=== PATIENT | male | born 1940 | race Caucasian/White ===

== ENCOUNTER → 2017-03-07 | Outpatient (CLI) | payer MEDICARE | END | disposition home or self-care (01) | LOC: LABWHC1 07:13 | PROVIDERS: ATTEND Orthopaedic Surgery | DX: Z01.812 Encounter for preprocedural laboratory examination (principal) | CPT/HCPCS: 87070 ==

== ENCOUNTER → 2017-04-20 | Outpatient (CLI) | payer MEDICARE ==
[2017-04-20 07:55] LABS: Appearance,Urine Clear (Clear); Bilirubin,Urine Negative (Negative); Glucose,Urine (UA) Negative (Negative); Ketones,Urine Negative (Negative); Leukocyte Esterase,Urine Negative (Negative); Nitrite,Urine Negative (Negative); PH, Urine 5.5 (5.0-8.0); Protein,Urine Negative (Negative); Specific Gravity,Urine 1.014 (1.001-1.035); UA Billing (MACRO vs. MICRO) CHEM; Urobilinogen,Urine <2.0 mg/dL (<2.0)
[2017-04-20 07:58] LABS: Basophils % (A) 1 %; CHCM 32.2; Eosinophils # (A) 0.1 k/uL (0-0.7); Eosinophils % (A) 1 %; HCT 48.4 % (39.0-53.0); HDW 2.55; HGB 15.5 gm/dL (13.0-17.5); Luc # (Auto) 0.12; Luc % (Auto) 3; Lymphocytes # (A) 1.3 k/uL (1.0-4.8); Lymphocytes % (A) 28 %; Mean Platelet Volume 6.9; Monocytes # (A) 0.5 k/uL (0-1.0); Monocytes % (A) 12 %; Neutrophils # (A) 2.5 k/uL (1.3-7.7); Neutrophils % (A) 56 %; RBC 4.84 m/uL (4.30-5.90); RDW 13.1 % (11.5-15.5); WBC 4.6 k/uL (3.8-10.6); WBC (Perox) 4.61
[2017-04-20 07:59] LABS: INR 1.1 (<1.2); Prothrombin Time 11.2 sec (9.0-12.0)
[2017-04-20 08:10] LABS: ALT 35 U/L (21-72); AST 22 U/L (17-59); Alkaline Phosphatase 85 U/L (38-126); Anion Gap 12 mmol/L; Blood Urea Nitrogen 22 mg/dL (9-20); Calcium 9.4 mg/dL (8.4-10.2); Carbon Dioxide 21 mmol/L (22-30); Chloride 106 mmol/L (98-107); Glucose 115 mg/dL (74-99); Non-African American GFR(MDRD) >60 (>60 ml/min/1.73 sqM); Potassium 4.8 mmol/L (3.5-5.1); Sodium 139 mmol/L (137-145); Total Bilirubin 1.6 mg/dL (0.2-1.3); Total Protein 7.3 g/dL (6.3-8.2)
== END | disposition home or self-care (01) ==
LOC: LABWHC1 07:23
PROVIDERS: ATTEND Internal Medicine Geriatric Medicine
DX: Z01.812 Encounter for preprocedural laboratory examination (principal)
CPT/HCPCS: 36415; 80053; 81003; 85025; 85610

== ENCOUNTER 2017-05-01 10:05 | Inpatient (IN) | payer MEDICARE ==
[2017-04-21 14:27] VITALS: BMI 28.2
--- NOTE | 2017-04-30 11:10 | HP ---
HISTORY AND PHYSICAL Surgery scheduled 05/01/2017 HISTORY OF PRESENT ILLNESS: Cam Tripp is a 76-year-old patient seen with symptomatic right knee osteoarthritis. After treatment options were discussed, he elected to proceed with right total knee arthroplasty. Consent was obtained. Preoperative medical clearance was provided by Dr. Hernandez. Preoperative cardiac clearance was provided by Dr. Rutherford. PAST MEDICAL HISTORY: Cardiovascular disease. Gastroesophageal reflux disease, hyperlipidemia, hypertension. PAST SURGICAL HISTORY: Is noncontributory. DAILY MEDICATIONS: 1. Crestor. 2. Enalapril. 3. Omeprazole. 4. Carvedilol. 5. Celebrex. ALLERGIES: None reported. SOCIAL HISTORY: Patient denies tobacco use. PHYSICAL EXAMINATION: Evaluation of the right knee range of motion -3 to 115 degrees. Tenderness medial joint line. Positive medial Heike's. Crepitus along the medial and patellofemoral compartments. Range of motion. Ligaments stable. Hip rotation without pain. Distal neurovascular exam intact. RADIOGRAPHS: Of the right knee revealed severe medial and moderate patellofemoral compartment osteoarthritis. IMPRESSION: Right knee osteoarthritis. PLAN: Right total knee arthroplasty. Surgery is 05/01/2017. MMODL / IJN: [id number] /
[~2017-05-01 10:05] MED LIST: ACETAMINOPHEN TAB 500 MG TAB PO ONE; DEXAMETHASONE SOD PHOSPHATE 10 MG/ML 1 ML VIAL IV ONE; HYDROmorphone 0.5 MG/0.5 ML SYRINGE IVP PRN; MELOXICAM 7.5 MG TAB PO ONE; MIDAZOLAM 2 MG/2 ML VIAL IV PRN; ONDANSETRON 4 MG/2 ML VIAL IVP ONE; TRANEXAMIC ACID 1,000 MG in SODIUM CHLORIDE 0.9% 100 ML IVPB ONE; ceFAZolin 2 GM in SODIUM CHLORIDE 0.9% 100 ML IVPB ONE
[2017-05-01] MEDS ORDERED: LIDOCAINE 1% 20 ML VIAL (10MG/ML) FOR IV START INTRADERMA ONE (13:54)
[2017-05-01] MEDS: LACTATED RINGERS 1,000 ML IV SCH ×2 (13:56→20:48)
[2017-05-01] MEDS ORDERED: MIDAZOLAM 2 MG/2 ML VIAL IV ONE (14:19)
[2017-05-01] MEDS ORDERED: ROPIVACAINE 1,100 MG, SODIUM CHLORIDE 0.9% 330 ML MISCELLANE PRN ×2 (14:41)
--- NOTE | 2017-05-01 14:44 | P.ONQ ---
Anesthesiology Proc Note - PNB - Peripheral Nerve Block Performed Right Adductor Canal Infusion Time Out Performed: Yes Procedure Start Time: 14:22 Procedure Stop Time: 14:30 Indication: Acute Post-Operative Pain, Requested by physician Sedation Type: Sedate with meaningful contact maintained Preparation: Sterile Dressing Position: Supine Catheter: Indwelling Needle Types: On-Q Needle Size: 100mm (4") Needle Gauge: 21 Technique: Ultrasound Injectate: 0.5% Ropivacaine (see comment for volume) (ropi .5% 7cc) Blood Aspirated: No Pain Paresthesia on Injection Noted: No Resistance on Injection: Normal Events: Uneventful and Well Tolerated
[2017-05-01] MEDS ORDERED: KETAMINE 10 MG/ML 20 ML VIAL ONE (15:45)
[2017-05-01] MEDS ORDERED: ESMOLOL 100 MG/10 ML VIAL ONE (15:45)
[2017-05-01] MEDS ORDERED: PROPOFOL 10 MG/ML 20 ML VIAL IV ONE (15:45)
[2017-05-01] MEDS ORDERED: TRANEXAMIC ACID 1,000 MG/10 ML VIAL ONE (15:45)
[2017-05-01] MEDS ORDERED: fentaNYL (PF) 50 MCG/ML 2 ML AMP ONE (15:45)
[2017-05-01] MEDS ORDERED: SODIUM CHLORIDE 0.9% 100 ML BAG ONE (15:45)
[2017-05-01] MEDS ORDERED: GLYCOPYRROLATE 0.2 MG/ML 2 ML VIAL ONE (15:45)
[2017-05-01] MEDS ORDERED: diphenhydrAMINE 50 MG/ML 1 ML VIAL ONE (15:45)
[2017-05-01] MEDS ORDERED: MIDAZOLAM 2 MG/2 ML VIAL ONE (15:45)
[2017-05-01] MEDS ORDERED: ceFAZolin 3,000 MG in SODIUM CHLORIDE 0.9% IRRIGATIO 3,000 ML IRRIGATION ONE (15:59)
[2017-05-01] MEDS: ROPIVACAINE 246.25 MG, EPINEPHrine 0.5 MG, KETOROLAC 30 MG, cloNIDine HCL/PF 80 MCG, WA... MISCELLANE ONE ×10 (16:28→17:12)
[2017-05-01] MEDS ORDERED: LACTATED RINGERS 1,000 ML IV ONE (16:52)
[2017-05-01] MEDS ORDERED: hydrOXYzine PAMOATE 25 MG CAP PO PRN (17:55)
[2017-05-01] MEDS ORDERED: NALOXONE 0.4 MG/ML 1 ML VIAL IV PRN (17:55)
[2017-05-01] MEDS ORDERED: HYDROmorphone 0.5 MG/0.5 ML SYRINGE IVP PRN ×3 (17:55)
[2017-05-01] MEDS ORDERED: HYDROcodone/APAP 5-325MG 1 EACH TAB PO PRN (17:55)
--- NOTE | 2017-05-01 17:55 | P.OP ---
Date of Procedure: 05/01/17 Preoperative Diagnosis: Right knee osteoarthritis Postoperative Diagnosis: Right knee osteoarthritis Procedure(s) Performed: Right total knee arthroplasty Implants: 1. Javier persona cemented cruciate retaining right size 11 femur 2. Javier persona cemented size H right cemented tibia 3. Javier persona 11 mm medial congruent polyethylene tibial insert 4. Javier persona cemented all polyethylene 38 mm patella Anesthesia: regional (Adductor canal catheter), local, spinal Surgeon: Yadiel Valles Director Online Marketing #1: Alban Decker Estimated Blood Loss (ml): 150 Pathology: other (Bone) Condition: stable Disposition: PACU Indications for Procedure: 76-year-old patient seen with symptomatic right knee osteoarthritis. After treatment options were discussed, he elected to proceed with total knee arthroplasty. Operative Findings: see description of procedure Description of Procedure: Patient was taken to the operative suite after having placement of an adductor canal catheter by the department of anesthesia. Patient underwent a spinal anesthetic by the department of anesthesia. Patient was given preoperative IV intake antibiotics and TXA. A well-padded tourniquet was placed about the right lower extremity. The lower extremity was then prepped and draped in the normal sterile orthopedic fashion. The extremity was elevated, a tourniquet was insufflated to 350. A standard anterior incision was made sharply through skin. Dissection was taken down through the subcutaneous soft tissues down to the extensor mechanism. A medial arthrotomy was performed, patella was everted and knee was flexed. There was advanced osteoarthritis noted. A proximal tibial cutting guide was positioned. Proximal tibial cut was made. A distal intramedullary femoral cutting guide was positioned, distal femoral cut made. We placed the appropriate sizing guide and selected the appropriate size. A distal 4-in-1 femoral cutting block was positioned, distal femoral cuts were made. We now placed a trial femoral component into position, along with an appropriate size tibial tray and insert. We now took the knee through range of motion and had full extension good flexion and good overall soft tissue balance noted. The patella was everted and a flush cut made with patellar quad tendon. We templated the patella, appropriate drill holes were made. An appropriate trial patella was positioned, knee was taken through full range of motion with the patella tracking very nicely. The trial patella was removed. Drill holes were made through the femoral component. All trial components were removed after marking off the appropriate rotation of the tibia. Retractors were now positioned along the proximal tibia. An appropriate keel punch was made with the appropriate size tibial guide. At this point appropriate size implants were chosen and opened. The joint was irrigated copiously with pulse lavage mechanical irrigation. The deep soft tissues were infiltrated local analgesic. We mixed antibiotic methylmethacrylate. Once the methyl methacrylate was ready, the tibial component was cemented into place removing any excess methylmethacrylate. The femoral component was cemented into place removing the removing any excess methylmethacrylate. We then inserted the appropriate size polyethylene tibial insert. We made sure that it was locked into position. We took the knee into full extension, and then back in a flexion making sure we had removed any excess methylmethacrylate. The patellar component was then cemented down and secured with clamp. Excess methylmethacrylate removed. We kept the knee in full extension, patellar clamp in position until methylmethacrylate had hardened. Once it had hardened the patellar clamp was removed. The knee was taken through full range of motion. The patella tracked nicely. There was good soft tissue balancing. The tourniquet was now released. Additional hemostasis was achieved via electrocautery. A second gram of TXA was given. The wound was irrigated with pulse lavage mechanical irrigation. The extensor mechanism was repaired with Vicryl. We checked the repair with range of motion and it was stable. The subcutaneous soft tissues were repaired with Vicryl in layers. The skin was approximated with pernio/ Dermabond. Sterile dressings were applied followed by loose web roll and Patricio bandage. The patient was transferred to a bed, and taken to recovery in stable and satisfactory condition. Peewee DAVILA assisted with the procedure.
--- NOTE | 2017-05-01 18:26 | XR ---
EXAMINATION TYPE: XR knee limited RT DATE OF EXAM: 05/01/2017 COMPARISON: NONE HISTORY: Postop TECHNIQUE: 2 views FINDINGS: There is a right knee prosthesis. Components appear in anatomic position. IMPRESSION: Knee prosthesis without sign of a complicating process.
[2017-05-01] MEDS: SENNOSIDES-DOCUSATE SODIUM 1 EACH TAB PO SCH (20:47)
[2017-05-01] MEDS: traMADol 50 MG TAB PO SCH ×2 (20:47→22:11)
[2017-05-01] MEDS: SODIUM CHLORIDE 0.9% 1,000 ML IV SCH (20:48)
[2017-05-01] MEDS: ceFAZolin 2 GM in SODIUM CHLORIDE 0.9% 100 ML IVPB SCH (23:20)
--- NOTE | 2017-05-02 06:02 | P.PN ---
Progress Note - Text Progress Note Date: 05/02/17 This is a 76-year-old male, postop day #1 status post total knee replacement. The patient denies any pain this morning and he said that he had a very good night sleep. The patient has adductor canal catheter for pain control and it seems to be working very well.
[2017-05-02 07:19] LABS: Basophils % (A) 0 %; CH 32.2; CHCM 32.8; Eosinophils % (A) 0 %; HCT 40.7 % (39.0-53.0); HDW 2.54; HGB 13.5 gm/dL (13.0-17.5); Luc # (Auto) 0.08; Luc % (Auto) 1; Lymphocytes # (A) 0.8 k/uL (1.0-4.8); Lymphocytes % (A) 7 %; MCH 32.8 pg (25.0-35.0); MCHC 33.2 g/dL (31.0-37.0); MCV 98.7 fL (80.0-100.0); Monocytes # (A) 0.8 k/uL (0-1.0); Monocytes % (A) 7 %; Neutrophils # (A) 10.4 k/uL (1.3-7.7); Neutrophils % (A) 86 %; RBC 4.13 m/uL (4.30-5.90); RDW 12.9 % (11.5-15.5); WBC 12.1 k/uL (3.8-10.6); WBC (Perox) 12.82
[2017-05-02] MEDS: FAMOTIDINE 20 MG TAB PO SCH (08:38)
[2017-05-02] MEDS: ENOXAPARIN 30 MG/0.3 ML SYRINGE SQ SCH ×2 (08:38→21:04)
[2017-05-02] MEDS: MELOXICAM 7.5 MG TAB PO SCH (08:38)
[2017-05-02] MEDS: traMADol 50 MG TAB PO SCH ×4 (08:39→21:03)
[2017-05-02] MEDS: ceFAZolin 2 GM in SODIUM CHLORIDE 0.9% 100 ML IVPB SCH (08:42)
--- NOTE | 2017-05-02 10:30 | P.PN ---
Subjective Progress Note Date: 05/02/17 Principal diagnosis: Status post right total knee arthroplasty Patient is seen today resting in his hospital bed, he appears comfortable. Pain is well-controlled in his knee. He's work with therapy at this point. He denies any headaches, lightheadedness, chest pain or shortness of breath. Objective - Vital Signs Vital signs: Vital Signs Temp 97.8 F 05/02/17 07:41 Pulse 89 05/02/17 07:41 Resp 16 05/02/17 08:00 BP 122/79 05/02/17 07:41 Pulse Ox 96 05/02/17 07:41 Intake & Output 05/01/17 05/02/17 05/02/17 18:59 06:59 18:59 Intake Total 1801 800 Output Total 350 775 100 Balance 1451 25 -100 Intake: IV 1801 Intake, IV Titration 800 Amount Sodium Chloride 0.9% 1, 800 000 ml @ 50 mls/hr IV . Q20H [facility] Rx#:[id number] Output: Urine 200 775 100 Uretheral (Pate) 525 100 Estimated Blood Loss 150 Other: Voiding Method Indwelling Catheter Indwelling Catheter # Voids 3 - Exam Right lower extremity: Incision is clean, dry, and intact. The prineo tape is in good condition. There is minimal soft tissue swelling and ecchymosis surrounding the medial and lateral aspects of the incision. Calf is soft, no tenderness with palpation. Plantar flexion, dorsiflexion, EHL, FHL are intact. Sensory exam to light touch throughout the extremity is intact, [dorsal pedis pulses 2+.] - Labs CBC & Chem 7: 05/02/17 06:49 Labs: Abnormal Lab Results - Last 24 Hours (Table) 05/02/17 Range/Units 06:49 WBC 12.1 H (3.8-10.6) k/uL RBC 4.13 L (4.30-5.90) m/uL Neutrophils # 10.4 H (1.3-7.7) k/uL Lymphocytes # 0.8 L (1.0-4.8) k/uL Assessment and Plan Plan: Assessment: 1. Postop day #1 status post right total knee arthroplasty Plan: 1. Pain control, continue use of oral pain medication 2. Continue work with physical therapy 3. Wound care instructions discussed, including icing and elevating techniques 4. GI and DVT prophylaxis, continue subcu medication 5. Medical recommendations 6. Due to the patient's difficulty with stairs along with recent surgery, I would recommend a hospital bed for home after discharge. Patient has 13 stairs to climb to his room, hospital bed would help prevent any further issues. 7. Further recommendations to follow Time with Patient: Less than 30
--- NOTE | 2017-05-02 10:32 | P.DS ---
Providers Date of admission: 05/01/17 13:20 Expected date of discharge: 05/03/17 Attending physician: Yadiel Valles Consults: 05/01/17 17:55 Consult Physician Routine Consulting Provider: Toni Hernandez Reason/Comments: Medical management Do you want consulting provider notified?: Yes Hospital Course: Date of admission: 05/01/2017 Date of discharge: 05/03/2017 Admission diagnosis: Status post right total knee arthroplasty Discharge diagnosis: Same Attending physician: Dr. Valles Surgical procedures: Right total knee arthroplasty Brief history: Patient is a 76-year-old male with a history of progressive primary right knee osteoarthritis. At this point patient has failed conservative treatment measures and has opted to proceed with a elective right total knee arthroplasty. Hospital course: Details of patient's surgery can be found in operative report. Patient tolerated the procedure well and was subsequently transported to orthopedic floor. Patient's orthopeidc and medical care was provided daily. Patient had daily laboratory tests performed for evaluation of overall blood counts. Patient had daily physical therapy to include strengthening range of motion as well as education with walker ambulation. Patient had daily CPM usage as part of their physical therapy program. Patient was treated with Lovenox for their postoperative DVT prophylaxis during their inpatient stay. Patient was noted to have a relatively uneventful postoperative course. Patient reported satisfactory pain control with oral pain medications by postoperative day 0. Patient showed satisfactory progress with physical therapy. Patient moved steadily through the program and had no difficulty meeting the goals by postoperative day 2. Given patient's otherwise satisfactory course and having met physical therapy goals, plan is to discharge patient home on postoperative day 2. Discharge condition/disposition: Patient will be discharged home in stable condition. Discharge medications: Instructions are given on resumption of patient's normal daily medications per primary care recommendation, in addition patient will be prescribed [place] 5 mg/325 mg, Colace 100 mg, aspirin 325 mg. Discharge instructions: 1. Wound care and infection precautions, keep incision dry and covered while showering, no lotions, creams, moisturizers. No soaking, tubs, pools, hottubs. Do not scrub over the incision. 2. Weight-bear as tolerated with walker / cane until follow-up. 3. Ice and elevate when necessary. Do not exceed 20 minutes per hour with ice pack. 4. Utilize compression sleeve until seen at first follow up appointment. 5. Visiting nursing care. 6. Home physical therapy including home CPM. 7. Pain meds and anticoagulants per prescription. 8. Pain medication has potential to cause constipation. Increase oral fluid and fiber intake. Contact primary care provider if you have not had a bowel movement within 48 hours after discharge 9. No anti-inflammatory medication until discussed at first post operative visit, this including Motrin, Aleve, Mobic, Diclofenac. 10. Follow up in office at 2 weeks postop with Peewee Decker PA-C 11. Follow up with your primary care doctor 7-10 days after discharge. 12. Contact [facility] with any questions, . Procedures: Right total knee arthroplasty Patient Condition at Discharge: Good Plan - Discharge Summary New Discharge Prescriptions: New Aspirin 325 mg PO BID #60 tab Docusate [Colace] 100 mg PO DAILY #30 capsule Hydrocodone/Acetaminophen [[place] 5-325] 1 each PO Q6HR PRN #40 tab PRN Reason: Pain Discontinued Aspirin [Adult Low Dose Aspirin EC] 81 mg PO DAILY No Action Ubidecarenone [Co Q-10] 100 mg PO DAILY Omeprazole [PriLOSEC] 20 mg PO AC-BRKFST Nitroglycerin Sl Tabs [Nitrostat] 0.4 mg SUBLINGUAL Q5M PRN PRN Reason: CP Enalapril Maleate [Vasotec] 10 mg PO HS Rosuvastatin Calcium [Crestor] 10 mg PO MOWETH Carvedilol [Coreg] 3.125 tab PO BID Celecoxib [CeleBREX] 200 mg PO MOTUWEFRSA Discharge Medication List Carvedilol [Coreg] 3.125 tab PO BID 04/21/17 [History] Celecoxib [CeleBREX] 200 mg PO MOTUWEFRSA 04/21/17 [History] Enalapril Maleate [Vasotec] 10 mg PO HS 04/21/17 [History] Nitroglycerin Sl Tabs [Nitrostat] 0.4 mg SUBLINGUAL Q5M PRN 04/21/17 [History] Omeprazole [PriLOSEC] 20 mg PO AC-BRKFST 04/21/17 [History] Rosuvastatin Calcium [Crestor] 10 mg PO MOWETH 04/21/17 [History] Ubidecarenone [Co Q-10] 100 mg PO DAILY 04/21/17 [History] Aspirin 325 mg PO BID #60 tab 05/03/17 [Rx] Docusate [Colace] 100 mg PO DAILY #30 capsule 05/03/17 [Rx] Hydrocodone/Acetaminophen [[place] 5-325] 1 each PO Q6HR PRN #40 tab 05/03/17 [Rx] Follow up Appointment(s)/Referral(s): Toni Hernandez MD [Medical Doctor] - 2 Weeks Alban Decker PAC [PHYSICIAN ASSOCIATE DEAN] - 05/17/17 2:30 pm [facility] Visiting Nurse, [NON-STAFF] - Activity/Diet/Wound Care/Special Instructions: CPM through [facility], please call when you arrive home [phone] Orthopedic Discharge Instructions: 1. Wound care and infection precautions, keep incision dry and covered while showering, no lotions, creams, moisturizers. No soaking, pools, hot tubs. Do not scrub over incision. 2. Weight-bear as tolerated with walker / cane until follow-up. 3. Ice and elevate when necessary. Do not exceed 20 minutes per hour with ice pack. 4. Utilize compression sleeve until seen at first follow up appointment. 5. Visiting nursing care. 6. Home physical therapy including home CPM. 7. Pain meds and anticoagulants per prescription. 8. Pain medication has potential to cause constipation. Increase oral fluid and fiber intake. Contact primary care provider if you have not had a bowel movement within 48 hours after discharge. 9. No anti-inflammatory medication until discussed at first post operative visit, this including Motrin, Aleve, Mobic, Diclofenac. 10. Follow up in office at 2 weeks postop with Peewee Decker PA-C 11. Follow up with your primary care doctor 7-10 days after discharge. 12. Contact [facility] with any questions, . Discharge Disposition: HOME WITH HOME HEALTH SERVICES
--- NOTE | 2017-05-02 11:30 | P.CONS ---
History of Present Illness - Reason for Consult Consult date: 05/02/17 Medical management - History of Present Illness This is a 76-year-old male patient of Dr. 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 Patient has a known ejection fraction of 45% with mild MR and mild TR. Patient underwent cardiac clearance for left total knee arthroplasty with Dr. Rutherford and had recent stress test that showed no significant ischemia. Patient has been admitted to the hospital the care of Dr. Rahel Mcgrath and underwent a right total knee arthroplasty yesterday. Patient has had no postop complications. His Pate catheter has been removed and he is urinating without difficulty. Patient has worked with physical therapy and walked in the hallway and is planned to work with physical therapy on stairs this afternoon. Patient has had no nausea or vomiting. He has not had a bowel movement as yet. Patient's pain is controlled. Patient has requested a hospital bed being ordered by orthopedics as his bedroom is on the second floor. Patient is planning to return home with his at the time of discharge Review of Systems All systems: negative Constitutional: Denies chills, Denies fever Eyes: denies blurred vision, denies pain Ears, nose, mouth and throat: Denies dental pain, Denies headache, Denies mouth pain, Denies sore throat, Denies vertigo Cardiovascular: Denies chest pain, Denies decreased exercise tolerance, Denies dyspnea on exertion, Denies edema, Denies leg edema, Denies lightheadedness, Denies shortness of breath, Denies syncope Respiratory: Denies cough, Denies cough with sputum, Denies dyspnea, Denies excessive sputum, Denies hemoptysis, Denies home oxygen Gastrointestinal: Denies abdominal pain, Denies constipation, Denies diarrhea, Denies nausea, Denies vomiting Genitourinary: Denies dysuria, Denies flank pain, Denies hematuria, Denies urinary frequency, Denies urinary retention Musculoskeletal: Denies myalgias Musculoskeletal: right: knee pain Integumentary: Denies pruritus, Denies rash Neurological: Denies numbness, Denies weakness Psychiatric: Denies anxiety, Denies depression Endocrine: Denies fatigue, Denies weight change Past Medical History Past Medical History: Coronary Artery Disease (CAD), Hyperlipidemia, Hypertension, Myocardial Infarction (NE), Osteoarthritis (OA) Additional Past Medical History / Comment(s): HX COLON POLYPS. HX VERTIGO. HAS NOCTURIA. Ischemic cardiomyopathy Last Myocardial Infarction Date:: 2006 History of Any Multi-Drug Resistant Organisms: None Reported Past Surgical History: Bowel Resection, Cholecystectomy, Heart Catheterization With Stent, Joint Replacement Additional Past Surgical History / Comment(s): TOTAL LT KNEE 2004. BOWEL RESECTION FOR BENIGN POLYP. Total right knee arthroplasty April 2017. Past Anesthesia/Blood Transfusion Reactions: No Reported Reaction Date of Last Stent Placement:: 2010 Smoking Status: Former smoker Additional Past Alcohol Use History / Comment(s): Patient was a smoker of less than half a pack per day for 7 years and quit in 1958. No illicit drug use. Patient lives at home with his . - Past Family History Mother Family Medical History: No Reported History Additional Family Medical History / Comment(s): Mother in her 80s with history of uterine cancer. Father Additional Family Medical History / Comment(s): Father at age 59 from ALS. Sister(s) Additional Family Medical History / Comment(s): Patient has one sister this 85 years of age with history of hypertension. Patient does not have any brothers. Patient does not have any children. Medications and Allergies Home Medications Medication Instructions Recorded Confirmed Type Aspirin [Adult Low Dose Aspirin EC] 81 mg PO DAILY 04/21/17 05/01/17 History Carvedilol [Coreg] 3.125 tab PO BID 04/21/17 05/01/17 History Celecoxib [CeleBREX] 200 mg PO MOTUWEFRSA 04/21/17 05/01/17 History Enalapril Maleate [Vasotec] 10 mg PO HS 04/21/17 05/01/17 History Nitroglycerin Sl Tabs [Nitrostat] 0.4 mg SUBLINGUAL Q5M PRN 04/21/17 05/01/17 History Omeprazole [PriLOSEC] 20 mg PO AC-BRKFST 04/21/17 05/01/17 History Rosuvastatin Calcium [Crestor] 10 mg PO MOWETH 04/21/17 05/01/17 History Ubidecarenone [Co Q-10] 100 mg PO DAILY 04/21/17 05/01/17 History Allergies Allergy/AdvReac Type Severity Reaction Status Date / Time No Known Allergies Allergy Verified 05/01/17 19:39 Physical Exam Vitals: Vital Signs Temp Pulse Resp BP BP Pulse Ox 05/02/17 08:00 16 05/02/17 07:41 97.8 F 89 16 122/79 96 05/02/17 01:15 97.6 F 90 16 132/78 93 L 05/01/17 20:30 86 138/85 05/01/17 20:15 89 134/75 05/01/17 20:00 84 137/82 05/01/17 19:45 83 139/81 05/01/17 19:30 85 145/90 05/01/17 19:15 84 143/86 05/01/17 19:00 83 16 143/87 94 L 05/01/17 18:45 82 16 150/84 100 05/01/17 18:30 89 16 162/84 100 05/01/17 18:15 87 14 157/83 100 05/01/17 18:08 96.9 F L 81 12 151/72 100 05/01/17 13:48 98.5 F 69 16 139/75 96 Intake and Output 05/01/17 05/02/17 05/02/17 22:59 06:59 14:59 Intake Total 1901 400 Output Total 600 525 100 Balance 1301 -125 -100 Intake: IV 1501 Intake, IV Titration 400 400 Amount Sodium Chloride 0.9% 1, 400 400 000 ml @ 50 mls/hr IV . Q20H [facility] Rx#:[id number] Output: Urine 450 525 100 Uretheral (Pate) 525 100 Estimated Blood Loss 150 Other: Voiding Method Indwelling Catheter Indwelling Catheter # Voids 3 Gen: This is a 76-year-old male. He is sitting up in a chair at the bedside and appears to be comfortable and in no acute distress. HEENT: Head is atraumatic, normocephalic. Pupils equal, round. Sclerae is anicteric. Conjunctiva pink. Mucous members of the mouth are slightly dry. NECK: Supple. No JVD. No lymphadenopathy. No thyromegaly. LUNGS: Clear to auscultation. No wheezes or rhonchi. No intercostal retractions. HEART: Regular rate and rhythm. Systolic murmur. ABDOMEN: Soft. Bowel sounds are present. No masses. No tenderness. EXTREMITIES: No pedal edema. No calf tenderness. Dressing in place to the right knee with no breakthrough drainage or bleeding. Dorsalis pedis is +2 bilaterally. NEUROLOGICAL: Patient is awake, alert and oriented x3. Cranial nerves 2 through 12 are grossly intact. Results Results: Laboratory Results WBC 12.1 k/uL (3.8-10.6) H 05/02/17 06:49 RBC 4.13 m/uL (4.30-5.90) L 05/02/17 06:49 Hgb 13.5 gm/dL (13.0-17.5) 05/02/17 06:49 Hct 40.7 % (39.0-53.0) 05/02/17 06:49 MCV 98.7 fL (80.0-100.0) 05/02/17 06:49 MCH 32.8 pg (25.0-35.0) 05/02/17 06:49 MCHC 33.2 g/dL (31.0-37.0) 05/02/17 06:49 RDW 12.9 % (11.5-15.5) 05/02/17 06:49 Plt Count 205 k/uL (150-450) 05/02/17 06:49 Neutrophils % 86 % 05/02/17 06:49 Lymphocytes % 7 % 05/02/17 06:49 Monocytes % 7 % 05/02/17 06:49 Eosinophils % 0 % 05/02/17 06:49 Basophils % 0 % 05/02/17 06:49 Neutrophils # 10.4 k/uL (1.3-7.7) H 05/02/17 06:49 Lymphocytes # 0.8 k/uL (1.0-4.8) L 05/02/17 06:49 Monocytes # 0.8 k/uL (0-1.0) 05/02/17 06:49 Eosinophils # 0.0 k/uL (0-0.7) 05/02/17 06:49 Basophils # 0.0 k/uL (0-0.2) 05/02/17 06:49 CBC & Chem 7: 05/02/17 06:49 Labs: Abnormal Lab Results - Last 24 Hours (Table) 05/02/17 Range/Units 06:49 WBC 12.1 H (3.8-10.6) k/uL RBC 4.13 L (4.30-5.90) m/uL Neutrophils # 10.4 H (1.3-7.7) k/uL Lymphocytes # 0.8 L (1.0-4.8) k/uL Assessment and Plan Plan: 1. Osteoarthritis status post right total knee arthroplasty in the care of Dr. Rahel Mcgrath. Continue current pain management, physical therapy. Continue incentive spirometry to reduce incidence of atelectasis and hospital-acquired pneumonia. 2. History of coronary artery disease and PCI. Continue Coreg 3.125 mg twice daily, Crestor 10 mg Monday, aspirin 81 mg daily. 3. Hyperlipidemia. Continue Crestor. 4. Ischemic cardiomyopathy with ejection fraction of 45%, stable. 5. Hypertension. Continue enalapril 10 mg at bedtime and Coreg 3.125 mg twice daily. 6. DVT prophylaxis continue Lovenox. 7. Gastrointestinal prophylaxis. Continue Pepcid. Patient will be admitted to the hospital for a minimum of 2 night stay. Discharge plan: Discharge home tomorrow with [facility] Impression and plan of care have been directed as dictated by the signing physician. Genesis Hall nurse practitioner acting as scribe for signing physician.
[2017-05-02] MEDS: SODIUM CHLORIDE 0.9% 1,000 ML IV SCH ×2 (15:24→15:41)
[2017-05-02] MEDS: HYDROcodone/APAP 5-325MG 1 EACH TAB PO PRN ×2 (15:34→22:49)
[2017-05-02] MEDS: SENNOSIDES-DOCUSATE SODIUM 1 EACH TAB PO SCH (21:03)
[2017-05-02] MEDS: ONDANSETRON 4 MG/2 ML VIAL IVP PRN (22:49)
[2017-05-02] MEDS ORDERED: CALCIUM CARBONATE 500 MG CHEWABLE PO PRN (23:20)
[2017-05-03] MEDS: HYDROcodone/APAP 5-325MG 1 EACH TAB PO PRN (04:24)
[2017-05-03] MEDS: LACTATED RINGERS 1,000 ML IV SCH (07:00)
[2017-05-03] MEDS: ONDANSETRON 4 MG/2 ML VIAL IVP PRN (07:57)
[2017-05-03] MEDS: MELOXICAM 7.5 MG TAB PO SCH (07:58)
[2017-05-03] MEDS: ENOXAPARIN 30 MG/0.3 ML SYRINGE SQ SCH (07:58)
[2017-05-03] MEDS: FAMOTIDINE 20 MG TAB PO SCH (07:58)
[2017-05-03 08:04] VITALS: BP 145/72; PULSE 86; RESP 16; TEMP 97.7
[2017-05-03] MEDS: traMADol 50 MG TAB PO SCH (09:15)
--- NOTE | 2017-05-03 12:27 | P.PN ---
Subjective Progress Note Date: 05/03/17 Principal diagnosis: Status post right total knee arthroplasty Patient is seen today resting in his hospital bed, he appears comfortable. Pain is well-controlled in his knee. He denies any headaches, lightheadedness, chest pain or shortness of breath. Objective - Vital Signs Vital signs: Vital Signs Temp 97.7 F 05/03/17 07:00 Pulse 86 05/03/17 08:00 Resp 16 05/03/17 08:00 BP 145/72 05/03/17 07:00 Pulse Ox 96 05/03/17 07:00 Intake & Output 05/02/17 05/03/17 05/03/17 18:59 06:59 18:59 Intake Total 700 800 Output Total 700 300 Balance 0 500 Intake: IV 100 800 Sodium Chloride 0.9% 1, 100 800 000 ml @ 50 mls/hr IV . Q20H [facility] Rx#:[id number] Oral 600 Output: Urine 700 300 Uretheral (Pate) 700 Other: Voiding Method Indwelling Catheter Indwelling Catheter Toilet Urinal # Voids 3 - Exam Right lower extremity: Incision is clean, dry, and intact. The prineo tape is in good condition. There is minimal soft tissue swelling and ecchymosis surrounding the medial and lateral aspects of the incision. Calf is soft, no tenderness with palpation. Plantar flexion, dorsiflexion, EHL, FHL are intact. Sensory exam to light touch throughout the extremity is intact, [dorsal pedis pulses 2+.] - Labs CBC & Chem 7: 05/02/17 06:49 Assessment and Plan Plan: Assessment: 1. Postop day #2 status post right total knee arthroplasty Plan: 1. Pain control, continue use of oral pain medication 2. Continue work with physical therapy 3. Wound care instructions discussed, including icing and elevating techniques 4. GI and DVT prophylaxis, dc home on aspirin 325mg bid 5. Medical recommendations 6. Discharge home today Time with Patient: Less than 30
--- NOTE | 2017-05-03 13:13 | P.PN ---
Subjective Progress Note Date: 05/03/17 This is a 76-year-old male patient of Dr. 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 Patient has a known ejection fraction of 45% with mild MR and mild TR. Patient underwent cardiac clearance for left total knee arthroplasty with Dr. Rutherford and had recent stress test that showed no significant ischemia. Patient has been admitted to the hospital the care of Dr. Rahel Mcgrath and underwent a right total knee arthroplasty yesterday. Patient has had no postop complications. His Pate catheter has been removed and he is urinating without difficulty. Patient has worked with physical therapy and walked in the hallway and is planned to work with physical therapy on stairs this afternoon. Patient has had no nausea or vomiting. He has not had a bowel movement as yet. Patient's pain is controlled. Patient has requested a hospital bed being ordered by orthopedics as his bedroom is on the second floor. Patient is planning to return home with his at the time of discharge 05/03: Patient is scheduled for discharge home today. His pain is well controlled. He has been doing very well with physical therapy. Patient is being discharged today in stable condition. Objective - Vital Signs Vital signs: Vital Signs Temp 97.7 F 05/03/17 07:00 Pulse 86 05/03/17 08:00 Resp 16 05/03/17 08:00 BP 145/72 05/03/17 07:00 Pulse Ox 96 05/03/17 07:00 Intake & Output 05/02/17 05/03/17 05/03/17 18:59 06:59 18:59 Intake Total 700 800 Output Total 700 300 Balance 0 500 Intake: IV 100 800 Sodium Chloride 0.9% 1, 100 800 000 ml @ 50 mls/hr IV . Q20H [facility] Rx#:[id number] Oral 600 Output: Urine 700 300 Uretheral (Pate) 700 Other: Voiding Method Indwelling Catheter Indwelling Catheter Toilet Urinal # Voids 3 - Exam Gen: This is a 76-year-old male. He is sitting up in a chair at the bedside and appears to be comfortable and in no acute distress. HEENT: Head is atraumatic, normocephalic. Pupils equal, round. Sclerae is anicteric. Conjunctiva pink. Mucous members of the mouth are slightly dry. NECK: Supple. No JVD. No lymphadenopathy. No thyromegaly. LUNGS: Clear to auscultation. No wheezes or rhonchi. No intercostal retractions. HEART: Regular rate and rhythm. Systolic murmur. ABDOMEN: Soft. Bowel sounds are present. No masses. No tenderness. EXTREMITIES: No pedal edema. No calf tenderness. Dressing in place to the right knee with no breakthrough drainage or bleeding. Dorsalis pedis is +2 bilaterally. NEUROLOGICAL: Patient is awake, alert and oriented x3. Cranial nerves 2 through 12 are grossly intact. - Labs CBC & Chem 7: 05/02/17 06:49 Assessment and Plan Plan: 1. Osteoarthritis status post right total knee arthroplasty in the care of Dr. Rahel Mcgrath. Continue current pain management, physical therapy. Continue incentive spirometry to reduce incidence of atelectasis and hospital-acquired pneumonia. 2. History of coronary artery disease and PCI. Continue Coreg 3.125 mg twice daily, Crestor 10 mg Monday, aspirin 81 mg daily. 3. Hyperlipidemia. Continue Crestor. 4. Ischemic cardiomyopathy with ejection fraction of 45%, stable. 5. Hypertension. Continue enalapril 10 mg at bedtime and Coreg 3.125 mg twice daily. 6. DVT prophylaxis continue Lovenox. 7. Gastrointestinal prophylaxis. Continue Pepcid. Discharge plan: Discharge home with [facility] Impression and plan of care have been directed as dictated by the signing physician. Genesis Hall nurse practitioner acting as scribe for signing physician.
== END 2017-05-03 13:47 | disposition home health service (06) | DRG 470 ==
LOC: 2ORMAIN 13:20 → 3SUR 17:52
PROVIDERS: ADMIT Orthopaedic Surgery; ATTEND Orthopaedic Surgery
PROC: 0SRC0J9 Replacement of Right Knee Joint with Synthetic Substitute, Cemented, Open Approach (ICD-10-PCS; principal; 2017-05-01 15:35)
DX: M17.11 Unilateral primary osteoarthritis, right knee (principal); I25.5 Ischemic cardiomyopathy; I10 Essential (primary) hypertension; I25.10 Atherosclerotic heart disease of native coronary artery without angina pectoris; E78.5 Hyperlipidemia, unspecified; I25.2 Old myocardial infarction; K21.9 Gastro-esophageal reflux disease without esophagitis; Z79.82 Long term (current) use of aspirin; Z79.899 Other long term (current) drug therapy; Z82.49 Family history of ischemic heart disease and other diseases of the circulatory system; Z86.010 Personal history of colon polyps; Z87.891 Personal history of nicotine dependence; Z96.652 Presence of left artificial knee joint
CPT/HCPCS: 85025; 88300

== ENCOUNTER → 2018-06-22 | Outpatient (CLI) | payer MEDICARE ==
--- NOTE | 2018-06-22 09:10 | US ---
EXAMINATION TYPE: US abdomen complete DATE OF EXAM: 06/22/2018 COMPARISON: NONE CLINICAL HISTORY: R31.9 Hematuria. EXAM MEASUREMENTS: Liver Length: 17.9 cm Gallbladder Wall: Surgically absent CBD: 0.7 cm Spleen: 9.2 Right Kidney: 9.5 x 5.2 x 5.0 cm Left Kidney: 11.4 x 5.3 x 4.7 cm Pancreas: Obscured by bowel gas Liver: Heterogenous Gallbladder: Surgically absent Evidence for sonographic Wells's sign: No CBD: wnl for age and post cholecystectomy Spleen: wnl Right Kidney: Measuring smaller than the left. No hydronephrosis. No cystic or solid mass visualized Left Kidney: No hydronephrosis or masses seen Upper IVC: wnl as visualized Abd Aorta: Limited visualization due to overlying bowel gas, visualized portions show atheroscleroti c changes. No sonographic evidence for AAA The intrahepatic portion of the IVC and proximal abdominal aorta are within normal limits. Commo n bile duct is unremarkable. The visualized portions of the pancreas are homogenous. The spleen is unremarkable. Kidneys are symmetric and free of hydronephrosis. No renal lesions are seen. IMPRESSION: 1. Suspect hepatic steatosis.
== END | disposition home or self-care (01) ==
LOC: RADUSWWP 08:26
PROVIDERS: ATTEND Internal Medicine Geriatric Medicine
DX: R31.9 Hematuria, unspecified (principal)
CPT/HCPCS: 76700

== ENCOUNTER → 2018-07-25 | Outpatient (CLI) | payer MEDICARE ==
--- NOTE | 2018-07-25 12:42 | CT ---
EXAMINATION TYPE: CT abdomen pelvis wo con DATE OF EXAM: 07/25/2018 COMPARISON: None HISTORY: Gross hematuria, Bilateral flank pain, Negative history of Renal stones CT DLP: 908.30 mGycm Automated exposure control for dose reduction was used. TECHNIQUE: Helical acquisition of images was performed from the lung bases through the pelvis. FINDINGS: LUNG BASES: Peripheral basilar reticular pattern suggests early fibrosis. No honeycombing. Right lowe r lobe pulmonary nodule adjacent to a pulmonary vessel as seen on series 4 image 12 measuring 4 mm. LIVER/GB: Fluid attenuated left hepatic lesion is subcentimeter and too small to accurately character ize measuring 4 mm however this likely represents a small hepatic cyst given its fluid attenuation. R emainder the liver is grossly unremarkable with the limitation of lack of intravenous contrast. Adelina cystectomy clips reside within the gallbladder fossa. PANCREAS: No significant abnormality is seen. SPLEEN: No significant abnormality is seen. ADRENALS: No significant abnormality is seen. KIDNEYS: No hydronephrosis or nephrolithiasis is seen of either kidney. Ureters are grossly unremarka ble and nondilated. No calculi are seen within the ureters. Urinary bladder is incompletely distended and suboptimally evaluated. FREE AIR: No free air is visualized ADENOPATHY: No greater than 1 cm short axis lymph node is seen within the abdomen or pelvis. REPRODUCTIVE ORGANS: Prostate gland is enlarged measuring 5.6 cm in transverse dimension containing p unctate early central zone calcifications. OSSEOUS STRUCTURES: There is grade 1 anterolisthesis of L3 on L4 and moderate multilevel degenerativ e change of the spine. BOWEL: Numerous sigmoid diverticula are evident without pericolonic fat stranding. Descending coloni c diverticula are also seen to a lesser degree. Appendix is air-filled and within normal limits. No d ilated large or small bowel. OTHER: Abdominal aorta is of normal course and caliber with moderate calcific atheromatous plaquing. IMPRESSION: 1. NO NEPHROLITHIASIS, NO URETERAL CALCULI, NO URINARY BLADDER CALCULI AND NO HYDRONEPHROSIS. URINARY BLADDER IS INCOMPLETELY DISTENDED. FURTHER EVALUATION OF THE URINARY BLADDER GIVEN GROSS HEMATURIA C OULD BE PERFORMED WITH CT UROGRAM OR DIRECT VISUALIZATION. 2. EXTENSIVE SIGMOID DIVERTICULOSIS. 3. PROBABLE LEFT HEPATIC SUBCENTIMETER CYST. 4. FINDINGS SUGGESTING EARLY PULMONARY FIBROSIS. 4 MM RIGHT LOWER LOBE PULMONARY NODULE [facility] THORAX IN 12 MONTHS IS RECOMMENDED TO ESTABLISH STABILITY.
== END | disposition home or self-care (01) ==
LOC: RADCTMAIN 07:10
PROVIDERS: ATTEND Urology
DX: N32.89 Other specified disorders of bladder (principal); K57.30 Diverticulosis of large intestine without perforation or abscess without bleeding
CPT/HCPCS: 74176

== ENCOUNTER → 2018-07-30 | Outpatient (CLI) | payer MEDICARE ==
--- NOTE | 2018-07-30 13:34 | XR ---
EXAMINATION TYPE: XR lumbar spine 2 or 3V DATE OF EXAM: 07/30/2018 CLINICAL HISTORY: Low back pain TECHNIQUE: Frontal and lateral images of the lumbar spine are obtained. COMPARISON: CT abdomen pelvis 5 days ago. FINDINGS: There are 5 lumbar type vertebral bodies identified. The lumbar spine redemonstrate sligh t grade 1 anterolisthesis of L3 on L4 without evidence of acute fracture or dislocation. Vertebral jaspreet dy heights remain within normal limits. There is moderate disc space narrowing with vacuum disc pheno apolinar L3-L4 through L5-S1 levels. There is multilevel facet arthropathy in the mid to lower lumbar sp ine. Multilevel spinous process hypertrophy is seen. Vascular calcification overlying aorta and splen ic artery branch vessels is redemonstrated. Cholecystectomy clips are redemonstrated. IMPRESSION: As above.
--- NOTE | 2018-07-30 14:32 | XR ---
EXAMINATION TYPE: XR Hip Complete LT DATE OF EXAM: 07/30/2018 CLINICAL HISTORY: Left hip pain and sciatic nerve pain. TECHNIQUE: AP and frogleg views of the left hip are obtained. COMPARISON: None. FINDINGS: There is no acute fracture/dislocation evident in the left hip. The joint space in the le ft hip appears narrowed slightly medially and in a cephalad location. There is acetabular roof sclero sis and very small marginal osteophyte of the acetabular sourcil. The overlying soft tissue appears unremarkable. No cam deformity is seen. IMPRESSION: There is no acute fracture or dislocation in the left hip. Mild left femoral acetabular arthropathy.
== END | disposition home or self-care (01) ==
LOC: RADXRMAIN 12:58
PROVIDERS: ATTEND Internal Medicine Geriatric Medicine
DX: M48.07 Spinal stenosis, lumbosacral region (principal); M43.16 Spondylolisthesis, lumbar region; M46.96 Unspecified inflammatory spondylopathy, lumbar region; M16.12 Unilateral primary osteoarthritis, left hip
CPT/HCPCS: 72100; 73502

== ENCOUNTER → 2020-01-17 | Outpatient (CLI) | payer MEDICARE ==
--- NOTE | 2020-01-17 08:24 | XR ---
EXAMINATION TYPE: XR lumbar spine 2 or 3V DATE OF EXAM: 01/17/2020 CLINICAL HISTORY: pain TECHNIQUE: Three views of the lumbar spine are submitted. COMPARISON: 07/30/2018 FINDINGS: There are 5 lumbar type vertebral bodies identified. The lumbar spine shows satisfactory alignment w ithout evidence of acute fracture or dislocation. Vertebral body heights are within normal limits. Severe multilevel degenerative disc disease greatest at L4-5 and L5-S1 with vacuum disc noted. There is grade 1 anterolisthesis of L3 on L4 of 6 mm. Severe facet joint arthropathy. The overlying soft t issue appears unremarkable. IMPRESSION: No acute fracture or dislocation is seen in the lumbar spine. ICD 10 NO FRACTURE, INITIAL EVALUATION
== END | disposition home or self-care (01) ==
LOC: RADXRMAIN 07:47
PROVIDERS: ATTEND Internal Medicine Geriatric Medicine
DX: M48.00 Spinal stenosis, site unspecified (principal)
CPT/HCPCS: 72100

== ENCOUNTER 2023-05-20 08:05 | Emergency (ER) | payer MEDICARE ==
[2023-05-20 08:22] VITALS: BP 146/82; PULSE 64; RESP 18; TEMP 97.6
[2023-05-20] MEDS ORDERED: DIPH,PERTUS(ACELL)TETVAC-LF 0.5 ML VIAL IM ONE (08:27)
--- NOTE | 2023-05-20 08:33 | ED ---
General Adult HPI - General Chief complaint: Fall Stated complaint: Head Lac/Fall-no Thinners Time Seen by Provider: 05/20/23 08:20 Source: patient Mode of arrival: wheelchair Limitations: no limitations - History of Present Illness Initial comments: Patient is an 82-year-old male who presents emergency Department after a fall. Presents from [facility] with family. [place]. Initial arterial is attempting to reach him when he lost his balance and fell. Struck the left side of his head on an unknown object. He has a hematoma there. Denies loss of consciousness. Is not on blood thinners. Denies chest pain or shortness breath. Denies abdominal pain, nausea, vomiting. Presents with family states he has been acting his normal baseline. Fall occurred approximately one hour ago. Presents for further evaluation at this time. Has no other obvious complaints. Unknown last tetanus.Patient does endorse left shoulder pain but is still able to move it. Ambulates with a walker at baseline. - Related Data Home Medications Medication Instructions Recorded Confirmed Celecoxib [CeleBREX] 200 mg PO [id number] 04/21/17 05/01/17 Enalapril Maleate [Vasotec] 10 mg PO HS 04/21/17 05/01/17 Nitroglycerin Sl Tabs [Nitrostat] 0.4 mg SUBLINGUAL Q5M PRN 04/21/17 05/01/17 Omeprazole [PriLOSEC] 20 mg PO AC-BRKFST 04/21/17 05/01/17 Rosuvastatin Calcium [Crestor] 10 mg PO MOWETH 04/21/17 05/01/17 Ubidecarenone [Co Q-10] 100 mg PO DAILY 04/21/17 05/01/17 carvediloL [Coreg] 3.125 tab PO BID 04/21/17 05/01/17 Previous Rx's Medication Instructions Recorded Aspirin 325 mg PO BID #60 tab 05/03/17 Docusate [Colace] 100 mg PO DAILY #30 capsule 05/03/17 Hydrocodone/Acetaminophen [[place] 1 each PO Q6HR PRN #40 tab 05/03/17 5-325] Allergies Allergy/AdvReac Type Severity Reaction Status Date / Time No Known Allergies Allergy Verified 05/20/23 08:15 Review of Systems ROS Statement: Those systems with pertinent positive or pertinent negative responses have been documented in the HPI. Review of Systems: CONST: Denies fever EYES: Denies blurry vision ENT: Denies nasal congestion C/V: Denies Chest pain RESP: Denies shortness of breath GI: Denies abdominal pain : Denies dysuria SKIN: Endorses hematoma over left forehead MSK: Endorses left shoulder pain NEURO: Denies headache ROS Other: All systems not noted in ROS Statement are negative. Past Medical History Past Medical History: Coronary Artery Disease (CAD), Hyperlipidemia, Hypertension, Myocardial Infarction (ND), Osteoarthritis (OA) Additional Past Medical History / Comment(s): HX COLON POLYPS. HX VERTIGO. HAS NOCTURIA. Ischemic cardiomyopathy Last Myocardial Infarction Date:: 2006 History of Any Multi-Drug Resistant Organisms: None Reported Past Surgical History: Bowel Resection, Cholecystectomy, Heart Catheterization With Stent, Joint Replacement Additional Past Surgical History / Comment(s): TOTAL LT KNEE 2004. BOWEL RESECTION FOR BENIGN POLYP. Total right knee arthroplasty April 2017. Past Anesthesia/Blood Transfusion Reactions: No Reported Reaction Date of Last Stent Placement:: 2010 Past Psychological History: No Psychological Hx Reported Smoking Status: Never smoker Past Alcohol Use History: None Reported Past Drug Use History: None Reported - Past Family History Mother Family Medical History: No Reported History Additional Family Medical History / Comment(s): Mother in her 80s with history of uterine cancer. Father Additional Family Medical History / Comment(s): Father at age 59 from ALS. Sister(s) Additional Family Medical History / Comment(s): Patient has one sister this 85 years of age with history of hypertension. Patient does not have any brothers. Patient does not have any children. General Exam - General Exam Comments Initial Comments: General: Appears in no acute distress. HEAD: Hematoma approximately 2 cm x 6 cm located over the left lateral forehead above the left eye. EYES: PERRLA, EOMI, conjunctiva normal, no discharge. Pupils are 2 mm and equal bilaterally. ENT: Hearing grossly intact, normal oropharynx. RESPIRATORY: Clear breath sounds bilaterally. No wheezes, rales, or rhonchi. C/V: Regular rate and rhythm. S1 and S2 auscultated, peripheral pulses 2+ and intact throughout ABD: Abd is soft, nontender, nondistended EXT: Decreased range of motion of the left shoulder secondary to pain. No obvious deformity. Tenderness over the left humeral head. No midline cervical, thoracic, lumbar spine tenderness to palpation. No step-offs or deformities of the spine. Pelvis is stable. No other tenderness to palpation of the extremities. SKIN: Hematoma above the left eye on the lateral forehead NEURO: Alert and oriented x 4. Cranial nerves II-XII intact. No focal sensory or strength deficits. GCS of 15. Limitations: no limitations Course Vital Signs 05/20/23 08:13 Temperature 97.6 F Pulse Rate 64 Respiratory 18 Rate Blood Pressure 146/82 O2 Sat by Pulse 98 Oximetry Medical Decision Making - Medical Decision Making Was pt. sent in by a medical professional or institution (, PA, JANITOR HELPER, urgent care, hospital, or halfway...) When possible be specific @ -No Did you speak to anyone other than the patient for history (EMS, parent, family, police, friend...)? What history was obtained from this source @ -Family/friend at bedside able to communicate the patient is currently at his baseline Did you review nursing and triage notes (agree or disagree)? Why? @ -I reviewed and agree with nursing and triage notes Were old charts reviewed (outside hosp., previous admission, EMS record, old EKG, old radiological studies, urgent care reports/EKG's, halfway records)? Report findings @ -Old charts reviewed Differential Diagnosis (chest pain, altered mental status, abdominal pain women, abdominal pain men, vaginal bleeding, weakness, fever, dyspnea, syncope, headache, dizziness, GI bleed, back pain, seizure, CVA, palpatations, mental health, musculoskeletal)? @ -Differential Musculoskeletal Muscular strain, contusion, ligament sprain, fracture, arthritis, septic arthritis, bursitis, cellulitis, muscle spasm, nerve compression, DVT, arterial occlusion, herpes zoster, electrolyte abnormality, tumor.... This is not meant to be in all inclusive list. Also includes intracranial injury. EKG interpreted by me (3pts min.). @ -None done X-rays interpreted by me (1pt min.). @ -Left shoulder x-ray revealed no obvious fracture or injury. Patient does have degenerative changes of the left shoulder. Chest x-ray and pelvic x-ray negative for any obvious traumatic injury. CT interpreted by me (1pt min.). @ -CT imaging negative for acute intracranial process, cervical spine injury, facial bone fracture patient does have the hematoma located over the frontal forehead is uncomplicated. U/S interpreted by me (1pt. min.). @ -None done What testing was considered but not performed or refused? (CT, X-rays, U/S, labs)? Why? @ -None What meds were considered but not given or refused? Why? @ -I offered analgesic medications which were declined by the patient. Did you discuss the management of the patient with other professionals (professionals i.e. , PA, JANITOR HELPER, lab, RT, psych nurse, social work professor, marketing and public relations manager, teacher, emergency communications officer, comp field case manager)? Give summary @ -No Was smoking cessation discussed for >3mins.? @ -No Was critical care preformed (if so, how long)? @ -No Were there social determinants of health that impacted care today? How? (Homelessness, low income, unemployed, alcoholism, drug addiction, transportation, low edu. Level, literacy, decrease access to med. care, usp, rehab)? @ -No Was there de-escalation of care discussed even if they declined (Discuss DNR or withdrawal of care, Hospice)? DNR status @ -No What co-morbidities impacted this encounter? (DM, HTN, Smoking, COPD, CAD, Cancer, CVA, ARF, Chemo, Hep., AIDS, mental health diagnosis, sleep apnea, morbid obesity)? @ -None Was patient admitted / discharged? Hospital course, mention meds given and route, prescriptions, significant lab abnormalities, going to OR and other pertinent info. @ -Based on patient's presentation and physical exam, he suffered a mechanical fall and I believe patient requires imaging. He does not need trauma activation. Was a fall from standing not on blood thinners with no loss of consciousness. Is currently is baseline mental status. Exam unremarkable and then hematoma and left shoulder pain. We will obtain CT brain, facial bones, C- spine as well as x-rays of the chest, pelvis, left shoulder. Patient was in agreement this plan. Vital signs within acceptable limits. He declines analgesic medications. Tetanus will be updated. Imaging returned negative for any an obvious injuries. Accepted the patient. He expressed understanding. Discussed he can ice the shoulder as well as his forehead and obtain Tylenol and Motrin for pain control. He was in agreement with this plan. He will be discharged home at this time. Strict return precautions discussed. I instructed the patient to follow up with their PCP in the next 1-3 days. I explained that the patient should return to the emergency department if they experience any worsening symptoms. Strict return precautions were discussed with the patient. The patient expressed understanding of these instructions. I answered all questions that the patient had. The patient was discharged home in good condition with their prescriptions and follow up information. Undiagnosed new problem with uncertain prognosis? @ -No Drug Therapy requiring intensive monitoring for toxicity (Heparin, Nitro, Insulin, Cardizem)? @ -No Were any procedures done? @ -No. Diagnosis/symptom? @ -Fall, hematoma Acute, or Chronic, or Acute on Chronic? @ -Acute Uncomplicated (without systemic symptoms) or Complicated (systemic symptoms)? @ -Uncomplicated Side effects of treatment? @ -none Exacerbation, Progression, or Severe Exacerbation] @ -no Poses a threat to life or bodily function? @ -no Disposition Clinical Impression: Fall, Hematoma Disposition: HOME SELF-CARE Condition: Good Instructions (If sedation given, give patient instructions): Fall Prevention for Older Adults (ED) Is patient prescribed a controlled substance at d/c from ED?: No Referrals: Toni Hernandez MD [Primary Care Provider] - 1-2 days Time of Disposition: 10:26
--- NOTE | 2023-05-20 10:18 | CT ---
EXAMINATION TYPE: CT brain cspine wo con CT DLP: 1202.9 mGycm, Automated exposure control for dose reduction was used. DATE OF EXAM: 05/20/2023 9:12 AM COMPARISON: None. CLINICAL INDICATION:Male, 82 years old with history of fall, trauma; fall heamtoma to left forehead, weakness, no LOC TECHNIQUE: Brain: Multiple axial CT images of the brain were obtained without IV contrast. Cspine: Axial CT images from the skull base to the inferior aspect of T2 we obtained without intraven ous contrast. Coronal and sagittal reformatted images were also reviewed. FINDINGS: Brain: Extra-axial spaces: No abnormal extra-axial fluid collections. Ventricular system: Dilatation in proportion to cerebral atrophy. Cerebral parenchyma: No definite intraparenchymal hemorrhage or mass effect. Moderate generalized atr ophy. Patchy areas of hypoattenuation throughout the bilateral cerebral white matter, most likely chr onic microvascular ischemic changes. Moderate degree. Cerebellum: No acute abnormality. Mass effect: No evidence of midline shift. Basilar cisterns are patent. Intracranial vasculature: Atherosclerotic calcifications of the larger arteries noted near the skull base. Soft tissues: Small soft tissue hematoma over the left forehead. Calvarium/osseous structures: No depressed skull fracture. Paranasal sinuses and mastoid air cells: Anterior paranasal sinuses appear clear. Scattered partial o pacification of a few bilateral mastoid air cells. Visualized orbits: Orbital contents grossly unremarkable. Cervical spine: Fracture: None. Osseous structures, spinal canal/neural foramina: Mild to moderate degenerative disc disease with dis c space narrowing and disc marginal osteophytes at C3-C4, C4-C5, C5-C6, C6-C7, causing mild canal and neural foraminal stenoses. Vertebral alignment: No acute malalignment/jumped facets. Mild/moderate facet arthropathy throughout. Trace anterolisthesis C2 relative to C3, likely degenerative. Slight retrolisthesis at the right C1- C2 articulation, likely positional or degenerative. Neck soft tissues: Prevertebral soft tissues are within normal limits. Other: The visualized airway is patent. Lung apices are not included. IMPRESSION: CT brain: 1. Moderate atrophy and chronic microvascular ischemic changes. 2. No evidence of an acute intracranial CT normality. 3. Small scalp hematoma over the left forehead. No evidence of calvarial fracture. CT cervical spine: 1. No evidence of cervical spine fracture. 2. Mild/moderate multilevel degenerative disc disease.
--- NOTE | 2023-05-20 10:21 | CT ---
EXAMINATION TYPE: CT facial bones wo con CT DLP: 1202.9 mGycm, Automated exposure control for dose reduction was used. DATE OF EXAM: 05/20/2023 9:12 AM COMPARISON: . CLINICAL INDICATION:Male, 82 years old with history of fall, trauma; [facility], fall heamtoma to left foreh ead, weakness, no LOC TECHNIQUE: Multiple unenhanced axial CT images were obtained of the facial bones soft tissue and bone windows. Coronal, axial and sagittal reformatted images were also provided in soft tissue and bone windows and submitted for interpretation. Additional 3-D reformatted images were obtained on a [employer] workstation. FINDINGS: Facial bones: No evidence of fracture. Some degenerative changes of the TMJs, left more than right, w ith preserved alignment. Soft tissues: Small soft tissue hematoma over the left forehead. Calvarium/osseous structures: No depressed skull fracture. Paranasal sinuses and mastoid air cells: Anterior paranasal sinuses appear clear. Scattered partial o pacification of a few bilateral mastoid air cells. Visualized orbits: Orbital contents grossly unremarkable. IMPRESSION: No evidence of acute facial bone fracture. Small soft tissue hematoma over the left forehead.
--- NOTE | 2023-05-20 10:24 | XR ---
EXAMINATION TYPE: XR chest 1V DATE OF EXAM: 05/20/2023 9:02 AM CLINICAL INDICATION:Male, 82 years old with history of fall, trauma; [facility] COMPARISON: Chest x-ray 12/02/2022 TECHNIQUE: XR chest 1V Frontal view of the chest. FINDINGS: Lungs/Pleura: There is no evidence of pleural effusion, focal consolidation, or pneumothorax. Hyperin flated lungs with coarsening of the interstitium again seen, likely COPD changes. Pulmonary vascularity: Unremarkable. Heart/mediastinum: Stable cardiomediastinal silhouette. Heart is normal in size. Musculoskeletal: No acute osseous abnormality is seen. Degenerative changes of the left more than rig ht shoulder as well as the thoracic spine. Other findings: None Lines/Tubes: None. IMPRESSION: COPD changes, without evidence of an acute chest process.
--- NOTE | 2023-05-20 10:26 | XR ---
EXAMINATION TYPE: XR pelvis AP view DATE OF EXAM: 05/20/2023 9:02 AM CLINICAL INDICATION:Male, 82 years old with history of fall, trauma; H COMPARISON: None TECHNIQUE: The pelvis was examined in a single projection. FINDINGS: Some limitation by overlying bowel content. There is no evidence of discrete fracture or di slocation. Mild degenerative changes of the lower lumbar spine. There is no soft tissue abnormality. No abnormal calcifications are present. IMPRESSION: No acute fracture or dislocation identified, on this single view of the pelvis.
--- NOTE | 2023-05-20 10:28 | XR ---
EXAMINATION TYPE: XR shoulder complete LT DATE OF EXAM: 05/20/2023 9:02 AM CLINICAL INDICATION:Male, 82 years old with history of fall, trauma; [facility] COMPARISON: None TECHNIQUE: XR shoulder complete LT; shoulder was examined in AP, internally rotated and scapular Y p rojections. FINDINGS: Osseous mineralization appears diminished. Moderate glenohumeral osteoarthritis, with slightly high r iding humeral head suggesting rotator cuff disease. Mild degenerative change of the acromioclavicular joint with preserved alignment. No evidence of acute fracture or dislocation. Unremarkable soft tiss ues. IMPRESSION: No evidence of acute fracture or dislocation. Moderate glenohumeral osteoarthritis, with slightly high riding humeral head suggesting rotator cuff disease. Mild degenerative change of the acromioclavicular joint.
== END 2023-05-20 10:48 | disposition home or self-care (01) ==
LOC: EC 08:05
DX: S00.03XA Contusion of scalp, initial encounter (principal); I25.10 Atherosclerotic heart disease of native coronary artery without angina pectoris; I10 Essential (primary) hypertension; I25.2 Old myocardial infarction; E78.5 Hyperlipidemia, unspecified; J44.9 Chronic obstructive pulmonary disease, unspecified; M19.012 Primary osteoarthritis, left shoulder; Z79.899 Other long term (current) drug therapy; Z23 Encounter for immunization; W01.198A Fall on same level from slipping, tripping and stumbling with subsequent striking against other object, initial encounter
CPT/HCPCS: 70450; 70486; 71045; 72125; 72170; 90471; 90715; 99284

== ENCOUNTER 2023-05-20 11:59 | Emergency (ER) | payer MEDICARE ==
[2023-05-20 12:15] VITALS: BP 151/92; PULSE 65; RESP 20; TEMP 98.2
--- NOTE | 2023-05-20 12:41 | ED ---
General Adult HPI - General Source: patient, RN notes reviewed Mode of arrival: ambulatory Limitations: no limitations <Rocio Morales - Last Filed: 05/20/23 19:04> <Master Crawley - Last Filed: 05/21/23 09:53> - General Chief complaint: Fall Stated complaint: Fall Time Seen by Provider: 05/20/23 12:09 - History of Present Illness Initial comments: 82 -year-old male presents emergency Department with chief complaint of fall. Patient was just discharged from the hospital for a fall. He states that he went home and fell again. He states that he was attempting to ambulate to the commode when he fell. He states he hit his face on the ground causing his glasses to scratch his face. He did not lose consciousness, denies blood thinners. He denies any other pain or injury. Denies headache, nausea, vomiting. Son in the room with him states that he is acting as his usual self. (Rocio Morales) - Related Data Home Medications Medication Instructions Recorded Confirmed Celecoxib [CeleBREX] 200 mg PO [id number] 04/21/17 05/01/17 Enalapril Maleate [Vasotec] 10 mg PO HS 04/21/17 05/01/17 Nitroglycerin Sl Tabs [Nitrostat] 0.4 mg SUBLINGUAL Q5M PRN 04/21/17 05/01/17 Omeprazole [PriLOSEC] 20 mg PO AC-BRKFST 04/21/17 05/01/17 Rosuvastatin Calcium [Crestor] 10 mg PO MOWETH 04/21/17 05/01/17 Ubidecarenone [Co Q-10] 100 mg PO DAILY 04/21/17 05/01/17 carvediloL [Coreg] 3.125 tab PO BID 04/21/17 05/01/17 Previous Rx's Medication Instructions Recorded Aspirin 325 mg PO BID #60 tab 05/03/17 Docusate [Colace] 100 mg PO DAILY #30 capsule 05/03/17 Hydrocodone/Acetaminophen [[place] 1 each PO Q6HR PRN #40 tab 05/03/17 5-325] Allergies Allergy/AdvReac Type Severity Reaction Status Date / Time No Known Allergies Allergy Verified 05/20/23 12:06 Review of Systems ROS Other: All systems not noted in ROS Statement are negative. <Rocio Morales - Last Filed: 05/20/23 19:04> ROS Other: All systems not noted in ROS Statement are negative. <Master Crawley - Last Filed: 05/21/23 09:53> ROS Statement: Those systems with pertinent positive or pertinent negative responses have been documented in the HPI. Past Medical History Past Medical History: Coronary Artery Disease (CAD), Hyperlipidemia, Hypertensio n, Myocardial Infarction ([place]), Osteoarthritis (OA) Additional Past Medical History / Comment(s): HX COLON POLYPS. HX VERTIGO. HAS NOCTURIA. Ischemic cardiomyopathy Last Myocardial Infarction Date:: 2006 History of Any Multi-Drug Resistant Organisms: None Reported Past Surgical History: Bowel Resection, Cholecystectomy, Heart Catheterization With Stent, Joint Replacement Additional Past Surgical History / Comment(s): TOTAL LT KNEE 2004. BOWEL RESECTION FOR BENIGN POLYP. Total right knee arthroplasty April 2017. Past Anesthesia/Blood Transfusion Reactions: No Reported Reaction Date of Last Stent Placement:: 2010 Past Psychological History: No Psychological Hx Reported Smoking Status: Never smoker Past Alcohol Use History: None Reported Past Drug Use History: None Reported - Past Family History Mother Family Medical History: No Reported History Additional Family Medical History / Comment(s): Mother in her 80s with history of uterine cancer. Father Additional Family Medical History / Comment(s): Father at age 59 from ALS. Sister(s) Additional Family Medical History / Comment(s): Patient has one sister this 85 years of age with history of hypertension. Patient does not have any brothers. Patient does not have any children. <Rocio Morales - Last Filed: 05/20/23 19:04> General Exam Limitations: no limitations General appearance: alert, in no apparent distress <Rocio Morales - Last Filed: 05/20/23 19:04> Course Vital Signs 05/20/23 12:03 Temperature 98.2 F Pulse Rate 65 Respiratory 20 Rate Blood Pressure 151/92 O2 Sat by Pulse 98 Oximetry Medical Decision Making <Rocio Morales - Last Filed: 05/20/23 19:04> <Master Crawley - Last Filed: 05/21/23 09:53> - Medical Decision Making Was pt. sent in by a medical professional or institution (, PA, COMMANDING [employer], urgent care, hospital, or usp...) When possible be specific @ -No Did you speak to anyone other than the patient for history (EMS, parent, family, police, friend...)? What history was obtained from this source @ -No Did you review nursing and triage notes (agree or disagree)? Why? @ -I reviewed and agree with nursing and triage notes Were old charts reviewed (outside hosp., previous admission, EMS record, old EKG, old radiological studies, urgent care reports/EKG's, usp records)? Report findings @ -No old charts were reviewed Differential Diagnosis (chest pain, altered mental status, abdominal pain women, abdominal pain men, vaginal bleeding, weakness, fever, dyspnea, syncope, headache, dizziness, GI bleed, back pain, seizure, CVA, palpatations, mental health, musculoskeletal)? @ -Fall, head injury, laceration, this is not an all-inclusive list EKG interpreted by me (3pts min.). @ -None X-rays interpreted by me (1pt min.). @ -None done CT interpreted by me (1pt min.). @ -None done U/S interpreted by me (1pt. min.). @ -None done What testing was considered but not performed or refused? (CT, X-rays, U/S, labs)? Why? @ -X-rays and CT considered, patient has no significant extremity injury; patient is mentating at his baseline, neurologically intact, did not lose consciousness, is not on blood thinners, denies significant headache What meds were considered but not given or refused? Why? @ -None Did you discuss the management of the patient with other professionals (professionals i.e. , PA, COMMANDING [employer], lab, RT, psych nurse, licensed social worker, box office attendant, teacher, bank officer, case management assistant)? Give summary @ -No Was smoking cessation discussed for >3mins.? @ -No Was critical care preformed (if so, how long)? @ -No Were there social determinants of health that impacted care today? How? (Homelessness, low income, unemployed, alcoholism, drug addiction, transportation, low edu. Level, literacy, decrease access to med. care, intermediate, rehab)? @ -No Was there de-escalation of care discussed even if they declined (Discuss DNR or withdrawal of care, Hospice)? DNR status @ -No What co-morbidities impacted this encounter? (DM, HTN, Smoking, COPD, CAD, Cancer, CVA, ARF, Chemo, Hep., AIDS, mental health diagnosis, sleep apnea, morbid obesity)? @ -None Was patient admitted / discharged? Hospital course, mention meds given and route, prescriptions, significant lab abnormalities, going to OR and other pertinent info. @ -Discharged. Patient presented to emergency department chief complaint of fall. He states that he hit his head but did not lose consciousness, he is not on blood thinners, he is acting per his usual self according to his son. He denies any other injuries. He was in the ED for a fall earlier today as well. Patient was observed in the emergency department for 2 hours without any change in neurological status. Patient will be discharged home to [facility]. Patient stable at time of discharge. Case discussed with Dr. Crawley. Undiagnosed new problem with uncertain prognosis? @ -No Drug Therapy requiring intensive monitoring for toxicity (Heparin, Nitro, Insulin, Cardizem)? @ -No Were any procedures done? @ -No Diagnosis/symptom? @ -fall, head injury Acute, or Chronic, or Acute on Chronic? @ -acute Uncomplicated (without systemic symptoms) or Complicated (systemic symptoms)? @ -Uncomplicated Side effects of treatment? @ -No Exacerbation, Progression, or Severe Exacerbation? @ -No Poses a threat to life or bodily function? How? (Chest pain, [place], [place], pneumonia, PE, COPD, DKA, ARF, appy, cholecystitis, CVA, Diverticulitis, Homicidal, Suicidal, threat to staff... and all critical care pts) @ -No (Rocio Morales) As I evaluated the patient earlier in the day, did discuss at length with the patient's family members as well as the patient options. Repeat CT head imaging. They declined at this time and we will observe the patient for multiple hours in the department for any signs of mental status changes. Minor head trauma suffered. Based on the [facility] head CT rules, CT brain should be considered however family and patient is currently finding. Patient did not experience any changes in mental status. They look to be discharged home at this time. Still would not like imaging. I believe this is reasonable. (Master Crawley) Disposition Is patient prescribed a controlled substance at d/c from ED?: No <Rocio Morales - Last Filed: 05/20/23 19:04> <Master Crawley - Last Filed: 05/21/23 09:53> Clinical Impression: Fall Disposition: HOME SELF-CARE Condition: Stable Instructions (If sedation given, give patient instructions): Fall Prevention (ED) Additional Instructions: Please follow up with your primary care provider. Return to the emergency department for new or worsening symptoms. Referrals: Toni Hernandez MD [Primary Care Provider] - 1-2 days
== END 2023-05-20 14:09 | disposition home or self-care (01) ==
LOC: EC 11:59
DX: S09.93XA Unspecified injury of face, initial encounter (principal); I25.10 Atherosclerotic heart disease of native coronary artery without angina pectoris; E78.5 Hyperlipidemia, unspecified; I10 Essential (primary) hypertension; I25.2 Old myocardial infarction; M19.90 Unspecified osteoarthritis, unspecified site; Z79.01 Long term (current) use of anticoagulants; Z79.1 Long term (current) use of non-steroidal anti-inflammatories (NSAID); Z79.899 Other long term (current) drug therapy; Z90.49 Acquired absence of other specified parts of digestive tract; W19.XXXA Unspecified fall, initial encounter
CPT/HCPCS: 99283

== ENCOUNTER 2023-11-25 16:26 | Inpatient (IN) | payer MEDICARE ==
--- NOTE | 2023-11-25 17:31 | ED ---
General Adult HPI - General Chief complaint: Upper Respiratory Infection Stated complaint: not eatting, fatigue Time Seen by Provider: 11/25/23 16:42 Source: patient, family Mode of arrival: wheelchair Limitations: no limitations - History of Present Illness Initial comments: Dictation was produced using [employer] dictation software. please excuse any grammatical, word or spelling errors. Chief Complaint: 83-year-old male with 3 days of URI History of Present Illness: Patient is 83-year-old male he has history of dementia. He lives at assisted living facility along with his . Patient has been having runny nose and nonproductive cough for the last 3 days. Patient has any history of asthma or COPD. Denies any chest pain. Denies any shortness of breath. No obvious sick contacts. The ROS documented in this emergency department record has been reviewed and confirmed by me. Those systems with pertinent positive or negative responses ayala ve been documented in the HPI. All other systems are other negative and/or noncontributory. - Related Data Home Medications Medication Instructions Recorded Confirmed Celecoxib [CeleBREX] 200 mg PO [id number] 04/21/17 05/01/17 Enalapril Maleate [Vasotec] 10 mg PO HS 04/21/17 05/01/17 Nitroglycerin Sl Tabs [Nitrostat] 0.4 mg SUBLINGUAL Q5M PRN 04/21/17 05/01/17 Omeprazole [PriLOSEC] 20 mg PO [id number]-[id number] 04/21/17 05/01/17 Rosuvastatin Calcium [Crestor] 10 mg PO MOWETH 04/21/17 05/01/17 Ubidecarenone [Co Q-10] 100 mg PO DAILY 04/21/17 05/01/17 carvediloL [Coreg] 3.125 tab PO BID 04/21/17 05/01/17 Previous Rx's Medication Instructions Recorded Aspirin 325 mg PO BID #60 tab 05/03/17 Docusate [Colace] 100 mg PO DAILY #30 capsule 05/03/17 Hydrocodone/Acetaminophen [[place] 1 each PO Q6HR PRN #40 tab 05/03/17 5-325] Allergies Allergy/AdvReac Type Severity Reaction Status Date / Time No Known Allergies Allergy Verified 05/20/23 12:06 Review of Systems ROS Statement: Those systems with pertinent positive or pertinent negative responses have been documented in the HPI. ROS Other: All systems not noted in ROS Statement are negative. Past Medical History Past Medical History: Coronary Artery Disease (CAD), Hyperlipidemia, Hypertension, Myocardial Infarction ([place]), Osteoarthritis (OA) Additional Past Medical History / Comment(s): HX COLON POLYPS. HX VERTIGO. HAS NOCTURIA. Ischemic cardiomyopathy Last Myocardial Infarction Date:: 2006 History of Any Multi-Drug Resistant Organisms: None Reported Past Surgical History: Bowel Resection, Cholecystectomy, Heart Catheterization With Stent, Joint Replacement Additional Past Surgical History / Comment(s): TOTAL LT KNEE 2004. BOWEL RESECTION FOR BENIGN POLYP. Total right knee arthroplasty April 2017. Past Anesthesia/Blood Transfusion Reactions: No Reported Reaction Date of Last Stent Placement:: 2010 Past Psychological History: No Psychological Hx Reported Smoking Status: Never smoker Past Alcohol Use History: None Reported Past Drug Use History: None Reported - Past Family History Mother Family Medical History: No Reported History Additional Family Medical History / Comment(s): Mother in her 80s with history of uterine cancer. Father Additional Family Medical History / Comment(s): Father at age 59 from ALS. Sister(s) Additional Family Medical History / Comment(s): Patient has one sister this 85 years of age with history of hypertension. Patient does not have any brothers. Patient does not have any children. General Exam - General Exam Comments Initial Comments: PHYSICAL EXAM: General Impression: Alert and oriented x3, not in acute distress HEENT: Normocephalic atraumatic, extra-ocular movements intact, pupils equal and reactive to light bilaterally, mucous membranes moist. Cardiovascular: Heart regular rate and rhythm Chest: Able to complete full sentences, no retractions, no tachypnea Abdomen: abdomen soft, non-tender, non-distended, no organomegaly Musculoskeletal: Pulses present and equal in all extremities, no peripheral edema Motor: no focal deficits noted Neurological: CN II-XII grossly intact, no focal motor or sensory deficits noted Skin: Intact with no visualized rashes Psych: Normal affect and mood Limitations: no limitations Course Vital Signs 11/25/23 16:32 Temperature 97.9 F Pulse Rate 50 L Respiratory 18 Rate Blood Pressure 105/61 O2 Sat by Pulse 99 Oximetry Medical Decision Making - Medical Decision Making Was pt. sent in by a medical professional or institution (Dr., PA, YARDER BOSS, urgent care, hospital, or residential...) When possible be specific @ -No Did you speak to anyone other than the patient for history (EMS, parent, family, police, friend...)? What history was obtained from this source @ -No Did you review nursing and triage notes (agree or disagree)? Why? @ -I reviewed and agree with nursing and triage notes Were old charts reviewed (outside hosp., previous admission, EMS record, old EKG, old radiological studies, urgent care reports/EKG's, residential records)? Report findings @ -No old charts were reviewed Differential Diagnosis (chest pain, altered mental status, abdominal pain women, abdominal pain men, vaginal bleeding, musculoskeletal, weakness, fever, dyspnea, syncope, headache, dizziness, GI bleed, back pain, seizure, CVA, palpatations, mental health)? @ -Differential Dyspnea: Coronary syndrome, arrhythmia, tamponade, asthma, COPD, pulmonary embolism, pneumonia, pneumothorax, pulmonary effusion, anaphylaxis, diabetic ketoacidosis, flailed chest, pulmonary contusion, diaphragmatic rupture, anemia, neuromuscular, this is not meant to be an all-inclusive list. EKG interpreted by me (3pts min.). @ -None done X-rays interpreted by me (1pt min.). @ -Chest x-ray shows lower lobe infiltrate CT interpreted by me (1pt min.). @ -None done U/S interpreted by me (1pt. min.). @ -None done What testing was considered but not performed or refused? (CT, X-rays, U/S, labs)? Why? @ -None What meds were considered but not given or refused? Why? @ -None Did you discuss the management of the patient with other professionals (professionals i.e. , PA, YARDER BOSS, lab, RT, psych nurse, certified social workers in health care, stain remover, teacher, industrial relations officer, director of casework department)? Give summary @ -Case discussed with hospitalist for admission Was smoking cessation discussed for >3mins.? @ -No Was critical care preformed (if so, how long)? @ -No Were there social determinants of health that impacted care today? How? (Homelessness, low income, unemployed, alcoholism, drug addiction, transportation, low edu. Level, literacy, decrease access to med. care, senior living, rehab)? @ -No Was there de-escalation of care discussed even if they declined (Discuss DNR or withdrawal of care, Hospice)? DNR status @ -No What co-morbidities impacted this encounter? (DM, HTN, Smoking, COPD, CAD, Can cer, CVA, ARF, Chemo, Hep., AIDS, mental health diagnosis, sleep apnea, morbid obesity)? @ -None Was patient admitted / discharged? Hospital course, mention meds given and route, prescriptions, significant lab abnormalities, going to OR and other pertinent info. @ -83-year-old male presents to the emergency department for infectious respiratory symptoms. Vital signs upon arrival are within acceptable limits. Patient well-appearing at the bedside. Laboratory evaluation shows no leukocytosis. Sodium 128. Viral testing negative. Chest x-ray shows lower lobe infiltrate. Disposition options were discussed. Patient would like to be admitted for further care. Patient given antibiotics. Patient does not meet criteria for severe sepsis given that he is not hypotensive. No indication for lactic acid testing at this moment given that patient is well-appearing no respiratory or any acute distress. Undiagnosed new problem with uncertain prognosis? @ -No Drug Therapy requiring intensive monitoring for toxicity (Heparin, Nitro, Insulin, Cardizem)? @ -No Were any procedures done? @ -No Diagnosis/symptom? Acute, or Chronic, or Acute on Chronic? Uncomplicated (without systemic symptoms) or Complicated (systemic symptoms)? @ -Commune acquired pneumonia Side effects of treatment? @ -No Exacerbation, Progression, or Severe Exacerbation? @ -No Poses a threat to life or bodily function? How? (Chest pain, USA, OR, pneumonia, PE, COPD, DKA, ARF, appy, cholecystitis, CVA, Diverticulitis, Homicidal, Suicidal, threat to staff... and all critical care pts) @ -yes - Lab Data Result diagrams: 11/25/23 17:45 11/25/23 17:45 Lab Results 11/25/23 11/25/23 11/25/23 Range/Units 17:45 17:45 17:45 WBC 4.0 (3.8-10.6) k/uL RBC 4.07 L (4.30-5.90) m/uL Hgb 12.8 L (13.0-17.5) gm/dL Hct 39.5 (39.0-53.0) % MCV 97.3 (80.0-100.0) fL MCH 31.5 (25.0-35.0) pg MCHC 32.4 (31.0-37.0) g/dL RDW 13.7 (11.5-15.5) % Plt Count 161 (150-450) k/uL MPV 7.6 Neutrophils % 64 % Lymphocytes % 20 % Monocytes % 12 % Eosinophils % 2 % Basophils % 1 % Neutrophils # 2.6 (1.3-7.7) k/uL Lymphocytes # 0.8 L (1.0-4.8) k/uL Monocytes # 0.5 (0-1.0) k/uL Eosinophils # 0.1 (0-0.7) k/uL Basophils # 0.0 (0-0.2) k/uL Sodium 128 L (137-145) mmol/L Potassium 4.8 (3.5-5.1) mmol/L Chloride 100 (98-107) mmol/L Carbon Dioxide 22 (22-30) mmol/L Anion Gap 6 mmol/L BUN 25 H (9-20) mg/dL Creatinine 0.82 (0.66-1.25) mg/dL Est GFR (CKD-EPI)AfAm >90 (>60 ml/min/1.73 sqM) Est GFR (CKD-EPI)NonAf 81 (>60 ml/min/1.73 sqM) Glucose 99 (74-99) mg/dL Calcium 8.7 (8.4-10.2) mg/dL Influenza Type A (PCR) Not Detected (Not Detectd) Influenza Type B (PCR) Not Detected (Not Detectd) RSV (PCR) Not Detected (Not Detectd) SARS-CoV-2 (PCR) Not Detected (Not Detectd) Disposition Clinical Impression: Pneumonia Disposition: ADMITTED IP TO THIS [facility] Referrals: Toni Hernandez MD [Primary Care Provider] - 1-2 days Decision Time: 19:14
[2023-11-25 17:51] LABS: Basophils % (A) 1 %; Eosinophils # (A) 0.1 k/uL (0-0.7); Eosinophils % (A) 2 %; HCT 39.5 % (39.0-53.0); HGB 12.8 gm/dL (13.0-17.5); Lymphocytes # (A) 0.8 k/uL (1.0-4.8); Lymphocytes % (A) 20 %; MCH 31.5 pg (25.0-35.0); MCHC 32.4 g/dL (31.0-37.0); MCV 97.3 fL (80.0-100.0); Mean Platelet Volume 7.6; Monocytes # (A) 0.5 k/uL (0-1.0); Monocytes % (A) 12 %; Neutrophils # (A) 2.6 k/uL (1.3-7.7); Neutrophils % (A) 64 %; Platelet Count 161 k/uL (150-450); RBC 4.07 m/uL (4.30-5.90); RDW 13.7 % (11.5-15.5)
[2023-11-25 18:00] LABS: African American GFR (CKD) >90 (>60 ml/min/1.73 sqM); Anion Gap 6 mmol/L; Blood Urea Nitrogen 25 mg/dL (9-20); Calcium 8.7 mg/dL (8.4-10.2); Carbon Dioxide 22 mmol/L (22-30); Chloride 100 mmol/L (98-107); Glucose 99 mg/dL (74-99); Non-African American GFR(CKD) 81 (>60 ml/min/1.73 sqM); Potassium 4.8 mmol/L (3.5-5.1); Sodium 128 mmol/L (137-145)
--- NOTE | 2023-11-25 18:32 | XR ---
EXAMINATION TYPE: XR chest 2V DATE OF EXAM: 11/25/2023 COMPARISON: 05/20/2023 INDICATION: Upper respiratory tract infection TECHNIQUE: Frontal and lateral views of the chest are obtained. FINDINGS: The heart size is normal. The pulmonary vasculature is normal. There may be some subtle infiltrate over the spine on the lateral projection. Suspicious focal consol idation is not otherwise apparent.. IMPRESSION: 1. Clinical correlation recommended for posterior lower lobe infiltrate.
[2023-11-25] MEDS: cefTRIAXone IN SWFI 1,000 MG/10 ML SYRINGE IVP STA (19:08)
[2023-11-25] MEDS ORDERED: PNEUMONIA PROTOCOL UTILIZED 1 EACH MISC PO PRN (19:09)
[2023-11-25] MEDS: AZITHROMYCIN 500 MG in SODIUM CHLORIDE 0.9% 250 ML IVPB STA (19:11)
[2023-11-25] MEDS ORDERED: MELOXICAM 7.5 MG TAB PO PRN (21:05)
[2023-11-25] MEDS ORDERED: QUEtiapine 25 MG TAB PO PRN (21:06)
[2023-11-26] MEDS: carvediloL 3.125 MG TAB PO SCH (06:13)
[2023-11-26] MEDS: FINASTERIDE 5 MG TAB PO SCH (06:13)
[2023-11-26] MEDS: MEMANTINE 5 MG TAB PO SCH (06:13)
[2023-11-26] MEDS: lisinopriL 20 MG TAB PO SCH (06:14)
[2023-11-26] MEDS: CARBIDOPA-LEVODOPA 25-100 MG 1 EACH TAB PO SCH (06:14)
[2023-11-26] MEDS: CHOLECALCIFEROL 25 MCG (1000 IU) TABLET PO SCH (06:14)
[2023-11-26] MEDS: ASPIRIN 81 MG PO SCH (06:14)
[2023-11-26] MEDS: PANTOPRAZOLE 40 MG TABLET PO SCH (06:14)
--- NOTE | 2023-11-26 07:54 | XR ---
EXAMINATION TYPE: XR chest 2V DATE OF EXAM: 11/26/2023 COMPARISON: 11/25/2023 HISTORY: Pneumonia TECHNIQUE: Frontal and lateral views of the chest are obtained. FINDINGS: Small focal opacity in the right lower lobe is again seen and is consistent with pneumonia . The left lung is clear. There is no pleural effusion or pneumothorax. The heart and pulmonary vasculature are normal. The osseous structures are intact IMPRESSION: Persistent right lower lobe opacity suspicious for pneumonia.
[2023-11-26 09:45] LABS: BUN/Creat Ratio 23.22 Ratio (12.00-20.00); Blood Urea Nitrogen 20.9 mg/dL (9.0-27.0); Calcium 8.9 mg/dL (8.7-10.3); Carbon Dioxide 18.7 mmol/L (21.6-31.8); Chloride 97 mmol/L (96-109); Glucose 89 mg/dL (70-110); Potassium 4.4 mmol/L (3.5-5.5); Sodium 131 mmol/L (135-145)
--- NOTE | 2023-11-26 12:58 | P.HPIM ---
History of Present Illness H&P Date: 11/26/23 History of present illness; patient is a 83-year-old gentleman with past medical history significant for BPH and dementia presented to ER for runny nose and nonproductive cough. Patient is currently resident of an assisted living facility and lives there with his . Patient has been not feeling well for the last few days, patient was complaining of nonproductive cough. There was no complaint of fever or chills. Patient also complaining of runny nose. Patient was complaining of lethargy and weakness. There is no complaint of nausea, vomiting or abdominal pain. Denies any lightheadedness or dizziness. There is no current chest pain or shortness of breath. Patient is not sick at this time. Because of the symptoms, patient presented to the ER Initial lab work done in the ER showed WBC 4, hemoglobin 12.8, platelet count 161, sodium 138, potassium 4.8, BUN 25, creatinine 0.82, Calcium 8.7 Influenza A not detected Influenza B not detected RSV not detected COVID-19 not detected Chest x-ray done in the ER showed persistent right lower lobe opacity, suspicious for pneumonia Patient admitted to internal medicine service REVIEW OF SYSTEMS: CONSTITUTIONAL: As mentioned above HEENT: No recent visual problems or hearing problems. Denied any sore throat. CARDIOVASCULAR: As mentioned above PULMONARY: As mentioned above GASTROINTESTINAL: No diarrhea, no nausea, no vomiting, no abdominal pain. NEUROLOGICAL: No headaches, no weakness, no numbness. HEMATOLOGICAL: Denies any bleeding or petechiae. GENITOURINARY: Denies any burning micturition, frequency, or urgency. MUSCULOSKELETAL/RHEUMATOLOGICAL: Denies any joint pain, swelling, or any muscle pain. ENDOCRINE: Denies any polyuria or polydipsia. The rest of the 14-point review of systems is negative. PHYSICAL EXAMINATION: GENERAL: The patient is alert and oriented x3, not in any acute distress. Well developed, well nourished. HEENT: Pupils are round and equally reacting to light. EOMI. No scleral icterus. No conjunctival pallor. Normocephalic, atraumatic. No pharyngeal erythema. No thyromegaly. CARDIOVASCULAR: S1 and S2 present. No murmurs, rubs, or gallops. PULMONARY: Chest is clear to auscultation, no wheezing or crackles. ABDOMEN: Soft, nontender, nondistended, normoactive bowel sounds. No palpable organomegaly. MUSCULOSKELETAL: No joint swelling or deformity. EXTREMITIES: No cyanosis, clubbing, or pedal edema. NEUROLOGICAL: Gross neurological examination did not reveal any focal deficits. SKIN: No rashes. Assessment and plan Bacterial pneumonia Hyponatremia History of BPH History of dementia Monitor vital signs Monitor CBC Monitor CMP Continue telemetry monitoring Aggressive bronchopulmonary hygiene Encourage use of I-S Continue IV azithromycim and Rocephin. Continue memantine Continue finasteride PT OT to eval Labs and medication were reviewed.. Continue same treatment. Continue with symptomatic treatment. Resume home medication. Monitor labs and vitals. DVT and GI prophylaxis. Further recommendations as per clinical course of the patient Dictation was produced using [employer] dictation software. please excuse any grammatical, word or spelling errors. Past Medical History Past Medical History: Coronary Artery Disease (CAD), Hyperlipidemia, Hypertension, Myocardial Infarction ([place]), Osteoarthritis (OA) Additional Past Medical History / Comment(s): HX COLON POLYPS. HX VERTIGO. HAS NOCTURIA. Ischemic cardiomyopathy Last Myocardial Infarction Date:: 2006 History of Any Multi-Drug Resistant Organisms: None Reported Past Surgical History: Bowel Resection, Cholecystectomy, Heart Catheterization With Stent, Joint Replacement Additional Past Surgical History / Comment(s): TOTAL LT KNEE 2004. BOWEL RESECTION FOR BENIGN POLYP. Total right knee arthroplasty April 2017. Past Anesthesia/Blood Transfusion Reactions: No Reported Reaction Date of Last Stent Placement:: 2010 Past Psychological History: No Psychological Hx Reported Smoking Status: Never smoker Past Alcohol Use History: None Reported Additional Past Alcohol Use History / Comment(s): Patient was a smoker of less than half a pack per day for 7 years and quit in 9. No illicit drug use. Patient lives at home with his . Past Drug Use History: None Reported - Past Family History Mother Family Medical History: No Reported History Additional Family Medical History / Comment(s): Mother in her 80s with history of uterine cancer. Father Additional Family Medical History / Comment(s): Father at age 59 from ALS. Sister(s) Additional Family Medical History / Comment(s): Patient has one sister this 85 years of age with history of hypertension. Patient does not have any brothers. Patient does not have any children. Medications and Allergies Home Medications Medication Instructions Recorded Confirmed Type Celecoxib [CeleBREX] 200 mg PO DAILY PRN 04/21/17 11/25/23 History Enalapril Maleate [Vasotec] 10 mg PO DAILY@0600 04/21/17 11/25/23 History Omeprazole [PriLOSEC] 20 mg PO SUTUTHSA@0600 04/21/17 11/25/23 History Rosuvastatin Calcium [Crestor] 10 mg PO MOWEFR 04/21/17 11/25/23 History Ubidecarenone [Co Q-10] 100 mg PO HS 04/21/17 11/25/23 History Acetaminophen [Tylenol Arthritis] 650 mg PO TID@0800,1400,2000 11/25/23 11/25/23 History Aspirin EC [Ecotrin Low Dose] 81 mg PO DAILY@0611/25/23 11/25/23 History Carbidopa-Levodopa 25-100 mg 1 tab PO QID@06,12,16,19 11/25/23 11/25/23 History [Sinemet 25-100] Cholecalciferol (Vitamin D3) 50 mcg PO DAILY@0600 11/25/23 11/25/23 History [Vitamin D3 (50 Mcg = 2000 Iu)] Donepezil HCl [Aricept] 10 mg PO HS 11/25/23 11/25/23 History Finasteride [Proscar] 5 mg PO DAILY@0600 11/25/23 11/25/23 History Memantine [Namenda] 5 mg PO DAILY@0600 11/25/23 11/25/23 History Vit C/E/Zn/Coppr/Lutein/Zeaxan 2 cap PO DAILY@0611/25/23 11/25/23 History [Preservision Areds 2 Softgel] carvediloL [Coreg] 3.125 mg PO BID@0600,1900 11/25/23 11/25/23 History Allergies Allergy/AdvReac Type Severity Reaction Status Date / Time No Known Allergies Allergy Verified 11/25/23 19:41 Physical Exam Vitals: Vital Signs Temp Pulse Pulse Resp BP BP Pulse Ox 11/26/23 07:53 98.3 F 56 L 17 161/78 94 L 11/26/23 01:50 98.1 F 61 152/83 94 L 11/25/23 21:24 97.6 F 53 L 16 156/99 98 11/25/23 20:27 60 18 128/77 99 11/25/23 19:47 97.6 F 61 16 155/81 99 11/25/23 16:32 97.9 F 50 L 18 105/61 99 Intake and Output 11/25/23 11/26/23 11/26/23 22:59 06:59 14:59 Other: Voiding Method Incontinent External Catheter # Voids 1 Weight 88.451 kg Results CBC & Chem 7: 11/25/23 17:45 11/25/23 17:45 Labs: Abnormal Lab Results - Last 24 Hours (Table) 11/25/23 11/25/23 Range/Units 17:45 17:45 RBC 4.07 L (4.30-5.90) m/uL Hgb 12.8 L (13.0-17.5) gm/dL Lymphocytes # 0.8 L (1.0-4.8) k/uL Sodium 128 L (137-145) mmol/L BUN 25 H (9-20) mg/dL Thrombosis Risk Factor Assmnt - Choose All That Apply Any of the Below Risk Factors Present?: Yes Each Risk Factor Represents 3 Points: Age 75 years or older Thrombosis Risk Factor Assessment Total Risk Factor Score: 3 Thrombosis Risk Factor Assessment Level: Moderate Risk
[2023-11-26] MEDS: AZITHROMYCIN 500 MG TAB PO SCH (17:15)
[2023-11-26] MEDS: DONEPEZIL 10 MG TAB PO SCH (20:40)
[2023-11-27] MEDS: ATORVASTATIN 20 MG TAB PO SCH (07:53)
[2023-11-27] MEDS ORDERED: IPRATROPIUM-ALBUTEROL 3 ML NEB INHALATION PRN (08:09)
[2023-11-27] MEDS ORDERED: LORATADINE 10 MG TAB PO PRN (08:09)
--- NOTE | 2023-11-27 08:12 | P.PN ---
Subjective Progress Note Date: 11/27/23 HISTORY OF PRESENT ILLNESS: 83-year-old office patient with active medical history of Parkinson disease, dementia, atherosclerotic heart disease, hypertension, hyperlipidemia, GERD, BPH, who lives in [facility] presented to the emergency department on 11/25/2023 complaining of lethargy and weakness with slight shortness of breath cough time found slightly change significantly from his his baseline. Was seen and evaluated in the emergency department Blood test at the time shows mild hyponatremia with white blood cell 4.0 mild anemia normal kidney function all respiratory culture for influenza COVID and RSV along with Legionella came back to be negative. Chest x-ray showed posterior lower lobe infiltrate mostly right side suspicious for pneumonia. Patient was started on treatment with azithromycin and Rocephin last 24 hours has improved slightly related. Will continue and advance may be physical therapy slightly see patient improved some to get him back to his baseline the plan hopefully to get him back to [facility] when he is ready as an assisted living will be able to continue care. will add more decongestant and expectorant. still on IV abx for 24 more houres. REVIEW OF SYSTEMS: CONSTITUTIONAL: Well-developed no acute respiratory distress. EYES: No icterus sclerae, no conjunctivitis. EARS, NOSE, MOUTH, THROAT, and FACE: No sore throat, lymphadenopathy, carotid bruits or deformity. RESPIRATORY: Slight shortness of breath cough and wheeze.. CARDIOVASCULAR: Positive PND orthopnea palpitation no angina. GASTROINTESTINAL: No Abd pain, Nausea or vomiting, no Diarrhea or constipation, No GI Bleed, no distention or masses. GENITOURINARY: Negative for Hematuria or UTI, no kidney stones. INTEGUMENT/BREAST: Negative for any muscular injury with mild osteoarthritis.. HEMATOLOGIC/LYMPHATIC: Negative for bleed or purpura. MUSCULOSKELTAL: Generalized myalgia and arthralgia. NEURLOGICAL: Memory loss with slight tremor. BEHAVIORAL/PSYCH: Dementia with no behavioral problem.. ENDOCRINE: Negative. PHYSICAL EXAMINATION: General Appearance: Alert, cooperative, no distress, appears stated age. Neck HEENT: Supple, no lymphadenopathy, no thyroid enlargement, no carotid brui ts. Lungs: Decreased breath sound bilateral especially the bases positive fine rhonchi. Chest Wall: Decreased expansion with deep inspiration no tenderness and no deformity was found on exam, no costochondral pain or discomfort. Heart: Regular rate and rhythm, S1, S2 normal, no murmur, rub or gallop. Back: Symmetric, no curvature, ROM normal, no CVA tenderness. Abdomen: Soft, non-tender, bowel sounds active all four quadrants, no masses, no organomegaly. Extremities: Extremities normal, atraumatic, no cyanosis or edema. Pulses: 2+ and symmetric. Skin: Skin color, texture, tugor normal, no rashes or lesions. Neurologic: Alert oriented with slight confusion cranial nerves II through XII intact, no motor deficit, positive abnormal balance and gait with slight resting tremor. ASSESSMENT AND PLAN: _Bacterial pneumonia: Has been on Rocephin and azithromycin which seem to respond very well to it white blood cell is down and clinically doing better. _Worsening dementia: Still on donepezil 10 mg at bedtime and Namenda 5 mg daily. _Hyponatremia: Better and this was from the severity of the pneumonia continue to treat underlying disease hyponatremia improved. _BPH: Watch for any urinary retention, remain on Proscar 5 mg daily. _Hyperlipidemia: Continue atorvastatin 3 times a week has been doing well with it. _Parkinsonism: Remain on carbidopa levodopa 25/100 mg 4 times a day which patient seems to do well with it. _Atherosclerotic heart disease: Continue medical management with aspirin, atorvastatin, Coreg, lisinopril doing well. _Hypertension: Remain on lisinopril 20 mg a day, Coreg 3.125 mg twice a day. Prognosis: Fair. Discussion: Will continue antibiotics for 1 more day hopefully by tomorrow if patient stable can be discharged home. Objective - Vital Signs Vital signs: Vital Signs Temp 98.0 F 11/27/23 01:25 Pulse 77 11/27/23 01:25 Resp 16 11/27/23 01:25 BP 152/65 11/27/23 01:25 Pulse Ox 95 11/27/23 01:25 FiO2 Intake & Output 11/26/23 11/26/23 11/27/23 06:59 18:59 06:59 Output Total 800 300 Balance -800 -300 Weight 88.451 kg Output: Urine 800 300 Other: Voiding Method Incontinent Incontinent External Catheter External Catheter # Voids 1 - Labs CBC & Chem 7: 11/25/23 17:45 11/26/23 03:41 Labs: Abnormal Lab Results - Last 24 Hours (Table) 11/26/23 Range/Units 03:41 Sodium 131 L (135-145) mmol/L Carbon Dioxide 18.7 L (21.6-31.8) mmol/L Anion Gap 15.30 H (4.00-12.00) mmol/L BUN/Creatinine Ratio 23.22 H (12.00-20.00) Ratio
[2023-11-27] MEDS: guaiFENesin 600 MG TABLET.ER PO SCH (09:05)
[2023-11-28 08:45] LABS: HCT 38.7 % (39.6-50.0); MCH 31.3 pg (27.0-32.0); MCHC 33.6 g/dL (32.0-37.0); Mean Platelet Volume 9.7 FL (9.5-12.2); NRBC Per 100 WBC 0 X 10*3/uL (0.00-0.01); Platelet Count 145 X 10*3/uL (140-440); RBC 4.16 X 10*6/uL (4.40-5.60); RDW 13.9 % (11.5-14.5); WBC 4.79 X 10*3/uL (4.50-10.00)
[2023-11-28 09:21] LABS: ALT 15 U/L (10-49); AST 21 U/L (14-35); Albumin 3.4 g/dL (3.8-4.9); Albumin/Globulin Ratio 1.55 Ratio (1.60-3.17); Alkaline Phosphatase 96 U/L (41-126); Blood Urea Nitrogen 18.2 mg/dL (9.0-27.0); Calcium 8.7 mg/dL (8.7-10.3); Chloride 98 mmol/L (96-109); Globulin 2.2 g/dL (1.6-3.3); Glucose 100 mg/dL (70-110); Potassium 4.3 mmol/L (3.5-5.5); Sodium 130 mmol/L (135-145); Total Bilirubin 0.7 mg/dL (0.3-1.2); Total Protein 5.6 g/dL (6.2-8.2)
--- NOTE | 2023-11-29 06:26 | P.PN ---
Subjective Progress Note Date: 11/28/23 HISTORY OF PRESENT ILLNESS: 83-year-old office patient with active medical history of Parkinson disease, dementia, atherosclerotic heart disease, hypertension, hyperlipidemia, GERD, BPH, who lives in [facility] presented to the emergency department on 11/25/2023 complaining of lethargy and weakness with slight shortness of breath cough time found slightly change significantly from his his baseline. Was seen and evaluated in the emergency department Blood test at the time shows mild hyponatremia with white blood cell 4.0 mild anemia normal kidney function all respiratory culture for influenza COVID and RSV along with Legionella came back to be negative. Chest x-ray showed posterior lower lobe infiltrate mostly right side suspicious for pneumonia. Patient was started on treatment with azithromycin and Rocephin last 24 hours has improved slightly related. Will continue and advance may be physical therapy slightly see patient improved some to get him back to his baseline the plan hopefully to get him back to [facility] when he is ready as an assisted living will be able to continue care. will add more decongestant and expectorant. still on IV abx for 24 more houres. 11/28/2023: He is doing slightly better still quite bit congested and having a lot of secretion and productive cough. His dyspnea and shortness of breath i mproved, continue updraft treatment on the clock, continue Mucinex and continue Zyrtec. Mobility still significantly decreased encouraged to be little bit more active and to do more PT OT. Patient's and live in [facility] left potential for him to return back to [facility] to help with the only exception of the believe his 2-week and need to go to SNF for short period of time. Otherwise continue IV antibiotics today and prepare hopefully for possible discharge tomorrow. REVIEW OF SYSTEMS: CONSTITUTIONAL: Well-developed no acute respiratory distress. EYES: No icterus sclerae, no conjunctivitis. EARS, NOSE, MOUTH, THROAT, and FACE: No sore throat, lymphadenopathy, carotid bruits or deformity. RESPIRATORY: Slight shortness of breath cough and wheeze.. CARDIOVASCULAR: Positive PND orthopnea palpitation no angina. GASTROINTESTINAL: No Abd pain, Nausea or vomiting, no Diarrhea or constipation, No GI Bleed, no distention or masses. GENITOURINARY: Negative for Hematuria or UTI, no kidney stones. INTEGUMENT/BREAST: Negative for any muscular injury with mild osteoarthritis.. HEMATOLOGIC/LYMPHATIC: Negative for bleed or purpura. MUSCULOSKELTAL: Generalized myalgia and arthralgia. NEURLOGICAL: Memory loss with slight tremor. BEHAVIORAL/PSYCH: Dementia with no behavioral problem.. ENDOCRINE: Negative. PHYSICAL EXAMINATION: General Appearance: Alert, cooperative, no distress, appears stated age. Neck HEENT: Supple, no lymphadenopathy, no thyroid enlargement, no carotid bruits. Lungs: Decreased breath sound bilateral especially the bases positive fine rhonchi. Chest Wall: Decreased expansion with deep inspiration no tenderness and no deformity was found on exam, no costochondral pain or discomfort. Heart: Regular rate and rhythm, S1, S2 normal, no murmur, rub or gallop. Back: Symmetric, no curvature, ROM normal, no CVA tenderness. Abdomen: Soft, non-tender, bowel sounds active all four quadrants, no masses, no organomegaly. Extremities: Extremities normal, atraumatic, no cyanosis or edema. Pulses: 2+ and symmetric. Skin: Skin color, texture, tugor normal, no rashes or lesions. Neurologic: Alert oriented with slight confusion cranial nerves II through XII intact, no motor deficit, positive abnormal balance and gait with slight resting tremor. ASSESSMENT AND PLAN: _Severe dyspnea and shortness of breath_: Combination of bilateral pneumonia and mild reactive airway/asthma. _Bacterial pneumonia: Will continue IV Rocephin and azithromycin for 24 more hours continue decongestant and updraft treatment hopefully prepare for discharge tomorrow on oral antibiotics. _Significant shortness of breath and wheezing: This is reactive airway/mild COPD, continue updraft treatment continue O2. _Worsening dementia: Still on donepezil 10 mg at bedtime and Namenda 5 mg daily. 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 _BPH: Watch for any urinary retention, remain on Proscar 5 mg daily. _Hyperlipidemia: Continue atorvastatin 3 times a week has been doing well with it. _Parkinsonism: Parkinson disease slightly bit worse with his current infection will resume carbidopa levodopa and titrate physical therapy. _Atherosclerotic heart disease: Continue medical management with aspirin, atorvastatin, Coreg, lisinopril doing well. _Hypertension: Remain on lisinopril 20 mg a day, Coreg 3.125 mg twice a day. Prognosis: Fair. Discussion: Advance physical therapy, continue current management and hopefully prepare for getting patient home tomorrow. Objective - Vital Signs Vital signs: Vital Signs Temp 97.9 F 11/28/23 01:57 Pulse 74 11/28/23 01:57 Resp 20 11/28/23 01:57 BP 170/79 11/28/23 01:57 Pulse Ox 95 11/28/23 01:57 FiO2 Intake & Output 11/27/23 11/28/23 11/28/23 18:59 06:59 18:59 Intake Total 600 480 Output Total 600 Balance 0 480 Intake: Oral 600 480 Output: Urine 600 Other: Voiding Method Incontinent Incontinent External Catheter External Catheter # Voids 2 - Labs CBC & Chem 7: 11/28/23 04:04 11/28/23 04:04 Labs: Microbiology - Last 24 Hours (Table) 11/26/23 04:45 Blood Culture - Preliminary Blood 11/26/23 04:30 Blood Culture - Preliminary Blood
[2023-11-29 08:17] VITALS: BP 118/78; PULSE 89; RESP 19; TEMP 97.7
--- NOTE | 2023-11-30 06:25 | P.DS ---
Providers Date of admission: 11/25/23 19:10 Attending physician: Toni Hernandez Primary care physician: [facility] Course: HISTORY OF PRESENT ILLNESS: 83-year-old office patient with active medical history of Parkinson disease, dementia, atherosclerotic heart disease, hypertension, hyperlipidemia, GERD, BPH, who lives in [facility] presented to the emergency department on 11/25/2023 complaining of lethargy and weakness with slight shortness of breath cough time found slightly change significantly from his his baseline. Was seen and evaluated in the emergency department Blood test at the time shows mild hyponatremia with white blood cell 4.0 mild anemia normal kidney function all respiratory culture for influenza COVID and RSV along with Legionella came back to be negative. Chest x-ray showed posterior lower lobe infiltrate mostly right side suspicious for pneumonia. Patient was started on treatment with azithromycin and Rocephin last 24 hours has improved slightly related. Will continue and advance may be physical therapy slightly see patient improved some to get him back to his baseline the plan hopefully to get him back to [facility] when he is ready as an assisted living will be able to continue care. will add more decongestant and expectorant. still on IV abx for 24 more houres. 11/28/2023: He is doing slightly better still quite bit congested and having a lot of secretion and productive cough. His dyspnea and shortness of breath improved, continue updraft treatment on the clock, continue Mucinex and continue Zyrtec. Mobility still significantly decreased encouraged to be little bit more active and to do more PT OT. Patient's and live in [facility] left potential for him to return back to [facility] to help with the only exception of the believe his 2-week and need to go to SNF for short period of time. Otherwise continue IV antibiotics today and prepare hopefully for possible discharge tomorrow. 11/29/2023: Patient is sitting in the chair very comfortable today his extreme bad congestion has improved bacterial pneumonitis has been well treated with Rocephin and azithromycin patient probably have aspiration pneumonia looking at all the fact specially congestion in the right side with his Parkinson disease with his high comorbidity we will keep him on probably doxycycline for total of 7 days after his discharge will be following the office in short bit of time. Talk to his today and she will be intubated, today we need some help probably with home care for the most but she wants him with her at [facility]. REVIEW OF SYSTEMS: CONSTITUTIONAL: Well-developed no acute respiratory distress. EYES: No icterus sclerae, no conjunctivitis. EARS, NOSE, MOUTH, THROAT, and FACE: No sore throat, lymphadenopathy, carotid bruits or deformity. RESPIRATORY: Slight shortness of breath cough and wheeze.. CARDIOVASCULAR: Positive PND orthopnea palpitation no angina. GASTROINTESTINAL: No Abd pain, Nausea or vomiting, no Diarrhea or constipation, No GI Bleed, no distention or masses. GENITOURINARY: Negative for Hematuria or UTI, no kidney stones. INTEGUMENT/BREAST: Negative for any muscular injury with mild osteoarthritis.. HEMATOLOGIC/LYMPHATIC: Negative for bleed or purpura. MUSCULOSKELTAL: Generalized myalgia and arthralgia. NEURLOGICAL: Memory loss with slight tremor. BEHAVIORAL/PSYCH: Dementia with no behavioral problem.. ENDOCRINE: Negative. PHYSICAL EXAMINATION: General Appearance: Alert, cooperative, no distress, appears stated age. Neck HEENT: Supple, no lymphadenopathy, no thyroid enlargement, no carotid bruits. Lungs: Decreased breath sound bilateral especially the bases positive fine rhonchi. Chest Wall: Decreased expansion with deep inspiration no tenderness and no deformity was found on exam, no costochondral pain or discomfort. Heart: Regular rate and rhythm, S1, S2 normal, no murmur, rub or gallop. Back: Symmetric, no curvature, ROM normal, no CVA tenderness. Abdomen: Soft, non-tender, bowel sounds active all four quadrants, no masses, no organomegaly. Extremities: Extremities normal, atraumatic, no cyanosis or edema. Pulses: 2+ and symmetric. Skin: Skin color, texture, tugor normal, no rashes or lesions. Neurologic: Alert oriented with slight confusion cranial nerves II through XII intact, no motor deficit, positive abnormal balance and gait with slight resting tremor. ASSESSMENT AND PLAN: _Severe dyspnea and shortness of breath: Combination of bilateral pneumonia most likely aspiration. And mild reactive airway/asthma. _Bacterial pneumonia, most likely aspiration specially with patient history of parkinsonism.: Will continue IV Rocephin and azithromycin for 24 more hours continue decongestant and updraft treatment hopefully prepare for discharge tomorrow on oral antibiotics. _Significant shortness of breath and wheezing: This is reactive airway/mild COPD, continue updraft treatment continue O2. _Worsening dementia: Still on donepezil 10 mg at bedtime and Namenda 5 mg daily. 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 _BPH: Watch for any urinary retention, remain on Proscar 5 mg daily. _Hyperlipidemia: Continue atorvastatin 3 times a week has been doing well with it. _Parkinsonism: Parkinson disease slightly bit worse with his current infection will resume carbidopa levodopa and titrate physical therapy. _Atherosclerotic heart disease: Continue medical management with aspirin, atorvastatin, Coreg, lisinopril doing well. _Hypertension: Remain on lisinopril 20 mg a day, Coreg 3.125 mg twice a day. Prognosis: Fair. Discharge planning: Patient be discharged home today will do home care and a quick follow-up in the office. Discussion with pharmacy today about length of time for his antibiotic use, patient has aspiration pneumonia with his parkinsonism I do not believe the 5 days management especially with azithromycin and Rocephin is enough we will keep him on doxycycline and also patient will be watched carefully to see if he is having any further aspiration event. Hospital course: Patient was hospitalized with severe dyspnea and shortness of breath on 11/25/2023: Was having more lethargy weakness shortness of breath congestion and severe cough EMS brought him to the emergency department his respiratory culture was negative, chest x-ray showed bilateral pneumonia the patient is condition specially with his parkinsonism this was most likely aspiration pneumonia was kept on azithromycin and Rocephin initially patient Being quite congested require decongestant and expectorant beside nebulizer treatment. Was sick slightly confused initially and had extreme debility and weakness after the first 2 days patient was able to get out of bed with help still having severe abnormal balance his mental status has improved significantly. On 11/29/2023: Patient is satting in the 90s without oxygen, able to manage with inhaler without his nebulizer and will be switched to oral antibiotic probably be discharged today home with home care. Patient was updated with his condition and she will be in to pick him up with help sometimes this morning. Plan - Discharge Summary Discharge Rx Participant: Yes New Discharge Prescriptions: New Loratadine [Claritin] 10 mg PO DAILY PRN #30 tab PRN Reason: Congestion lisinopriL [Zestril] 20 mg PO DAILY@0600 #30 tab Doxycycline Hyclate 100 mg PO AC-BID #14 capsule guaiFENesin [Mucinex] 600 mg PO Q12HR #20 tab QUEtiapine [SEROquel] 12.5 mg PO HS PRN #30 tab PRN Reason: Agitation Albuterol Sulfate [Ventolin HFA] 2 puff INHALATION Q6H PRN #1 each PRN Reason: Bronchospasm Continue Ubidecarenone [Co Q-10] 100 mg PO HS Omeprazole [PriLOSEC] 20 mg PO SUTUTHSA@0600 Rosuvastatin Calcium [Crestor] 10 mg PO MOWEFR Celecoxib [CeleBREX] 200 mg PO DAILY PRN PRN Reason: Constipation Acetaminophen [Tylenol Arthritis] 650 mg PO TID@0800,1400,1999 Aspirin EC [Ecotrin Low Dose] 81 mg PO DAILY@0600 carvediloL [Coreg] 3.125 mg PO BID@0600,1900 Cholecalciferol (Vitamin D3) [Vitamin D3 (50 Mcg = 2000 Iu)] 50 mcg PO DAILY@0600 Donepezil HCl [Aricept] 10 mg PO HS Finasteride [Proscar] 5 mg PO DAILY@0600 Memantine [Namenda] 5 mg PO DAILY@0600 Vit C/E/Zn/Coppr/Lutein/Zeaxan [Preservision Areds 2 Softgel] 2 cap PO DAILY@0600 Carbidopa-Levodopa 25-100 mg [Sinemet 25-100 mg] 1 tab PO QID@06,12,16,19 Discontinued Enalapril Maleate [Vasotec] 10 mg PO DAILY@0600 Discharge Medication List Celecoxib [CeleBREX] 200 mg PO DAILY PRN 04/21/17 [History] Omeprazole [PriLOSEC] 20 mg PO SUTUTHSA@0600 04/21/17 [History] Rosuvastatin Calcium [Crestor] 10 mg PO MOWEFR 04/21/17 [History] Ubidecarenone [Co Q-10] 100 mg PO HS 04/21/17 [History] Acetaminophen [Tylenol Arthritis] 650 mg PO TID@0800,1400,2000 11/25/23 [History] Aspirin EC [Ecotrin Low Dose] 81 mg PO DAILY@0600 11/25/23 [History] Carbidopa-Levodopa 25-100 mg [Sinemet 25-100 mg] 1 tab PO QID@06,12,16,19 11/25/23 [History] Cholecalciferol (Vitamin D3) [Vitamin D3 (50 Mcg = 2000 Iu)] 50 mcg PO DAILY@0600 11/25/23 [History] Donepezil HCl [Aricept] 10 mg PO HS 11/25/23 [History] Finasteride [Proscar] 5 mg PO DAILY@0600 11/25/23 [History] Memantine [Namenda] 5 mg PO DAILY@0600 11/25/23 [History] Vit C/E/Zn/Coppr/Lutein/Zeaxan [Preservision Areds 2 Softgel] 2 cap PO DAILY@0600 11/25/23 [History] carvediloL [Coreg] 3.125 mg PO BID@0600,1900 11/25/23 [History] Albuterol Sulfate [Ventolin HFA] 2 puff INHALATION Q6H PRN #1 each 11/29/23 [Rx] Doxycycline Hyclate 100 mg PO AC-BID #14 capsule 11/29/23 [Rx] Loratadine [Claritin] 10 mg PO DAILY PRN #30 tab 11/29/23 [Rx] QUEtiapine [SEROquel] 12.5 mg PO HS PRN #30 tab 11/29/23 [Rx] guaiFENesin [Mucinex] 600 mg PO Q12HR #20 tab 11/29/23 [Rx] lisinopriL [Zestril] 20 mg PO DAILY@0600 #30 tab 11/29/23 [Rx] Follow up Appointment(s)/Referral(s): Toni Hernandez MD [Primary Care Provider] - 12/04/23 3:00 pm (With Candice) [facility] Visiting Nurse, [NON-STAFF] - As Needed Discharge Disposition: HOME WITH HOME HEALTH SERVICES
== END 2023-11-29 10:35 | disposition home health service (06) | DRG 178 ==
LOC: EC 16:26 → 4SSUR 19:10
PROVIDERS: ADMIT Internal Medicine Geriatric Medicine; ATTEND Internal Medicine Geriatric Medicine
DX: J69.0 Pneumonitis due to inhalation of food and vomit (principal); E22.2 Syndrome of inappropriate secretion of antidiuretic hormone; I25.5 Ischemic cardiomyopathy; N40.0 Benign prostatic hyperplasia without lower urinary tract symptoms; I25.10 Atherosclerotic heart disease of native coronary artery without angina pectoris; I10 Essential (primary) hypertension; G20.A1 Parkinson's disease without dyskinesia, without mention of fluctuations; Z96.651 Presence of right artificial knee joint; F02.80 Dementia in other diseases classified elsewhere, unspecified severity, without behavioral disturbance, psychotic disturbance, mood disturbance, and anxiety; E78.5 Hyperlipidemia, unspecified; Z79.1 Long term (current) use of non-steroidal anti-inflammatories (NSAID); I25.2 Old myocardial infarction; Z79.82 Long term (current) use of aspirin; Z79.899 Other long term (current) drug therapy; Z82.49 Family history of ischemic heart disease and other diseases of the circulatory system; Z87.19 Personal history of other diseases of the digestive system; Z87.891 Personal history of nicotine dependence; Z11.52 Encounter for screening for COVID-19
CPT/HCPCS: 36415; 71046; 80048; 80053; 84145; 85025; 85027; 87040; 87449; 87636; 96365; 96375; 99284; 99285

== ENCOUNTER 2023-11-30 08:21 | Emergency (ER) | payer MEDICARE ==
[2023-11-30 09:07] VITALS: RESP 18
--- NOTE | 2023-11-30 10:09 | XR ---
EXAMINATION TYPE: XR knee complete LT DATE OF EXAM: 11/30/2023 COMPARISON: None HISTORY: 83-year-old male pain after fall today TECHNIQUE: AP, oblique, and lateral views FINDINGS: There is a large knee joint effusion. Chronic appearing fragmentation at the tibial tuberosity. 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 Multiple distal femoral proximal tibial components of the prosthe sis appear well seated. No periprostatic fracture is seen. IMPRESSION: Large joint effusion which may be reactive to the patient's injury. Underlying left total knee arthro plasty without evident fracture. Given the large joint effusion, consider orthopedic follow-up. No ac [place] osseous abnormality seen.
--- NOTE | 2023-11-30 10:17 | ED ---
Fall HPI - General Chief Complaint: Fall Stated Complaint: fall-knee pain Time Seen by Provider: 11/30/23 08:26 Source: patient, EMS, RN notes reviewed Mode of arrival: EMS Limitations: no limitations - History of Present Illness Initial Comments: 83-year-old male presents emergency department complaint of left knee pain. He states he rolled out of bed fell onto his knees states he is able to put pressure on his right knee has had prior total knee replacements. Patient states that pain is primarily his left knee with swelling denies any head injury no loss conscious no other complaints. Denies any paresthesias - Related Data Home Medications Medication Instructions Recorded Confirmed Celecoxib [CeleBREX] 200 mg PO DAILY PRN 04/21/17 11/25/23 Omeprazole [PriLOSEC] 20 mg PO SUTUTHSA@0600 04/21/17 11/25/23 Rosuvastatin Calcium [Crestor] 10 mg PO MOWEFR 04/21/17 11/25/23 Ubidecarenone [Co Q-10] 100 mg PO HS 04/21/17 11/25/23 Acetaminophen [Tylenol Arthritis] 650 mg PO TID@0800,1400,2000 11/25/23 11/25/23 Aspirin EC [Ecotrin Low Dose] 81 mg PO DAILY@0600 11/25/23 11/25/23 Carbidopa-Levodopa 25-100 mg 1 tab PO QID@06,12,16,19 11/25/23 11/25/23 [Sinemet 25-100 mg] Cholecalciferol (Vitamin D3) 50 mcg PO DAILY@0600 11/25/23 11/25/23 [Vitamin D3 (50 Mcg = 2000 Iu)] Donepezil HCl [Aricept] 10 mg PO HS 11/25/23 11/25/23 Finasteride [Proscar] 5 mg PO DAILY@0600 11/25/23 11/25/23 Memantine [Namenda] 5 mg PO DAILY@0600 11/25/23 11/25/23 Vit C/E/Zn/Coppr/Lutein/Zeaxan 2 cap PO DAILY@0600 11/25/23 11/25/23 [Preservision Areds 2 Softgel] carvediloL [Coreg] 3.125 mg PO BID@0600,1900 11/25/23 11/25/23 Previous Rx's Medication Instructions Recorded Albuterol Sulfate [Ventolin HFA] 2 puff INHALATION Q6H PRN #1 each 11/29/23 Doxycycline Hyclate 100 mg PO AC-BID #14 capsule 11/29/23 Loratadine [Claritin] 10 mg PO DAILY PRN #30 tab 11/29/23 QUEtiapine [SEROquel] 12.5 mg PO HS PRN #30 tab 11/29/23 guaiFENesin [Mucinex] 600 mg PO Q12HR #20 tab 11/29/23 lisinopriL [Zestril] 20 mg PO DAILY@0600 #30 tab 11/29/23 Allergies Allergy/AdvReac Type Severity Reaction Status Date / Time No Known Allergies Allergy Verified 11/30/23 08:30 Review of Systems ROS Statement: Those systems with pertinent positive or pertinent negative responses have been documented in the HPI. ROS Other: All systems not noted in ROS Statement are negative. Past Medical History Past Medical History: Coronary Artery Disease (CAD), Hyperlipidemia, Hypertension, Myocardial Infarction (SC), Osteoarthritis (OA) Additional Past Medical History / Comment(s): HX COLON POLYPS. HX VERTIGO. HAS NOCTURIA. Ischemic cardiomyopathy Last Myocardial Infarction Date:: 2006 History of Any Multi-Drug Resistant Organisms: None Reported Past Surgical History: Bowel Resection, Cholecystectomy, Heart Catheterization With Stent, Joint Replacement Additional Past Surgical History / Comment(s): TOTAL LT KNEE 2004. BOWEL RESECTION FOR BENIGN POLYP. Total right knee arthroplasty April 2017. Past Anesthesia/Blood Transfusion Reactions: No Reported Reaction Date of Last Stent Placement:: 2010 Past Psychological History: No Psychological Hx Reported Smoking Status: Never smoker Past Alcohol Use History: None Reported Past Drug Use History: None Reported - Past Family History Mother Family Medical History: No Reported History Additional Family Medical History / Comment(s): Mother in her 80s with history of uterine cancer. Father Additional Family Medical History / Comment(s): Father at age 59 from ALS. Sister(s) Additional Family Medical History / Comment(s): Patient has one sister this 85 years of age with history of hypertension. Patient does not have any brothers. Patient does not have any children. General Exam Limitations: no limitations General appearance: alert, in no apparent distress Head exam: Present: atraumatic, normocephalic, normal inspection Eye exam: Present: normal appearance, PERRL, EOMI. Absent: scleral icterus, conjunctival injection, periorbital swelling ENT exam: Present: normal exam, normal oropharynx, mucous membranes moist Neck exam: Present: normal inspection, full ROM. Absent: tenderness, meningismus, lymphadenopathy Respiratory exam: Present: normal lung sounds bilaterally. Absent: respiratory distress, wheezes, rales, rhonchi, stridor Cardiovascular Exam: Present: regular rate, normal rhythm, normal heart sounds. Absent: systolic murmur, diastolic murmur, rubs, gallop, clicks Extremities exam: Present: other (Left knee old surgical scar noted, there is diffuse swelling minimal tenderness to palpation no obvious deformity, neurovascular intact ) Skin exam: Present: warm, dry, intact, normal color. Absent: rash Course Vital Signs 11/30/23 11/30/23 08:28 10:53 Temperature 97 F L 97.8 F Pulse Rate 68 71 Respiratory 18 18 Rate Blood Pressure 129/72 128/71 O2 Sat by Pulse 97 98 Oximetry Medical Decision Making - Medical Decision Making Was pt. sent in by a medical professional or institution (, PA, CONTACT CENTER SPECIALIST, urgent care, hospital, or jail...) When possible be specific @ -No Did you speak to anyone other than the patient for history (EMS, parent, family, police, friend...)? What history was obtained from this source @ -No Did you review nursing and triage notes (agree or disagree)? Why? @ -I reviewed and agree with nursing and triage notes Were old charts reviewed (outside hosp., previous admission, EMS record, old EKG, old radiological studies, urgent care reports/EKG's, jail records)? Report findings @ -No old charts were reviewed Differential Diagnosis (chest pain, altered mental status, abdominal pain women, abdominal pain men, vaginal bleeding, weakness, fever, dyspnea, syncope, headache, dizziness, GI bleed, back pain, seizure, CVA, palpatations, mental health, musculoskeletal)? @ -Fall, leg fracture, knee contusion, joint effusion EKG interpreted by me (3pts min.). @ -None X-rays interpreted by me (1pt min.). @ -X-ray left knee shows large joint effusion no acute fracture CT interpreted by me (1pt min.). @ -None done U/S interpreted by me (1pt. min.). @ -None done What testing was considered but not performed or refused? (CT, X-rays, U/S, labs)? Why? @ -None What meds were considered but not given or refused? Why? @ -None Did you discuss the management of the patient with other professionals (professionals i.e. DrJudith, PA, CONTACT CENTER SPECIALIST, lab, RT, psych nurse, adoption social worker, project construction manager, teacher, parcel post officer, catalytic case operator)? Give summary @ -No Was smoking cessation discussed for >3mins.? @ -No Was critical care preformed (if so, how long)? @ -No Were there social determinants of health that impacted care today? How? (Homelessness, low income, unemployed, alcoholism, drug addiction, transportation, low edu. Level, literacy, decrease access to med. care, [facility], rehab)? @ -No Was there de-escalation of care discussed even if they declined (Discuss DNR or withdrawal of care, Hospice)? DNR status @ -No What co-morbidities impacted this encounter? (DM, HTN, Smoking, COPD, CAD, Cancer, CVA, ARF, Chemo, Hep., AIDS, mental health diagnosis, sleep apnea, morbid obesity)? @ -None Was patient admitted / discharged? Hospital course, mention meds given and route, prescriptions, significant lab abnormalities, going to OR and other pertinent info. @ -Discharge for signs x-rays reviewed without fracture patient has a joint effusion will follow-up with orthopedics for possible drainage if no improvement patient has a walker and wheelchair at home feels comfortable with discharge. Undiagnosed new problem with uncertain prognosis? @ -No Drug Therapy requiring intensive monitoring for toxicity (Heparin, Nitro, Insulin, Cardizem)? @ -No Were any procedures done? @ -No Diagnosis/symptom? @ -Fall, knee contusion, joint effusion Acute, or Chronic, or Acute on Chronic? @ -Acute Uncomplicated (without systemic symptoms) or Complicated (systemic symptoms)? @ -Uncomplicated Side effects of treatment? @ -No Exacerbation, Progression, or Severe Exacerbation? @ -No Poses a threat to life or bodily function? How? (Chest pain, USA, SC, pneumonia, PE, COPD, DKA, ARF, appy, cholecystitis, CVA, Diverticulitis, Homicidal, Suicidal, threat to staff... and all critical care pts) @ -No Disposition Clinical Impression: Fall, Knee effusion, left Disposition: HOME SELF-CARE Condition: Stable Instructions (If sedation given, give patient instructions): Swollen Knee Joint (ED) Additional Instructions: Please return to the Emergency Department if symptoms worsen or any other concerns. Is patient prescribed a controlled substance at d/c from ED?: No Referrals: Toni Hernandez MD [Primary Care Provider] - 1-2 days Yadiel Valles DO [Doctor of Osteopathic Medicine] - 1-2 days Time of Disposition: 10:35
[2023-11-30] MEDS: ACET/COD 300 MG/30 MG STARTER PACK 6 TAB BTL PO STA (10:43)
[2023-11-30 11:25] VITALS: BP 128/71; PULSE 71; TEMP 97.8
== END 2023-11-30 10:55 | disposition home or self-care (01) ==
LOC: EC 08:21
DX: S80.02XA Contusion of left knee, initial encounter (principal); W06.XXXA Fall from bed, initial encounter
CPT/HCPCS: 99283

== ENCOUNTER 2023-12-09 15:22 | Inpatient (IN) | payer MEDICARE ==
--- NOTE | 2023-12-09 15:29 | ED ---
Abdominal Pain HPI - General Stated Complaint: constipation Time Seen by Provider: 12/09/23 15:28 Source: RN notes reviewed, old records reviewed Limitations: no limitations - History of Present Illness Initial Comments: This is an 83-year-old male to the ER for evaluation today. Patient is presenting to us for evaluation in regards to constipation issues. Difficulty with bowel movements from what he believes is about a week. He does have 2 prior ER visits this month for kind of weakness debility and falls. History of Parkinson MD Complaint: abdominal pain -: days(s) Location: diffuse, epigastric, suprapubic Radiation: epigastric, suprapubic Migration to: no migration Severity scale (1-10): 7 Quality: aching Consistency: constant Improves With: nothing Worsens With: nothing Associated Symptoms: nausea, vomiting Treatments Prior to Arrival: other (0) - Related Data Home Medications Medication Instructions Recorded Confirmed Celecoxib [CeleBREX] 200 mg PO DAILY PRN 04/21/17 12/09/23 Omeprazole [PriLOSEC] 20 mg PO SUTUTHSA@0600 04/21/17 12/09/23 Rosuvastatin Calcium [Crestor] 10 mg PO MOWEFR 04/21/17 12/09/23 Ubidecarenone [Co Q-10] 100 mg PO HS 04/21/17 12/09/23 Acetaminophen [Tylenol Arthritis] 650 mg PO TID@0800,1400,2000 11/25/23 12/09/23 Aspirin EC [Ecotrin Low Dose] 81 mg PO DAILY@59911/25/23 12/09/23 Carbidopa-Levodopa 25-100 mg 1 tab PO QID@06,12,16,19 11/25/23 12/09/23 [Sinemet 25-100 mg] Cholecalciferol (Vitamin D3) 50 mcg PO DAILY@59911/25/23 12/09/23 [Vitamin D3 (50 Mcg = 2000 Iu)] Donepezil HCl [Aricept] 10 mg PO HS 11/25/23 12/09/23 Finasteride [Proscar] 5 mg PO DAILY@0611/25/23 12/09/23 Memantine [Namenda] 5 mg PO DAILY@0611/25/23 12/09/23 Vit C/E/Zn/Coppr/Lutein/Zeaxan 2 cap PO DAILY@0600 11/25/23 12/09/23 [Preservision Areds 2 Softgel] Albuterol Sulfate [Ventolin HFA] 2 puff INHALATION RT-Q6H PRN 12/09/23 12/09/23 Loratadine [Claritin] 10 mg PO DAILY PRN 12/09/23 12/09/23 Previous Rx's Medication Instructions Recorded Doxycycline Hyclate 100 mg PO AC-BID #14 capsule 11/29/23 QUEtiapine [SEROquel] 12.5 mg PO HS PRN #30 tab 11/29/23 guaiFENesin [Mucinex] 600 mg PO Q12HR #20 tab 11/29/23 lisinopriL [Zestril] 20 mg PO DAILY@0600 #30 tab 11/29/23 Na Phos,M-B/Na Phos,Di-Ba [Fleet 133 ml RECTAL DAILY PRN each 12/10/23 Adult] Sennosides [Senokot] 8.6 mg PO AC-BID #60 tablet 12/10/23 polyethylene glycoL 3350 [Miralax] 17 gm PO AC-LUNCH #527 gm 12/10/23 Apixaban [Eliquis] 2.5 mg PO BID #60 tab 12/11/23 carvediloL [Coreg] 6.25 mg PO BID@0600,1900 #60 tab 12/11/23 Allergies Allergy/AdvReac Type Severity Reaction Status Date / Time No Known Allergies Allergy Verified 12/09/23 19:55 Review of Systems ROS Statement: Those systems with pertinent positive or pertinent negative responses have been documented in the HPI. ROS Other: All systems not noted in ROS Statement are negative. Past Medical History Past Medical History: Coronary Artery Disease (CAD), Hyperlipidemia, Hypertension, Myocardial Infarction ([place]), Osteoarthritis (OA) Additional Past Medical History / Comment(s): HX COLON POLYPS. HX VERTIGO. HAS NOCTURIA. Ischemic cardiomyopathy Last Myocardial Infarction Date:: 2006 History of Any Multi-Drug Resistant Organisms: None Reported Past Surgical History: Bowel Resection, Cholecystectomy, Heart Catheterization With Stent, Joint Replacement Additional Past Surgical History / Comment(s): TOTAL LT KNEE 2004. BOWEL RESECTION FOR BENIGN POLYP. Total right knee arthroplasty April 2017. Past Anesthesia/Blood Transfusion Reactions: No Reported Reaction Date of Last Stent Placement:: 2010 Past Psychological History: No Psychological Hx Reported Smoking Status: Never smoker Past Alcohol Use History: None Reported Past Drug Use History: None Reported - Past Family History Mother Family Medical History: No Reported History Additional Family Medical History / Comment(s): Mother in her 80s with history of uterine cancer. Father Additional Family Medical History / Comment(s): Father at age 59 from ALS. Sister(s) Additional Family Medical History / Comment(s): Patient has one sister this 85 years of age with history of hypertension. Patient does not have any brothers. Patient does not have any children. General Exam General appearance: alert, in no apparent distress Head exam: Present: atraumatic, normocephalic, normal inspection Eye exam: Present: normal appearance, PERRL, EOMI. Absent: scleral icterus, conjunctival injection, periorbital swelling ENT exam: Present: normal exam, mucous membranes moist Neck exam: Present: normal inspection. Absent: tenderness, meningismus, lymphadenopathy Respiratory exam: Present: normal lung sounds bilaterally. Absent: respiratory distress, wheezes, rales, rhonchi, stridor Cardiovascular Exam: Present: regular rate, normal rhythm, normal heart sounds. Absent: systolic murmur, diastolic murmur, rubs, gallop, clicks GI/Abdominal exam: Present: soft, normal bowel sounds. Absent: distended, tenderness, guarding, rebound, rigid Extremities exam: Present: normal inspection, full ROM, normal capillary refill. Absent: tenderness, pedal edema, joint swelling, calf tenderness Back exam: Present: normal inspection Neurological exam: Present: alert, oriented X3, CN II-XII intact Psychiatric exam: Present: normal affect, normal mood Skin exam: Present: warm, dry, intact, normal color. Absent: rash Course Vital Signs 12/09/23 12/09/23 12/09/23 15:24 19:39 21:10 Temperature 97.0 F L 97.4 F L Pulse Rate 70 67 63 Respiratory 18 18 18 Rate Blood Pressure 141/105 131/81 139/70 O2 Sat by Pulse 98 96 98 Oximetry - Reevaluation(s) Reevaluation #1: 12/09/23 16:39 Medical records reviewed Reevaluation #2: 12/09/23 16:39 Patient symptoms unchanged Reevaluation #3: 12/09/23 16:39 Patient informed of results and questions answered Reevaluation #4: 12/09/23 16:39 Was pt. sent in by a medical professional or institution (GIOVANNI Baird, HEALTH CARE ATTORNEY, urgent care, hospital, or intermediate...) When possible be specific @ -no Did you speak to anyone other than the patient for history (EMS, parent, family, police, friend...)? What history was obtained from this source @ -no Did you review nursing and triage notes (agree or disagree)? Why? @ -agree Are old charts reviewed (outside hosp., previous admission, EMS record, old EKG, old radiological studies, urgent care reports/EKG's, intermediate records)? Report findings @ -yes Differential Diagnosis (chest pain, altered mental status, abdominal pain women, abdominal pain men, vaginal bleeding, weakness, fever, dyspnea, syncope, headache, dizziness, GI bleed, back pain, seizure, CVA, palpatations, mental health, musculoskeletal)? @ -prior EKG interpreted by me (3pts min.). @ -no X-rays interpreted by me (1pt min.). @ -no CT interpreted by me (1pt min.). @ -Yes positive for rectal impaction U/S interpreted by me (1pt. min.). @ -no What testing was considered but not performed or refused? (CT, X-rays, U/S, labs)? Why? @ -none What meds were considered but not given or refused? Why? @ -none Did you discuss the management of the patient with other professionals (professionals i.e. GIOVANNI Baird, HEALTH CARE ATTORNEY, lab, RT, psych nurse, social science research assistant, combat systems officer, teacher, credit officer, director of casework department)? Give summary @ -no Was smoking cessation discussed for >3mins.? @ -no Was critical care preformed (if so, how long)? @ -no Were there social determinants of health that impacted care today? How? (Homelessness, low income, unemployed, alcoholism, drug addiction, transportation, low edu. Level, literacy, decrease access to med. care, skilled nursing, rehab)? @ -none Was there de-escalation of care discussed even if they declined (Discuss DNR or withdrawal of care, Hospice)? DNR status @ -no What co-morbidities impacted this encounter? (DM, HTN, Smoking, COPD, CAD, Cancer, CVA, ARF, Chemo, Hep., AIDS, mental health diagnosis, sleep apnea, morbid obesity)? @ -none Was patient admitted / discharged? Hospital course, mention meds given and route, prescriptions, significant lab abnormalities, going to OR and other pertinent info. @ - 83 male to the ER for evaluation today. Patient midstate for evaluation of inability of a bowel movement patient has severe constipation will admit for bowel regiment, patient had significant bowel movement after rectal disimpaction a at this time with significant and profound weakness is unable to stand and walk on his own which she is normally able to do at baseline with a walker Admitted Undiagnosed new problem with uncertain prognosis? @ -no Drug Therapy requiring intensive monitoring for toxicity (Heparin, Nitro, Insulin, Cardizem)? @ -no Were any procedures done? @ -no Diagnosis/symptom? @ -Fecal impaction hyponatremia altered mental status weakness Acute, or Chronic, or Acute on Chronic? @ -Acute Uncomplicated (without systemic symptoms) or Complicated (systemic symptoms)? @ -Complicated Side effects of treatment? @ -no Exacerbation, Progression, or Severe Exacerbation? @ -exacerbation Poses a threat to life or bodily function? How? (Chest pain, USA, [place], pneumonia, PE, COPD, DKA, ARF, appy, cholecystitis, CVA, Diverticulitis, Homicidal, Suicidal, threat to staff... and all critical care pts) @ -yes with significant extremes of age Reevaluation #5: Differential Abdominal Pain Men: Appendicitis, cholecystitis, diverticulosis, ischemic bowel, pancreatitis, hepatitis, UTI, gastroenteritis, AAA, incarcerated hernia, bowel obstruction, constipation, inflammatory bowel, hepatitis, peptic ulcer disease, splenic infarction, perforated viscus, testicular torsion, this is not meant to be an all-inclusive list - Consultations Consultation #1: Spoke with Dr. Hernandez who agrees to admit this patient Procedures - Rectal Disimpaction Consent Obtained: verbal consent Indication: fecal impaction Procedural Sedation: Yes Sedation/Analgesia: opioids Technique: manual disimpaction with gloved finger Result: significant stool output Complications: none, pain Patient Tolerated Procedure: well Medical Decision Making - Medical Decision Making 83 male to the ER for evaluation today. Patient mid[facility] for evaluation of inability of a bowel movement patient has severe constipation will admit for bowel regiment, patient had significant bowel movement after rectal disimpaction a at this time with significant and profound weakness is unable to stand and walk on his own which she is normally able to do at baseline with a walker - Lab Data Result diagrams: 12/10/23 04:04 12/10/23 04:04 Lab Results 12/09/23 12/09/23 Range/Units 15:56 15:56 WBC 6.7 (3.8-10.6) k/uL RBC 3.76 L (4.30-5.90) m/uL Hgb 11.9 L (13.0-17.5) gm/dL Hct 35.5 L (39.0-53.0) % MCV 94.2 (80.0-100.0) fL MCH 31.6 (25.0-35.0) pg MCHC 33.5 (31.0-37.0) g/dL RDW 13.7 (11.5-15.5) % Plt Count 265 (150-450) k/uL MPV 7.3 Neutrophils % 75 % Lymphocytes % 13 % Monocytes % 10 % Eosinophils % 1 % Basophils % 0 % Neutrophils # 5.1 (1.3-7.7) k/uL Lymphocytes # 0.9 L (1.0-4.8) k/uL Monocytes # 0.7 (0-1.0) k/uL Eosinophils # 0.0 (0-0.7) k/uL Basophils # 0.0 (0-0.2) k/uL Sodium 123 L (137-145) mmol/L Potassium 4.8 (3.5-5.1) mmol/L Chloride 98 (98-107) mmol/L Carbon Dioxide 19 L (22-30) mmol/L Anion Gap 6 mmol/L BUN 19 (9-20) mg/dL Creatinine 0.63 L (0.66-1.25) mg/dL Est GFR (CKD-EPI)AfAm >90 (>60 ml/min/1.73 sqM) Est GFR (CKD-EPI)NonAf 90 (>60 ml/min/1.73 sqM) Glucose 110 H (74-99) mg/dL Calcium 8.5 (8.4-10.2) mg/dL Phosphorus 3.2 (2.5-4.5) mg/dL Magnesium 1.6 (1.6-2.3) mg/dL Total Bilirubin 1.7 H (0.2-1.3) mg/dL AST 26 (17-59) U/L ALT 14 (4-49) U/L Alkaline Phosphatase 102 (38-126) U/L Total Protein 5.8 L (6.3-8.2) g/dL Albumin 3.1 L (3.5-5.0) g/dL Amylase 67 (30-110) U/L Lipase 208 (23-300) U/L - Radiology Data Radiology results: report reviewed (CT abdomen pel pelvis shows significant fecal impaction), image reviewed Disposition Clinical Impression: Abdominal pain, Constipation, Fecal impaction, Hyponatremia, Altered mental status Disposition: ADMITTED IP TO THIS [facility] Condition: Serious Is patient prescribed a controlled substance at d/c from ED?: No Time of Disposition: 20:00
[2023-12-09] MEDS: DICYCLOMINE 10 MG/ML 2 ML AMP IM STA (15:48)
[2023-12-09] MEDS: SODIUM CHLORIDE 0.9% 1,000 ML IV STA ×2 (15:48→19:43)
[2023-12-09] MEDS: KETOROLAC 15 MG/ML 1 ML VIAL IVP STA (15:48)
[2023-12-09 16:02] LABS: Basophils % (A) 0 %; Eosinophils % (A) 1 %; HCT 35.5 % (39.0-53.0); HGB 11.9 gm/dL (13.0-17.5); Lymphocytes # (A) 0.9 k/uL (1.0-4.8); Lymphocytes % (A) 13 %; MCH 31.6 pg (25.0-35.0); MCHC 33.5 g/dL (31.0-37.0); MCV 94.2 fL (80.0-100.0); Mean Platelet Volume 7.3; Monocytes # (A) 0.7 k/uL (0-1.0); Monocytes % (A) 10 %; Neutrophils # (A) 5.1 k/uL (1.3-7.7); Neutrophils % (A) 75 %; Platelet Count 265 k/uL (150-450); RBC 3.76 m/uL (4.30-5.90); RDW 13.7 % (11.5-15.5); WBC 6.7 k/uL (3.8-10.6)
[2023-12-09 16:12] LABS: ALT 14 U/L (4-49); AST 26 U/L (17-59); African American GFR (CKD) >90 (>60 ml/min/1.73 sqM); Albumin 3.1 g/dL (3.5-5.0); Alkaline Phosphatase 102 U/L (38-126); Amylase 67 U/L (30-110); Anion Gap 6 mmol/L; Blood Urea Nitrogen 19 mg/dL (9-20); Calcium 8.5 mg/dL (8.4-10.2); Carbon Dioxide 19 mmol/L (22-30); Chloride 98 mmol/L (98-107); Glucose 110 mg/dL (74-99); Lipase 208 U/L (23-300); Magnesium 1.6 mg/dL (1.6-2.3); Non-African American GFR(CKD) 90 (>60 ml/min/1.73 sqM); Phosphorus 3.2 mg/dL (2.5-4.5); Potassium 4.8 mmol/L (3.5-5.1); Sodium 123 mmol/L (137-145); Total Bilirubin 1.7 mg/dL (0.2-1.3); Total Protein 5.8 g/dL (6.3-8.2)
--- NOTE | 2023-12-09 16:31 | CT ---
EXAMINATION TYPE: CT abdomen pelvis wo con CT DLP: 755.1 mGycm, Automated exposure control for dose reduction was used. DATE OF EXAM: 12/09/2023 3:46 PM COMPARISON: CT abdomen pelvis most recent from 07/25/2018 CLINICAL INDICATION:Male, 83 years old with history of abdominal pain; Abdominal pain and constipatio n x7days. TECHNIQUE: Axial CT abdomen pelvis wo con;Sagittal and coronal reformats were created on a separate workstation. Contrast used: mL of , (none if empty) Oral contrast used: without Oral Contrast (none if empty) FINDINGS: LOWER CHEST: Unremarkable ABDOMEN LIVER: Unremarkable GALLBLADDER AND BILE DUCTS: The gallbladder appears surgically absent. PANCREAS: Unremarkable. SPLEEN: Unremarkable. ADRENAL GLANDS: Unremarkable. KIDNEYS AND URETERS: No evidence of hydronephrosis or renal calculus. The ureters are unremarkable. PELVIS BLADDER: Unremarkable REPRODUCTIVE: Unremarkable. ABDOMEN & PELVIS STOMACH AND BOWEL: No evidence of bowel obstruction. Large stool burden in the rectum measuring up to a 4 mm in transverse dimension. There is mild wall thickening and fat stranding changes series 201 i mage 113 with verde measuring up to 10 mm PERITONEUM/RETROPERITONEUM: No evidence of pneumoperitoneum or free fluid. VASCULATURE: Moderate atherosclerotic calcifications are present throughout the abdominal aorta and i ts branches. No evidence of aortic aneurysm. MUSCULOSKELETAL: No acute osseous abnormalities. Moderate disc degeneration changes are present throu ghout the thoracolumbar spine. Grade 1 anterolisthesis of L3 on L4. No evidence for spondylolysis. 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 LYMPH NODES: No gross evidence for lymphadenopathy. SOFT TISSUE/ABDOMINAL WALL: Unremarkable IMPRESSION: 1. Large stool burden with large fecaloma in the rectum. Fecal disimpaction recommended. Fat strandi ng changes around thee sigmoid colon with wall thickening suggested possibly representing stercoral c olitis. Surgical consultation recommended. 2. Colonic diverticulosis.
[2023-12-09] MEDS ORDERED: NALOXONE 0.4 MG/ML 1 ML VIAL IV PRN (18:31)
[2023-12-09] MEDS: NA PHOS,M-B/NA PHOS,DI-BA 133 ML ENEMA RECTAL STA (19:37)
[2023-12-09] MEDS: SENNOSIDES-DOCUSATE SODIUM 1 EACH TAB PO STA (19:41)
[2023-12-09] MEDS: SODIUM CHLORIDE 0.9% 1,000 ML IV SCH (19:43)
[2023-12-09] MEDS ORDERED: LORATADINE 10 MG TAB PO PRN (23:54)
[2023-12-09] MEDS ORDERED: QUEtiapine 25 MG TAB PO PRN (23:54)
[2023-12-09] MEDS ORDERED: ALBUTEROL NEBULIZED 2.5 MG/3 ML INHALATION PRN (23:54)
[2023-12-10] MEDS: SENNOSIDES-DOCUSATE SODIUM 1 EACH TAB PO SCH (00:17)
[2023-12-10] MEDS: FINASTERIDE 5 MG TAB PO SCH (05:34)
[2023-12-10] MEDS: lisinopriL 20 MG TAB PO SCH (05:34)
[2023-12-10] MEDS: MEMANTINE 5 MG TAB PO SCH (05:34)
[2023-12-10] MEDS: VIT A,C & E-LUTEIN-MINERALS 1 EACH TAB PO SCH (05:34)
[2023-12-10] MEDS: CARBIDOPA-LEVODOPA 25-100 MG 1 EACH TAB PO SCH (05:34)
[2023-12-10] MEDS: CHOLECALCIFEROL 25 MCG (1000 IU) TABLET PO SCH (05:34)
[2023-12-10] MEDS: PANTOPRAZOLE 40 MG TABLET PO SCH (05:34)
[2023-12-10] MEDS: carvediloL 3.125 MG TAB PO SCH (05:34)
[2023-12-10] MEDS: ASPIRIN 81 MG PO SCH (05:34)
[2023-12-10] MEDS: DOXYCYCLINE 100 MG CAP PO SCH (05:58)
[2023-12-10] MEDS ORDERED: PANTOPRAZOLE 40 MG/10 ML VIAL IV SCH (09:00)
[2023-12-10] MEDS: ACETAMINOPHEN TAB 325 MG TAB PO SCH (09:15)
[2023-12-10] MEDS: guaiFENesin 600 MG TABLET.ER PO SCH (09:15)
[2023-12-10] MEDS: NA PHOS,M-B/NA PHOS,DI-BA 133 ML ENEMA RECTAL SCH (09:27)
[2023-12-10 09:33] LABS: HCT 32.2 % (39.6-50.0); HGB 10.7 g/dL (13.0-17.0); MCH 31.4 pg (27.0-32.0); MCHC 33.2 g/dL (32.0-37.0); MCV 94.4 FL (80.0-97.0); Mean Platelet Volume 9.3 FL (9.5-12.2); NRBC Per 100 WBC 0 X 10*3/uL (0.00-0.01); Platelet Count 231 X 10*3/uL (140-440); RBC 3.41 X 10*6/uL (4.40-5.60); RDW 13.6 % (11.5-14.5); WBC 6.93 X 10*3/uL (4.50-10.00)
--- NOTE | 2023-12-10 09:36 | P.HPIM ---
History of Present Illness H&P Date: 12/09/23 HISTORY OF PRESENT ILLNESS: 83-year-old office patient was hospitalized in early November for severe gram- negative pneumonia was treated with IV antibiotic for 5 days and oral antibiotic afterward. He is known to have history of Parkinson disease, dementia, atherosclerotic heart disease, hypertension, hyperlipidemia, GERD, BPH, he has recurrent fall admitted to the ER twice since last admission was back in the office at least 1 time. Has been having slight worsening confusion lately. Patient developed to have significant worsening abdominal pain has not had any bowel movement since left the hospital according to him and has been having severe discomfort with irritation. Ended up coming to the emergency department at [facility] was seen and evaluated sodium level was 123 with normal creatinine kidney function, white blood cell 6.7 with hemoglobin 11.9 hematocrit 35 plat elet count 265. CAT scan of the abdomen and pelvis shows severe impaction with slight irritation with large stool burden with large fecaloma in the rectum fecal disimpaction recommended fat stranding change around 3 sigmoid colon with wall thickening suggestive of possible or present left stercoral colitis also has recurrent colonic diverticulosis. 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 REVIEW OF SYSTEMS: CONSTITUTIONAL: Well-developed no acute respiratory distress. EYES: No icterus sclerae, no conjunctivitis. EARS, NOSE, MOUTH, THROAT, and FACE: No sore throat, lymphadenopathy, carotid bruits or deformity. RESPIRATORY: Slight shortness of breath cough and wheeze.. CARDIOVASCULAR: Positive PND orthopnea palpitation no angina. GASTROINTESTINAL: No Abd pain, Nausea or vomiting, no Diarrhea or constipation, No GI Bleed, no distention or masses. GENITOURINARY: Negative for Hematuria or UTI, no kidney stones. INTEGUMENT/BREAST: Negative for any muscular injury with mild osteoarthritis.. HEMATOLOGIC/LYMPHATIC: Negative for bleed or purpura. MUSCULOSKELTAL: Generalized myalgia and arthralgia. NEURLOGICAL: Memory loss with slight tremor. BEHAVIORAL/PSYCH: Dementia with no behavioral problem.. ENDOCRINE: Negative. PHYSICAL EXAMINATION: General Appearance: Alert, cooperative, no distress, appears stated age. Neck HEENT: Supple, no lymphadenopathy, no thyroid enlargement, no carotid bruits. Lungs: Decreased breath sound bilateral especially the bases positive fine rhonchi. Chest Wall: Decreased expansion with deep inspiration no tenderness and no deformity was found on exam, no costochondral pain or discomfort. Heart: Regular rate and rhythm, S1, S2 normal, no murmur, rub or gallop. Back: Symmetric, no curvature, ROM normal, no CVA tenderness. Abdomen: Soft, non-tender, bowel sounds active all four quadrants, no masses, no organomegaly. Extremities: Extremities normal, atraumatic, no cyanosis or edema. Pulses: 2+ and symmetric. Skin: Skin color, texture, tugor normal, no rashes or lesions. Neurologic: Alert oriented with slight confusion cranial nerves II through XII intact, no motor deficit, positive abnormal balance and gait with slight resting tremor. ASSESSMENT AND PLAN: _Severe abdominal pain secondary to probably colitis and severe large impaction, with picture on the CAT scan more worried at this point patient be seen general surgery for consultation probably repeat another CAT scan in 48 hours. _Severe stool impaction continue stool softener along with fiber on more regular basis prep for colonoscopy was done patient had some of his impaction improved. 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 Fluid restriction repeat CMP in the morning. _Worsening dementia: Still on donepezil 10 mg at bedtime and Namenda 5 mg daily. _Parkinsonism: Remain on carbidopa levodopa 25/100 mg 4 times a day which patient seems to do well with it. _Atherosclerotic heart disease: Continue medical management with aspirin, atorvastatin, Coreg, lisinopril doing well. _Hypertension: Remain on lisinopril 20 mg a day, Coreg 3.125 mg twice a day. _BPH: Watch for any urinary retention, remain on Proscar 5 mg daily. _Hyperlipidemia: Continue atorvastatin 3 times a week has been doing well with it. _Mild anemia: Can be effective the colitis can be from bleed as well. _Atherosclerotic heart disease: No chest pain or angina has been doing well on lisinopril, Coreg, rosuvastatin and aspirin. _GI prophylaxis: Will continue Prilosec. _DVT prophylaxis: Early mobilization knee-high DEVENDRA hose. CODE STATUS: DO NOT RESUSCITATE. Admit patient to the inpatient service more than 2 nights. Past Medical History Past Medical History: Coronary Artery Disease (CAD), Hyperlipidemia, Hypertension, Myocardial Infarction (DE), Osteoarthritis (OA) Additional Past Medical History / Comment(s): HX COLON POLYPS. HX VERTIGO. HAS NOCTURIA. Ischemic cardiomyopathy Last Myocardial Infarction Date:: 2006 History of Any Multi-Drug Resistant Organisms: None Reported Past Surgical History: Bowel Resection, Cholecystectomy, Heart Catheterization With Stent, Joint Replacement Additional Past Surgical History / Comment(s): TOTAL LT KNEE 2004. BOWEL RESECTION FOR BENIGN POLYP. Total right knee arthroplasty April 2017. Past Anesthesia/Blood Transfusion Reactions: No Reported Reaction Date of Last Stent Placement:: 2010 Past Psychological History: No Psychological Hx Reported Smoking Status: Never smoker Past Alcohol Use History: None Reported Past Drug Use History: None Reported - Past Family History Mother Family Medical History: No Reported History Additional Family Medical History / Comment(s): Mother in her 80s with history of uterine cancer. Father Additional Family Medical History / Comment(s): Father at age 59 from ALS. Sister(s) Additional Family Medical History / Comment(s): Patient has one sister this 85 years of age with history of hypertension. Patient does not have any brothers. Patient does not have any children. Medications and Allergies Home Medications Medication Instructions Recorded Confirmed Type Celecoxib [CeleBREX] 200 mg PO DAILY PRN 04/21/17 12/09/23 History Omeprazole [PriLOSEC] 20 mg PO SUTUTHSA@0600 04/21/17 12/09/23 History Rosuvastatin Calcium [Crestor] 10 mg PO MOWEFR 04/21/17 12/09/23 History Ubidecarenone [Co Q-10] 100 mg PO HS 04/21/17 12/09/23 History Acetaminophen [Tylenol Arthritis] 650 mg PO TID@0800,1400,2000 11/25/23 12/09/23 History Aspirin EC [Ecotrin Low Dose] 81 mg PO DAILY@0600 11/25/23 12/09/23 History Carbidopa-Levodopa 25-100 mg 1 tab PO QID@06,12,16,19 11/25/23 12/09/23 History [Sinemet 25-100 mg] Cholecalciferol (Vitamin D3) 50 mcg PO DAILY@0600 11/25/23 12/09/23 History [Vitamin D3 (50 Mcg = 2000 Iu)] Donepezil HCl [Aricept] 10 mg PO HS 11/25/23 12/09/23 History Finasteride [Proscar] 5 mg PO DAILY@0600 11/25/23 12/09/23 History Memantine [Namenda] 5 mg PO DAILY@0600 11/25/23 12/09/23 History Vit C/E/Zn/Coppr/Lutein/Zeaxan 2 cap PO DAILY@0600 11/25/23 12/09/23 History [Preservision Areds 2 Softgel] carvediloL [Coreg] 3.125 mg PO BID@0600,1900 11/25/23 12/09/23 History Doxycycline Hyclate 100 mg PO AC-BID #14 capsule 11/29/23 12/09/23 Rx QUEtiapine [SEROquel] 12.5 mg PO HS PRN #30 tab 11/29/23 12/09/23 Rx guaiFENesin [Mucinex] 600 mg PO Q12HR #20 tab 11/29/23 12/09/23 Rx lisinopriL [Zestril] 20 mg PO DAILY@0600 #30 tab 11/29/23 12/09/23 Rx Albuterol Sulfate [Ventolin HFA] 2 puff INHALATION RT-Q6H PRN 12/09/23 12/09/23 History Loratadine [Claritin] 10 mg PO DAILY PRN 12/09/23 12/09/23 History Allergies Allergy/AdvReac Type Severity Reaction Status Date / Time No Known Allergies Allergy Verified 12/09/23 19:55 Physical Exam Vitals: Vital Signs Temp Pulse Pulse Resp BP BP Pulse Ox 12/09/23 22:37 97.4 F L 66 16 143/76 96 12/09/23 21:10 97.4 F L 63 18 139/70 98 12/09/23 19:39 67 18 131/81 96 12/09/23 15:24 97.0 F L 70 18 141/105 98 Intake and Output 12/09/23 12/09/23 12/10/23 14:59 22:59 06:59 Other: Weight 86.183 kg Results CBC & Chem 7: 12/09/23 15:56 12/09/23 15:56 Labs: Abnormal Lab Results - Last 24 Hours (Table) 12/09/23 12/09/23 Range/Units 15:56 15:56 RBC 3.76 L (4.30-5.90) m/uL Hgb 11.9 L (13.0-17.5) gm/dL Hct 35.5 L (39.0-53.0) % Lymphocytes # 0.9 L (1.0-4.8) k/uL Sodium 123 L (137-145) mmol/L Carbon Dioxide 19 L (22-30) mmol/L Creatinine 0.63 L (0.66-1.25) mg/dL Glucose 110 H (74-99) mg/dL Total Bilirubin 1.7 H (0.2-1.3) mg/dL Total Protein 5.8 L (6.3-8.2) g/dL Albumin 3.1 L (3.5-5.0) g/dL
[2023-12-10 09:49] LABS: ALT 27 U/L (10-49); AST 22 U/L (14-35); Albumin 3.2 g/dL (3.8-4.9); Albumin/Globulin Ratio 1.68 Ratio (1.60-3.17); Alkaline Phosphatase 92 U/L (41-126); BUN/Creat Ratio 22.14 Ratio (12.00-20.00); Blood Urea Nitrogen 15.5 mg/dL (9.0-27.0); Calcium 8.7 mg/dL (8.7-10.3); Carbon Dioxide 19.6 mmol/L (21.6-31.8); Chloride 98 mmol/L (96-109); Globulin 1.9 g/dL (1.6-3.3); Glucose 80 mg/dL (70-110); Potassium 4.4 mmol/L (3.5-5.5); Sodium 126 mmol/L (135-145); Total Bilirubin 1.3 mg/dL (0.3-1.2); Total Protein 5.1 g/dL (6.2-8.2)
--- NOTE | 2023-12-10 11:03 | P.PN ---
Subjective Progress Note Date: 12/10/23 HISTORY OF PRESENT ILLNESS: 83-year-old office patient was hospitalized in early November for severe gram- negative pneumonia was treated with IV antibiotic for 5 days and oral antibiotic afterward. He is known to have history of Parkinson disease, dementia, atherosclerotic heart disease, hypertension, hyperlipidemia, GERD, BPH, he has recurrent fall admitted to the ER twice since last admission was back in the office at least 1 time. Has been having slight worsening confusion lately. Patient developed to have significant worsening abdominal pain has not had any bowel movement since left the hospital according to him and has been having severe discomfort with irritation. Ended up coming to the emergency department at [facility] was seen and evaluated sodium level was 123 with normal creatinine kidney function, white blood cell 6.7 with hemoglobin 11.9 hematocrit 35 platelet count 265. CAT scan of the abdomen and pelvis shows severe impaction with slight irritation with large stool burden with large fecaloma in the rectum fecal disimpaction recommended fat stranding change around 3 sigmoid colon with wall thickening suggestive of possible or present left stercoral colitis also has recurrent colonic diverticulosis. 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 12/10/2023:His sodium improved up to 126, had several bowel movement through the night he is doing much better not distended today anymore. 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 Another dilemma having to discharge him to [facility] today there is no transportation and he is not safe to take Cab And the does not have any help at this point. REVIEW OF SYSTEMS: CONSTITUTIONAL: Well-developed no acute respiratory distress. EYES: No icterus sclerae, no conjunctivitis. EARS, NOSE, MOUTH, THROAT, and FACE: No sore throat, lymphadenopathy, carotid bruits or deformity. RESPIRATORY: Slight shortness of breath cough and wheeze.. CARDIOVASCULAR: Positive PND orthopnea palpitation no angina. GASTROINTESTINAL: No Abd pain, Nausea or vomiting, no Diarrhea or constipation, No GI Bleed, no distention or masses. GENITOURINARY: Negative for Hematuria or UTI, no kidney stones. INTEGUMENT/BREAST: Negative for any muscular injury with mild osteoarthritis.. HEMATOLOGIC/LYMPHATIC: Negative for bleed or purpura. MUSCULOSKELTAL: Generalized myalgia and arthralgia. NEURLOGICAL: Memory loss with slight tremor. BEHAVIORAL/PSYCH: Dementia with no behavioral problem.. ENDOCRINE: Negative. PHYSICAL EXAMINATION: General Appearance: Alert, cooperative, no distress, appears stated age. Neck HEENT: Supple, no lymphadenopathy, no thyroid enlargement, no carotid bruits. Lungs: Decreased breath sound bilateral especially the bases positive fine rhonchi. Chest Wall: Decreased expansion with deep inspiration no tenderness and no deformity was found on exam, no costochondral pain or discomfort. Heart: Regular rate and rhythm, S1, S2 normal, no murmur, rub or gallop. Back: Symmetric, no curvature, ROM normal, no CVA tenderness. Abdomen: Soft, non-tender, bowel sounds active all four quadrants, no masses, no organomegaly. Extremities: Extremities normal, atraumatic, no cyanosis or edema. Pulses: 2+ and symmetric. Skin: Skin color, texture, tugor normal, no rashes or lesions. Neurologic: Alert oriented with slight confusion cranial nerves II through XII intact, no motor deficit, positive abnormal balance and gait with slight resting tremor. ASSESSMENT AND PLAN: _Severe abdominal pain secondary to probably colitis and severe large impaction, his abdominal pain is much better since his impaction resolved, still have an appointment see general surgery consultation. _Severe stool impaction continue stool softener along with fiber on more regular basis prep for colonoscopy was done patient had some of his impaction improved. Has improved has a lot of stool initially with a Fleet plus continue to go through the night. _Severe hyponatremia: Sodium has improved compared to yesterday up to 126 today. Continue gentle hydration watch sodium again tomorrow. 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 _Worsening dementia: Still on donepezil 10 mg at bedtime and Namenda 5 mg daily. _Parkinsonism: Remain on carbidopa levodopa 25/100 mg 4 times a day which patient seems to do well with it. He is more symptomatic with his balance and gait. _Atherosclerotic heart disease: Continue medical management with aspirin, atorvastatin, Coreg, lisinopril doing well. _Hypertension: Remain on lisinopril 20 mg a day, Coreg 3.125 mg twice a day. _BPH: Watch for any urinary retention, remain on Proscar 5 mg daily. _Hyperlipidemia: Continue atorvastatin 3 times a week has been doing well with it. _Mild anemia: Can be effective the colitis can be from bleed as well. _Atherosclerotic heart disease: No chest pain or angina has been doing well on lisinopril, Coreg, rosuvastatin and aspirin. _GI prophylaxis: Will continue Prilosec. Prognosis: Fair. Discussion patient sodium is much better, his infection has improved but his mobility is very risky at this point and patient will need more than 1 person tv production assistant, will initiate PT OT talk to the may be held him for another day in the hospital till tomorrow to see if he can benefit from going to SNF or at least to do physical therapy or may be making arrangement to full assisted living in [facility] instead of the current somewhat independent. Objective - Vital Signs Vital signs: Vital Signs Temp 97.4 F L 12/10/23 07:00 Pulse 53 L 12/10/23 07:00 Resp 15 12/10/23 07:00 BP 104/58 12/10/23 07:00 Pulse Ox 99 12/10/23 07:00 FiO2 Intake & Output 12/09/23 12/10/23 12/10/23 18:59 06:59 18:59 Output Total 600 Balance -600 Weight 86.183 kg 86.183 kg Output: Urine 600 - Labs CBC & Chem 7: 12/10/23 04:04 12/10/23 04:04 Labs: Abnormal Lab Results - Last 24 Hours (Table) 12/09/23 12/09/23 Range/Units 15:56 15:56 RBC 3.76 L (4.30-5.90) m/uL Hgb 11.9 L (13.0-17.5) gm/dL Hct 35.5 L (39.0-53.0) % Lymphocytes # 0.9 L (1.0-4.8) k/uL Sodium 123 L (137-145) mmol/L Carbon Dioxide 19 L (22-30) mmol/L Creatinine 0.63 L (0.66-1.25) mg/dL Glucose 110 H (74-99) mg/dL Total Bilirubin 1.7 H (0.2-1.3) mg/dL Total Protein 5.8 L (6.3-8.2) g/dL Albumin 3.1 L (3.5-5.0) g/dL
--- NOTE | 2023-12-10 13:00 | P.GSCN ---
History of Present Illness Consult date: 12/10/23 Reason for Consult: Fecal impaction History of present illness: 83-year-old male brought to the ER because of constipation. Had not moved his bowels for a week or so. Patient was provided enemas and he had improved bowel function. Denies abdominal pain. Patient confused. Started back on a regular diet. Review of Systems ROS unobtainable: due to mental status Past Medical History Past Medical History: Coronary Artery Disease (CAD), Hyperlipidemia, Hyperte nsion, Myocardial Infarction (MS), Osteoarthritis (OA) Additional Past Medical History / Comment(s): HX COLON POLYPS. HX VERTIGO. HAS NOCTURIA. Ischemic cardiomyopathy Last Myocardial Infarction Date:: 2006 History of Any Multi-Drug Resistant Organisms: None Reported Past Surgical History: Bowel Resection, Cholecystectomy, Heart Catheterization With Stent, Joint Replacement Additional Past Surgical History / Comment(s): TOTAL LT KNEE 2004. BOWEL RESECTION FOR BENIGN POLYP. Total right knee arthroplasty April 2017. Past Anesthesia/Blood Transfusion Reactions: No Reported Reaction Date of Last Stent Placement:: 2010 Past Psychological History: No Psychological Hx Reported Smoking Status: Never smoker Past Alcohol Use History: None Reported Past Drug Use History: None Reported - Past Family History Mother Family Medical History: No Reported History Additional Family Medical History / Comment(s): Mother in her 80s with his tory of uterine cancer. Father Additional Family Medical History / Comment(s): Father at age 59 from ALS. Sister(s) Additional Family Medical History / Comment(s): Patient has one sister this 85 years of age with history of hypertension. Patient does not have any brothers. Patient does not have any children. Medications and Allergies Home Medications Medication Instructions Recorded Confirmed Type Celecoxib [CeleBREX] 200 mg PO DAILY PRN 04/21/17 12/09/23 History Omeprazole [PriLOSEC] 20 mg PO SUTUTHSA@0600 04/21/17 12/09/23 History Rosuvastatin Calcium [Crestor] 10 mg PO MOWEFR 04/21/17 12/09/23 History Ubidecarenone [Co Q-10] 100 mg PO HS 04/21/17 12/09/23 History Acetaminophen [Tylenol Arthritis] 650 mg PO TID@0800,1400,2000 11/25/23 12/09/23 History Aspirin EC [Ecotrin Low Dose] 81 mg PO DAILY@0600 11/25/23 12/09/23 History Carbidopa-Levodopa 25-100 mg 1 tab PO QID@06,12,16,19 11/25/23 12/09/23 History [Sinemet 25-100 mg] Cholecalciferol (Vitamin D3) 50 mcg PO DAILY@0600 11/25/23 12/09/23 History [Vitamin D3 (50 Mcg = 2000 Iu)] Donepezil HCl [Aricept] 10 mg PO HS 11/25/23 12/09/23 History Finasteride [Proscar] 5 mg PO DAILY@0600 11/25/23 12/09/23 History Memantine [Namenda] 5 mg PO DAILY@0600 11/25/23 12/09/23 History Vit C/E/Zn/Coppr/Lutein/Zeaxan 2 cap PO DAILY@0600 11/25/23 12/09/23 History [Preservision Areds 2 Softgel] carvediloL [Coreg] 3.125 mg PO BID@0600,1900 11/25/23 12/09/23 History Doxycycline Hyclate 100 mg PO AC-BID #14 capsule 11/29/23 12/09/23 Rx QUEtiapine [SEROquel] 12.5 mg PO HS PRN #30 tab 11/29/23 12/09/23 Rx guaiFENesin [Mucinex] 600 mg PO Q12HR #20 tab 11/29/23 12/09/23 Rx lisinopriL [Zestril] 20 mg PO DAILY@0600 #30 tab 11/29/23 12/09/23 Rx Albuterol Sulfate [Ventolin HFA] 2 puff INHALATION RT-Q6H PRN 12/09/23 12/09/23 History Loratadine [Claritin] 10 mg PO DAILY PRN 12/09/23 12/09/23 History Na Phos,M-B/Na Phos,Di-Ba [Fleet 133 ml RECTAL DAILY PRN each 12/10/23 Rx Adult] Sennosides [Senokot] 8.6 mg PO AC-BID #60 tablet 12/10/23 Rx polyethylene glycoL 3350 [Miralax] 17 gm PO AC-LUNCH #527 gm 05/19/24 Rx Allergies Allergy/AdvReac Type Severity Reaction Status Date / Time No Known Allergies Allergy Verified 12/09/23 19:55 Surgical - Exam Vital Signs Temp Pulse Resp BP Pulse Ox 97.0 F L 70 18 141/105 98 12/09/23 15:24 12/09/23 15:24 12/09/23 15:24 12/09/23 15:24 12/09/23 15:24 Physical exam: General: Well-developed, well-nourished HEENT: Normocephalic, sclerae nonicteric Abdomen: Nontender, nondistended Extremities: No edema bilaterally Rectal: Soft stool within the rectal vault, no impaction present currently Neuro: Alert but confused Results - Labs 12/10/23 04:04 12/10/23 04:04 Abnormal Lab Results - Last 24 Hours (Table) 12/09/23 12/09/23 12/10/23 Range/Units 15:56 15:56 04:04 RBC 3.76 L 3.41 L (4.30-5.90) m/uL Hgb 11.9 L 10.7 L (13.0-17.5) gm/dL Hct 35.5 L 32.2 L (39.0-53.0) % MPV 9.3 L (9.5-12.2) FL Lymphocytes # 0.9 L (1.0-4.8) k/uL Sodium 123 L (137-145) mmol/L Carbon Dioxide 19 L (22-30) mmol/L Creatinine 0.63 L (0.66-1.25) mg/dL BUN/Creatinine Ratio (12.00-20.00) Ratio Glucose 110 H (74-99) mg/dL Total Bilirubin 1.7 H (0.2-1.3) mg/dL Total Protein 5.8 L (6.3-8.2) g/dL Albumin 3.1 L (3.5-5.0) g/dL 12/10/23 Range/Units 04:04 RBC (4.30-5.90) m/uL Hgb (13.0-17.5) gm/dL Hct (39.0-53.0) % MPV (9.5-12.2) FL Lymphocytes # (1.0-4.8) k/uL Sodium 126 L (137-145) mmol/L Carbon Dioxide 19.6 L (22-30) mmol/L Creatinine (0.66-1.25) mg/dL BUN/Creatinine Ratio 22.14 H (12.00-20.00) Ratio Glucose (74-99) mg/dL Total Bilirubin 1.3 H (0.2-1.3) mg/dL Total Protein 5.1 L (6.3-8.2) g/dL Albumin 3.2 L (3.5-5.0) g/dL Diabetes panel 12/09/23 12/10/23 Range/Units 15:56 04:04 Sodium 123 L 126 L (137-145) mmol/L Potassium 4.8 4.4 (3.5-5.1) mmol/L Chloride 98 98 (98-107) mmol/L Carbon Dioxide 19 L 19.6 L (22-30) mmol/L BUN 19 15.5 (9-20) mg/dL Creatinine 0.63 L 0.7 (0.66-1.25) mg/dL Glucose 110 H 80 (74-99) mg/dL Calcium 8.5 8.7 (8.4-10.2) mg/dL AST 26 22 (17-59) U/L ALT 14 27 (4-49) U/L Alkaline Phosphatase 102 92 (38-126) U/L Total Protein 5.8 L 5.1 L (6.3-8.2) g/dL Albumin 3.1 L 3.2 L (3.5-5.0) g/dL Calcium panel 12/09/23 12/10/23 Range/Units 15:56 04:04 Calcium 8.5 8.7 (8.4-10.2) mg/dL Phosphorus 3.2 (2.5-4.5) mg/dL Albumin 3.1 L 3.2 L (3.5-5.0) g/dL Pituitary panel 12/09/23 12/10/23 Range/Units 15:56 04:04 Sodium 123 L 126 L (137-145) mmol/L Potassium 4.8 4.4 (3.5-5.1) mmol/L Chloride 98 98 (98-107) mmol/L Carbon Dioxide 19 L 19.6 L (22-30) mmol/L BUN 19 15.5 (9-20) mg/dL Creatinine 0.63 L 0.7 (0.66-1.25) mg/dL Glucose 110 H 80 (74-99) mg/dL Calcium 8.5 8.7 (8.4-10.2) mg/dL Adrenal panel 12/09/23 12/10/23 Range/Units 15:56 04:04 Sodium 123 L 126 L (137-145) mmol/L Potassium 4.8 4.4 (3.5-5.1) mmol/L Chloride 98 98 (98-107) mmol/L Carbon Dioxide 19 L 19.6 L (22-30) mmol/L BUN 19 15.5 (9-20) mg/dL Creatinine 0.63 L 0.7 (0.66-1.25) mg/dL Glucose 110 H 80 (74-99) mg/dL Calcium 8.5 8.7 (8.4-10.2) mg/dL Total Bilirubin 1.7 H 1.3 H (0.2-1.3) mg/dL AST 26 22 (17-59) U/L ALT 14 27 (4-49) U/L Alkaline Phosphatase 102 92 (38-126) U/L Total Protein 5.8 L 5.1 L (6.3-8.2) g/dL Albumin 3.1 L 3.2 L (3.5-5.0) g/dL Assessment and Plan (1) Constipation Narrative/Plan: 83-year-old male with constipation and recent impaction. Improved after patient was provided with enemas. No impaction on today's exam. Continue regular diet. Will sign off. Please call if needed. Current Visit: Yes Status: Acute Code(s): K59.00 - CONSTIPATION, UNSPECIFIED SNOMED Code(s): 41003932
[2023-12-10] MEDS: DONEPEZIL 10 MG TAB PO SCH (20:37)
[2023-12-10] MEDS ORDERED: NON FORMULARY DRUG (Ubidecarenone [Co Q-10] 100 MG Capsule) PO SCH (21:00)
--- NOTE | 2023-12-11 08:31 | P.PN ---
Subjective Progress Note Date: 12/11/23 HISTORY OF PRESENT ILLNESS: 83-year-old office patient was hospitalized in early November for severe gram- negative pneumonia was treated with IV antibiotic for 5 days and oral antibiotic afterward. He is known to have history of Parkinson disease, dementia, atherosclerotic heart disease, hypertension, hyperlipidemia, GERD, BPH, he has recurrent fall admitted to the ER twice since last admission was back in the office at least 1 time. Has been having slight worsening confusion lately. Patient developed to have significant worsening abdominal pain has not had any bowel movement since left the hospital according to him and has been having severe discomfort with irritation. Ended up coming to the emergency department at [facility] was seen and evaluated sodium level was 123 with normal creatinine kidney function, white blood cell 6.7 with hemoglobin 11.9 hematocrit 35 platelet count 265. CAT scan of the abdomen and pelvis shows severe impaction with slight irritation with large stool burden with large fecaloma in the rectum fecal disimpaction recommended fat stranding change around 3 sigmoid colon with wall thickening suggestive of possible or present left stercoral colitis also has recurrent colonic diverticulosis. 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 12/10/2023:His sodium improved up to 126, had several bowel movement through the night he is doing much better not distended today anymore. Spoke with the initially was planning to let him go back to [facility] but when the nurse stood him up patient is not safe to walk he needs more than 1 person financial sales assistant maybe we have to talk about possibility of SNF at this point. Another dilemma having to discharge him to [facility] today there is no transportation and he is not safe to take Cab And the does not have any help at this point. 12/11/2023: He is doing better, with improved sodium, mobility has been much better he is able to walk with slight help he needs a walker. When she came with his felt that is his baseline. Eyes were prepared to discharge and he developed to have A-fib with RVR pulse rate Become quite irregular with pulse up to 106 bpm. Asked cardiology to see patient in consultation agreed to initiate him on Eliquis 2.5 mg twice a day and to increase his Coreg to 6.25 mg twice a day, TSH was normal at this point patient has an appointment to follow-up with cardiology as an outpatient. Of the current circumstances of new prescription was sent patient will be able to go home currently with the current management. Follow-up in the office the next day or 2. REVIEW OF SYSTEMS: CONSTITUTIONAL: Well-developed no acute respiratory distress. EYES: No icterus sclerae, no conjunctivitis. EARS, NOSE, MOUTH, THROAT, and FACE: No sore throat, lymphadenopathy, carotid bruits or deformity. RESPIRATORY: Slight shortness of breath cough and wheeze.. CARDIOVASCULAR: Positive PND orthopnea palpitation no angina. GASTROINTESTINAL: No Abd pain, Nausea or vomiting, no Diarrhea or constipation, No GI Bleed, no distention or masses. GENITOURINARY: Negative for Hematuria or UTI, no kidney stones. INTEGUMENT/BREAST: Negative for any muscular injury with mild osteoarthritis.. HEMATOLOGIC/LYMPHATIC: Negative for bleed or purpura. MUSCULOSKELTAL: Generalized myalgia and arthralgia. NEURLOGICAL: Memory loss with slight tremor. BEHAVIORAL/PSYCH: Dementia with no behavioral problem.. ENDOCRINE: Negative. PHYSICAL EXAMINATION: General Appearance: Alert, cooperative, no distress, appears stated age. Neck HEENT: Supple, no lymphadenopathy, no thyroid enlargement, no carotid bruits. Lungs: Decreased breath sound bilateral especially the bases positive fine rhonchi. Chest Wall: Decreased expansion with deep inspiration no tenderness and no deformity was found on exam, no costochondral pain or discomfort. Heart: Regular rate and rhythm, S1, S2 normal, no murmur, rub or gallop. Back: Symmetric, no curvature, ROM normal, no CVA tenderness. Abdomen: Soft, non-tender, bowel sounds active all four quadrants, no masses, no organomegaly. Extremities: Extremities normal, atraumatic, no cyanosis or edema. Pulses: 2+ and symmetric. Skin: Skin color, texture, tugor normal, no rashes or lesions. Neurologic: Alert oriented with slight confusion cranial nerves II through XII intact, no motor deficit, positive abnormal balance and gait with slight resting tremor. ASSESSMENT AND PLAN: _Severe abdominal pain secondary to probably colitis and severe large impaction, his abdominal pain is much better since his impaction resolved, still have an appointment see general surgery consultation. _Severe stool impaction continue stool softener along with fiber on more regular basis prep for colonoscopy was done patient had some of his impaction improved. Has improved has a lot of stool initially with a Fleet plus continue to go through the night. _Severe hyponatremia: Sodium has improved compared to yesterday up to 126 today. Continue gentle hydration watch sodium again tomorrow. _New onset of A-fib with RVR: Was seen cardiology initiate Coreg 6.25 mg twice a day along with Eliquis 2.5 mg twice a day. Patient be going home to see cardiology as an outpatient will be back to be seen in the office next few days. _Debility and weakness: Will attempt to stand the patient and ambulate and walk patient stumble quite bit he needs more than 1 person financial sales assistant he is not safe to be discharged today to [facility] with his there is no transportation and there is no help around patient either need to be in probably the Alzheimer unit or any need to go to SNF for little bit more rehab. _Worsening dementia: Still on donepezil 10 mg at bedtime and Namenda 5 mg daily. _Parkinsonism: Remain on carbidopa levodopa 25/100 mg 4 times a day which patie nt seems to do well with it. He is more symptomatic with his balance and gait. _Severe debility: Mostly combination of Parkinson disease, hyponatremia and his age. Titrate physical therapy this morning and see if this able to ambulate and walk with minimal help and being safe if not might need rehab. _Atherosclerotic heart disease: Continue medical management with aspirin, atorvastatin, Coreg, lisinopril doing well. _Hypertension: Remain on lisinopril 20 mg a day, Coreg 3.125 mg twice a day. _BPH: Watch for any urinary retention, remain on Proscar 5 mg daily. _Hyperlipidemia: Continue atorvastatin 3 times a week has been doing well with it. _Mild anemia: Can be effective the colitis can be from bleed as well. _Atherosclerotic heart disease: No chest pain or angina has been doing well on lisinopril, Coreg, rosuvastatin and aspirin. _GI prophylaxis: Will continue Prilosec. Prognosis: Fair. Discussion: Sodium is better, patient had A-fib with RVR was treated and watch while is in the hospital and then did well. Initiate PT was able to walk with a walker back to his baseline and felt that is manageable at [facility] with extra help. He will be discharged home today to be seen in the office in the next few days along with make an appointment see cardiology. Objective - Vital Signs Vital signs: Vital Signs Temp 97.4 F L 12/11/23 02:00 Pulse 67 12/11/23 02:00 Resp 16 12/11/23 02:00 BP 152/74 12/11/23 02:00 Pulse Ox 97 12/11/23 02:00 FiO2 Intake & Output 12/10/23 12/10/23 12/11/23 06:59 18:59 06:59 Intake Total 1298 Output Total 600 500 Balance -600 798 Weight 86.183 kg Intake: Oral 1298 Output: Urine 600 500 Other: Voiding Method Urinal - Labs CBC & Chem 7: 12/10/23 04:04 12/10/23 04:04 Labs: Abnormal Lab Results - Last 24 Hours (Table) 12/10/23 12/10/23 Range/Units 04:04 04:04 RBC 3.41 L (4.40-5.60) X 10*6/uL Hgb 10.7 L (13.0-17.0) g/dL Hct 32.2 L (39.6-50.0) % MPV 9.3 L (9.5-12.2) FL Sodium 126 L (135-145) mmol/L Carbon Dioxide 19.6 L (21.6-31.8) mmol/L BUN/Creatinine Ratio 22.14 H (12.00-20.00) Ratio Total Bilirubin 1.3 H (0.3-1.2) mg/dL Total Protein 5.1 L (6.2-8.2) g/dL Albumin 3.2 L (3.8-4.9) g/dL
[2023-12-11 09:07] VITALS: RESP 15
[2023-12-11] MEDS: ATORVASTATIN 20 MG TAB PO SCH (10:06)
[2023-12-11] MEDS: APIXABAN 2.5 MG TABLET PO SCH (12:45)
--- NOTE | 2023-12-11 12:45 | P.CRDCN ---
History of Present Illness History of present illness: HISTORY OF PRESENT ILLNESS: This is a 83-year-old male with a past medical history significant for mild cardiomyopathy, coronary artery disease with previous stenting, hypertension, and hyperlipidemia. Patient follows in the office with Dr. Rutherford. We have been asked to see the patient in consultation for atrial fibrillation. Patient examined at the bedside. Patient states he presented to the hospital with a chief complaint of abdominal pain. Patient was found to have a large fecal impaction. He was given enemas with improved bowel function. Patient denies any chest pain or pressure. He denies any shortness of breath. He denies any palpitations. This morning, the patient was noted to be in A-fib with RVR. He denies any history of atrial fibrillation. At the time of examination he remains in atrial fibrillation with heart rate in the 90s. Patient states he has a history of falls and states he falls a couple times a year. Risk versus benefit of anticoagulation discussed with the patient and his spouse at the bedside who are agreeable to beginning anticoagulation. DIAGNOSTICS: - EKG reveals A-fib with RVR. - Laboratory data: WBC 6.93. Hemoglobin 10.7. Platelet count 231. Sodium 126. Potassium 4.4. BUN 15. Creatinine 0.7. - Current home cardiac medications include lisinopril 20 mg daily, carvedilol 3.125 mg twice a day, rosuvastatin 10 mg Monday. - Most recent echocardiogram obtained in April 2021 revealing ejection fraction 47%, mild MR, mild TR - Cardiac catheterization history: June 2011 revealing 50% mid LAD, 10% proximal circumflex, 70% mid PLB, right dominant system. REVIEW OF SYSTEMS: At the time of my exam: CONSTITUTIONAL: Denies fever or chills. HEENT: Denies blurred vision, vision changes, or eye pain. Denies hemoptysis CARDIOVASCULAR: Denies chest pain. Denies orthopnea. Denies PND. Denies palpitations RESPIRATORY: Denies shortness of breath. GASTROINTESTINAL: Denies abdominal pain. Denies nausea or vomiting. HEMATOLOGIC: Denies bleeding disorders. GENITOURINARY: Denies any blood in urine. SKIN: Denies pruitis. Denies rash. PHYSICAL EXAM: VITAL SIGNS: Reviewed. GENERAL: Well-developed in no acute distress. HEENT: Head is normocephalic. Pupils are equal, round. Sclerae anicteric. Mucous membranes of the mouth are moist. Neck supple. No JVD or thyromegaly LUNGS: Respirations even and unlabored. Lungs essentially clear to auscultation bilaterally. HEART: Irregular rate and rhythm. S1 and S2 heard. ABDOMEN: Soft. Nondistended. Nontender. EXTREMITIES: Normal range of motion. No clubbing or cyanosis. Peripheral pulses intact. No lower extremity edema NEUROLOGIC: Awake and alert. Oriented x 3. 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 Vail, begin Eliquis at a lower dose of 2.5 mg twice a day due to increased fall risk Increase carvedilol 6.25 mg twice a day Check TSH Patient may be discharged home today and follow-up in the office with Dr. Rutherford Nurse practitioner note has been reviewed by physician. Signing provider agrees with the documented findings, assessment, and plan of care documented by TESTING COORDINATOR as a scribe. Past Medical History Past Medical History: Coronary Artery Disease (CAD), Hyperlipidemia, Hypertension, Myocardial Infarction (IL), Osteoarthritis (OA) Additional Past Medical History / Comment(s): HX COLON POLYPS. HX VERTIGO. HAS NOCTURIA. Ischemic cardiomyopathy Last Myocardial Infarction Date:: 2006 History of Any Multi-Drug Resistant Organisms: None Reported Past Surgical History: Bowel Resection, Cholecystectomy, Heart Catheterization With Stent, Joint Replacement Additional Past Surgical History / Comment(s): TOTAL LT KNEE 2004. BOWEL RESECTION FOR BENIGN POLYP. Total right knee arthroplasty April 2017. Past Anesthesia/Blood Transfusion Reactions: No Reported Reaction Date of Last Stent Placement:: 2010 Past Psychological History: No Psychological Hx Reported Smoking Status: Never smoker Past Alcohol Use History: None Reported Past Drug Use History: None Reported - Past Family History Mother Family Medical History: No Reported History Additional Family Medical History / Comment(s): Mother in her 80s with history of uterine cancer. Father Additional Family Medical History / Comment(s): Father at age 59 from ALS. Sister(s) Additional Family Medical History / Comment(s): Patient has one sister this 85 years of age with history of hypertension. Patient does not have any brothers. Patient does not have any children. Medications and Allergies Home Medications Medication Instructions Recorded Confirmed Type Celecoxib [CeleBREX] 200 mg PO DAILY PRN 04/21/17 12/09/23 History Omeprazole [PriLOSEC] 20 mg PO SUTUTHSA@0600 04/21/17 12/09/23 History Rosuvastatin Calcium [Crestor] 10 mg PO MOWEFR 04/21/17 12/09/23 History Ubidecarenone [Co Q-10] 100 mg PO HS 04/21/17 12/09/23 History Acetaminophen [Tylenol Arthritis] 650 mg PO TID@0800,1400,2000 11/25/23 12/09/23 History Aspirin EC [Ecotrin Low Dose] 81 mg PO DAILY@0600 11/25/23 12/09/23 History Carbidopa-Levodopa 25-100 mg 1 tab PO QID@06,12,16,19 11/25/23 12/09/23 History [Sinemet 25-100 mg] Cholecalciferol (Vitamin D3) 50 mcg PO DAILY@0600 11/25/23 12/09/23 History [Vitamin D3 (50 Mcg = 2000 Iu)] Donepezil HCl [Aricept] 10 mg PO HS 11/25/23 12/09/23 History Finasteride [Proscar] 5 mg PO DAILY@0600 11/25/23 12/09/23 History Memantine [Namenda] 5 mg PO DAILY@0600 11/25/23 12/09/23 History Vit C/E/Zn/Coppr/Lutein/Zeaxan 2 cap PO DAILY@0600 11/25/23 12/09/23 History [Preservision Areds 2 Softgel] carvediloL [Coreg] 3.125 mg PO BID@0600,1900 11/25/23 12/09/23 History Doxycycline Hyclate 100 mg PO AC-BID #14 capsule 11/29/23 12/09/23 Rx QUEtiapine [SEROquel] 12.5 mg PO HS PRN #30 tab 11/29/23 12/09/23 Rx guaiFENesin [Mucinex] 600 mg PO Q12HR #20 tab 11/29/23 12/09/23 Rx lisinopriL [Zestril] 20 mg PO DAILY@0600 #30 tab 11/29/23 12/09/23 Rx Albuterol Sulfate [Ventolin HFA] 2 puff INHALATION RT-Q6H PRN 12/09/23 12/09/23 History Loratadine [Claritin] 10 mg PO DAILY PRN 12/09/23 12/09/23 History Na Phos,M-B/Na Phos,Di-Ba [Fleet 133 ml RECTAL DAILY PRN each 12/10/23 Rx Adult] Sennosides [Senokot] 8.6 mg PO AC-BID #60 tablet 12/10/23 Rx polyethylene glycoL 3350 [Miralax] 17 gm PO AC-LUNCH #527 gm 12/10/23 Rx Allergies Allergy/AdvReac Type Severity Reaction Status Date / Time No Known Allergies Allergy Verified 12/09/23 19:55 Physical Exam Vitals: Vital Signs Temp Pulse Resp BP Pulse Ox 12/11/23 08:00 97.8 F 64 15 138/68 99 12/11/23 02:00 97.4 F L 67 16 152/74 97 12/10/23 20:00 97.7 F 63 16 132/67 99 12/10/23 14:55 97.3 F L 55 L 15 131/69 98 Intake and Output 12/10/23 12/11/23 12/11/23 22:59 06:59 14:59 Intake Total 590 Output Total 200 600 500 Balance 390 -600 -500 Intake: Oral 590 Output: Urine 200 600 500 Other: Voiding Method Urinal Results 12/10/23 04:04 12/10/23 04:04 Current Medications Generic Name Dose Route Start Last Admin Trade Name Freq PRN Reason Stop Dose Admin Acetaminophen 650 mg 12/10/23 08:00 12/11/23 10:06 Acetaminophen Tab 325 Mg Tab PO 650 mg TID@0800,1400,2000 ANJEL Administration Albuterol Sulfate 2.5 mg 12/09/23 23:54 Albuterol Nebulized 2.5 Mg/3 Ml INHALATION RT-Q6H PRN Bronchospasm Aspirin 81 mg 12/10/23 06:00 12/11/23 05:41 Aspirin 81 Mg PO 81 mg DAILY@0600 ANJEL Administration Atorvastatin Calcium 20 mg 12/11/23 09:00 12/11/23 10:06 Atorvastatin 20 Mg Tab PO 20 mg MOWEFR ANJEL Administration Carbidopa/Levodopa 1 each 12/10/23 06:00 12/11/23 05:41 Carbidopa-Levodopa 25-100 Mg 1 Each Tab PO 1 each QID@06,12,,19 [facility] Administration Carvedilol 3.125 mg 12/10/23 06:00 12/11/23 10:06 Carvedilol 3.125 Mg Tab PO 3.125 mg BID@0600,1900 ANJEL Administration Cholecalciferol 50 mcg 12/10/23 06:00 12/11/23 05:40 Cholecalciferol 25 Mcg (1000 Iu) Tablet PO 50 mcg DAILY@0600 [facility] Administration Donepezil HCl 10 mg 12/10/23 21:00 12/10/23 20:37 Donepezil 10 Mg Tab PO 10 mg HS [facility] Administration Doxycycline Monohydrate 100 mg 12/10/23 07:30 12/11/23 05:41 Doxycycline 100 Mg Cap PO 12/12/23 07:31 100 mg AC-BID ANJEL Administration Finasteride 5 mg 12/10/23 06:00 12/11/23 05:41 Finasteride 5 Mg Tab PO 5 mg DAILY@0600 [facility] Administration Guaifenesin 600 mg 12/10/23 09:00 12/11/23 10:06 Guaifenesin 600 Mg Tablet.Er PO 600 mg Q12HR ANJEL Administration Lisinopril 20 mg 12/10/23 06:00 12/11/23 05:41 Lisinopril 20 Mg Tab PO 20 mg DAILY@0600 [facility] Administration Loratadine 10 mg 12/09/23 23:54 Loratadine 10 Mg Tab PO DAILY PRN Allergy Symptoms Memantine 5 mg 12/10/23 06:00 12/11/23 05:41 Memantine 5 Mg Tab PO 5 mg DAILY@0600 [facility] Administration Multivitamins/Minerals 1 each 12/10/23 06:00 12/11/23 05:41 Vit A,C & T-Gckmmo-Jibzumxp 1 Each Tab PO 1 each DAILY@0600 [facility] Administration Pantoprazole Sodium 40 mg 12/10/23 06:00 12/10/23 05:34 Pantoprazole 40 Mg Tablet PO 40 mg SUTUTHSA@0600 [facility] Administration Quetiapine Fumarate 12.5 mg 12/09/23 23:54 Quetiapine 25 Mg Tab PO HS PRN Agitation Senna/Docusate Sodium 1 each 12/09/23 21:00 12/11/23 10:06 Sennosides-Docusate Sodium 1 Each Tab PO 1 each BID ANJEL Administration Sodium Biphosphate/Sodium Phosphate 133 ml 12/10/23 09:00 12/11/23 10:06 Na Phos,M-B/Na Phos,Di-Ba 133 Ml Enema RECTAL Not Given DAILY ANJEL Intake and Output 12/10/23 12/11/23 12/11/23 22:59 06:59 14:59 Intake Total 590 Output Total 200 600 500 Balance 390 -600 -500 Intake: Oral 590 Output: Urine 200 600 500 Other: Voiding Method Urinal 12/10/23 04:04 12/10/23 04:04
[2023-12-11] MEDS: carvediloL 3.125 MG TAB PO STA (12:46)
[2023-12-11 16:14] VITALS: BP 94/54; PULSE 74; TEMP 97.6
[2023-12-11] MEDS ORDERED: carvediloL 6.25 MG TAB PO SCH (19:00)
--- NOTE | 2023-12-11 22:00 | P.DS ---
Providers Date of admission: 12/09/23 18:31 Attending physician: Toni Hernandez Consults: 12/11/23 10:11 Consult Physician Urgent Consulting Provider: Carlos Vail Consult Reason/Comments: afib RVR Do you want consulting provider notified?: Yes Primary care physician: Toni Hernandez [facility] Course: HISTORY OF PRESENT ILLNESS: 83-year-old office patient was hospitalized in early November for severe gram- negative pneumonia was treated with IV antibiotic for 5 days and oral antibiotic afterward. He is known to have history of Parkinson disease, dementia, atherosclerotic heart disease, hypertension, hyperlipidemia, GERD, BPH, he has recurrent fall admitted to the ER twice since last admission was back in the office at least 1 time. Has been having slight worsening confusion lately. Patient developed to have significant worsening abdominal pain has not had any bowel movement since left the hospital according to him and has been having severe discomfort with irritation. Ended up coming to the emergency department at [facility] was seen and evaluated sodium level was 123 with normal creatinine kidney function, white blood cell 6.7 with hemoglobin 11.9 hematocrit 35 platelet count 265. CAT scan of the abdomen and pelvis shows severe impaction with slight irritation with large stool burden with large fecaloma in the rectum fecal disimpaction recommended fat stranding change around 3 sigmoid colon with wall thickening suggestive of possible or present left stercoral colitis also has recurrent colonic diverticulosis. 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 12/10/2023:His sodium improved up to 126, had several bowel movement through the night he is doing much better not distended today anymore. Spoke with the initially was planning to let him go back to [facility] but when the nurse stood him up patient is not safe to walk he needs more than 1 person painter assistant maybe we have to talk about possibility of SNF at this point. Another dilemma having to discharge him to [facility] today there is no transportation and he is not safe to take Cab And the does not have any help at this point. 12/11/2023: He is doing better, with improved sodium, mobility has been much better he is able to walk with slight help he needs a walker. When she came with his felt that is his baseline. Eyes were prepared to discharge and he developed to have A-fib with RVR pulse rate Become quite irregular with pulse up to 106 bpm. Asked cardiology to see patient in consultation agreed to initiate him on Eliquis 2.5 mg twice a day and to increase his Coreg to 6.25 mg twice a day, TSH was normal at this point patient has an appointment to follow-up with cardiology as an outpatient. Of the current circumstances of new prescription was sent patient will be able to go home currently with the current management. Follow-up in the office the next day or 2. REVIEW OF SYSTEMS: CONSTITUTIONAL: Well-developed no acute respiratory distress. EYES: No icterus sclerae, no conjunctivitis. EARS, NOSE, MOUTH, THROAT, and FACE: No sore throat, lymphadenopathy, carotid bruits or deformity. RESPIRATORY: Slight shortness of breath cough and wheeze.. CARDIOVASCULAR: Positive PND orthopnea palpitation no angina. GASTROINTESTINAL: No Abd pain, Nausea or vomiting, no Diarrhea or constipation, No GI Bleed, no distention or masses. GENITOURINARY: Negative for Hematuria or UTI, no kidney stones. INTEGUMENT/BREAST: Negative for any muscular injury with mild osteoarthritis.. HEMATOLOGIC/LYMPHATIC: Negative for bleed or purpura. MUSCULOSKELTAL: Generalized myalgia and arthralgia. NEURLOGICAL: Memory loss with slight tremor. BEHAVIORAL/PSYCH: Dementia with no behavioral problem.. ENDOCRINE: Negative. PHYSICAL EXAMINATION: General Appearance: Alert, cooperative, no distress, appears stated age. Neck HEENT: Supple, no lymphadenopathy, no thyroid enlargement, no carotid bruits. Lungs: Decreased breath sound bilateral especially the bases positive fine rhonchi. Chest Wall: Decreased expansion with deep inspiration no tenderness and no deformity was found on exam, no costochondral pain or discomfort. Heart: Regular rate and rhythm, S1, S2 normal, no murmur, rub or gallop. Back: Symmetric, no curvature, ROM normal, no CVA tenderness. Abdomen: Soft, non-tender, bowel sounds active all four quadrants, no masses, no organomegaly. Extremities: Extremities normal, atraumatic, no cyanosis or edema. Pulses: 2+ and symmetric. Skin: Skin color, texture, tugor normal, no rashes or lesions. Neurologic: Alert oriented with slight confusion cranial nerves II through XII intact, no motor deficit, positive abnormal balance and gait with slight resting tremor. ASSESSMENT AND PLAN: _Severe abdominal pain secondary to probably colitis and severe large impaction, his abdominal pain is much better since his impaction resolved, still have an appointment see general surgery consultation. _Severe stool impaction continue stool softener along with fiber on more regular basis prep for colonoscopy was done patient had some of his impaction improved. Has improved has a lot of stool initially with a Fleet plus continue to go through the night. _Severe hyponatremia: Sodium has improved compared to yesterday up to 126 today. Continue gentle hydration watch sodium again tomorrow. _New onset of A-fib with RVR: Was seen cardiology initiate Coreg 6.25 mg twice a day along with Eliquis 2.5 mg twice a day. Patient be going home to see cardiology as an outpatient will be back to be seen in the office next few days. _Debility and weakness: Will attempt to stand the patient and ambulate and walk patient stumble quite bit he needs more than 1 person painter assistant he is not safe to be discharged today to [facility] with his there is no transportation and there is no help around patient either need to be in probably the Alzheimer unit or any need to go to SNF for little bit more rehab. _Worsening dementia: Still on donepezil 10 mg at bedtime and Namenda 5 mg daily. _Parkinsonism: Remain on carbidopa levodopa 25/100 mg 4 times a day which patient seems to do well with it. He is more symptomatic with his balance and gait. _Severe debility: Mostly combination of Parkinson disease, hyponatremia and his age. Titrate physical therapy this morning and see if this able to ambulate and walk with minimal help and being safe if not might need rehab. _Atherosclerotic heart disease: Continue medical management with aspirin, atorvastatin, Coreg, lisinopril doing well. _Hypertension: Remain on lisinopril 20 mg a day, Coreg 3.125 mg twice a day. _BPH: Watch for any urinary retention, remain on Proscar 5 mg daily. _Hyperlipidemia: Continue atorvastatin 3 times a week has been doing well with it. _Mild anemia: Can be effective the colitis can be from bleed as well. _Atherosclerotic heart disease: No chest pain or angina has been doing well on lisinopril, Coreg, rosuvastatin and aspirin. _GI prophylaxis: Will continue Prilosec. Prognosis: Fair. Discussion: Sodium is better, patient had A-fib with RVR was treated and watch while is in the hospital and then did well. Initiate PT was able to walk with a walker back to his baseline and felt that is manageable at [facility] with extra help. He will be discharged home today to be seen in the office in the next few days along with make an appointment see cardiology. Hospital course: Patient brought to the emergency department on 12/09/2023 with slight abdominal discomfort with intractable constipation has not had any bowel movement since his hospitalization for pneumonia over 10 days ago becoming quite bit discomfort while he is in the ER was diagnosed with fecaloma in the rectum along with fecal disimpaction recommended he had larger sigmoid around 3 inches in size with slight thickening of the wall possible presented of left stercoral colitis with recurrent diverticulosis.. Patient ended up having Fleet enema and soap enema which works good surprisingly found to have significantly hyponatremia with sodium down to 123. His mobility was significantly decreased not able to ambulate and walk. Patient was kept in the hospital till the following day till he sees general surgery continue current management including having to improve his physical therapy and activity. While he is in the hospital patient developed to have A-fib with RVR was seen cardiology echocardiogram reviewed from last time was at 45 percentile ejection fraction with mild decrease in heart function. Sodium had improved up to 126 with 2 bowel movement happen the following day with no complication. Mobility still significantly decreased physical therapy attempt to walk patient finally on Monday was able to walk with a walker and the felt that is close to his baseline. Further arrangement for outpatient management and for him to have his new medication for A-fib and to watch his chemistry in the next few days patient will be discharged home today otherwise. Time spent on discharging patient was over 35 minutes. Patient Condition at Discharge: Fair Plan - Discharge Summary New Discharge Prescriptions: New carvediloL [Coreg] 6.25 mg PO BID@0600,1900 #60 tab Na Phos,M-B/Na Phos,Di-Ba [Fleet Adult] 133 ml RECTAL DAILY PRN each PRN Reason: Constipation polyethylene glycoL 3350 [Miralax] 17 gm PO AC-LUNCH #527 gm Sennosides [Senokot] 8.6 mg PO AC-BID #60 tablet Apixaban [Eliquis] 2.5 mg PO BID #60 tab Continue Ubidecarenone [Co Q-10] 100 mg PO HS Omeprazole [PriLOSEC] 20 mg PO SUTUTHSA@0600 Rosuvastatin Calcium [Crestor] 10 mg PO MOWE Celecoxib [CeleBREX] 200 mg PO DAILY PRN PRN Reason: Constipation Acetaminophen [Tylenol Arthritis] 650 mg PO TID@0800,1399,1999 Aspirin EC [Ecotrin Low Dose] 81 mg PO DAILY@0600 Cholecalciferol (Vitamin D3) [Vitamin D3 (50 Mcg = 2000 Iu)] 50 mcg PO DAILY@0600 Donepezil HCl [Aricept] 10 mg PO HS Finasteride [Proscar] 5 mg PO DAILY@0600 Memantine [Namenda] 5 mg PO DAILY@0600 Vit C/E/Zn/Coppr/Lutein/Zeaxan [Preservision Areds 2 Softgel] 2 cap PO DAILY@0600 lisinopriL [Zestril] 20 mg PO DAILY@0600 #30 tab Carbidopa-Levodopa 25-100 mg [Sinemet 25-100 mg] 1 tab PO QID@06,12,16,19 Doxycycline Hyclate 100 mg PO AC-BID #14 capsule guaiFENesin [Mucinex] 600 mg PO Q12HR #20 tab QUEtiapine [SEROquel] 12.5 mg PO HS PRN #30 tab PRN Reason: Agitation Albuterol Sulfate [Ventolin HFA] 2 puff INHALATION RT-Q6H PRN PRN Reason: Bronchospasm Loratadine [Claritin] 10 mg PO DAILY PRN PRN Reason: Allergy Symptoms Discontinued carvediloL [Coreg] 3.125 mg PO BID@0600,1900 Discharge Medication List Celecoxib [CeleBREX] 200 mg PO DAILY PRN 04/21/17 [History] Omeprazole [PriLOSEC] 20 mg PO SUTUTHSA@0600 04/21/17 [History] Rosuvastatin Calcium [Crestor] 10 mg PO MOWEFR 04/21/17 [History] Ubidecarenone [Co Q-10] 100 mg PO HS 04/21/17 [History] Acetaminophen [Tylenol Arthritis] 650 mg PO TID@0800,1400,199911/25/23 [History] Aspirin EC [Ecotrin Low Dose] 81 mg PO DAILY@0600 11/25/23 [History] Carbidopa-Levodopa 25-100 mg [Sinemet 25-100 mg] 1 tab PO QID@06,12,16,19 11/25/23 [History] Cholecalciferol (Vitamin D3) [Vitamin D3 (50 Mcg = 2000 Iu)] 50 mcg PO DAILY@0600 11/25/23 [History] Donepezil HCl [Aricept] 10 mg PO HS 11/25/23 [History] Finasteride [Proscar] 5 mg PO DAILY@0600 11/25/23 [History] Memantine [Namenda] 5 mg PO DAILY@0600 11/25/23 [History] Vit C/E/Zn/Coppr/Lutein/Zeaxan [Preservision Areds 2 Softgel] 2 cap PO DAILY@0600 11/25/23 [History] Doxycycline Hyclate 100 mg PO AC-BID #14 capsule 11/29/23 [Rx] QUEtiapine [SEROquel] 12.5 mg PO HS PRN #30 tab 11/29/23 [Rx] guaiFENesin [Mucinex] 600 mg PO Q12HR #20 tab 11/29/23 [Rx] lisinopriL [Zestril] 20 mg PO DAILY@0600 #30 tab 11/29/23 [Rx] Albuterol Sulfate [Ventolin HFA] 2 puff INHALATION RT-Q6H PRN 12/09/23 [History] Loratadine [Claritin] 10 mg PO DAILY PRN 12/09/23 [History] Na Phos,M-B/Na Phos,Di-Ba [Fleet Adult] 133 ml RECTAL DAILY PRN each 12/10/23 [Rx] Sennosides [Senokot] 8.6 mg PO AC-BID #60 tablet 12/10/23 [Rx] polyethylene glycoL 3350 [Miralax] 17 gm PO AC-LUNCH #527 gm 12/10/23 [Rx] Apixaban [Eliquis] 2.5 mg PO BID #60 tab 12/11/23 [Rx] carvediloL [Coreg] 6.25 mg PO BID@0600,1900 #60 tab 12/11/23 [Rx] Follow up Appointment(s)/Referral(s): Maximiliano Rutherford MD [STAFF PHYSICIAN] - 12/15/23 9:15 am () Toni Hernandez MD [Primary Care Provider] - 1-2 days Patient Instructions/Handouts: A-fib (Atrial Fibrillation) (DC) Discharge Disposition: HOME WITH HOME HEALTH SERVICES
== END 2023-12-11 16:35 | disposition home health service (06) | DRG 391 ==
LOC: EC 15:22 → 4SSUR 18:31 → 5NMEDONC 19:44 → UNDODISIN 20:29 → 4SSUR 21:36 → 6NMEDSUR 21:37
PROVIDERS: ADMIT Internal Medicine Geriatric Medicine; ATTEND Internal Medicine Geriatric Medicine
DX: K52.9 Noninfective gastroenteritis and colitis, unspecified (principal); K57.31 Diverticulosis of large intestine without perforation or abscess with bleeding; E22.2 Syndrome of inappropriate secretion of antidiuretic hormone; F02.82 Dementia in other diseases classified elsewhere, unspecified severity, with psychotic disturbance; K56.41 Fecal impaction; I48.91 Unspecified atrial fibrillation; G20.A1 Parkinson's disease without dyskinesia, without mention of fluctuations; I10 Essential (primary) hypertension; D50.0 Iron deficiency anemia secondary to blood loss (chronic); K21.9 Gastro-esophageal reflux disease without esophagitis; I25.10 Atherosclerotic heart disease of native coronary artery without angina pectoris; E78.5 Hyperlipidemia, unspecified; I25.5 Ischemic cardiomyopathy; N40.1 Benign prostatic hyperplasia with lower urinary tract symptoms; R35.1 Nocturia; R53.81 Other malaise; R29.6 Repeated falls; Z96.653 Presence of artificial knee joint, bilateral; Z91.81 History of falling; Z79.1 Long term (current) use of non-steroidal anti-inflammatories (NSAID); Z79.82 Long term (current) use of aspirin; Z79.899 Other long term (current) drug therapy; Z79.01 Long term (current) use of anticoagulants; Z95.5 Presence of coronary angioplasty implant and graft; I25.2 Old myocardial infarction; Z87.19 Personal history of other diseases of the digestive system
CPT/HCPCS: 36415; 74176; 80053; 82150; 83690; 83735; 84100; 84443; 85025; 85027; 96361; 96372; 96374; 99285

== ENCOUNTER 2023-12-15 22:04 | Emergency (ER) | payer MEDICARE ==
--- NOTE | 2023-12-15 23:03 | XR ---
EXAMINATION TYPE: XR KUB DATE OF EXAM: 12/15/2023 COMPARISON: None INDICATION: Weakness TECHNIQUE: Single view abdomen frontal projection FINDINGS: Fecal debris is within the descending colon. Normal bowel gas is within the colon. Some nonspecific s mall bowel gas is in the right lower quadrant. No dilated loops of bowel are evident. Psoas margins a re normal No organomegaly is present. IMPRESSION: 1. Nonspecific abdomen.
--- NOTE | 2023-12-16 00:29 | ED ---
Abdominal Pain HPI - General Chief Complaint: Abdominal Pain Stated Complaint: Constipation Time Seen by Provider: 12/15/23 23:41 Source: patient Mode of arrival: EMS Limitations: no limitations - History of Present Illness Initial Comments: 83-year-old male presenting to the ED with complaints of constipation. Reports he has not had a bowel movement in a week. Sent in from [facility] due to concerns of obstruction. Patient denies nausea or vomiting. Has been on senna and MiraLAX at [facility]. No fever or chills. No abdominal pain. No chest pain shortness of breath. No other complaints at this time. - Related Data Home Medications Medication Instructions Recorded Confirmed Celecoxib [CeleBREX] 200 mg PO DAILY PRN 04/21/17 12/09/23 Omeprazole [PriLOSEC] 20 mg PO SUTUTHSA@0600 04/21/17 12/09/23 Rosuvastatin Calcium [Crestor] 10 mg PO MOWEFR 04/21/17 12/09/23 Ubidecarenone [Co Q-10] 100 mg PO HS 04/21/17 12/09/23 Acetaminophen [Tylenol Arthritis] 650 mg PO TID@0800,1400,2000 11/25/23 12/09/23 Aspirin EC [Ecotrin Low Dose] 81 mg PO DAILY@0600 11/25/23 12/09/23 Carbidopa-Levodopa 25-100 mg 1 tab PO QID@06,12,16,19 11/25/23 12/09/23 [Sinemet 25-100 mg] Cholecalciferol (Vitamin D3) 50 mcg PO DAILY@0600 11/25/23 12/09/23 [Vitamin D3 (50 Mcg = 2000 Iu)] Donepezil HCl [Aricept] 10 mg PO HS 11/25/23 12/09/23 Finasteride [Proscar] 5 mg PO DAILY@0600 11/25/23 12/09/23 Memantine [Namenda] 5 mg PO DAILY@0600 11/25/23 12/09/23 Vit C/E/Zn/Coppr/Lutein/Zeaxan 2 cap PO DAILY@0600 11/25/23 12/09/23 [Preservision Areds 2 Softgel] Albuterol Sulfate [Ventolin HFA] 2 puff INHALATION RT-Q6H PRN 12/09/23 12/09/23 Loratadine [Claritin] 10 mg PO DAILY PRN 12/09/23 12/09/23 Previous Rx's Medication Instructions Recorded Doxycycline Hyclate 100 mg PO AC-BID #14 capsule 11/29/23 QUEtiapine [SEROquel] 12.5 mg PO HS PRN #30 tab 11/29/23 guaiFENesin [Mucinex] 600 mg PO Q12HR #20 tab 11/29/23 lisinopriL [Zestril] 20 mg PO DAILY@0600 #30 tab 11/29/23 Na Phos,M-B/Na Phos,Di-Ba [Fleet 133 ml RECTAL DAILY PRN each 12/10/23 Adult] Sennosides [Senokot] 8.6 mg PO AC-BID #60 tablet 12/10/23 polyethylene glycoL 3350 [Miralax] 17 gm PO AC-LUNCH #527 gm 12/10/23 Apixaban [Eliquis] 2.5 mg PO BID #60 tab 12/11/23 carvediloL [Coreg] 6.25 mg PO BID@0600,1900 #60 tab 12/11/23 Allergies Allergy/AdvReac Type Severity Reaction Status Date / Time No Known Allergies Allergy Verified 12/09/23 19:55 Review of Systems ROS Statement: Those systems with pertinent positive or pertinent negative responses have been documented in the HPI. ROS Other: All systems not noted in ROS Statement are negative. Past Medical History Past Medical History: Coronary Artery Disease (CAD), Hyperlipidemia, Hypertension, Myocardial Infarction (AK), Osteoarthritis (OA) Additional Past Medical History / Comment(s): HX COLON POLYPS. HX VERTIGO. HAS NOCTURIA. Ischemic cardiomyopathy Last Myocardial Infarction Date:: 2006 History of Any Multi-Drug Resistant Organisms: None Reported Past Surgical History: Bowel Resection, Cholecystectomy, Heart Catheterization With Stent, Joint Replacement Additional Past Surgical History / Comment(s): TOTAL LT KNEE 2004. BOWEL RESE CTION FOR BENIGN POLYP. Total right knee arthroplasty April 2017. Past Anesthesia/Blood Transfusion Reactions: No Reported Reaction Date of Last Stent Placement:: 2010 Past Psychological History: No Psychological Hx Reported Smoking Status: Never smoker Past Alcohol Use History: None Reported Past Drug Use History: None Reported - Past Family History Mother Family Medical History: No Reported History Additional Family Medical History / Comment(s): Mother in her 80s with history of uterine cancer. Father Additional Family Medical History / Comment(s): Father at age 59 from ALS. Sister(s) Additional Family Medical History / Comment(s): Patient has one sister this 85 years of age with history of hypertension. Patient does not have any brothers. Patient does not have any children. General Exam Limitations: no limitations General appearance: alert, in no apparent distress Eye exam: Present: normal appearance Neck exam: Present: normal inspection Respiratory exam: Present: normal lung sounds bilaterally Cardiovascular Exam: Present: regular rate GI/Abdominal exam: Present: soft, normal bowel sounds. Absent: distended, tenderness, guarding, rebound, rigid Neurological exam: Present: alert, oriented X3 Skin exam: Present: warm, dry Course Vital Signs 12/15/23 22:38 Temperature 97.6 F Pulse Rate 56 L Respiratory 18 Rate Blood Pressure 137/49 O2 Sat by Pulse 98 Oximetry Medical Decision Making - Medical Decision Making Was pt. sent in by a medical professional or institution (GIOVANNI Baird, [employer]CHIT[employer], urgent care, hospital, or assisted...) When possible be specific @ -No Did you speak to anyone other than the patient for history (EMS, parent, family, police, friend...)? What history was obtained from this source @ -No Did you review nursing and triage notes (agree or disagree)? Why? @ -I reviewed and agree with nursing and triage notes Were old charts reviewed (outside hosp., previous admission, EMS record, old EKG, old radiological studies, urgent care reports/EKG's, assisted records)? Report findings @ -Paperwork from [facility] reviewed which shows patient is already on MiraLAX and senna. Differential Diagnosis (chest pain, altered mental status, abdominal pain women, abdominal pain men, vaginal bleeding, weakness, fever, dyspnea, syncope, headache, dizziness, GI bleed, back pain, seizure, CVA, palpatations, mental health, musculoskeletal)? @ -Differential Abdominal Pain Men: Appendicitis, cholecystitis, diverticulosis, ischemic bowel, pancreatitis, hepatitis, UTI, gastroenteritis, AAA, incarcerated hernia, bowel obstruction, constipation, inflammatory bowel, hepatitis, peptic ulcer disease, splenic infarction, perforated viscus, testicular torsion, this is not meant to be an all-inclusive list EKG interpreted by me (3pts min.). @ -None X-rays interpreted by me (1pt min.). @ -KUB interpreted me which revealed no evidence of structural CT interpreted by me (1pt min.). @ -None done U/S interpreted by me (1pt. min.). @ -None done What testing was considered but not performed or refused? (CT, X-rays, U/S, labs)? Why? @ -None What meds were considered but not given or refused? Why? @ -None Did you discuss the management of the patient with other professionals (professionals i.e. , PA, [employer] ARCHITECT, lab, RT, psych nurse, social staff worker, demurrage clerk, teacher, sanitation officer, family caseworker)? Give summary @ -No Was smoking cessation discussed for >3mins.? @ -No Was critical care preformed (if so, how long)? @ -No Were there social determinants of health that impacted care today? How? (Homelessness, low income, unemployed, alcoholism, drug addiction, transportation, low edu. Level, literacy, decrease access to med. care, residential, rehab)? @ -No Was there de-escalation of care discussed even if they declined (Discuss DNR or withdrawal of care, Hospice)? DNR status @ -No What co-morbidities impacted this encounter? (DM, HTN, Smoking, COPD, CAD, Cancer, CVA, ARF, Chemo, Hep., AIDS, mental health diagnosis, sleep apnea, morbid obesity)? @ -None Was patient admitted / discharged? Hospital course, mention meds given and route, prescriptions, significant lab abnormalities, going to OR and other pertinent info. @ -Discharge 83-year-old male presenting to the ED with complaints of constipation for the last week. No abdominal pain, nausea or vomiting. No other complaints at this time. Exam of the abdomen is soft, nontender without distention. KUB was performed which revealed no evidence of obstruction. Progression provided an enema. Discharged home in stable condition. Discussed return precautions with patient who verbalized agreement. Undiagnosed new problem with uncertain prognosis? @ -No Drug Therapy requiring intensive monitoring for toxicity (Heparin, Nitro, Insulin, Cardizem)? @ -No Were any procedures done? @ -No Diagnosis/symptom? @ -Constipation Acute, or Chronic, or Acute on Chronic? @ -Acute Uncomplicated (without systemic symptoms) or Complicated (systemic symptoms)? @ -Uncomplicated Side effects of treatment? @ -No Exacerbation, Progression, or Severe Exacerbation? @ -No Poses a threat to life or bodily function? How? (Chest pain, USA, AK, pneumonia, PE, COPD, DKA, ARF, appy, cholecystitis, CVA, Diverticulitis, Homicidal, Suicidal, threat to staff... and all critical care pts) @ -No Disposition Clinical Impression: Constipation Disposition: HOME SELF-CARE Condition: Good Instructions (If sedation given, give patient instructions): Constipation (ED) Additional Instructions: Please return to the Emergency Department if symptoms worsen or any other concerns. Please increase MiraLAX use. Please provide the patient adequate amounts of fiber. Advise good hydration. Follow-up with primary care provider. Is patient prescribed a controlled substance at d/c from ED?: No Referrals: Toni Hernandez MD [Primary Care Provider] - 1-2 days Time of Disposition: 00:33
[2023-12-16 04:52] VITALS: BP 134/62; PULSE 61; RESP 16; TEMP 97.8
== END 2023-12-16 04:18 | disposition home or self-care (01) ==
LOC: EC 22:04
DX: K59.00 Constipation, unspecified (principal)
CPT/HCPCS: 74018; 99284

== ENCOUNTER 2023-12-19 09:43 | Emergency (ER) | payer MEDICARE ==
[2023-12-19] MEDS: SODIUM CHLORIDE 0.9% 500 ML 500 ML IV STA (10:01)
[2023-12-19 10:23] LABS: Basophils % (A) 1 %; Eosinophils # (A) 0.1 k/uL (0-0.7); Eosinophils % (A) 2 %; HCT 37.9 % (39.0-53.0); HGB 12.7 gm/dL (13.0-17.5); Lymphocytes # (A) 1.1 k/uL (1.0-4.8); Lymphocytes % (A) 29 %; MCH 32.4 pg (25.0-35.0); MCHC 33.5 g/dL (31.0-37.0); MCV 96.6 fL (80.0-100.0); Mean Platelet Volume 7.7; Monocytes # (A) 0.5 k/uL (0-1.0); Monocytes % (A) 14 %; Neutrophils # (A) 1.9 k/uL (1.3-7.7); Neutrophils % (A) 51 %; Platelet Count 244 k/uL (150-450); RBC 3.92 m/uL (4.30-5.90); RDW 14.1 % (11.5-15.5); WBC 3.8 k/uL (3.8-10.6)
--- NOTE | 2023-12-19 10:24 | ED ---
General Adult HPI - General Chief complaint: Altered Mental Status Stated complaint: AMS Time Seen by Provider: 12/19/23 09:47 Source: patient, family, EMS, RN notes reviewed, old records reviewed Mode of arrival: EMS Limitations: physical limitation - History of Present Illness Initial comments: 83-year-old male presents for evaluation of an episode of unresponsiveness while trying to take a bowel movement . Patient had an episode after breakfast where he was sitting in his wheelchair and became momentarily unresponsive. Paramedics were called and the patient was noted to be bradycardic in the 30s and hypotensive. He had eaten a normal breakfast. He had been in his usual state of health. Paramedics had given 0.5 mg of atropine and heart rate and blood pressure had significantly improved. Patient himself has no complaints and he is alert and oriented at the time my evaluation. History is obtained from the patient's, paramedics and the patient's who is at bedside. - Related Data Home Medications Medication Instructions Recorded Confirmed Celecoxib [CeleBREX] 200 mg PO DAILY PRN 04/21/17 12/19/23 Omeprazole [PriLOSEC] 20 mg PO SUTUTHSA@0600 04/21/17 12/19/23 Rosuvastatin Calcium [Crestor] 10 mg PO MOWEFR 04/21/17 12/19/23 Ubidecarenone [Co Q-10] 100 mg PO HS 04/21/17 12/19/23 Acetaminophen [Tylenol Arthritis] 650 mg PO TID@0800,1400,2000 11/25/23 12/19/23 Aspirin EC [Ecotrin Low Dose] 81 mg PO DAILY@59911/25/23 12/19/23 Carbidopa-Levodopa 25-100 mg 1 tab PO QID@06,12,16,19 11/25/23 12/19/23 [Sinemet 25-100 mg] Cholecalciferol (Vitamin D3) 50 mcg PO DAILY@59911/25/23 12/19/23 [Vitamin D3 (50 Mcg = 2000 Iu)] Donepezil HCl [Aricept] 10 mg PO HS 11/25/23 12/19/23 Finasteride [Proscar] 5 mg PO DAILY@59911/25/23 12/19/23 Memantine [Namenda] 5 mg PO DAILY@59911/25/2312/18/24 Vit C/E/Zn/Coppr/Lutein/Zeaxan 2 cap PO DAILY@0600 11/25/23 12/19/23 [Preservision Areds 2 Softgel] Albuterol Sulfate [Ventolin HFA] 2 puff INHALATION RT-Q6H PRN 12/09/23 12/19/23 Loratadine [Claritin] 10 mg PO DAILY PRN 12/09/23 12/19/23 Sennosides [Senokot] 8.6 mg PO BID 12/19/23 12/19/23 Previous Rx's Medication Instructions Recorded QUEtiapine [SEROquel] 12.5 mg PO HS PRN #30 tab 11/29/23 lisinopriL [Zestril] 20 mg PO DAILY@0600 #30 tab 11/29/23 Na Phos,M-B/Na Phos,Di-Ba [Fleet 133 ml RECTAL DAILY PRN each 12/10/23 Adult] polyethylene glycoL 3350 [Miralax] 17 gm PO AC-LUNCH #527 gm 12/10/23 Apixaban [Eliquis] 2.5 mg PO BID #60 tab 12/11/23 carvediloL [Coreg] 6.25 mg PO BID@0600,1900 #60 tab 12/11/23 Allergies Allergy/AdvReac Type Severity Reaction Status Date / Time No Known Allergies Allergy Verified 12/19/23 11:51 Review of Systems ROS Statement: Those systems with pertinent positive or pertinent negative responses have been documented in the HPI. ROS Other: All systems not noted in ROS Statement are negative. Past Medical History Past Medical History: Coronary Artery Disease (CAD), Hyperlipidemia, Hypertension, Myocardial Infarction (ND), Osteoarthritis (OA) Additional Past Medical History / Comment(s): HX COLON POLYPS. HX VERTIGO. HAS NOCTURIA. Ischemic cardiomyopathy Last Myocardial Infarction Date:: 2006 History of Any Multi-Drug Resistant Organisms: None Reported Past Surgical History: Bowel Resection, Cholecystectomy, Heart Catheterization With Stent, Joint Replacement Additional Past Surgical History / Comment(s): TOTAL LT KNEE 2004. BOWEL RESECTION FOR BENIGN POLYP. Total right knee arthroplasty April 2017. Past Anesthesia/Blood Transfusion Reactions: No Reported Reaction Date of Last Stent Placement:: 2010 Past Psychological History: No Psychological Hx Reported Smoking Status: Never smoker Past Alcohol Use History: None Reported Past Drug Use History: None Reported - Past Family History Mother Family Medical History: No Reported History Additional Family Medical History / Comment(s): Mother in her 80s with history of uterine cancer. Father Additional Family Medical History / Comment(s): Father at age 59 from ALS. Sister(s) Additional Family Medical History / Comment(s): Patient has one sister this 85 years of age with history of hypertension. Patient does not have any brothers. Patient does not have any children. General Exam Limitations: physical limitation General appearance: in no apparent distress, lethargic Head exam: Present: atraumatic, normocephalic Eye exam: Present: normal appearance, PERRL ENT exam: Present: mucous membranes moist Neck exam: Present: normal inspection. Absent: tenderness, meningismus Respiratory exam: Present: normal lung sounds bilaterally. Absent: respiratory distress, wheezes Cardiovascular Exam: Present: regular rate, normal rhythm GI/Abdominal exam: Present: soft. Absent: distended, tenderness Extremities exam: Present: normal inspection Neurological exam: Present: alert, oriented X3, CN II-XII intact. Absent: motor sensory deficit Psychiatric exam: Present: normal affect, normal mood Skin exam: Present: warm, dry, intact. Absent: cyanosis, diaphoretic Course Vital Signs 12/19/23 12/19/23 09:44 11:55 Temperature 96.5 F L Pulse Rate 65 Respiratory 10 L Rate Blood Pressure 98/73 O2 Sat by Pulse 97 100 Oximetry Medical Decision Making - Medical Decision Making Was pt. sent in by a medical professional or institution (, PA, B[employer], urgent care, hospital, or alf...) When possible be specific @ -No Did you speak to anyone other than the patient for history (EMS, parent, family, police, friend...)? What history was obtained from this source @ -No Did you review nursing and triage notes (agree or disagree)? Why? @ -I reviewed and agree with nursing and triage notes Were old charts reviewed (outside hosp., previous admission, EMS record, old EKG, old radiological studies, urgent care reports/EKG's, alf records)? Report findings @ -No old charts were reviewed Differential Syncope: Valvular disease, hypertrophic cardiomyopathy, pulmonary embolism, tamponade, tachycardia, bradycardia, ND, hypovolemia, hemorrhage, dissection, anemia, intracranial hemorrhage, seizure, hypoglycemia, carbon monoxide poisoning, this is not meant to be an all-inclusive list. EKG interpreted by me (3pts min.). @ -Sinus rhythm rate of 65, NE interval 113, QRS duration 93, QTc [address] segment elevation. X-rays interpreted by me (1pt min.). @Chest x-ray clear no acute findings CT interpreted by me (1pt min.). @ -None done U/S interpreted by me (1pt. min.). @ -None done What testing was considered but not performed or refused? (CT, X-rays, U/S, labs)? Why? @ -None What meds were considered but not given or refused? Why? @ -None Did you discuss the management of the patient with other professionals (professionals i.e. , PA, [employer], lab, RT, psych nurse, 7th grade social studies teacher, umbrella mender, teacher, gift officer, case assembler)? Give summary @ -No Was smoking cessation discussed for >3mins.? @ -No Was critical care preformed (if so, how long)? @ -No Were there social determinants of health that impacted care today? How? (Homelessness, low income, unemployed, alcoholism, drug addiction, transportation, low edu. Level, literacy, decrease access to med. care, correction, rehab)? @ -No Was there de-escalation of care discussed even if they declined (Discuss DNR or withdrawal of care, Hospice)? DNR status @ -No What co-morbidities impacted this encounter? (DM, HTN, Smoking, COPD, CAD, Cancer, CVA, ARF, Chemo, Hep., AIDS, mental health diagnosis, sleep apnea, morbid obesity)? @ -None Was patient admitted / discharged? Hospital course, mention meds given and route, prescriptions, significant lab abnormalities, going to OR and other pertinent info. @ -[83-year-old male with likely syncopal episode related to vasovagal syncope as the patient was attempting to have a bowel movement. Patient's blood pressure improves and heart rate normalizes while in the emergency department. He remains alert without complaint. EKG is sinus rhythm. He has normal laboratory testing, chest x-ray is clear. I did offer observation but the p atient prefers discharge at this time. He will return with any worsening or changing symptoms. Undiagnosed new problem with uncertain prognosis? @ -No Drug Therapy requiring intensive monitoring for toxicity (Heparin, Nitro, Insulin, Cardizem)? @ -No Were any procedures done? @ -No Diagnosis/symptom? @ -Syncope Acute, or Chronic, or Acute on Chronic? @ -Acute Uncomplicated (without systemic symptoms) or Complicated (systemic symptoms)? @ -Default Side effects of treatment? @ -No Exacerbation, Progression, or Severe Exacerbation? @ -No Poses a threat to life or bodily function? How? (Chest pain, USA, ND, pneumonia, PE, COPD, DKA, ARF, appy, cholecystitis, CVA, Diverticulitis, Homicidal, Suicidal, threat to staff... and all critical care pts) @ -[Low risk at this time - Lab Data Result diagrams: 12/19/23 09:48 12/19/23 09:48 Lab Results 12/19/23 12/19/23 12/19/23 Range/Units 09:48 09:48 09:48 WBC 3.8 (3.8-10.6) k/uL RBC 3.92 L (4.30-5.90) m/uL Hgb 12.7 L (13.0-17.5) gm/dL Hct 37.9 L (39.0-53.0) % MCV 96.6 (80.0-100.0) fL MCH 32.4 (25.0-35.0) pg MCHC 33.5 (31.0-37.0) g/dL RDW 14.1 (11.5-15.5) % Plt Count 244 (150-450) k/uL MPV 7.7 Neutrophils % 51 % Lymphocytes % 29 % Monocytes % 14 % Eosinophils % 2 % Basophils % 1 % Neutrophils # 1.9 (1.3-7.7) k/uL Lymphocytes # 1.1 (1.0-4.8) k/uL Monocytes # 0.5 (0-1.0) k/uL Eosinophils # 0.1 (0-0.7) k/uL Basophils # 0.0 (0-0.2) k/uL PT 11.4 (10.0-12.5) sec INR 1.0 (<1.2) APTT 25.0 (22.0-30.0) sec Sodium 128 L (137-145) mmol/L Potassium 4.4 (3.5-5.1) mmol/L Chloride 99 (98-107) mmol/L Carbon Dioxide 21 L (22-30) mmol/L Anion Gap 8 mmol/L BUN 19 (9-20) mg/dL Creatinine 0.87 (0.66-1.25) mg/dL Est GFR (CKD-EPI)AfAm >90 (>60 ml/min/1.73 sqM) Est GFR (CKD-EPI)NonAf 79 (>60 ml/min/1.73 sqM) Glucose 120 H (74-99) mg/dL Calcium 9.0 (8.4-10.2) mg/dL Magnesium 1.8 (1.6-2.3) mg/dL Total Bilirubin 1.3 (0.2-1.3) mg/dL AST 27 (17-59) U/L ALT 8 (4-49) U/L Alkaline Phosphatase 97 (38-126) U/L Troponin I (0.000-0.034) ng/mL Total Protein 6.3 (6.3-8.2) g/dL Albumin 3.6 (3.5-5.0) g/dL 12/19/23 Range/Units 09:48 WBC (3.8-10.6) k/uL RBC (4.30-5.90) m/uL Hgb (13.0-17.5) gm/dL Hct (39.0-53.0) % MCV (80.0-100.0) fL MCH (25.0-35.0) pg MCHC (31.0-37.0) g/dL RDW (11.5-15.5) % Plt Count (150-450) k/uL MPV Neutrophils % % Lymphocytes % % Monocytes % % Eosinophils % % Basophils % % Neutrophils # (1.3-7.7) k/uL Lymphocytes # (1.0-4.8) k/uL Monocytes # (0-1.0) k/uL Eosinophils # (0-0.7) k/uL Basophils # (0-0.2) k/uL PT (10.0-12.5) sec INR (<1.2) APTT (22.0-30.0) sec Sodium (137-145) mmol/L Potassium (3.5-5.1) mmol/L Chloride (98-107) mmol/L Carbon Dioxide (22-30) mmol/L Anion Gap mmol/L BUN (9-20) mg/dL Creatinine (0.66-1.25) mg/dL Est GFR (CKD-EPI)AfAm (>60 ml/min/1.73 sqM) Est GFR (CKD-EPI)NonAf (>60 ml/min/1.73 sqM) Glucose (74-99) mg/dL Calcium (8.4-10.2) mg/dL Magnesium (1.6-2.3) mg/dL Total Bilirubin (0.2-1.3) mg/dL AST (17-59) U/L ALT (4-49) U/L Alkaline Phosphatase (38-126) U/L Troponin I <0.012 (0.000-0.034) ng/mL Total Protein (6.3-8.2) g/dL Albumin (3.5-5.0) g/dL Disposition Clinical Impression: Syncope Disposition: HOME SELF-CARE Condition: Fair Instructions (If sedation given, give patient instructions): Syncope (ED) Is patient prescribed a controlled substance at d/c from ED?: No Referrals: Toni Hernandez MD [Primary Care Provider] - 1-2 days Forms: Who Do I Call?, Assisted Living Facilities, [facility], Personal Management Developer
[2023-12-19 10:34] LABS: Prothrombin Time 11.4 sec (10.0-12.5)
[2023-12-19 10:46] VITALS: TEMP 96.5
[2023-12-19 10:47] LABS: ALT 8 U/L (4-49); AST 27 U/L (17-59); African American GFR (CKD) >90 (>60 ml/min/1.73 sqM); Albumin 3.6 g/dL (3.5-5.0); Alkaline Phosphatase 97 U/L (38-126); Anion Gap 8 mmol/L; Blood Urea Nitrogen 19 mg/dL (9-20); Carbon Dioxide 21 mmol/L (22-30); Chloride 99 mmol/L (98-107); Glucose 120 mg/dL (74-99); Magnesium 1.8 mg/dL (1.6-2.3); Non-African American GFR(CKD) 79 (>60 ml/min/1.73 sqM); Potassium 4.4 mmol/L (3.5-5.1); Sodium 128 mmol/L (137-145); Total Bilirubin 1.3 mg/dL (0.2-1.3); Total Protein 6.3 g/dL (6.3-8.2)
--- NOTE | 2023-12-19 11:00 | XR ---
EXAMINATION TYPE: XR chest 2V DATE OF EXAM: 12/19/2023 COMPARISON: None INDICATION: Syncope TECHNIQUE: Frontal and lateral views of the chest are obtained. FINDINGS: The heart size is normal. The pulmonary vasculature is normal. The lungs are clear. Hyperinflation flattening the diaphragms compatible with COPD. IMPRESSION: 1. No acute pulmonary process.
[2023-12-19 12:44] VITALS: BP 151/72; PULSE 62; RESP 18
== END 2023-12-19 12:34 | disposition home or self-care (01) ==
LOC: EC 09:43
DX: R55 Syncope and collapse (principal)
CPT/HCPCS: 36415; 71046; 80053; 83735; 84484; 85025; 85610; 85730; 93005; 99285

== ENCOUNTER 2023-12-26 09:12 | Emergency (ER) | payer MEDICARE ==
[2023-12-26 09:18] VITALS: TEMP 97
[2023-12-26 09:59] LABS: Basophils % (A) 0 %; Eosinophils # (A) 0.1 k/uL (0-0.7); Eosinophils % (A) 1 %; HGB 13.3 gm/dL (13.0-17.5); Lymphocytes # (A) 0.9 k/uL (1.0-4.8); Lymphocytes % (A) 15 %; MCH 31.8 pg (25.0-35.0); MCHC 32.3 g/dL (31.0-37.0); MCV 98.3 fL (80.0-100.0); Mean Platelet Volume 7.4; Monocytes # (A) 0.5 k/uL (0-1.0); Monocytes % (A) 9 %; Neutrophils # (A) 4.4 k/uL (1.3-7.7); Neutrophils % (A) 74 %; Platelet Count 213 k/uL (150-450); RBC 4.17 m/uL (4.30-5.90); RDW 13.9 % (11.5-15.5)
[2023-12-26 10:11] LABS: INR 1.1 (<1.2); Partial Thromboplastin Time 24.9 sec (22.0-30.0); Prothrombin Time 11.6 sec (10.0-12.5)
--- NOTE | 2023-12-26 10:15 | ED ---
Neuro HPI - General Chief Complaint: Neuro Symptoms/Deficit Stated Complaint: stroke like symp Time Seen by Provider: 12/26/23 09:15 Source: patient, EMS Mode of arrival: EMS Limitations: no limitations - History of Present Illness Is the patient presenting with stroke symptoms?: No Initial Comments: Patient is an 83-year-old male who presents emergency department from [facility]. Patient was attempting to use the restroom when staff felt that he went acutely altered. He became less responsive. He did not fall or sustain any injuries. Staff felt as if he had lateralizing weakness and therefore called EMS. EMS states that the patient was hypotensive however blood pressures did improve. Patient is able to provide some history. He is unsure why he is in the emergency department. He denies any pain. No shortness of breath. Denies any nausea or vomiting. No other alleviating, precipitating modifying factors - Related Data Home Medications: Home Medications Medication Instructions Recorded Confirmed Celecoxib [CeleBREX] 200 mg PO DAILY PRN 04/21/17 01/03/24 Omeprazole [PriLOSEC] 20 mg PO SUTUTHSA@59904/21/17 01/03/24 Rosuvastatin Calcium [Crestor] 10 mg PO MOWEFR@59904/21/17 01/03/24 Ubidecarenone [Co Q-10] 100 mg PO HS@189904/21/17 01/03/24 Acetaminophen [Tylenol Arthritis] 650 mg PO TID@0800,1400,199911/25/23 01/03/24 Aspirin EC [Ecotrin Low Dose] 81 mg PO DAILY@59911/25/23 01/03/24 Carbidopa-Levodopa 25-100 mg 1 tab PO QID@06,12,16,19 11/25/23 01/03/24 [Sinemet 25-100 mg] Cholecalciferol (Vitamin D3) 50 mcg PO DAILY@59911/25/23 01/03/24 [Vitamin D3 (50 Mcg = 2000 Iu)] Donepezil HCl [Aricept] 10 mg PO BID@0600,1900 11/25/23 01/03/24 Finasteride [Proscar] 5 mg PO DAILY@59911/25/23 01/03/24 Memantine [Namenda] 5 mg PO DAILY@59911/25/23 01/03/24 Vit C/E/Zn/Coppr/Lutein/Zeaxan 2 cap PO DAILY@0600 11/25/23 01/03/24 [Preservision Areds 2 Softgel] Albuterol Sulfate [Ventolin HFA] 2 puff INHALATION RT-Q6H PRN 12/09/23 01/03/24 Loratadine [Claritin] 10 mg PO DAILY PRN 12/09/23 01/03/24 Sennosides [Senokot] 8.6 mg PO BID@0600,1900 12/19/23 01/03/24 Apixaban [Eliquis] 2.5 mg PO BID@0600,1900 12/28/23 01/03/24 Lactulose 10 gm PO DAILY@0600 01/03/24 01/03/24 Lactulose 10 gm PO HS PRN 01/03/24 01/03/24 Phenazopyridine [Pyridium] 100 mg PO BID@0600,1900 01/03/24 01/03/24 Sulfamethox-Tmp 800-160Mg [Bactrim 1 tab PO BID@0800,199901/03/24 01/03/24 DS 800-160 mg] polyethylene glycoL 3350 [Miralax] 17 gm PO DAILY@1200 01/03/24 01/03/24 Previous Rx's Medication Instructions Recorded QUEtiapine [SEROquel] 12.5 mg PO HS PRN #30 tab 11/29/23 lisinopriL [Zestril] 20 mg PO DAILY@0600 #30 tab 11/29/23 Na Phos,M-B/Na Phos,Di-Ba [Fleet 133 ml RECTAL DAILY PRN each 12/10/23 Adult] carvediloL [Coreg] 6.25 mg PO BID@0600,1900 #60 tab 12/11/23 Allergies/Adverse Reactions: Allergies Allergy/AdvReac Type Severity Reaction Status Date / Time No Known Allergies Allergy Verified 01/03/24 10:03 Review of Systems ROS Statement: Those systems with pertinent positive or pertinent negative responses have been documented in the HPI. ROS Other: All systems not noted in ROS Statement are negative. General Exam Limitations: physical limitation (Hard of hearing) General appearance: alert, in no apparent distress Head exam: Present: atraumatic, normocephalic, normal inspection Eye exam: Present: normal appearance, PERRL, EOMI. Absent: scleral icterus, conjunctival injection, periorbital swelling ENT exam: Present: normal exam, mucous membranes moist Neck exam: Present: normal inspection. Absent: tenderness, meningismus, lymphadenopathy Respiratory exam: Present: normal lung sounds bilaterally. Absent: respiratory distress, wheezes, rales, rhonchi, stridor Cardiovascular Exam: Present: regular rate, normal rhythm, normal heart sounds. Absent: systolic murmur, diastolic murmur, rubs, gallop, clicks GI/Abdominal exam: Present: soft, normal bowel sounds. Absent: distended, tenderness, guarding, rebound, rigid Extremities exam: Present: normal inspection, full ROM, normal capillary refill. Absent: tenderness, pedal edema, joint swelling, calf tenderness Back exam: Present: normal inspection Neurological exam: Present: alert, oriented X3, CN II-XII intact Psychiatric exam: Present: normal affect, normal mood Skin exam: Present: warm, dry, intact, normal color. Absent: rash Stroke MDM - Lab Data Result diagrams: 12/26/23 09:49 12/26/23 09:49 Lab Results 12/26/23 12/26/23 12/26/23 Range/Units 09:49 09:49 09:49 WBC 6.0 (3.8-10.6) k/uL RBC 4.17 L (4.30-5.90) m/uL Hgb 13.3 (13.0-17.5) gm/dL Hct 41.0 (39.0-53.0) % MCV 98.3 (80.0-100.0) fL MCH 31.8 (25.0-35.0) pg MCHC 32.3 (31.0-37.0) g/dL RDW 13.9 (11.5-15.5) % Plt Count 213 (150-450) k/uL MPV 7.4 Neutrophils % 74 % Lymphocytes % 15 % Monocytes % 9 % Eosinophils % 1 % Basophils % 0 % Neutrophils # 4.4 (1.3-7.7) k/uL Lymphocytes # 0.9 L (1.0-4.8) k/uL Monocytes # 0.5 (0-1.0) k/uL Eosinophils # 0.1 (0-0.7) k/uL Basophils # 0.0 (0-0.2) k/uL PT 11.6 (10.0-12.5) sec INR 1.1 (<1.2) APTT 24.9 (22.0-30.0) sec Sodium (137-145) mmol/L Potassium (3.5-5.1) mmol/L Chloride (98-107) mmol/L Carbon Dioxide (22-30) mmol/L Anion Gap mmol/L BUN (9-20) mg/dL Creatinine (0.66-1.25) mg/dL Est GFR (CKD-EPI)AfAm (>60 ml/min/1.73 sqM) Est GFR (CKD-EPI)NonAf (>60 ml/min/1.73 sqM) Glucose (74-99) mg/dL Calcium (8.4-10.2) mg/dL Total Bilirubin (0.2-1.3) mg/dL AST (17-59) U/L ALT (4-49) U/L Alkaline Phosphatase (38-126) U/L Troponin I (0.000-0.034) ng/mL Total Protein (6.3-8.2) g/dL Albumin (3.5-5.0) g/dL Urine Color Yellow Urine Appearance Clear (Clear) Urine pH 6.5 (5.0-8.0) Ur Specific [place] 1.015 (1.001-1.035) Urine Protein Negative (Negative) Urine Glucose (UA) Negative (Negative) Urine Ketones Negative (Negative) Urine Blood Negative (Negative) Urine Nitrite Negative (Negative) Urine Bilirubin Negative (Negative) Urine Urobilinogen <2.0 (<2.0) mg/dL Ur Leukocyte Esterase Negative (Negative) 12/26/23 12/26/23 Range/Units 09:49 09:49 WBC (3.8-10.6) k/uL RBC (4.30-5.90) m/uL Hgb (13.0-17.5) gm/dL Hct (39.0-53.0) % MCV (80.0-100.0) fL MCH (25.0-35.0) pg MCHC (31.0-37.0) g/dL RDW (11.5-15.5) % Plt Count (150-450) k/uL MPV Neutrophils % % Lymphocytes % % Monocytes % % Eosinophils % % Basophils % % Neutrophils # (1.3-7.7) k/uL Lymphocytes # (1.0-4.8) k/uL Monocytes # (0-1.0) k/uL Eosinophils # (0-0.7) k/uL Basophils # (0-0.2) k/uL PT (10.0-12.5) sec INR (<1.2) APTT (22.0-30.0) sec Sodium 130 L (137-145) mmol/L Potassium 4.9 (3.5-5.1) mmol/L Chloride 100 (98-107) mmol/L Carbon Dioxide 24 (22-30) mmol/L Anion Gap 6 mmol/L BUN 20 (9-20) mg/dL Creatinine 0.91 (0.66-1.25) mg/dL Est GFR (CKD-EPI)AfAm 89 (>60 ml/min/1.73 sqM) Est GFR (CKD-EPI)NonAf 77 (>60 ml/min/1.73 sqM) Glucose 134 H (74-99) mg/dL Calcium 9.2 (8.4-10.2) mg/dL Total Bilirubin 1.6 H (0.2-1.3) mg/dL AST 30 (17-59) U/L ALT 15 (4-49) U/L Alkaline Phosphatase 75 (38-126) U/L Troponin I <0.012 (0.000-0.034) ng/mL Total Protein 6.2 L (6.3-8.2) g/dL Albumin 3.5 (3.5-5.0) g/dL Urine Color Urine Appearance (Clear) Urine pH (5.0-8.0) Ur Specific [place] (1.001-1.035) Urine Protein (Negative) Urine Glucose (UA) (Negative) Urine Ketones (Negative) Urine Blood (Negative) Urine Nitrite (Negative) Urine Bilirubin (Negative) Urine Urobilinogen (<2.0) mg/dL Ur Leukocyte Esterase (Negative) - Medical Decision Making Was pt. sent in by a medical professional or institution (, PA, UTILITY WORKER DRIVER, urgent care, hospital, or prison...) When possible be specific @ -Patient sent in from [facility] Did you speak to anyone other than the patient for history (EMS, parent, family, police, friend...)? What history was obtained from this source @ -Spoke with EMS for history Did you review nursing and triage notes (agree or disagree)? Why? @ -I reviewed and agree with nursing and triage notes Were old charts reviewed (outside hosp., previous admission, EMS record, old EKG, old radiological studies, urgent care reports/EKG's, prison records)? Report findings @ -No old charts were reviewed Differential Diagnosis (chest pain, altered mental status, abdominal pain women, abdominal pain men, vaginal bleeding, weakness, fever, dyspnea, syncope, headache, dizziness, GI bleed, back pain, seizure, CVA, palpatations, mental health, musculoskeletal)? @ -Differential Syncope: Valvular disease, hypertrophic cardiomyopathy, pulmonary embolism, tamponade, tachycardia, bradycardia, PR, hypovolemia, hemorrhage, dissection, anemia, intracranial hemorrhage, seizure, hypoglycemia, carbon monoxide poisoning, this is not meant to be an all-inclusive list. EKG interpreted by me (3pts min.). @ -yes and demonstrates sinus bradycardia with a rate of 59. AR interval 215. QRS 85. QTc of 404. No acute ST segment elevations or depressions X-rays interpreted by me (1pt min.). @ -Yes and demonstrates no acute process CT interpreted by me (1pt min.). @ -Yes and demonstrates no acute process U/S interpreted by me (1pt. min.). @ -None done What testing was considered but not performed or refused? (CT, X-rays, U/S, labs)? Why? @ -None What meds were considered but not given or refused? Why? @ -None Did you discuss the management of the patient with other professionals ( professionals i.e. Dr., PA, UTILITY WORKER DRIVER, lab, RT, psych nurse, social services counselor, laborer wood preserving plant, teacher, security public safety officer, case assistant)? Give summary @ -No Was smoking cessation discussed for >3mins.? @ -No Was critical care preformed (if so, how long)? @ -No Were there social determinants of health that impacted care today? How? (Homelessness, low income, unemployed, alcoholism, drug addiction, transportation, low edu. Level, literacy, decrease access to med. care, usp, rehab)? @ -No Was there de-escalation of care discussed even if they declined (Discuss DNR or withdrawal of care, Hospice)? DNR status @ -No What co-morbidities impacted this encounter? (DM, HTN, Smoking, COPD, CAD, Cancer, CVA, ARF, Chemo, Hep., AIDS, mental health diagnosis, sleep apnea, morbid obesity)? @ -None Was patient admitted / discharged? Hospital course, mention meds given and route, prescriptions, significant lab abnormalities, going to OR and other pertinent info. @ -Upon arrival patient seen and evaluated in trauma 2. Thorough history and physical exam was performed. Blood pressure does improve on its own. Patient is provided with normal saline hydration. Laboratory studies are conducted. Chest x-ray was performed as well as a CT of the brain. Patient returns to his baseline relatively quickly. Patient feels improved and wants to go home. He is able to get up and ambulate. Patient was follow-up with his primary care doctor within 2 to 4 days due to this episode. Return for any new or worsening symptoms. Patient agreeable to plan was discharged in stable condition Undiagnosed new problem with uncertain prognosis? @ -No Drug Therapy requiring intensive monitoring for toxicity (Heparin, Nitro, Insulin, Cardizem)? @ -No Were any procedures done? @ -No Diagnosis/symptom? @ -Acute syncope, transient hypotension Acute, or Chronic, or Acute on Chronic? @ -Acute Uncomplicated (without systemic symptoms) or Complicated (systemic symptoms)? @ -Complicated Side effects of treatment? @ -No Exacerbation, Progression, or Severe Exacerbation? @ -No Poses a threat to life or bodily function? How? (Chest pain, USA, PR, pneumonia, PE, COPD, DKA, ARF, appy, cholecystitis, CVA, Diverticulitis, Homicidal, Suicidal, threat to staff... and all critical care pts) @ -No Past Medical History Past Medical History: Coronary Artery Disease (CAD), Hyperlipidemia, Hypertension, Myocardial Infarction (PR), Osteoarthritis (OA) Additional Past Medical History / Comment(s): HX COLON POLYPS. HX VERTIGO. HAS NOCTURIA. Ischemic cardiomyopathy Last Myocardial Infarction Date:: 2006 History of Any Multi-Drug Resistant Organisms: None Reported Past Surgical History: Bowel Resection, Cholecystectomy, Heart Catheterization With Stent, Joint Replacement Additional Past Surgical History / Comment(s): TOTAL LT KNEE 2004. BOWEL RESECTION FOR BENIGN POLYP. Total right knee arthroplasty April 2017. Past Anesthesia/Blood Transfusion Reactions: No Reported Reaction Date of Last Stent Placement:: 2010 Past Psychological History: No Psychological Hx Reported Smoking Status: Never smoker Past Alcohol Use History: None Reported Past Drug Use History: None Reported - Past Family History Mother Family Medical History: No Reported History Additional Family Medical History / Comment(s): Mother in her 80s with history of uterine cancer. Father Additional Family Medical History / Comment(s): Father at age 59 from ALS. Sister(s) Additional Family Medical History / Comment(s): Patient has one sister this 85 years of age with history of hypertension. Patient does not have any brothers. Patient does not have any children. Course Vital Signs 12/26/23 12/26/23 12/26/23 09:13 09:31 10:00 Temperature 97 F L Pulse Rate 62 60 Respiratory 18 17 Rate Blood Pressure 105/57 98/56 103/53 O2 Sat by Pulse 95 96 Oximetry 12/26/23 11:00 Temperature Pulse Rate 56 L Respiratory 8 L Rate Blood Pressure 125/71 O2 Sat by Pulse Oximetry Disposition Clinical Impression: Syncope, Altered mental status Disposition: HOME SELF-CARE Condition: Stable Instructions (If sedation given, give patient instructions): Syncope (ED) Additional Instructions: Your blood pressure, laboratory work, chest x-ray and scan of your head was within normal limits. Please ambulate with assistance. Follow-up with your [facility] doctor and return for any new or worsening symptoms Is patient prescribed a controlled substance at d/c from ED?: No Referrals: Toni Hernandez MD [Primary Care Provider] - 1-2 days Time of Disposition: 11:37
--- NOTE | 2023-12-26 10:17 | CT ---
EXAMINATION TYPE: CT brain wo con CT DLP: 1154.4 mGycm, Automated exposure control for dose reduction was used. DATE OF EXAM: 12/26/2023 10:11 AM COMPARISON: 05/12/2024. CLINICAL INDICATION:Male, 83 years old with history of Altered mental status, AMS TECHNIQUE: Brain: Axial CT images of the brain were obtained with coronal and sagittal reformats created and rev iewed. Contrast used: None. Oral contrast used: None. FINDINGS: Brain: Extra-axial spaces: No abnormal extra-axial fluid collections. Ventricular system: Dilatation in proportion to cerebral atrophy. Cerebral parenchyma: Cerebral atrophy. No acute intraparenchymal hemorrhage or mass effect. The morgan -white junction is well differentiated. Scattered hypoattenuating areas are seen within the white mat ter. Cerebellum: Unremarkable. Mass effect: No evidence of midline shift. Intracranial vasculature: Atherosclerotic calcifications of the intracranial vessels. Soft tissues: Normal. Calvarium/osseous structures: No depressed skull fracture. Paranasal sinuses and mastoid air cells: Mild scattered paranasal sinus disease. Visualized orbits: Orbital contents are intact. IMPRESSION: 1. No acute intracranial process. 2. Nonspecific white matter changes, likely secondary to chronic small vessel ischemic disease.
[2023-12-26 10:23] LABS: ALT 15 U/L (4-49); African American GFR (CKD) 89 (>60 ml/min/1.73 sqM); Albumin 3.5 g/dL (3.5-5.0); Anion Gap 6 mmol/L; Blood Urea Nitrogen 20 mg/dL (9-20); Calcium 9.2 mg/dL (8.4-10.2); Carbon Dioxide 24 mmol/L (22-30); Chloride 100 mmol/L (98-107); Glucose 134 mg/dL (74-99); Non-African American GFR(CKD) 77 (>60 ml/min/1.73 sqM); Sodium 130 mmol/L (137-145); Total Bilirubin 1.6 mg/dL (0.2-1.3); Total Protein 6.2 g/dL (6.3-8.2)
--- NOTE | 2023-12-26 10:26 | XR ---
EXAMINATION TYPE: XR chest 2V DATE OF EXAM: 12/26/2023 10:17 AM CLINICAL INDICATION:Male, 83 years old with history of altered mental status; COMPARISON: Chest radiographs from 12/19/2023 TECHNIQUE: XR chest 2V Frontal and lateral views of the chest. FINDINGS: Lungs/Pleura: There is flattening of the diaphragm with increased lucency of the lungs. No evidence o f pneumothorax, pleural effusion or focal consolidation. Pulmonary vascularity: Unremarkable. Heart/mediastinum: Cardiomediastinal silhouette is unremarkable. Musculoskeletal: No acute osseous pathology. IMPRESSION: 1. No acute cardiopulmonary disease process. 2. COPD changes.
[2023-12-26 10:34] LABS: AST 30 U/L (17-59); Alkaline Phosphatase 75 U/L (38-126); Potassium 4.9 mmol/L (3.5-5.1)
[2023-12-26 11:05] VITALS: BP 125/71; PULSE 56; RESP 8
[2023-12-26] MEDS: SODIUM CHLORIDE 0.9% 500 ML 500 ML IV ONE (11:06)
[2023-12-26 11:37] LABS: Appearance,Urine Clear (Clear); Bilirubin,Urine Negative (Negative); Blood,Urine Negative (Negative); Color,Urine Yellow; Glucose,Urine (UA) Negative (Negative); Ketones,Urine Negative (Negative); Leukocyte Esterase,Urine Negative (Negative); Nitrite,Urine Negative (Negative); PH, Urine 6.5 (5.0-8.0); Protein,Urine Negative (Negative); Specific Gravity,Urine 1.015 (1.001-1.035); Urobilinogen,Urine <2.0 mg/dL (<2.0)
== END 2023-12-26 11:50 | disposition home or self-care (01) ==
LOC: EC 09:12
DX: R41.82 Altered mental status, unspecified (principal); R55 Syncope and collapse; I95.9 Hypotension, unspecified; Z90.49 Acquired absence of other specified parts of digestive tract
CPT/HCPCS: 36415; 70450; 71046; 80053; 81003; 84484; 85025; 85610; 85730; 93005; 99285

== ENCOUNTER 2023-12-28 08:49 | Emergency (ER) | payer MEDICARE ==
--- NOTE | 2023-12-28 09:14 | ED ---
Syncope HPI - General Chief Complaint: Syncope Stated Complaint: Syncope Time Seen by Provider: 12/28/23 08:54 Source: patient, EMS, RN notes reviewed Mode of arrival: EMS Limitations: no limitations - History of Present Illness Initial Comments: This is an 83-year-old male who presents to the emergency department for a syncopal episode. Patient lives at [facility] and was sitting in his wheelchair with a staff member. The staff member states that he reportedly had a very short syncopal episode. He did not fall, hit his head, or sustain any injuries during the event. Patient has been evaluated here twice within the last couple of weeks for syncopal episodes. Patient does have a history of A- fib. He denies any dizziness, chest pain, or shortness of breath prior to these episodes or currently. States that he currently feels fine and has no complaints. He is alert and oriented x 4. MD Complaint: loss of consciousness - Related Data Home Medications Medication Instructions Recorded Confirmed Celecoxib [CeleBREX] 200 mg PO DAILY PRN 04/21/17 12/28/23 Omeprazole [PriLOSEC] 20 mg PO SUTUTHSA@59904/21/17 12/28/23 Rosuvastatin Calcium [Crestor] 10 mg PO MOWEFR 04/21/17 12/28/23 Ubidecarenone [Co Q-10] 100 mg PO HS@189904/21/17 12/28/23 Acetaminophen [Tylenol Arthritis] 650 mg PO TID@0800,1400,2000 11/25/23 12/28/23 Aspirin EC [Ecotrin Low Dose] 81 mg PO DAILY@59911/25/23 12/28/23 Carbidopa-Levodopa 25-100 mg 1 tab PO QID@06,12,16,19 11/25/23 12/28/23 [Sinemet 25-100 mg] Cholecalciferol (Vitamin D3) 50 mcg PO DAILY@59911/25/23 12/28/23 [Vitamin D3 (50 Mcg = 2000 Iu)] Donepezil HCl [Aricept] 10 mg PO HS@1900 11/25/23 12/28/23 Finasteride [Proscar] 5 mg PO DAILY@59911/25/23 12/28/23 Memantine [Namenda] 5 mg PO DAILY@59911/25/2312/27/24 Vit C/E/Zn/Coppr/Lutein/Zeaxan 2 cap PO DAILY@0600 11/25/23 12/28/23 [Preservision Areds 2 Softgel] Albuterol Sulfate [Ventolin HFA] 2 puff INHALATION RT-Q6H PRN 12/09/23 12/28/23 Loratadine [Claritin] 10 mg PO DAILY PRN 12/09/23 12/28/23 Sennosides [Senokot] 8.6 mg PO BID 12/19/23 12/28/23 Apixaban [Eliquis] 2.5 mg PO BID@0600,1900 12/28/23 12/28/23 Previous Rx's Medication Instructions Recorded QUEtiapine [SEROquel] 12.5 mg PO HS PRN #30 tab 11/29/23 lisinopriL [Zestril] 20 mg PO DAILY@0600 #30 tab 11/29/23 Na Phos,M-B/Na Phos,Di-Ba [Fleet 133 ml RECTAL DAILY PRN each 12/10/23 Adult] polyethylene glycoL 3350 [Miralax] 17 gm PO AC-LUNCH #527 gm 12/10/23 carvediloL [Coreg] 6.25 mg PO BID@0600,1900 #60 tab 12/11/23 Allergies Allergy/AdvReac Type Severity Reaction Status Date / Time No Known Allergies Allergy Verified 12/28/23 10:55 Review of Systems ROS Statement: Those systems with pertinent positive or pertinent negative responses have been documented in the HPI. ROS Other: All systems not noted in ROS Statement are negative. Past Medical History Past Medical History: Atrial Fibrillation, Coronary Artery Disease (CAD), Hyperlipidemia, Hypertension, Myocardial Infarction (OR), Osteoarthritis (OA) Additional Past Medical History / Comment(s): HX COLON POLYPS. HX VERTIGO. HAS NOCTURIA. Ischemic cardiomyopathy Last Myocardial Infarction Date:: 2006 History of Any Multi-Drug Resistant Organisms: None Reported Past Surgical History: Bowel Resection, Cholecystectomy, Heart Catheterization With Stent, Joint Replacement Additional Past Surgical History / Comment(s): TOTAL LT KNEE 2004. BOWEL RESECTION FOR BENIGN POLYP. Total right knee arthroplasty April 2017. Past Anesthesia/Blood Transfusion Reactions: No Reported Reaction Date of Last Stent Placement:: 2010 Past Psychological History: No Psychological Hx Reported Smoking Status: Never smoker Past Alcohol Use History: None Reported Past Drug Use History: None Reported - Past Family History Mother Family Medical History: No Reported History Additional Family Medical History / Comment(s): Mother in her 80s with history of uterine cancer. Father Additional Family Medical History / Comment(s): Father at age 59 from ALS. Sister(s) Additional Family Medical History / Comment(s): Patient has one sister this 85 years of age with history of hypertension. Patient does not have any brothers. Patient does not have any children. General Exam Limitations: no limitations General appearance: alert, in no apparent distress Head exam: Present: atraumatic, normocephalic, normal inspection Eye exam: Present: normal appearance, PERRL, EOMI. Absent: scleral icterus, conjunctival injection, periorbital swelling Respiratory exam: Present: normal lung sounds bilaterally. Absent: respiratory distress, wheezes, rales, rhonchi, stridor Cardiovascular Exam: Present: normal rhythm, bradycardia GI/Abdominal exam: Present: soft, normal bowel sounds. Absent: distended, tenderness, guarding, rebound, rigid Neurological exam: Present: alert, oriented X3, CN II-XII intact Psychiatric exam: Present: normal affect, normal mood Skin exam: Present: warm, dry, intact, normal color. Absent: rash Course Vital Signs 12/28/23 12/28/23 12/28/23 08:50 10:30 12:05 Temperature 97.4 F L 97.5 F L Pulse Rate 55 L 56 L 58 L Respiratory 16 18 18 Rate Blood Pressure 112/83 143/72 137/69 O2 Sat by Pulse 99 96 99 Oximetry Medical Decision Making - Medical Decision Making This is an 83 year old male who presents to the emergency department for a syncopal episode. Was pt. sent in by a medical professional or institution? @ -No Did you speak to anyone other than the patient for history? @ -EMS provided the majority of the information. Did you review nursing and triage notes? @ -Yes, and I agree, it is accurate with regards to the patient's symptoms. Were old charts reviewed? @ -No Differential Diagnosis? @ -Differential Syncope: Valvular disease, hypertrophic cardiomyopathy, pulmonary embolism, tamponade, tachycardia, bradycardia, OR, hypovolemia, hemorrhage, dissection, anemia, intracranial hemorrhage, seizure, hypoglycemia, carbon monoxide poisoning, this is not meant to be an all-inclusive list. EKG interpreted by me (3pts min.)? @ -EKG interpreted by me demonstrating the following: Sinus bradycardia. Ventricular rate 57 bpm, IN interval 224 ms, QRS duration 89 ms, QTc 420 ms. X-rays interpreted by me (1pt min.)? @ -Chest x-ray obtained, my interpretation identifies no localized consolidat ions or infiltrates. CT interpreted by me (1pt min.)? @ -Not obtained U/S interpreted by me (1pt. min.)? @ -Not obtained What testing was considered but not performed? (CT, X-rays, U/S, labs)? Why? @ -None What meds were considered but not given? Why? @ -None Did you discuss the management of the patient with other professionals? @ -No Did you reconcile home meds? @ -No Was smoking cessation discussed for >3mins.? @ -No Was critical care preformed (if so, how long)? @ -No Were there social determinants of health that impacted care today? How? (Homelessness, low income, unemployed, alcoholism, drug addiction, transportation, low edu. Level, literacy, decrease access to med. care, long term, rehab)? @ -No Was there de-escalation of care discussed even if they declined? (Discuss DNR or withdrawal of care, Hospice)? @ -No What co-morbidities impacted this encounter? (DM, HTN, Smoking, COPD, CAD, Cancer, CVA, Hep., AIDS, mental health diagnosis, sleep apnea, morbid obesity)? @ -A-fib, CAD, HLD, HTN Was patient admitted / discharged? @ -Discharged. Lab work demonstrates signs of dehydration and was otherwise unremarkable. Urinalysis demonstrates blood, likely due to straight cath. Patient has no urinary complaints. He was given IV fluids. Given that he has had recurrent syncopal episodes in the last couple of weeks, I did offer admission. Patient declined and states that he feels fine and would rather return to [facility]. Patient returned to [facility] via wheelchair van in stable condition. Advised follow-up with his primary care provider. Undiagnosed new problem with uncertain prognosis? @ -None Drug Therapy requiring intensive monitoring for toxicity (Heparin, Nitro, Insulin, Cardizem)? @ -None Were any procedures done? @ -None Diagnosis/symptom? @ -Syncope Acute, or Chronic, or Acute on Chronic? @ -Acute Uncomplicated (without systemic symptoms) or Complicated (systemic symptoms)? @ -Uncomplicated Side effects of treatment? @ -None Exacerbation, Progression, or Severe Exacerbation] @ -Not applicable Poses a threat to life or bodily function? @ -This will depend on the cause Return precautions reviewed in depth, the patient is instructed to return to the emergency department with any new, worsening, or concerning symptoms. Patient verbalized understanding. This case was discussed in detail with the attending ED physician, Dr. Crawley. Presentation, findings, and treatment plan discussed in detail as well. - Lab Data Result diagrams: 12/28/23 09:11 12/28/23 09:11 Lab Results 12/28/23 12/28/23 12/28/23 Range/Units 09:11 09:11 09:11 WBC 5.1 (3.8-10.6) k/uL RBC 3.80 L (4.30-5.90) m/uL Hgb 12.1 L (13.0-17.5) gm/dL Hct 37.3 L (39.0-53.0) % MCV 98.4 (80.0-100.0) fL MCH 31.8 (25.0-35.0) pg MCHC 32.3 (31.0-37.0) g/dL RDW 14.0 (11.5-15.5) % Plt Count 185 (150-450) k/uL MPV 7.4 Neutrophils % 69 % Lymphocytes % 19 % Monocytes % 10 % Eosinophils % 1 % Basophils % 0 % Neutrophils # 3.5 (1.3-7.7) k/uL Lymphocytes # 1.0 (1.0-4.8) k/uL Monocytes # 0.5 (0-1.0) k/uL Eosinophils # 0.1 (0-0.7) k/uL Basophils # 0.0 (0-0.2) k/uL PT 11.2 (10.0-12.5) sec INR 1.0 (<1.2) APTT 26.3 (22.0-30.0) sec Sodium (137-145) mmol/L Potassium (3.5-5.1) mmol/L Chloride (98-107) mmol/L Carbon Dioxide (22-30) mmol/L Anion Gap mmol/L BUN (9-20) mg/dL Creatinine (0.66-1.25) mg/dL Est GFR (CKD-EPI)AfAm (>60 ml/min/1.73 sqM) Est GFR (CKD-EPI)NonAf (>60 ml/min/1.73 sqM) Glucose (74-99) mg/dL Calcium (8.4-10.2) mg/dL Magnesium (1.6-2.3) mg/dL Total Bilirubin (0.2-1.3) mg/dL AST (17-59) U/L ALT (4-49) U/L Alkaline Phosphatase (38-126) U/L Troponin I (0.000-0.034) ng/mL Total Protein (6.3-8.2) g/dL Albumin (3.5-5.0) g/dL Urine Color Light Yellow Urine Appearance Clear (Clear) Urine pH 6.5 (5.0-8.0) Ur Specific [place] 1.014 (1.001-1.035) Urine Protein Negative (Negative) Urine Glucose (UA) Negative (Negative) Urine Ketones Negative (Negative) Urine Blood Moderate H (Negative) Urine Nitrite Negative (Negative) Urine Bilirubin Negative (Negative) Urine Urobilinogen <2.0 (<2.0) mg/dL Ur Leukocyte Esterase Negative (Negative) Urine RBC 63 H (0-5) /hpf Urine WBC 1 (0-5) /hpf Ur Squamous Epith Cells <1 (0-4) /hpf Hyaline Casts 3 H (0-2) /lpf Urine Mucus Rare H (None) /hpf 12/28/23 12/28/23 Range/Units 09:11 09:11 WBC (3.8-10.6) k/uL RBC (4.30-5.90) m/uL Hgb (13.0-17.5) gm/dL Hct (39.0-53.0) % MCV (80.0-100.0) fL MCH (25.0-35.0) pg MCHC (31.0-37.0) g/dL RDW (11.5-15.5) % Plt Count (150-450) k/uL MPV Neutrophils % % Lymphocytes % % Monocytes % % Eosinophils % % Basophils % % Neutrophils # (1.3-7.7) k/uL Lymphocytes # (1.0-4.8) k/uL Monocytes # (0-1.0) k/uL Eosinophils # (0-0.7) k/uL Basophils # (0-0.2) k/uL PT (10.0-12.5) sec INR (<1.2) APTT (22.0-30.0) sec Sodium 130 L (137-145) mmol/L Potassium 4.3 (3.5-5.1) mmol/L Chloride 103 (98-107) mmol/L Carbon Dioxide 24 (22-30) mmol/L Anion Gap 3 mmol/L BUN 23 H (9-20) mg/dL Creatinine 0.92 (0.66-1.25) mg/dL Est GFR (CKD-EPI)AfAm 88 (>60 ml/min/1.73 sqM) Est GFR (CKD-EPI)NonAf 76 (>60 ml/min/1.73 sqM) Glucose 103 H (74-99) mg/dL Calcium 8.8 (8.4-10.2) mg/dL Magnesium 1.8 (1.6-2.3) mg/dL Total Bilirubin 1.7 H (0.2-1.3) mg/dL AST 22 (17-59) U/L ALT 6 (4-49) U/L Alkaline Phosphatase 98 (38-126) U/L Troponin I <0.012 (0.000-0.034) ng/mL Total Protein 6.0 L (6.3-8.2) g/dL Albumin 3.4 L (3.5-5.0) g/dL Urine Color Urine Appearance (Clear) Urine pH (5.0-8.0) Ur Specific [place] (1.001-1.035) Urine Protein (Negative) Urine Glucose (UA) (Negative) Urine Ketones (Negative) Urine Blood (Negative) Urine Nitrite (Negative) Urine Bilirubin (Negative) Urine Urobilinogen (<2.0) mg/dL Ur Leukocyte Esterase (Negative) Urine RBC (0-5) /hpf Urine WBC (0-5) /hpf Ur Squamous Epith Cells (0-4) /hpf Hyaline Casts (0-2) /lpf Urine Mucus (None) /hpf - Radiology Data Radiology results: report reviewed, image reviewed Disposition Clinical Impression: Syncope Disposition: HOME SELF-CARE Instructions (If sedation given, give patient instructions): Syncope (ED) Additional Instructions: Return to the emergency department with any new, worsening, or concerning symptoms. Follow up with your primary care provider in 1-2 days. Is patient prescribed a controlled substance at d/c from ED?: No Referrals: Toni Hernandez MD [Primary Care Provider] - 1-2 days Time of Disposition: 11:15
[2023-12-28] MEDS: SODIUM CHLORIDE 0.9% 500 ML 500 ML IV STA (09:16)
[2023-12-28 10:04] LABS: HCT 37.3 % (39.0-53.0); HGB 12.1 gm/dL (13.0-17.5); Lymphocytes % (A) 19 %; MCH 31.8 pg (25.0-35.0); MCHC 32.3 g/dL (31.0-37.0); MCV 98.4 fL (80.0-100.0); Mean Platelet Volume 7.4; Neutrophils % (A) 69 %; Platelet Count 185 k/uL (150-450); WBC 5.1 k/uL (3.8-10.6)
[2023-12-28 10:05] LABS: Basophils % (A) 0 %; Eosinophils # (A) 0.1 k/uL (0-0.7); Eosinophils % (A) 1 %; Monocytes # (A) 0.5 k/uL (0-1.0); Monocytes % (A) 10 %; Neutrophils # (A) 3.5 k/uL (1.3-7.7)
[2023-12-28 10:17] LABS: ALT 6 U/L (4-49); AST 22 U/L (17-59); African American GFR (CKD) 88 (>60 ml/min/1.73 sqM); Albumin 3.4 g/dL (3.5-5.0); Alkaline Phosphatase 98 U/L (38-126); Anion Gap 3 mmol/L; Blood Urea Nitrogen 23 mg/dL (9-20); Calcium 8.8 mg/dL (8.4-10.2); Carbon Dioxide 24 mmol/L (22-30); Chloride 103 mmol/L (98-107); Glucose 103 mg/dL (74-99); Magnesium 1.8 mg/dL (1.6-2.3); Non-African American GFR(CKD) 76 (>60 ml/min/1.73 sqM); Partial Thromboplastin Time 26.3 sec (22.0-30.0); Potassium 4.3 mmol/L (3.5-5.1); Prothrombin Time 11.2 sec (10.0-12.5); Sodium 130 mmol/L (137-145); Total Bilirubin 1.7 mg/dL (0.2-1.3)
[2023-12-28 10:43] VITALS: RESP 18
[2023-12-28 10:46] LABS: Appearance,Urine Clear (Clear); Bilirubin,Urine Negative (Negative); Blood,Urine Moderate (Negative); Color,Urine Light Yellow; Glucose,Urine (UA) Negative (Negative); Hyaline Casts,Urine 3 /lpf (0-2); Ketones,Urine Negative (Negative); Leukocyte Esterase,Urine Negative (Negative); Mucus,Urine Rare /hpf; Nitrite,Urine Negative (Negative); PH, Urine 6.5 (5.0-8.0); Protein,Urine Negative (Negative); RBC,Urine 63 /hpf (0-5); Specific Gravity,Urine 1.014 (1.001-1.035); Squamous Epithelial Cell,Urine <1 /hpf (0-4); Urobilinogen,Urine <2.0 mg/dL (<2.0); WBC,Urine 1 /hpf (0-5)
--- NOTE | 2023-12-28 11:07 | XR ---
EXAMINATION TYPE: XR chest 2V DATE OF EXAM: 12/28/2023 10:49 AM CLINICAL INDICATION:Male, 83 years old with history of syncope; [facility] COMPARISON: Chest radiograph from 12/26/2023 TECHNIQUE: XR chest 2V Frontal and lateral views of the chest. FINDINGS: Lungs/Pleura: There is no evidence of pleural effusion, focal consolidation, or pneumothorax. Pulmonary vascularity: Unremarkable. Heart/mediastinum: Cardiomediastinal silhouette is unremarkable. Musculoskeletal: No acute osseous pathology. Other findings: None Lines/Tubes: IMPRESSION: No acute cardiopulmonary disease/process.
[2023-12-28 12:15] VITALS: BP 137/69; PULSE 58; TEMP 97.5
== END 2023-12-28 12:05 | disposition home or self-care (01) ==
LOC: EC 08:49
DX: R55 Syncope and collapse (principal); E78.5 Hyperlipidemia, unspecified; I10 Essential (primary) hypertension; I25.10 Atherosclerotic heart disease of native coronary artery without angina pectoris; I48.91 Unspecified atrial fibrillation; Z90.49 Acquired absence of other specified parts of digestive tract; Z79.899 Other long term (current) drug therapy
CPT/HCPCS: 36415; 51701; 51798; 71046; 80053; 81001; 83735; 84484; 85025; 85610; 85730; 93005; 99285

== ENCOUNTER 2023-12-31 16:26 | Emergency (ER) | payer MEDICARE ==
[2023-12-31 16:32] VITALS: RESP 18; TEMP 98
[2023-12-31 17:00] LABS: Basophils % (A) 0 %; Eosinophils # (A) 0.1 k/uL (0-0.7); Eosinophils % (A) 1 %; HCT 39.7 % (39.0-53.0); HGB 12.6 gm/dL (13.0-17.5); Lymphocytes % (A) 13 %; MCH 31.4 pg (25.0-35.0); MCHC 31.8 g/dL (31.0-37.0); MCV 98.7 fL (80.0-100.0); Mean Platelet Volume 7.5; Monocytes # (A) 0.7 k/uL (0-1.0); Monocytes % (A) 9 %; Neutrophils # (A) 5.8 k/uL (1.3-7.7); Neutrophils % (A) 75 %; Platelet Count 219 k/uL (150-450); RBC 4.02 m/uL (4.30-5.90); RDW 13.9 % (11.5-15.5); WBC 7.8 k/uL (3.8-10.6)
[2023-12-31 17:19] LABS: ALT 12 U/L (4-49); African American GFR (CKD) 84 (>60 ml/min/1.73 sqM); Albumin 3.6 g/dL (3.5-5.0); Anion Gap 2 mmol/L; Blood Urea Nitrogen 25 mg/dL (9-20); Carbon Dioxide 25 mmol/L (22-30); Chloride 102 mmol/L (98-107); Glucose 100 mg/dL (74-99); Non-African American GFR(CKD) 72 (>60 ml/min/1.73 sqM); Sodium 129 mmol/L (137-145); Total Bilirubin 1.4 mg/dL (0.2-1.3); Total Protein 6.4 g/dL (6.3-8.2)
--- NOTE | 2023-12-31 17:21 | ED ---
Male Urogenital HPI - General Chief complaint: Urogenital Stated complaint: dysuria Time Seen by Provider: 12/31/23 16:36 Source: patient Mode of arrival: wheelchair Limitations: no limitations - History of Present Illness Initial comments: 83-year-old male presenting with chief complaint of hematuria. Patient was here 3 days ago and was noted to have some hematuria which was attributed to straight catheterization. He states that he has had continued hematuria as well as dysuria and incontinence. He is also having some suprapubic pain with urination . No fevers, flank pain, nausea, vomiting. Patient also states that he has not had a bowel movement in several days. He has had a few very small bowel movements that were quite hard and not normal for him. He was seen by Dr. Hernandez and was sent a prescription but has not yet received it. He is having no abdominal pain. - Related Data Home Medications Medication Instructions Recorded Confirmed Celecoxib [CeleBREX] 200 mg PO DAILY PRN 04/21/17 12/28/23 Omeprazole [PriLOSEC] 20 mg PO SUTUTHSA@59904/21/17 12/28/23 Rosuvastatin Calcium [Crestor] 10 mg PO MOWEFR 04/21/17 12/28/23 Ubidecarenone [Co Q-10] 100 mg PO HS@189904/21/17 12/28/23 Acetaminophen [Tylenol Arthritis] 650 mg PO TID@0800,1400,199911/25/23 12/28/23 Aspirin EC [Ecotrin Low Dose] 81 mg PO DAILY@59911/25/23 12/28/23 Carbidopa-Levodopa 25-100 mg 1 tab PO QID@06,12,16,19 11/25/23 12/28/23 [Sinemet 25-100 mg] Cholecalciferol (Vitamin D3) 50 mcg PO DAILY@59911/25/23 12/28/23 [Vitamin D3 (50 Mcg = 2000 Iu)] Donepezil HCl [Aricept] 10 mg PO HS@189911/25/23 12/28/23 Finasteride [Proscar] 5 mg PO DAILY@59911/25/23 12/28/23 Memantine [Namenda] 5 mg PO DAILY@59911/25/23 12/28/23 Vit C/E/Zn/Coppr/Lutein/Zeaxan 2 cap PO DAILY@0600 11/25/23 12/28/23 [Preservision Areds 2 Softgel] Albuterol Sulfate [Ventolin HFA] 2 puff INHALATION RT-Q6H PRN 12/09/23 12/28/23 Loratadine [Claritin] 10 mg PO DAILY PRN 12/09/23 12/28/23 Sennosides [Senokot] 8.6 mg PO BID 12/19/23 12/28/23 Apixaban [Eliquis] 2.5 mg PO BID@0600,1900 12/28/23 12/28/23 Previous Rx's Medication Instructions Recorded QUEtiapine [SEROquel] 12.5 mg PO HS PRN #30 tab 11/29/23 lisinopriL [Zestril] 20 mg PO DAILY@0600 #30 tab 11/29/23 Na Phos,M-B/Na Phos,Di-Ba [Fleet 133 ml RECTAL DAILY PRN each 12/10/23 Adult] polyethylene glycoL 3350 [Miralax] 17 gm PO AC-LUNCH #527 gm 12/10/23 carvediloL [Coreg] 6.25 mg PO BID@0600,1900 #60 tab 12/11/23 Magnesium Citrate [Citrate of 296 ml PO ONCE #296 ml 12/31/23 Magnesia] Phenazopyridine [Pyridium] 100 mg PO BID #4 tablet 12/31/23 Phenazopyridine [Pyridium] 100 mg PO BID #4 tablet 12/31/23 Sulfamethox-Tmp 800-160Mg [Bactrim 1 tab PO Q12HR 7 Days #14 tab 12/31/23 DS 800-160 mg] Sulfamethox-Tmp 800-160Mg [Bactrim 1 tab PO Q12HR 7 Days #14 tab 12/31/23 DS 800-160 mg] Allergies Allergy/AdvReac Type Severity Reaction Status Date / Time No Known Allergies Allergy Verified 12/31/23 16:32 Review of Systems ROS Statement: Those systems with pertinent positive or pertinent negative responses have been documented in the HPI. ROS Other: All systems not noted in ROS Statement are negative. Past Medical History Past Medical History: Atrial Fibrillation, Coronary Artery Disease (CAD), Hyperlipidemia, Hypertension, Myocardial Infarction (CA), Osteoarthritis (OA) Additional Past Medical History / Comment(s): HX COLON POLYPS. HX VERTIGO. HAS NOCTURIA. Ischemic cardiomyopathy Last Myocardial Infarction Date:: 2006 History of Any Multi-Drug Resistant Organisms: None Reported Past Surgical History: Bowel Resection, Cholecystectomy, Heart Catheterization With Stent, Joint Replacement Additional Past Surgical History / Comment(s): TOTAL LT KNEE 2004. BOWEL RESECTION FOR BENIGN POLYP. Total right knee arthroplasty April 2017. Past Anesthesia/Blood Transfusion Reactions: No Reported Reaction Date of Last Stent Placement:: 2010 Past Psychological History: No Psychological Hx Reported Smoking Status: Never smoker Past Alcohol Use History: None Reported Past Drug Use History: None Reported - Past Family History Mother Family Medical History: No Reported History Additional Family Medical History / Comment(s): Mother in her 80s with history of uterine cancer. Father Additional Family Medical History / Comment(s): Father at age 59 from ALS. Sister(s) Additional Family Medical History / Comment(s): Patient has one sister this 85 years of age with history of hypertension. Patient does not have any brothers. Patient does not have any children. General Exam Limitations: no limitations General appearance: alert, in no apparent distress Head exam: Present: atraumatic, normocephalic Eye exam: Present: normal appearance, EOMI Neck exam: Present: normal inspection. Absent: meningismus Respiratory exam: Absent: respiratory distress Cardiovascular Exam: Present: regular rate GI/Abdominal exam: Present: soft. Absent: distended, tenderness, guarding, r ebound, rigid Neurological exam: Present: alert, oriented X3 Psychiatric exam: Present: normal affect, normal mood Skin exam: Present: normal color Course Vital Signs 12/31/23 12/31/23 16:29 20:27 Temperature 98 F Pulse Rate 60 65 Respiratory 18 18 Rate Blood Pressure 144/72 172/86 O2 Sat by Pulse 98 99 Oximetry Medical Decision Making - Medical Decision Making Was pt. sent in by a medical professional or institution (, [facility], [employer]NAGER, urgent care, hospital, or retirement...) When possible be specific @ -No Did you speak to anyone other than the patient for history (EMS, parent, family, police, friend...)? What history was obtained from this source @ -No Did you review nursing and triage notes (agree or disagree)? Why? @ -I reviewed and agree with nursing and triage notes Were old charts reviewed (outside hosp., previous admission, EMS record, old EKG, old radiological studies, urgent care reports/EKG's, retirement records)? Report findings @ -No old charts were reviewed Differential Diagnosis (chest pain, altered mental status, abdominal pain women, abdominal pain men, vaginal bleeding, weakness, fever, dyspnea, syncope, headache, dizziness, GI bleed, back pain, seizure, CVA, palpatations, mental health, musculoskeletal)? @ -Differential includes UTI, kidney stone, malignancy, cystitis, this is not an all-inclusive list EKG interpreted by me (3pts min.). @ -As above X-rays interpreted by me (1pt min.). @ -KUB x-ray shows large stool burden in the rectum, nonspecific bowel gas pattern without radiographic evidence for acute process CT interpreted by me (1pt min.). @ -None done U/S interpreted by me (1pt. min.). @ -None done What testing was considered but not performed or refused? (CT, X-rays, U/S, labs)? Why? @ -None What meds were considered but not given or refused? Why? @ -None Did you discuss the management of the patient with other professionals (asim mojica i.e. , PA, [employer] C[employer] MANAGER, lab, RT, psych nurse, drug abuse social worker, tip scourer, teacher, biological technical officer, supportive employment case manager)? Give summary @ -No Was smoking cessation discussed for >3mins.? @ -No Was critical care preformed (if so, how long)? @ -No Were there social determinants of health that impacted care today? How? (Homelessness, low income, unemployed, alcoholism, drug addiction, transportation, low edu. Level, literacy, decrease access to med. care, nursing home, rehab)? @ -No Was there de-escalation of care discussed even if they declined (Discuss DNR or withdrawal of care, Hospice)? DNR status @ -No What co-morbidities impacted this encounter? (DM, HTN, Smoking, COPD, CAD, Cancer, CVA, ARF, Chemo, Hep., AIDS, mental health diagnosis, sleep apnea, morbid obesity)? @ -None Was patient admitted / discharged? Hospital course, mention meds given and route, prescriptions, significant lab abnormalities, going to OR and other pertinent info. @ -83-year-old male presenting with chief complaint of dysuria and hematuria. Also complains of constipation. Hemoglobin is 12.6 which is consistent with the patient's baseline. Urine shows large blood with greater than 182 RBCs and 112 WBCs. The patient followed with Dr. Gilliam several years ago and has not been seen in quite a while. Given that the patient is experiencing dysuria we will cover for infection using Bactrim, he is provided with some Pyridium for his dysuria. In regards to the constipation KUB x-ray did reveal a large stool burden. Patient was given an enema, he did have a small bowel movement. He was then prescribed magnesium citrate to use at home. Instructed to follow-up with his PCP. Discharged home. Follow-up with PCP. Report back to ER with any new or worsening symptoms. Discussed return parameters and answered all questions. Patient conveyed verbal understanding and agreed to the plan. I discussed this case in detail with my attending Dr. Starkey Undiagnosed new problem with uncertain prognosis? @ -No Drug Therapy requiring intensive monitoring for toxicity (Heparin, Nitro, Insulin, Cardizem)? @ -No Were any procedures done? @ -No Diagnosis/symptom? @ -Hematuria, constipation Acute, or Chronic, or Acute on Chronic? @ -Acute Uncomplicated (without systemic symptoms) or Complicated (systemic symptoms)? @ -Uncomplicated Side effects of treatment? @ -No Exacerbation, Progression, or Severe Exacerbation? @ -No Poses a threat to life or bodily function? How? (Chest pain, USA, CA, pneumonia, PE, COPD, DKA, ARF, appy, cholecystitis, CVA, Diverticulitis, Homicidal, Suicidal, threat to staff... and all critical care pts) @ -Unlikely - Lab Data Result diagrams: 12/31/23 16:55 12/31/23 19:40 Lab Results 12/31/23 12/31/23 12/31/23 Range/Units 16:55 16:56 17:24 WBC 7.8 (3.8-10.6) k/uL RBC 4.02 L (4.30-5.90) m/uL Hgb 12.6 L (13.0-17.5) gm/dL Hct 39.7 (39.0-53.0) % MCV 98.7 (80.0-100.0) fL MCH 31.4 (25.0-35.0) pg MCHC 31.8 (31.0-37.0) g/dL RDW 13.9 (11.5-15.5) % Plt Count 219 (150-450) k/uL MPV 7.5 Neutrophils % 75 % Lymphocytes % 13 % Monocytes % 9 % Eosinophils % 1 % Basophils % 0 % Neutrophils # 5.8 (1.3-7.7) k/uL Lymphocytes # 1.0 (1.0-4.8) k/uL Monocytes # 0.7 (0-1.0) k/uL Eosinophils # 0.1 (0-0.7) k/uL Basophils # 0.0 (0-0.2) k/uL Sodium 129 L (137-145) mmol/L Potassium 5.6 H (3.5-5.1) mmol/L Chloride 102 (98-107) mmol/L Carbon Dioxide 25 (22-30) mmol/L Anion Gap 2 mmol/L BUN 25 H (9-20) mg/dL Creatinine 0.96 (0.66-1.25) mg/dL Est GFR (CKD-EPI)AfAm 84 (>60 ml/min/1.73 sqM) Est GFR (CKD-EPI)NonAf 72 (>60 ml/min/1.73 sqM) Glucose 100 H (74-99) mg/dL Calcium 9.0 (8.4-10.2) mg/dL Total Bilirubin 1.4 H (0.2-1.3) mg/dL AST 24 (17-59) U/L ALT 12 (4-49) U/L Alkaline Phosphatase 102 (38-126) U/L Total Protein 6.4 (6.3-8.2) g/dL Albumin 3.6 (3.5-5.0) g/dL Urine Color Dark Red Urine Appearance Turbid (Clear) Urine Blood Large H (Negative) Urine Nitrite Negative (Negative) Urine Urobilinogen <2.0 (<2.0) mg/dL Ur Leukocyte Esterase Large H (Negative) Urine RBC >182 H (0-5) /hpf Urine WBC 112 H (0-5) /hpf Urine Mucus Few H (None) /hpf 12/31/23 12/31/23 Range/Units 17:53 19:40 WBC (3.8-10.6) k/uL RBC (4.30-5.90) m/uL Hgb (13.0-17.5) gm/dL Hct (39.0-53.0) % MCV (80.0-100.0) fL MCH (25.0-35.0) pg MCHC (31.0-37.0) g/dL RDW (11.5-15.5) % Plt Count (150-450) k/uL MPV Neutrophils % % Lymphocytes % % Monocytes % % Eosinophils % % Basophils % % Neutrophils # (1.3-7.7) k/uL Lymphocytes # (1.0-4.8) k/uL Monocytes # (0-1.0) k/uL Eosinophils # (0-0.7) k/uL Basophils # (0-0.2) k/uL Sodium (137-145) mmol/L Potassium 5.6 H 4.9 (3.5-5.1) mmol/L Chloride (98-107) mmol/L Carbon Dioxide (22-30) mmol/L Anion Gap mmol/L BUN (9-20) mg/dL Creatinine (0.66-1.25) mg/dL Est GFR (CKD-EPI)AfAm (>60 ml/min/1.73 sqM) Est GFR (CKD-EPI)NonAf (>60 ml/min/1.73 sqM) Glucose (74-99) mg/dL Calcium (8.4-10.2) mg/dL Total Bilirubin (0.2-1.3) mg/dL AST (17-59) U/L ALT (4-49) U/L Alkaline Phosphatase (38-126) U/L Total Protein (6.3-8.2) g/dL Albumin (3.5-5.0) g/dL Urine Color Urine Appearance (Clear) Urine Blood (Negative) Urine Nitrite (Negative) Urine Urobilinogen (<2.0) mg/dL Ur Leukocyte Esterase (Negative) Urine RBC (0-5) /hpf Urine WBC (0-5) /hpf Urine Mucus (None) /hpf Disposition Clinical Impression: Hematuria, Constipation Disposition: HOME SELF-CARE Condition: Good Instructions (If sedation given, give patient instructions): Urinary Tract Infection in Men (ED), Hematuria (ED) Additional Instructions: Follow up with your PCP and urologist. Report back to ER with any new or worsening symptoms. Take the magnesium citrate in the morning, at a time where you will not be busy for several hours. Prescriptions: Sulfamethox-Tmp 800-160Mg [Bactrim DS 800-160 mg] 1 tab PO Q12HR 7 Days #14 tab Sulfamethox-Tmp 800-160Mg [Bactrim DS 800-160 mg] 1 tab PO Q12HR 7 Days #14 tab Magnesium Citrate [Citrate of Magnesia] 296 ml PO ONCE #296 ml Phenazopyridine [Pyridium] 100 mg PO BID #4 tablet Phenazopyridine [Pyridium] 100 mg PO BID #4 tablet Is patient prescribed a controlled substance at d/c from ED?: No Referrals: Toni Hernandez MD [Primary Care Provider] - 1-2 days Nelson Gilliam MD [STAFF PHYSICIAN] - 1-2 days Time of Disposition: 20:21
[2023-12-31 17:27] LABS: AST 24 U/L (17-59); Alkaline Phosphatase 102 U/L (38-126); Potassium 5.6 mmol/L (3.5-5.1)
--- NOTE | 2023-12-31 18:24 | XR ---
EXAMINATION TYPE: XR [facility] DATE OF EXAM: 12/31/2023 5:31 PM CLINICAL INDICATION:Male, 83 years old with history of Constipation; [facility] COMPARISON: 12/15/2023. TECHNIQUE: One radiographic view of the abdomen was obtained. FINDINGS: Large amount stool in the rectum. The bowel gas pattern is nonspecific without dilated loop s of small or large bowel. There is no evidence for organomegaly or pneumoperitoneum. The osseous st ructures are intact. No abnormal calcifications are present. Fecal material and gas are demonstrated throughout the colon and rectum. Multilevel degeneration changes of the spine. IMPRESSION: Large stool burden in the rectum, Nonspecific bowel gas pattern without radiographic evidence for acu te process.
[2023-12-31] MEDS: SODIUM CHLORIDE 0.9% 500 ML 500 ML IV ONE (18:41)
[2023-12-31 18:47] LABS: Appearance,Urine Turbid (Clear); Blood,Urine Large (Negative); Leukocyte Esterase,Urine Large (Negative); Mucus,Urine Few /hpf; Nitrite,Urine Negative (Negative); RBC,Urine >182 /hpf (0-5); Urobilinogen,Urine <2.0 mg/dL (<2.0); WBC,Urine 112 /hpf (0-5)
[2023-12-31 18:49] LABS: Color,Urine Dark Red
[2023-12-31] MEDS: PHENAZOPYRIDINE 100 MG TAB PO STA (19:12)
[2023-12-31] MEDS ORDERED: SULFAMETHOX-TMP 800-160MG 1 EACH TAB PO STA (20:25)
[2023-12-31 20:28] VITALS: BP 172/86; PULSE 65
== END 2023-12-31 20:46 | disposition home or self-care (01) ==
LOC: EC 16:26
DX: K59.00 Constipation, unspecified (principal); R31.9 Hematuria, unspecified
CPT/HCPCS: 36415; 74018; 80053; 81001; 84132; 85025; 87077; 87086; 87186; 99284

== ENCOUNTER 2024-01-03 09:07 | Emergency (ER) | payer MEDICARE ==
[2024-01-03 09:25] VITALS: TEMP 97
--- NOTE | 2024-01-03 10:21 | ED ---
General Adult HPI - General Chief complaint: Syncope Stated complaint: syncope Time Seen by Provider: 01/03/24 09:20 Source: patient, EMS, RN notes reviewed Mode of arrival: EMS Limitations: physical limitation - History of Present Illness Initial comments: Patient presents from [facility] with syncopal episode. Patient states he has had nausea vomiting diarrhea just today. Patient states symptoms seem improved at this point. Patient is unclear how many episodes he has had. Patient states he was going to the bathroom and believes he fell out. Patient denies any injury. Patient is unclear if he has history of similar symptoms previously. No headache. No neck or back pain. No chest pain or dyspnea. No abdominal pain. - Related Data Home Medications Medication Instructions Recorded Confirmed Celecoxib [CeleBREX] 200 mg PO DAILY PRN 04/21/17 01/03/24 Omeprazole [PriLOSEC] 20 mg PO SUTUTHSA@59904/21/17 01/03/24 Rosuvastatin Calcium [Crestor] 10 mg PO MOWEFR@59904/21/17 01/03/24 Ubidecarenone [Co Q-10] 100 mg PO HS@189904/21/17 01/03/24 Acetaminophen [Tylenol Arthritis] 650 mg PO TID@0800,1400,2000 11/25/23 01/03/24 Aspirin EC [Ecotrin Low Dose] 81 mg PO DAILY@59911/25/23 01/03/24 Carbidopa-Levodopa 25-100 mg 1 tab PO QID@06,12,16,19 11/25/23 01/03/24 [Sinemet 25-100 mg] Cholecalciferol (Vitamin D3) 50 mcg PO DAILY@59911/25/23 01/03/24 [Vitamin D3 (50 Mcg = 2000 Iu)] Donepezil HCl [Aricept] 10 mg PO BID@0600,1900 11/25/23 01/03/24 Finasteride [Proscar] 5 mg PO DAILY@59911/25/23 01/03/24 Memantine [Namenda] 5 mg PO DAILY@59911/25/23 01/03/24 Vit C/E/Zn/Coppr/Lutein/Zeaxan 2 cap PO DAILY@59911/25/23 01/03/24 [Preservision Areds 2 Softgel] Albuterol Sulfate [Ventolin HFA] 2 puff INHALATION RT-Q6H PRN 12/09/23 01/03/24 Loratadine [Claritin] 10 mg PO DAILY PRN 12/09/23 01/03/24 Sennosides [Senokot] 8.6 mg PO BID@0600,1900 12/19/23 01/03/24 Apixaban [Eliquis] 2.5 mg PO BID@0600,1900 12/28/23 01/03/24 Lactulose 10 gm PO DAILY@0600 01/03/24 01/03/24 Lactulose 10 gm PO HS PRN 01/03/24 01/03/24 Phenazopyridine [Pyridium] 100 mg PO BID@0600,1900 01/03/24 01/03/24 Sulfamethox-Tmp 800-160Mg [Bactrim 1 tab PO BID@0800,2000 01/03/24 01/03/24 DS 800-160 mg] polyethylene glycoL 3350 [Miralax] 17 gm PO DAILY@1200 01/03/24 01/03/24 Previous Rx's Medication Instructions Recorded QUEtiapine [SEROquel] 12.5 mg PO HS PRN #30 tab 11/29/23 lisinopriL [Zestril] 20 mg PO DAILY@0600 #30 tab 11/29/23 Na Phos,M-B/Na Phos,Di-Ba [Fleet 133 ml RECTAL DAILY PRN each 12/10/23 Adult] carvediloL [Coreg] 6.25 mg PO BID@0600,1900 #60 tab 12/11/23 Allergies Allergy/AdvReac Type Severity Reaction Status Date / Time No Known Allergies Allergy Verified 01/03/24 10:03 Review of Systems ROS Statement: Those systems with pertinent positive or pertinent negative responses have been documented in the HPI. ROS Other: All systems not noted in ROS Statement are negative. Constitutional: Denies: fever Eyes: Denies: eye pain ENT: Denies: ear pain Respiratory: Denies: dyspnea Cardiovascular: Denies: chest pain Endocrine: Denies: fatigue Gastrointestinal: Reports: nausea, vomiting, diarrhea. Denies: abdominal pain Neurological: Denies: weakness Past Medical History Past Medical History: Atrial Fibrillation, Coronary Artery Disease (CAD), Hyper lipidemia, Hypertension, Myocardial Infarction (MA), Osteoarthritis (OA) Additional Past Medical History / Comment(s): HX COLON POLYPS. HX VERTIGO. HAS NOCTURIA. Ischemic cardiomyopathy. parkinsons and dementia Last Myocardial Infarction Date:: 2006 History of Any Multi-Drug Resistant Organisms: None Reported Past Surgical History: Bowel Resection, Cholecystectomy, Heart Catheterization With Stent, Joint Replacement Additional Past Surgical History / Comment(s): TOTAL LT KNEE 2004. BOWEL RESECTION FOR BENIGN POLYP. Total right knee arthroplasty April 2017. Past Anesthesia/Blood Transfusion Reactions: No Reported Reaction Date of Last Stent Placement:: 2010 Past Psychological History: No Psychological Hx Reported Smoking Status: Never smoker Past Alcohol Use History: None Reported Past Drug Use History: None Reported - Past Family History Mother Family Medical History: No Reported History Additional Family Medical History / Comment(s): Mother in her 80s with history of uterine cancer. Father Additional Family Medical History / Comment(s): Father at age 59 from ALS. Sister(s) Additional Family Medical History / Comment(s): Patient has one sister this 85 years of age with history of hypertension. Patient does not have any brothers. Patient does not have any children. General Exam Limitations: no limitations General appearance: alert, in no apparent distress Head exam: Present: normocephalic Eye exam: Present: normal appearance, PERRL, EOMI Neck exam: Present: normal inspection. Absent: tenderness, meningismus Respiratory exam: Present: normal lung sounds bilaterally Cardiovascular Exam: Present: bradycardia, normal heart sounds Expanded Peripheral pulses: 2+: Radial (R), Radial (L), Dorsalis Pedis (R), Dorsalis Ped is (L) GI/Abdominal exam: Present: soft. Absent: tenderness, pulsatile mass Extremities exam: Present: normal inspection. Absent: pedal edema, calf tenderness Neurological exam: Present: alert, CN II-XII intact. Absent: motor sensory deficit Expanded Neurological exam: Present: protecting the airway Patient oriented to: Present: person, place. Absent: time Speech: Present: fluid speech Cranial nerves: EOM's Intact: Normal Motor strength exam: RUE: 5, LUE: 5, RLE: 5, LLE: 5 Eye Response: (4) open spontaneously Motor Response: (6) obeys commands Verbal Response: (4) confused conversation Psychiatric exam: Present: normal affect, normal mood Skin exam: Present: normal color Course Vital Signs 01/03/24 01/03/24 01/03/24 09:10 10:00 11:00 Temperature 97.0 F L Pulse Rate 52 L 43 L 60 Respiratory 16 16 18 Rate Blood Pressure 138/78 116/66 148/79 O2 Sat by Pulse 96 97 98 Oximetry 01/03/24 01/03/24 13:00 14:00 Temperature Pulse Rate 57 L Respiratory 18 16 Rate Blood Pressure 152/75 151/72 O2 Sat by Pulse 97 Oximetry EKG Findings - EKG Results: EKG: interpreted by ERMD, sinus rhythm, normal axis, normal QRS, normal ST/T EKG shows: bradycardia Medical Decision Making - Medical Decision Making Was pt. sent in by a medical professional or institution (, PA, RRTS, urgent care, hospital, or halfway...) When possible be specific @ -Patient sent by [facility] Did you speak to anyone other than the patient for history (EMS, parent, family, police, friend...)? What history was obtained from this source @ -No Did you review nursing and triage notes (agree or disagree)? Why? @ -I reviewed and agree with nursing and triage notes Were old charts reviewed (outside hosp., previous admission, EMS record, old EKG, old radiological studies, urgent care reports/EKG's, halfway records)? Report findings @ -No old charts were reviewed Differential Diagnosis (chest pain, altered mental status, abdominal pain women, abdominal pain men, vaginal bleeding, weakness, fever, dyspnea, syncope, headache, dizziness, GI bleed, back pain, seizure, CVA, palpatations, mental health, musculoskeletal)? @ -Differential Syncope: Valvular disease, hypertrophic cardiomyopathy, pulmonary embolism, tamponade, tachycardia, bradycardia, MA, hypovolemia, hemorrhage, dissection, anemia, intracranial hemorrhage, seizure, hypoglycemia, carbon monoxide poisoning, this is not meant to be an all-inclusive list. EKG interpreted by me (3pts min.). @ -As above X-rays interpreted by me (1pt min.). @ -Chest x-ray shows right upper lobe haziness CT interpreted by me (1pt min.). @ -CT scan brain shows atrophy. No acute process U/S interpreted by me (1pt. min.). @ -None done What testing was considered but not performed or refused? (CT, X-rays, U/S, labs)? Why? @ -None What meds were considered but not given or refused? Why? @ -None Did you discuss the management of the patient with other professionals (anya og i.e. , PA, RRTS, lab, RT, psych nurse, social work administrator, traffic controller cable, teacher, bsa officer, manager of case)? Give summary @ -Case discussed with Dr. Campa who will follow-up with this patient as outp atient and recommends decreasing Coreg dose. He does recommend CT scan and this has been ordered prior to discharge. He was updated regarding this Was smoking cessation discussed for >3mins.? @ -No Was critical care preformed (if so, how long)? @ -No Were there social determinants of health that impacted care today? How? (Homelessness, low income, unemployed, alcoholism, drug addiction, transp ortation, low edu. Level, literacy, decrease access to med. care, correction, rehab)? @ -No Was there de-escalation of care discussed even if they declined (Discuss DNR or withdrawal of care, Hospice)? DNR status @ -No What co-morbidities impacted this encounter? (DM, HTN, Smoking, COPD, CAD, Cancer, CVA, ARF, Chemo, Hep., AIDS, mental health diagnosis, sleep apnea, morbid obesity)? @ -None Was patient admitted / discharged? Hospital course, mention meds given and route, prescriptions, significant lab abnormalities, going to OR and other pertinent info. @ -Patient presents with syncopal episode with associated vomiting and diarrhea. Patient is symptom-free at this time. Patient will be discharged with follow-up with primary care physician Dr. Campa Undiagnosed new problem with uncertain prognosis? @ -No Drug Therapy requiring intensive monitoring for toxicity (Heparin, Nitro, Insulin, Cardizem)? @ -No Were any procedures done? @ -No Diagnosis/symptom? @ -Syncope Acute, or Chronic, or Acute on Chronic? @ -Acute Uncomplicated (without systemic symptoms) or Complicated (systemic symptoms)? @ -Default Side effects of treatment? @ -No Exacerbation, Progression, or Severe Exacerbation? @ -No Poses a threat to life or bodily function? How? (Chest pain, USA, MA, pneumonia, PE, COPD, DKA, ARF, appy, cholecystitis, CVA, Diverticulitis, Homicidal, Suicidal, threat to staff... and all critical care pts) @ -No - Lab Data Result diagrams: 01/03/24 10:22 01/03/24 10:22 Lab Results 01/03/24 01/03/24 01/03/24 Range/Units 10:22 10:22 10:22 WBC 3.8 (3.8-10.6) k/uL RBC 4.07 L (4.30-5.90) m/uL Hgb 12.8 L (13.0-17.5) gm/dL Hct 40.7 (39.0-53.0) % MCV 100.1 H (80.0-100.0) fL MCH 31.4 (25.0-35.0) pg MCHC 31.4 (31.0-37.0) g/dL RDW 13.6 (11.5-15.5) % Plt Count 260 (150-450) k/uL MPV 8.4 Neutrophils % 56 % Lymphocytes % 25 % Monocytes % 14 % Eosinophils % 1 % Basophils % 1 % Neutrophils # 2.1 (1.3-7.7) k/uL Lymphocytes # 1.0 (1.0-4.8) k/uL Monocytes # 0.6 (0-1.0) k/uL Eosinophils # 0.1 (0-0.7) k/uL Basophils # 0.0 (0-0.2) k/uL PT 10.8 (10.0-12.5) sec INR 1.0 (<1.2) APTT 20.8 L (22.0-30.0) sec Sodium 131 L (137-145) mmol/L Potassium 4.8 (3.5-5.1) mmol/L Chloride 103 (98-107) mmol/L Carbon Dioxide 22 (22-30) mmol/L Anion Gap 6 mmol/L BUN 22 H (9-20) mg/dL Creatinine 1.03 (0.66-1.25) mg/dL Est GFR (CKD-EPI)AfAm 77 (>60 ml/min/1.73 sqM) Est GFR (CKD-EPI)NonAf 66 (>60 ml/min/1.73 sqM) Glucose 147 H (74-99) mg/dL Calcium 9.1 (8.4-10.2) mg/dL Magnesium 2.0 (1.6-2.3) mg/dL Total Bilirubin 1.2 (0.2-1.3) mg/dL AST 27 (17-59) U/L ALT 9 (4-49) U/L Alkaline Phosphatase 96 (38-126) U/L Troponin I (0.000-0.034) ng/mL Total Protein 6.6 (6.3-8.2) g/dL Albumin 3.7 (3.5-5.0) g/dL 01/03/24 Range/Units 10:22 WBC (3.8-10.6) k/uL RBC (4.30-5.90) m/uL Hgb (13.0-17.5) gm/dL Hct (39.0-53.0) % MCV (80.0-100.0) fL MCH (25.0-35.0) pg MCHC (31.0-37.0) g/dL RDW (11.5-15.5) % Plt Count (150-450) k/uL MPV Neutrophils % % Lymphocytes % % Monocytes % % Eosinophils % % Basophils % % Neutrophils # (1.3-7.7) k/uL Lymphocytes # (1.0-4.8) k/uL Monocytes # (0-1.0) k/uL Eosinophils # (0-0.7) k/uL Basophils # (0-0.2) k/uL PT (10.0-12.5) sec INR (<1.2) APTT (22.0-30.0) sec Sodium (137-145) mmol/L Potassium (3.5-5.1) mmol/L Chloride (98-107) mmol/L Carbon Dioxide (22-30) mmol/L Anion Gap mmol/L BUN (9-20) mg/dL Creatinine (0.66-1.25) mg/dL Est GFR (CKD-EPI)AfAm (>60 ml/min/1.73 sqM) Est GFR (CKD-EPI)NonAf (>60 ml/min/1.73 sqM) Glucose (74-99) mg/dL Calcium (8.4-10.2) mg/dL Magnesium (1.6-2.3) mg/dL Total Bilirubin (0.2-1.3) mg/dL AST (17-59) U/L ALT (4-49) U/L Alkaline Phosphatase (38-126) U/L Troponin I <0.012 (0.000-0.034) ng/mL Total Protein (6.3-8.2) g/dL Albumin (3.5-5.0) g/dL Disposition Clinical Impression: Syncope Disposition: HOME SELF-CARE Condition: Stable Instructions (If sedation given, give patient instructions): Syncope (ED) Additional Instructions: Please do follow-up with Dr. pratt in the next couple of days for recheck. Please decrease Coreg dose to 3.125 mg twice daily. Return for uncontrolled vomiting, passing out, change in mental status, worsening symptoms or other concerns Is patient prescribed a controlled substance at d/c from ED?: No Referrals: Toni Pratt MD [Primary Care Provider] - 1-2 days Time of Disposition: 14:51
[2024-01-03] MEDS: ONDANSETRON 4 MG/2 ML VIAL IVP STA (10:27)
[2024-01-03] MEDS: SODIUM CHLORIDE 0.9% 1,000 ML IV STA (10:27)
[2024-01-03] MEDS: FAMOTIDINE 20 MG/2 ML VIAL IV STA (10:27)
[2024-01-03 10:42] LABS: Basophils % (A) 1 %; Eosinophils # (A) 0.1 k/uL (0-0.7); Eosinophils % (A) 1 %; HCT 40.7 % (39.0-53.0); HGB 12.8 gm/dL (13.0-17.5); Lymphocytes % (A) 25 %; MCH 31.4 pg (25.0-35.0); MCHC 31.4 g/dL (31.0-37.0); MCV 100.1 fL (80.0-100.0); Mean Platelet Volume 8.4; Monocytes # (A) 0.6 k/uL (0-1.0); Monocytes % (A) 14 %; Neutrophils # (A) 2.1 k/uL (1.3-7.7); Neutrophils % (A) 56 %; Platelet Count 260 k/uL (150-450); RBC 4.07 m/uL (4.30-5.90); RDW 13.6 % (11.5-15.5); WBC 3.8 k/uL (3.8-10.6)
[2024-01-03 10:59] LABS: ALT 9 U/L (4-49); African American GFR (CKD) 77 (>60 ml/min/1.73 sqM); Anion Gap 6 mmol/L; Blood Urea Nitrogen 22 mg/dL (9-20); Calcium 9.1 mg/dL (8.4-10.2); Carbon Dioxide 22 mmol/L (22-30); Chloride 103 mmol/L (98-107); Glucose 147 mg/dL (74-99); Non-African American GFR(CKD) 66 (>60 ml/min/1.73 sqM); Sodium 131 mmol/L (137-145); Total Bilirubin 1.2 mg/dL (0.2-1.3)
--- NOTE | 2024-01-03 11:04 | CT ---
EXAMINATION TYPE: CT brain wo con DATE OF EXAM: 01/03/2024 HISTORY: Syncope CT DLP: 1146.4 mGycm. Automated Exposure Control for Dose Reduction was Utilized. TECHNIQUE: CT scan of the head is performed without contrast. COMPARISON: CT brain 8 days ago. FINDINGS: There is no acute intracranial hemorrhage or midline shift identified. There is moderate diffuse ventricular and sulcal prominence redemonstrated. There is moderate to severe low-attenuatio n in the periventricular white matter redemonstrated. Partially opacified mastoid air cells are again seen. Bilateral aphakia is redemonstrated. The visualized sinuses are clear. IMPRESSION: No acute intracranial hemorrhage or midline shift. There is moderate diffuse cerebral a trophy and moderate to advanced chronic small vessel ischemic change redemonstrated. Possible bilate ral mastoiditis. No significant change from most recent prior CT.
[2024-01-03 11:14] LABS: AST 27 U/L (17-59); Albumin 3.7 g/dL (3.5-5.0); Potassium 4.8 mmol/L (3.5-5.1); Total Protein 6.6 g/dL (6.3-8.2)
[2024-01-03 11:15] LABS: Alkaline Phosphatase 96 U/L (38-126)
[2024-01-03 11:19] LABS: Prothrombin Time 10.8 sec (10.0-12.5)
[2024-01-03 11:36] LABS: Partial Thromboplastin Time 20.8 sec (22.0-30.0)
--- NOTE | 2024-01-03 12:22 | XR ---
EXAMINATION TYPE: XR chest 2V DATE OF EXAM: 01/03/2024 COMPARISON: Prior chest x-ray 6 days earlier and older studies. HISTORY: Syncope TECHNIQUE: Frontal and lateral views of the chest are obtained. FINDINGS: Background chronic emphysematous change with persistent right upper lung masslike opacity. No pleural effusion or pneumothorax seen bilaterally. The cardiac silhouette size is mildly enlarged . Degenerative change left glenohumeral joint is redemonstrated. IMPRESSION: Chronic emphysematous change with right apical masslike opacity could reflect focal cons olidation. Advise follow-up after treatment to rule out mass or neoplasm if this area does not resolv e.
[2024-01-03] MEDS ORDERED: RX INFO: IV CONTRAST WAS GIVEN 1 EACH MISC MISCELLANE PRN (12:55)
--- NOTE | 2024-01-03 14:21 | CT ---
EXAMINATION TYPE: CT chest w con DATE OF EXAM: 01/03/2024 COMPARISON: NONE HISTORY: RUL OPACITY CT DLP: 406 mGycm. Automated Exposure Control for Dose Reduction was Utilized. TECHNIQUE: CT scan of the thorax is performed following with IV Contrast, patient injected with 100 ml mL of Isovue 300. FINDINGS: LUNGS: Moderate biapical pleural/parenchymal scarring with some peripheral reticulation and fibrotic change. Corresponding x-ray abnormality there is slightly more prominent masslike consolidation in th e periphery of the right upper lobe measuring 3.4 x 1.4 cm axial image 13. Some areas of groundglass opacity in the bilateral lung bases are seen. No pleural effusion or pneumothorax present bilaterally . MEDIASTINUM: There are prominent right hilar lymph nodes near axial images 28 and 30. No cardiomeg bradley or pericardial effusion is seen. Moderate to severe coronary artery calcifications and/or stents . OTHER: Cholecystectomy clips are seen. S-shaped scoliosis with multilevel spurring in the spine. IMPRESSION: Moderate biapical pleural/parenchymal scarring. Slightly more nodular appearance in the p eriphery of the right upper lobe. Nodular scarring is suspected. Acute nodular consolidation has to b e considered given patient's symptoms and prominent right hilar lymph nodes. Neoplasm cannot be exclu ded and follow-up PET/CT is advised after treatment in 4-6 weeks time to reassess.
[2024-01-03 15:13] VITALS: BP 141/82; PULSE 71; RESP 18
== END 2024-01-03 15:30 | disposition home or self-care (01) ==
LOC: EC 09:07
DX: R55 Syncope and collapse (principal); Z90.49 Acquired absence of other specified parts of digestive tract
CPT/HCPCS: 36415; 93005; 80053; 83735; 84484; 85025; 85610; 85730; 71046; 70450; 71260; 99284; 96374; 96375; 96361 ×5; J2405; J3490; Q9967

== ENCOUNTER 2024-01-25 09:01 | Emergency (ER) | payer MEDICARE ==
[2024-01-25 09:11] VITALS: RESP 18; TEMP 98.4
--- NOTE | 2024-01-25 09:24 | ED ---
General Adult HPI - General Chief complaint: Syncope Stated complaint: Syncope Time Seen by Provider: 01/25/24 09:16 Source: patient, EMS, RN notes reviewed, old records reviewed Mode of arrival: EMS Limitations: no limitations - History of Present Illness Initial comments: 83-year-old male presents for evaluation after being found on the toilet minimal ly responsive. This has occurred several times in the past month. The patient himself is arousable but sleepy. He has no physical complaints. Patient is presenting from [facility]. He denies chest or abdominal pain. Denies head injury. Denies any pain complaints of any kind. - Related Data Home Medications Medication Instructions Recorded Confirmed Celecoxib [CeleBREX] 200 mg PO DAILY PRN 04/21/17 01/03/24 Omeprazole [PriLOSEC] 20 mg PO SUTUTHSA@59904/21/17 01/03/24 Rosuvastatin Calcium [Crestor] 10 mg PO MOWEFR@59904/21/17 01/03/24 Ubidecarenone [Co Q-10] 100 mg PO HS@189904/21/17 01/03/24 Acetaminophen [Tylenol Arthritis] 650 mg PO TID@0800,1400,199911/25/23 01/03/24 Aspirin EC [Ecotrin Low Dose] 81 mg PO DAILY@59911/25/23 01/03/24 Carbidopa-Levodopa 25-100 mg 1 tab PO QID@06,12,16,19 11/25/23 01/03/24 [Sinemet 25-100 mg] Cholecalciferol (Vitamin D3) 50 mcg PO DAILY@59911/25/23 01/03/24 [Vitamin D3 (50 Mcg = 2000 Iu)] Donepezil HCl [Aricept] 10 mg PO BID@0600,1900 11/25/23 01/03/24 Finasteride [Proscar] 5 mg PO DAILY@59911/25/23 01/03/24 Memantine [Namenda] 5 mg PO DAILY@59911/25/23 01/03/24 Vit C/E/Zn/Coppr/Lutein/Zeaxan 2 cap PO DAILY@59911/25/23 01/03/24 [Preservision Areds 2 Softgel] Albuterol Sulfate [Ventolin HFA] 2 puff INHALATION RT-Q6H PRN 12/09/23 01/03/24 Loratadine [Claritin] 10 mg PO DAILY PRN 12/09/23 01/03/24 Sennosides [Senokot] 8.6 mg PO BID@0600,1900 12/19/23 01/03/24 Apixaban [Eliquis] 2.5 mg PO BID@0600,1900 12/28/23 01/03/24 Lactulose 10 gm PO DAILY@0600 01/03/24 01/03/24 Lactulose 10 gm PO HS PRN 01/03/24 01/03/24 Phenazopyridine [Pyridium] 100 mg PO BID@0600,1900 01/03/24 01/03/24 Sulfamethox-Tmp 800-160Mg [Bactrim 1 tab PO BID@0800,2000 01/03/24 01/03/24 DS 800-160 mg] polyethylene glycoL 3350 [Miralax] 17 gm PO DAILY@1200 01/03/24 01/03/24 Previous Rx's Medication Instructions Recorded QUEtiapine [SEROquel] 12.5 mg PO HS PRN #30 tab 11/29/23 lisinopriL [Zestril] 20 mg PO DAILY@0600 #30 tab 11/29/23 Na Phos,M-B/Na Phos,Di-Ba [Fleet 133 ml RECTAL DAILY PRN each 12/10/23 Adult] carvediloL [Coreg] 6.25 mg PO BID@0600,1900 #60 tab 12/11/23 Allergies Allergy/AdvReac Type Severity Reaction Status Date / Time No Known Allergies Allergy Verified 01/25/24 09:11 Review of Systems ROS Statement: Those systems with pertinent positive or pertinent negative responses have been documented in the HPI. ROS Other: All systems not noted in ROS Statement are negative. Past Medical History Past Medical History: Atrial Fibrillation, Coronary Artery Disease (CAD), Hyperlipidemia, Hypertension, Myocardial Infarction (CT), Osteoarthritis (OA) Additional Past Medical History / Comment(s): HX COLON POLYPS. HX VERTIGO. HAS NOCTURIA. Ischemic cardiomyopathy. parkinsons and dementia Last Myocardial Infarction Date:: 2006 History of Any Multi-Drug Resistant Organisms: None Reported Past Surgical History: Bowel Resection, Cholecystectomy, Heart Catheterization With Stent, Joint Replacement Additional Past Surgical History / Comment(s): TOTAL LT KNEE 2004. BOWEL RESECTION FOR BENIGN POLYP. Total right knee arthroplasty April 2017. Past Anesthesia/Blood Transfusion Reactions: No Reported Reaction Date of Last Stent Placement:: 2010 Past Psychological History: No Psychological Hx Reported Smoking Status: Never smoker Past Alcohol Use History: None Reported Past Drug Use History: None Reported - Past Family History Mother Family Medical History: No Reported History Additional Family Medical History / Comment(s): Mother in her 80s with history of uterine cancer. Father Additional Family Medical History / Comment(s): Father at age 59 from ALS. Sister(s) Additional Family Medical History / Comment(s): Patient has one sister this 85 years of age with history of hypertension. Patient does not have any brothers. Patient does not have any children. General Exam Limitations: no limitations General appearance: alert, in no apparent distress Head exam: Present: atraumatic, normocephalic Eye exam: Present: normal appearance, PERRL ENT exam: Present: normal exam Neck exam: Present: normal inspection. Absent: tenderness, meningismus Respiratory exam: Present: normal lung sounds bilaterally. Absent: respiratory distress Cardiovascular Exam: Present: normal rhythm, bradycardia GI/Abdominal exam: Present: soft. Absent: distended, tenderness, guarding Extremities exam: Present: normal inspection, normal capillary refill Neurological exam: Present: alert. Absent: motor sensory deficit Skin exam: Present: warm, dry, intact. Absent: cyanosis, diaphoretic Course Vital Signs 01/25/24 09:04 Temperature 98.4 F Pulse Rate 60 Respiratory 18 Rate Blood Pressure 112/61 O2 Sat by Pulse 96 Oximetry Medical Decision Making - Medical Decision Making Was pt. sent in by a medical professional or institution (, PA, ASSISTANT SPEECH LANGUAGE PATHOLOGIST, urgent care, hospital, or fci...) When possible be specific @ -No Did you speak to anyone other than the patient for history (EMS, parent, family, police, friend...)? What history was obtained from this source @ -No Did you review nursing and triage notes (agree or disagree)? Why? @ -I reviewed and agree with nursing and triage notes Were old charts reviewed (outside hosp., previous admission, EMS record, old EKG, old radiological studies, urgent care reports/EKG's, fci records)? Report findings @ -No old charts were reviewed Differential Syncope: Valvular disease, hypertrophic cardiomyopathy, pulmonary embolism, tamponade, tachycardia, bradycardia, CT, hypovolemia, hemorrhage, dissection, anemia, intracranial hemorrhage, seizure, hypoglycemia, carbon monoxide poisoning, this is not meant to be an all-inclusive list. EKG interpreted by me (3pts min.). Sinus bradycardia rate of 56 MI interval 191, QRS duration 98, QTc [address] segment elevation. X-rays interpreted by me (1pt min.). @ -None done CT interpreted by me (1pt min.). @ -None done U/S interpreted by me (1pt. min.). @ -None done What testing was considered but not performed or refused? (CT, X-rays, U/S, labs)? Why? @ -None What meds were considered but not given or refused? Why? @ -None Did you discuss the management of the patient with other professionals (professionals i.e. , PA, ASSISTANT SPEECH LANGUAGE PATHOLOGIST, lab, RT, psych nurse, social media assistant, jailor, teacher, education officer, senior case manager)? Give summary @ -No Was smoking cessation discussed for >3mins.? @ -No Was critical care preformed (if so, how long)? @ -No Were there social determinants of health that impacted care today? How? (Homelessness, low income, unemployed, alcoholism, drug addiction, transportation, low edu. Level, literacy, decrease access to med. care, snf, rehab)? @ -No Was there de-escalation of care discussed even if they declined (Discuss DNR or withdrawal of care, Hospice)? DNR status @ -There is a DNR order for this patient What co-morbidities impacted this encounter? (DM, HTN, Smoking, COPD, CAD, Cancer, CVA, ARF, Chemo, Hep., AIDS, mental health diagnosis, sleep apnea, morbid obesity)? @ -None Was patient admitted / discharged? Hospital course, mention meds given and route, prescriptions, significant lab abnormalities, going to OR and other pertinent info. @83-year-old male who had either syncopal episode or brief period of decreased level of consciousness. Patient is sleepy but arousable without complaint. He is a DNR. Patient has stable vitals. He has normal laboratory test including CBC, CMP, venous blood gas and troponin level. Given the stable vitals, asymptomatic nature of complaint and DNR status I do feel this patient is stable for discharge back to the assisted living facility where he lives. Nursing staff was able to confirm the level of care he is receiving and that does seem appropriate at this time. Undiagnosed new problem with uncertain prognosis? @ -No Drug Therapy requiring intensive monitoring for toxicity (Heparin, Nitro, Insulin, Cardizem)? @ -No Were any procedures done? @ -No Diagnosis/symptom? @ -Syncope Acute, or Chronic, or Acute on Chronic? @ -Default Uncomplicated (without systemic symptoms) or Complicated (systemic symptoms)? @ -Default Side effects of treatment? @ -No Exacerbation, Progression, or Severe Exacerbation? @ -No Poses a threat to life or bodily function? How? (Chest pain, USA, CT, pneumonia, PE, COPD, DKA, ARF, appy, cholecystitis, CVA, Diverticulitis, Homicidal, Suicidal, threat to staff... and all critical care pts) @ -No - Lab Data Result diagrams: 01/25/24 09:23 01/25/24 09:23 Lab Results 01/25/24 01/25/24 01/25/24 Range/Units 09:23 09:23 09:23 WBC 5.3 (3.8-10.6) k/uL RBC 4.09 L (4.30-5.90) m/uL Hgb 13.0 (13.0-17.5) gm/dL Hct 41.0 (39.0-53.0) % MCV 100.3 H (80.0-100.0) fL MCH 31.9 (25.0-35.0) pg MCHC 31.8 (31.0-37.0) g/dL RDW 13.6 (11.5-15.5) % Plt Count 214 (150-450) k/uL MPV 7.6 Neutrophils % 68 % Lymphocytes % 21 % Monocytes % 8 % Eosinophils % 1 % Basophils % 0 % Neutrophils # 3.6 (1.3-7.7) k/uL Lymphocytes # 1.1 (1.0-4.8) k/uL Monocytes # 0.4 (0-1.0) k/uL Eosinophils # 0.1 (0-0.7) k/uL Basophils # 0.0 (0-0.2) k/uL PT 11.3 (10.0-12.5) sec INR 1.0 (<1.2) APTT 23.9 (22.0-30.0) sec VBG pH (7.31-7.41) VBG pCO2 (37-51) mmHg VBG HCO3 (24-28) mmol/L Sodium 131 L (137-145) mmol/L Potassium 4.2 (3.5-5.1) mmol/L Chloride 102 (98-107) mmol/L Carbon Dioxide 23 (22-30) mmol/L Anion Gap 6 mmol/L BUN 21 H (9-20) mg/dL Creatinine 0.95 (0.66-1.25) mg/dL Est GFR (CKD-EPI)AfAm 85 (>60 ml/min/1.73 sqM) Est GFR (CKD-EPI)NonAf 73 (>60 ml/min/1.73 sqM) Glucose 144 H (74-99) mg/dL Calcium 9.3 (8.4-10.2) mg/dL Magnesium 1.8 (1.6-2.3) mg/dL Total Bilirubin 1.3 (0.2-1.3) mg/dL AST 27 (17-59) U/L ALT 9 (4-49) U/L Alkaline Phosphatase 96 (38-126) U/L Troponin I (0.000-0.034) ng/mL Total Protein 6.0 L (6.3-8.2) g/dL Albumin 3.5 (3.5-5.0) g/dL 01/25/24 01/25/24 Range/Units 09:23 09:23 WBC (3.8-10.6) k/uL RBC (4.30-5.90) m/uL Hgb (13.0-17.5) gm/dL Hct (39.0-53.0) % MCV (80.0-100.0) fL MCH (25.0-35.0) pg MCHC (31.0-37.0) g/dL RDW (11.5-15.5) % Plt Count (150-450) k/uL MPV Neutrophils % % Lymphocytes % % Monocytes % % Eosinophils % % Basophils % % Neutrophils # (1.3-7.7) k/uL Lymphocytes # (1.0-4.8) k/uL Monocytes # (0-1.0) k/uL Eosinophils # (0-0.7) k/uL Basophils # (0-0.2) k/uL PT (10.0-12.5) sec INR (<1.2) APTT (22.0-30.0) sec VBG pH 7.35 (7.31-7.41) VBG pCO2 43 (37-51) mmHg VBG HCO3 24 (24-28) mmol/L Sodium (137-145) mmol/L Potassium (3.5-5.1) mmol/L Chloride (98-107) mmol/L Carbon Dioxide (22-30) mmol/L Anion Gap mmol/L BUN (9-20) mg/dL Creatinine (0.66-1.25) mg/dL Est GFR (CKD-EPI)AfAm (>60 ml/min/1.73 sqM) Est GFR (CKD-EPI)NonAf (>60 ml/min/1.73 sqM) Glucose (74-99) mg/dL Calcium (8.4-10.2) mg/dL Magnesium (1.6-2.3) mg/dL Total Bilirubin (0.2-1.3) mg/dL AST (17-59) U/L ALT (4-49) U/L Alkaline Phosphatase (38-126) U/L Troponin I <0.012 (0.000-0.034) ng/mL Total Protein (6.3-8.2) g/dL Albumin (3.5-5.0) g/dL Disposition Clinical Impression: Syncope Disposition: HOME SELF-CARE Condition: Fair Instructions (If sedation given, give patient instructions): Syncope (ED) Is patient prescribed a controlled substance at d/c from ED?: No Referrals: Toni Hernandez MD [Primary Care Provider] - 1-2 days Time of Disposition: 10:10
[2024-01-25 09:33] LABS: Basophils % (A) 0 %; Eosinophils # (A) 0.1 k/uL (0-0.7); Eosinophils % (A) 1 %; Lymphocytes # (A) 1.1 k/uL (1.0-4.8); Lymphocytes % (A) 21 %; MCH 31.9 pg (25.0-35.0); MCHC 31.8 g/dL (31.0-37.0); MCV 100.3 fL (80.0-100.0); Mean Platelet Volume 7.6; Monocytes # (A) 0.4 k/uL (0-1.0); Monocytes % (A) 8 %; Neutrophils # (A) 3.6 k/uL (1.3-7.7); Neutrophils % (A) 68 %; Platelet Count 214 k/uL (150-450); RBC 4.09 m/uL (4.30-5.90); RDW 13.6 % (11.5-15.5); VBG PH 7.35 (7.31-7.41); WBC 5.3 k/uL (3.8-10.6)
[2024-01-25 09:42] LABS: ALT 9 U/L (4-49); AST 27 U/L (17-59); African American GFR (CKD) 85 (>60 ml/min/1.73 sqM); Albumin 3.5 g/dL (3.5-5.0); Alkaline Phosphatase 96 U/L (38-126); Anion Gap 6 mmol/L; Blood Urea Nitrogen 21 mg/dL (9-20); Calcium 9.3 mg/dL (8.4-10.2); Carbon Dioxide 23 mmol/L (22-30); Chloride 102 mmol/L (98-107); Glucose 144 mg/dL (74-99); Magnesium 1.8 mg/dL (1.6-2.3); Non-African American GFR(CKD) 73 (>60 ml/min/1.73 sqM); Potassium 4.2 mmol/L (3.5-5.1); Sodium 131 mmol/L (137-145); Total Bilirubin 1.3 mg/dL (0.2-1.3)
[2024-01-25 09:43] LABS: Partial Thromboplastin Time 23.9 sec (22.0-30.0); Prothrombin Time 11.3 sec (10.0-12.5)
[2024-01-25 10:30] VITALS: BP 110/52; PULSE 48
== END 2024-01-25 10:29 | disposition home or self-care (01) ==
LOC: EC 09:01
DX: R55 Syncope and collapse (principal); Z90.49 Acquired absence of other specified parts of digestive tract
CPT/HCPCS: 36415; 80053; 82803; 83735; 84484; 85025; 85610; 85730; 93005; 99285

== ENCOUNTER 2024-07-19 09:24 | Inpatient (IN) | payer MEDICARE ==
--- NOTE | 2024-07-19 10:02 | ED ---
General Adult HPI - General Chief complaint: Syncope Stated complaint: Syncope Time Seen by Provider: 07/19/24 09:36 Source: patient, RN notes reviewed Mode of arrival: EMS Limitations: no limitations - History of Present Illness Initial comments: Patient is an 83-year-old male present to the emergency department syncopal episode. Episode occurred prior to arrival. Patient was using the restroom. Patient did not fall or have injury. Patient does not recall the episode. Patient is symptom-free. Patient reportedly was drowsy following the event. Patient reportedly had low blood pressure initially by EMS. Patient denies any chest pain or shortness of breath. No confusion. No weakness. - Related Data Home Medications Medication Instructions Recorded Confirmed Celecoxib [CeleBREX] 200 mg PO DAILY PRN 04/21/17 01/03/24 Omeprazole [PriLOSEC] 20 mg PO SUTUTHSA@59904/21/17 01/03/24 Rosuvastatin Calcium [Crestor] 10 mg PO MOWEFR@59904/21/17 01/03/24 Ubidecarenone [Co Q-10] 100 mg PO HS@189904/21/17 01/03/24 Acetaminophen [Tylenol Arthritis] 650 mg PO TID@0800,1400,2000 11/25/23 01/03/24 Aspirin EC [Ecotrin Low Dose] 81 mg PO DAILY@59911/25/23 01/03/24 Carbidopa-Levodopa 25-100 mg 1 tab PO QID@06,12,16,19 11/25/23 01/03/24 [Sinemet 25-100 mg] Cholecalciferol (Vitamin D3) 50 mcg PO DAILY@59911/25/23 01/03/24 [Vitamin D3 (50 Mcg = 2000 Iu)] Donepezil HCl [Aricept] 10 mg PO BID@0600,1900 11/25/23 01/03/24 Finasteride [Proscar] 5 mg PO DAILY@59911/25/23 01/03/24 Memantine [Namenda] 5 mg PO DAILY@0611/25/23 01/03/24 Vit C/E/Zn/Coppr/Lutein/Zeaxan 2 cap PO DAILY@59911/25/23 01/03/24 [Preservision Areds 2 Softgel] Albuterol Sulfate [Ventolin HFA] 2 puff INHALATION RT-Q6H PRN 12/09/23 01/03/24 Loratadine [Claritin] 10 mg PO DAILY PRN 12/09/23 01/03/24 Sennosides [Senokot] 8.6 mg PO BID@0600,1900 12/19/23 01/03/24 Apixaban [Eliquis] 2.5 mg PO BID@0600,1900 12/28/23 01/03/24 Lactulose 10 gm PO DAILY@0600 01/03/24 01/03/24 Lactulose 10 gm PO HS PRN 01/03/24 01/03/24 Phenazopyridine [Pyridium] 100 mg PO BID@0600,1900 01/03/24 01/03/24 Sulfamethox-Tmp 800-160Mg [Bactrim 1 tab PO BID@0800,2000 01/03/24 01/03/24 DS 800-160 mg] polyethylene glycoL 3350 [Miralax] 17 gm PO DAILY@1200 01/03/24 01/03/24 Previous Rx's Medication Instructions Recorded QUEtiapine [SEROquel] 12.5 mg PO HS PRN #30 tab 11/29/23 lisinopriL [Zestril] 20 mg PO DAILY@0600 #30 tab 11/29/23 Na Phos,M-B/Na Phos,Di-Ba [Fleet 133 ml RECTAL DAILY PRN each 12/10/23 Adult] carvediloL [Coreg] 6.25 mg PO BID@0600,1900 #60 tab 12/11/23 Allergies Allergy/AdvReac Type Severity Reaction Status Date / Time No Known Allergies Allergy Verified 07/19/24 13:34 Review of Systems ROS Statement: Those systems with pertinent positive or pertinent negative responses have been documented in the HPI. ROS Other: All systems not noted in ROS Statement are negative. Constitutional: Denies: fever Eyes: Denies: eye pain ENT: Denies: ear pain Respiratory: Denies: cough, dyspnea Cardiovascular: Denies: chest pain Endocrine: Denies: fatigue Gastrointestinal: Denies: abdominal pain Musculoskeletal: Denies: back pain Neurological: Denies: headache Past Medical History Past Medical History: Atrial Fibrillation, Coronary Artery Disease (CAD), Hyperlipidemia, Hypertension, Myocardial Infarction ([place]), Osteoarthritis ([place]) Additional Past Medical History / Comment(s): HX COLON POLYPS. HX VERTIGO. HAS NOCTURIA. Ischemic cardiomyopathy. parkinsons and dementia Last Myocardial Infarction Date:: 2006 History of Any Multi-Drug Resistant Organisms: None Reported Past Surgical History: Bowel Resection, Cholecystectomy, Heart Catheterization With Stent, Joint Replacement Additional Past Surgical History / Comment(s): TOTAL LT KNEE 2004. BOWEL RESECTION FOR BENIGN POLYP. Total right knee arthroplasty April 2017. Past Anesthesia/Blood Transfusion Reactions: No Reported Reaction Date of Last Stent Placement:: 2010 Past Psychological History: No Psychological Hx Reported Smoking Status: Never smoker Past Alcohol Use History: None Reported Past Drug Use History: None Reported - Past Family History Mother Family Medical History: No Reported History Additional Family Medical History / Comment(s): Mother in her 80s with history of uterine cancer. Father Additional Family Medical History / Comment(s): Father at age 59 from ALS. Sister(s) Additional Family Medical History / Comment(s): Patient has one sister this 85 years of age with history of hypertension. Patient does not have any brothers. Patient does not have any children. General Exam Limitations: no limitations General appearance: alert, in no apparent distress Head exam: Present: atraumatic Eye exam: Present: normal appearance, PERRL, EOMI ENT exam: Present: normal oropharynx Neck exam: Present: normal inspection. Absent: tenderness Respiratory exam: Present: normal lung sounds bilaterally Cardiovascular Exam: Present: regular rate, normal rhythm, normal heart sounds Expanded Peripheral pulses: 2+: Radial (R), Radial (L), Posterior Tibialis (R), Posterior Tibialis (L) GI/Abdominal exam: Present: soft. Absent: tenderness Extremities exam: Present: normal inspection, full ROM. Absent: tenderness Neurological exam: Present: alert, CN II-XII intact Expanded Neurological exam: Present: protecting the airway Patient oriented to: Present: person, place. Absent: time (States the year is 2024) Cranial nerves: EOM's Intact: Normal Motor strength exam: RUE: 5, LUE: 5, RLE: 4 (Patient does not ambulate), LLE: 4 (Patient does not ambulate) Eye Response: (4) open spontaneously Motor Response: (6) obeys commands Verbal Response: (4) confused conversation Psychiatric exam: Present: normal affect, normal mood Skin exam: Present: normal color Course Vital Signs 07/19/24 07/19/24 07/19/24 09:27 11:46 12:35 Temperature 98.5 F Pulse Rate 57 L Respiratory 15 Rate Blood Pressure 143/83 Blood Pressure [Right Arm Sitting] Blood Pressure 133/84 [Right Arm Supine] O2 Sat by Pulse 96 95 Oximetry 07/19/24 12:37 Temperature Pulse Rate Respiratory Rate Blood Pressure Blood Pressure 125/82 [Right Arm Sitting] Blood Pressure [Right Arm Supine] O2 Sat by Pulse Oximetry EKG Findings - EKG Results: EKG: interpreted by ERMD, sinus rhythm, normal axis, normal QRS, normal ST/T EKG shows: bradycardia Medical Decision Making - Medical Decision Making Was pt. sent in by a medical professional or institution (, PA, [employer], urgent care, hospital, or group home...) When possible be specific @ -Patient was sent from group home Did you speak to anyone other than the patient for history (EMS, parent, family, police, friend...)? What history was obtained from this source @ -Family is present and helps provide history including of the episode as patient does not recall this Did you review nursing and triage notes (agree or disagree)? Why? @ -I reviewed and agree with nursing and triage notes Were old charts reviewed (outside hosp., previous admission, EMS record, old EKG, old radiological studies, urgent care reports/EKG's, group home records)? Report findings @ -Previous renal function reviewed Differential Diagnosis (chest pain, altered mental status, abdominal pain women, abdominal pain men, vaginal bleeding, weakness, fever, dyspnea, syncope, headache, dizziness, GI bleed, back pain, seizure, CVA, palpatations, mental health, musculoskeletal)? @ -Differential Syncope: Valvular disease, hypertrophic cardiomyopathy, pulmonary embolism, tamponade, tachycardia, bradycardia, NE, hypovolemia, hemorrhage, dissection, anemia, intracranial hemorrhage, seizure, hypoglycemia, carbon monoxide poisoning, this is not meant to be an all-inclusive list. EKG interpreted by me (3pts min.). @ -As above X-rays interpreted by me (1pt min.). @ -Chest x-ray shows no acute process CT interpreted by me (1pt min.). @ -CT brain shows no acute process U/S interpreted by me (1pt. min.). @ -None done What testing was considered but not performed or refused? (CT, X-rays, U/S, labs)? Why? @ -None What meds were considered but not given or refused? Why? @ -None Did you discuss the management of the patient with other professionals (professionals i.e. Dr., PA, [employer], lab, RT, psych nurse, psychiatric social worker supervisor, head bucker, teacher, chemistry technical officer, complex case manager)? Give summary @ -Case was discussed with Dr. Spangler who will admit covering Dr. Campa Was smoking cessation discussed for >3mins.? @ -No Was critical care preformed (if so, how long)? @ -No Were there social determinants of health that impacted care today? How? (Homelessness, low income, unemployed, alcoholism, drug addiction, transportation, low edu. Level, literacy, decrease access to med. care, nursing home, rehab)? @ -No Was there de-escalation of care discussed even if they declined (Discuss DNR or withdrawal of care, Hospice)? DNR status @ -No What co-morbidities impacted this encounter? (DM, HTN, Smoking, COPD, CAD, Cancer, CVA, ARF, Chemo, Hep., AIDS, mental health diagnosis, sleep apnea, morbid obesity)? @ -None Was patient admitted / discharged? Hospital course, mention meds given and route, prescriptions, significant lab abnormalities, going to OR and other pertinent info. @ -Patient presents following syncopal episode. Evaluation concerning for dehydration based off renal function. Patient will be admitted for hydration. Patient and family updated. Admission orders written. Undiagnosed new problem with uncertain prognosis? @ -No Drug Therapy requiring intensive monitoring for toxicity (Heparin, Nitro, Insulin, Cardizem)? @ -No Were any procedures done? @ -No Diagnosis/symptom? @ -Syncope, dehydration Acute, or Chronic, or Acute on Chronic? @ -Acute, acute Uncomplicated (without systemic symptoms) or Complicated (systemic symptoms)? @ -Default Side effects of treatment? @ -No Exacerbation, Progression, or Severe Exacerbation? @ -No Poses a threat to life or bodily function? How? (Chest pain, USA, NE, pneumonia, PE, COPD, DKA, ARF, appy, cholecystitis, CVA, Diverticulitis, Homicidal, Suicidal, threat to staff... and all critical care pts) @ -No - Lab Data Result diagrams: 07/19/24 10:00 07/19/24 10:00 Lab Results 07/19/24 07/19/24 07/19/24 Range/Units 10:00 10:00 10:00 WBC 5.7 (3.8-10.6) k/uL RBC 3.52 L (4.30-5.90) m/uL Hgb 11.5 L (13.0-17.5) gm/dL Hct 35.2 L (39.0-53.0) % MCV 99.8 (80.0-100.0) fL MCH 32.5 (25.0-35.0) pg MCHC 32.6 (31.0-37.0) g/dL RDW 14.1 (11.5-15.5) % Plt Count 181 (150-450) k/uL MPV 7.9 Neutrophils % (Manual) 75 % Lymphocytes % (Manual) 12 % Monocytes % (Manual) 13 % Neutrophils # (Manual) 4.28 (1.3-7.7) k/uL Lymphocytes # (Manual) 0.68 L (1.0-4.8) k/uL Monocytes # (Manual) 0.74 (0-1.0) k/uL Nucleated RBCs 0 (0-0) /100 WBC Manual Slide Review Performed PT 13.4 H (10.0-12.5) sec INR 1.3 H (<1.2) APTT 27.7 (22.0-30.0) sec Sodium 140 (137-145) mmol/L Potassium 3.5 (3.5-5.1) mmol/L Chloride 115 H (98-107) mmol/L Carbon Dioxide 19 L (22-30) mmol/L Anion Gap 6 mmol/L BUN 52 H (9-20) mg/dL Creatinine 1.02 (0.66-1.25) mg/dL Est GFR (CKD-EPI)AfAm 77 (>60 ml/min/1.73 sqM) Est GFR (CKD-EPI)NonAf 67 (>60 ml/min/1.73 sqM) Glucose 135 H (74-99) mg/dL Calcium 7.3 L (8.4-10.2) mg/dL Magnesium 1.7 (1.6-2.3) mg/dL Total Bilirubin 1.3 (0.2-1.3) mg/dL AST 20 (17-59) U/L ALT 11 (4-49) U/L Alkaline Phosphatase 80 (38-126) U/L Troponin I (0.000-0.034) ng/mL Total Protein 4.7 L (6.3-8.2) g/dL Albumin 2.4 L (3.5-5.0) g/dL 07/19/24 Range/Units 10:00 WBC (3.8-10.6) k/uL RBC (4.30-5.90) m/uL Hgb (13.0-17.5) gm/dL Hct (39.0-53.0) % MCV (80.0-100.0) fL MCH (25.0-35.0) pg MCHC (31.0-37.0) g/dL RDW (11.5-15.5) % Plt Count (150-450) k/uL MPV Neutrophils % (Manual) % Lymphocytes % (Manual) % Monocytes % (Manual) % Neutrophils # (Manual) (1.3-7.7) k/uL Lymphocytes # (Manual) (1.0-4.8) k/uL Monocytes # (Manual) (0-1.0) k/uL Nucleated RBCs (0-0) /100 WBC Manual Slide Review PT (10.0-12.5) sec INR (<1.2) APTT (22.0-30.0) sec Sodium (137-145) mmol/L Potassium (3.5-5.1) mmol/L Chloride (98-107) mmol/L Carbon Dioxide (22-30) mmol/L Anion Gap mmol/L BUN (9-20) mg/dL Creatinine (0.66-1.25) mg/dL Est GFR (CKD-EPI)AfAm (>60 ml/min/1.73 sqM) Est GFR (CKD-EPI)NonAf (>60 ml/min/1.73 sqM) Glucose (74-99) mg/dL Calcium (8.4-10.2) mg/dL Magnesium (1.6-2.3) mg/dL Total Bilirubin (0.2-1.3) mg/dL AST (17-59) U/L ALT (4-49) U/L Alkaline Phosphatase (38-126) U/L Troponin I <0.012 (0.000-0.034) ng/mL Total Protein (6.3-8.2) g/dL Albumin (3.5-5.0) g/dL Disposition Clinical Impression: Syncope, Dehydration Disposition: ADMITTED IP TO THIS HOSP Is patient prescribed a controlled substance at d/c from ED?: No Referrals: Toni Hernandez MD [Primary Care Provider] - 1-2 days Time of Disposition: 13:47
[2024-07-19 10:25] LABS: INR 1.3 (<1.2); Partial Thromboplastin Time 27.7 sec (22.0-30.0); Prothrombin Time 13.4 sec (10.0-12.5)
[2024-07-19 10:31] LABS: HCT 35.2 % (39.0-53.0); HGB 11.5 gm/dL (13.0-17.5); MCH 32.5 pg (25.0-35.0); MCHC 32.6 g/dL (31.0-37.0); MCV 99.8 fL (80.0-100.0); Mean Platelet Volume 7.9; Platelet Count 181 k/uL (150-450); RBC 3.52 m/uL (4.30-5.90); RDW 14.1 % (11.5-15.5); WBC 5.7 k/uL (3.8-10.6)
[2024-07-19 10:33] LABS: ALT 11 U/L (4-49); AST 20 U/L (17-59); African American GFR (CKD) 77 (>60 ml/min/1.73 sqM); Albumin 2.4 g/dL (3.5-5.0); Alkaline Phosphatase 80 U/L (38-126); Anion Gap 6 mmol/L; Blood Urea Nitrogen 52 mg/dL (9-20); Calcium 7.3 mg/dL (8.4-10.2); Carbon Dioxide 19 mmol/L (22-30); Chloride 115 mmol/L (98-107); Glucose 135 mg/dL (74-99); Magnesium 1.7 mg/dL (1.6-2.3); Non-African American GFR(CKD) 67 (>60 ml/min/1.73 sqM); Potassium 3.5 mmol/L (3.5-5.1); Sodium 140 mmol/L (137-145); Total Bilirubin 1.3 mg/dL (0.2-1.3); Total Protein 4.7 g/dL (6.3-8.2)
[2024-07-19 10:46] LABS: Lymphocytes # (M) 0.68 k/uL (1.0-4.8); Monocytes # (M) 0.74 k/uL (0-1.0); Neutrophils # (M) 4.28 k/uL (1.3-7.7); Neutrophils % (M) 75 %; Nucleated Red Blood Cells 0 /100 WBC (0-0); Total Cells Counted 100
--- NOTE | 2024-07-19 10:55 | XR ---
Chest, 2 view. HISTORY: Syncope COMPARISON: 01/03/2024 TECHNIQUE: PA and lateral views the chest are obtained. FINDINGS: The lungs are clear and there is no consolidative or interstitial opacity. There is no pleural effusion or pneumothorax. The heart, pulmonary vasculature, mediastinum and layo appear normal. The osseous structures are intact. IMPRESSION: No significant abnormality seen. No acute cardiopulmonary disease. [facility], Workstation: [email or web address] 07/19/2024 10:53 AM
--- NOTE | 2024-07-19 11:04 | CT ---
EXAMINATION TYPE: CT brain wo con DATE OF EXAM: 07/19/2024 COMPARISON: 01/03/2024 CLINICAL INDICATION: Male, 83 years old with history of syncope; PHH, ams CT DLP: 1178.4 mGycm Automated exposure control for dose reduction was used. Findings: The ventricles, basal cisterns and sulci over convexities are marked enlarged consistent with marked generalized atrophy, appropriate for the patient's age. There is marked decreased density in the periventricular white matter consistent with chronic ischemi c white matter demyelination. There are single bilateral remote lacunar infarcts in the thalami. There is no mass effect or shift of midline structures. There is no acute intra or extra-axial hemorrhage. The posterior fossa including the brainstem, fourth ventricle and cerebellopontine angles appear faraz sly normal. The intraorbital contents appear normal symmetric Visualized paranasal sinuses and mastoid air cells are well aerated. Calvarium is intact. IMPRESSION: 1. No acute bleed or mass effect. 2. Stable marked generalized atrophy with marked chronic ischemic white matter change.. [facility], Workstation: [email or web address] 07/19/2024 11:01 AM
[2024-07-19] MEDS ORDERED: NALOXONE 0.4 MG/ML 1 ML VIAL IV PRN (13:47)
[2024-07-19] MEDS ORDERED: LACTULOSE 20 GM/30 ML CUP PO PRN (14:27)
[2024-07-19] MEDS ORDERED: QUEtiapine 25 MG TAB PO PRN (14:27)
[2024-07-19] MEDS ORDERED: ALBUTEROL NEBULIZED 2.5 MG/3 ML INHALATION PRN (14:27)
[2024-07-19] MEDS ORDERED: SENNOSIDES 8.6 MG TAB PO PRN (14:27)
[2024-07-19] MEDS ORDERED: NA PHOS,M-B/NA PHOS,DI-BA 133 ML ENEMA RECTAL PRN (14:27)
[2024-07-19] MEDS: SODIUM CHLORIDE 0.9% 1,000 ML IV SCH (15:29)
[2024-07-19] MEDS: carvediloL 3.125 MG TAB PO SCH (17:09)
[2024-07-19] MEDS: CARBIDOPA-LEVODOPA 25-100 MG 1 EACH TAB PO SCH (17:09)
[2024-07-19] MEDS: ACETAMINOPHEN TAB 325 MG TAB PO SCH (20:40)
[2024-07-19] MEDS: DONEPEZIL 10 MG TAB PO SCH (20:40)
[2024-07-19] MEDS: ATORVASTATIN 20 MG TAB PO SCH (20:40)
[2024-07-19] MEDS ORDERED: NON FORMULARY DRUG (Ubidecarenone [Co Q-10] 100 MG Capsule) PO SCH (21:00)
[2024-07-20] MEDS: PANTOPRAZOLE 40 MG TABLET PO SCH (06:08)
[2024-07-20] MEDS: FINASTERIDE 5 MG TAB PO SCH (08:05)
[2024-07-20] MEDS: MECLIZINE 25 MG TAB PO SCH (08:05)
[2024-07-20] MEDS: MELOXICAM 7.5 MG TAB PO SCH (08:05)
[2024-07-20] MEDS: LORATADINE 10 MG TAB PO SCH (08:05)
[2024-07-20] MEDS: ASPIRIN 81 MG PO SCH (08:05)
[2024-07-20] MEDS: MEMANTINE 5 MG TAB PO SCH (08:05)
[2024-07-20] MEDS: CHOLECALCIFEROL 25 MCG (1000 IU) TABLET PO SCH (08:05)
[2024-07-20] MEDS: LACTULOSE 20 GM/30 ML CUP PO SCH (08:06)
[2024-07-20] MEDS: VIT A,C & E-LUTEIN-MINERALS 1 EACH TAB PO SCH (08:06)
[2024-07-20 09:29] LABS: Basophils % (A) 0 %; Eosinophils # (A) 0.1 k/uL (0-0.7); Eosinophils % (A) 2 %; HCT 39.9 % (39.0-53.0); HGB 12.8 gm/dL (13.0-17.5); Lymphocytes # (A) 1.5 k/uL (1.0-4.8); Lymphocytes % (A) 22 %; MCH 31.9 pg (25.0-35.0); MCHC 32.1 g/dL (31.0-37.0); MCV 99.5 fL (80.0-100.0); Mean Platelet Volume 7.4; Monocytes # (A) 0.7 k/uL (0-1.0); Monocytes % (A) 9 %; Neutrophils # (A) 4.6 k/uL (1.3-7.7); Neutrophils % (A) 65 %; Platelet Count 200 k/uL (150-450); RDW 13.5 % (11.5-15.5)
[2024-07-20 09:43] LABS: Carbon Dioxide 25 mmol/L (22-30); Chloride 106 mmol/L (98-107); Glucose 105 mg/dL (74-99); Sodium 138 mmol/L (137-145)
[2024-07-20 09:44] LABS: African American GFR (CKD) >90 (>60 ml/min/1.73 sqM); Anion Gap 7 mmol/L; Blood Urea Nitrogen 55 mg/dL (9-20); Calcium 8.8 mg/dL (8.4-10.2); Non-African American GFR(CKD) 80 (>60 ml/min/1.73 sqM)
[2024-07-20] MEDS: polyethylene glycoL 3350 17 GM POWD.PACK PO SCH (12:11)
--- NOTE | 2024-07-20 16:23 | P.HPIM ---
History of Present Illness H&P Date: 07/20/24 History of present illness: This is a 83-year-old male patient with past medically significant for mild cardiomyopathy, coronary artery disease with previous stenting, Parkinson's disease, vertigo hypertension, hyperlipidemia, history of atrial fibrillation on Eliquis who presented to ER with a chief complaint of passing out. Patient reported that he was using the restroom when he passed out. Patient unable to provide further details. Patient denied any chest pain, palpitations, shortness of breath. Patient denied any fever, chills, cough, nausea, vomiting, abdominal pain, diarrhea, dysuria urgency frequency weakness or numbness of extremities. 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 Patient is afebrile, heart rate 55, respiratory rate 17, saturating 96% on room air, blood pressure 155/68. WBCs 7.0, hemoglobin 12.8, platelet 200. INR 1.3. BMP unremarkable with creatinine 0.84, calcium 8.8. Troponin was negative. EKG showed sinus bradycardia, no acute ST to T wave changes. CT head negative for acute process. Chest x-ray negative for acute process REVIEW OF SYSTEMS: CONSTITUTIONAL: No fever, no malaise, no fatigue. HEENT: No recent visual problems or hearing problems. Denied any sore throat. CARDIOVASCULAR: No chest pain, orthopnea, PND, no palpitations, no syncope. PULMONARY: No shortness of breath, no cough, no hemoptysis. GASTROINTESTINAL: No diarrhea, no nausea, no vomiting, no abdominal pain. NEUROLOGICAL: No headaches, no weakness, no numbness. HEMATOLOGICAL: Denies any bleeding or petechiae. GENITOURINARY: Denies any burning micturition, frequency, or urgency. MUSCULOSKELETAL/RHEUMATOLOGICAL: Denies any joint pain, swelling, or any muscle pain. ENDOCRINE: Denies any polyuria or polydipsia. The rest of the 14-point review of systems is negative. PHYSICAL EXAMINATION: GENERAL: The patient is A&O x3, NAD HEENT: EOMI, Sclerae anicteric, Moist Mucous membranes Neck: Supple, Non tender, No JVD PULMONARY: Equal breath souds B/L, No wheezing, No crackles. CARDIOVASCULAR: S1, S2 present. No murmurs, rubs, or gallops. ABDOMEN: Soft, nontender, nondistended, normoactive bowel sounds. No guarding or rebound tenderness. MUSCULOSKELETAL: No edema, No cyanosis. No clubbing. Normal ROM. Intact peripheral pulses. NEUROLOGICAL: CN 2-12 grossly intact. No FND Assessment and plan: Syncope: Likely vasovagal Presented with syncopal episode, while in the restroom Troponin negative EKG shows sinus bradycardia CT head negative for acute process. Monitor with telemetry Resume home meds Fall precautions PT/OT consult Cardiology consult History of coronary artery disease with previous stenting: Ischemic cardiomyopathy: Continue home meds Troponin negative Paroxysmal atrial fibrillation: Monitor with telemetry Currently bradycardic Resume Eliquis Parkinson disease: Continue home meds including Sinemet Hypertension Hyperlipidemia DVT prophylaxis Coagulated Monitor vital signs and labs Labs and medication were reviewed. Continue same treatment. Further recommendations as per clinical course of the patient Dictation was produced using [employer] dictation software. please excuse any grammatical, word or spelling errors. Past Medical History Past Medical History: Atrial Fibrillation, Coronary Artery Disease (CAD), Hyperlipidemia, Hypertension, Myocardial Infarction ([place]), Osteoarthritis (OA) Additional Past Medical History / Comment(s): HX COLON POLYPS. HX VERTIGO. HAS NOCTURIA. Ischemic cardiomyopathy. parkinsons and dementia Last Myocardial Infarction Date:: 2006 History of Any Multi-Drug Resistant Organisms: None Reported Past Surgical History: Bowel Resection, Cholecystectomy, Heart Catheterization With Stent, Joint Replacement Additional Past Surgical History / Comment(s): TOTAL LT KNEE 2004. BOWEL RESECTION FOR BENIGN POLYP. Total right knee arthroplasty April 2017. Past Anesthesia/Blood Transfusion Reactions: No Reported Reaction Date of Last Stent Placement:: 2010 Past Psychological History: No Psychological Hx Reported Smoking Status: Never smoker Past Alcohol Use History: None Reported Additional Past Alcohol Use History / Comment(s): Patient was a smoker of less than half a pack per day for 7 years and quit in 1959. No illicit drug use. Patient lives at home with his . Past Drug Use History: None Reported - Past Family History Mother Family Medical History: No Reported History Additional Family Medical History / Comment(s): Mother in her 80s with history of uterine cancer. Father Additional Family Medical History / Comment(s): Father at age 59 from ALS. Sister(s) Additional Family Medical History / Comment(s): Patient has one sister this 85 years of age with history of hypertension. Patient does not have any brothers. Patient does not have any children. Medications and Allergies Home Medications Medication Instructions Recorded Confirmed Type Celecoxib [CeleBREX] 200 mg PO DAILY 04/21/17 07/19/24 History Omeprazole [PriLOSEC] 20 mg PO SUTUTHSA 04/21/17 07/19/24 History Rosuvastatin Calcium [Crestor] 10 mg PO MOWEFR 04/21/17 07/19/24 History Ubidecarenone [Co Q-10] 100 mg PO HS 04/21/17 07/19/24 History Acetaminophen [Tylenol Arthritis] 650 mg PO TID@0800,1400,2000 11/25/23 07/19/24 History Aspirin EC [Ecotrin Low Dose] 81 mg PO DAILY 11/25/23 07/19/24 History Carbidopa-Levodopa 25-100 mg 1 tab PO QID 11/25/23 07/19/24 History [Sinemet 25-100 mg] Cholecalciferol (Vitamin D3) 50 mcg PO DAILY 11/25/23 07/19/24 History [Vitamin D3 (50 Mcg = 2000 Iu)] Donepezil HCl [Aricept] 10 mg PO BID 11/25/23 07/19/24 History Finasteride [Proscar] 5 mg PO DAILY 11/25/23 07/19/24 History Memantine [Namenda] 5 mg PO DAILY 11/25/23 07/19/24 History Vit C/E/Zn/Coppr/Lutein/Zeaxan 2 cap PO DAILY 11/25/23 07/19/24 History [Preservision Areds 2 Softgel] QUEtiapine [SEROquel] 12.5 mg PO HS PRN #30 tab 11/29/23 07/19/24 Rx Albuterol Sulfate [Ventolin HFA] 2 puff INHALATION RT-Q4H PRN 12/09/23 07/19/24 History Loratadine [Claritin] 10 mg PO DAILY 12/09/23 07/19/24 History Na Phos,M-B/Na Phos,Di-Ba [Fleet 133 ml RECTAL DAILY PRN each 12/10/23 07/19/24 Rx Adult] Sennosides [Senokot] 8.6 mg PO BID PRN 12/19/23 07/19/24 History Apixaban [Eliquis] 2.5 mg PO BID 12/28/23 07/19/24 History Lactulose 10 gm PO DAILY 01/03/24 07/19/24 History Lactulose 10 gm PO HS PRN 01/03/24 07/19/24 History polyethylene glycoL 3350 [Miralax] 17 gm PO DAILY@1200 01/03/24 07/19/24 History Meclizine HCl [Antivert] 25 mg PO DAILY 07/19/24 07/19/24 History Menthol-Zinc Oxide Oint 1 applic TOPICAL DAILY PRN 07/19/24 07/19/24 History [Calmoseptine Ointment] amantadine HCL [Amantadine] 100 mg PO DAILY 07/19/24 07/19/24 History carvediloL [Coreg] 3.125 mg PO BID-W/MEALS 07/19/24 07/19/24 History lisinopriL [Zestril] 20 mg PO DAILY 07/19/24 07/19/24 History Allergies Allergy/AdvReac Type Severity Reaction Status Date / Time No Known Allergies Allergy Verified 07/19/24 13:34 Physical Exam Vitals: Vital Signs Temp Pulse Resp BP BP Pulse Ox 07/20/24 13:53 55 L 17 07/20/24 12:00 55 L 17 155/68 96 07/20/24 08:00 97.5 F L 54 L 18 139/68 95 07/20/24 04:00 98.2 F 63 16 159/73 92 L 07/20/24 00:00 64 16 158/68 98 07/19/24 20:00 97.8 F 66 18 128/73 95 Intake and Output 07/20/24 07/20/24 07/20/24 06:59 14:59 22:59 Intake Total 500 Output Total 300 200 Balance 200 -200 Intake: Oral 500 Output: Urine 300 200 Other: Voiding Method Urinal Urinal Results CBC & Chem 7: 07/20/24 09:04 07/20/24 09:04 Labs: Abnormal Lab Results - Last 24 Hours (Table) 07/20/24 07/20/24 Range/Units 09:04 09:04 RBC 4.00 L (4.30-5.90) m/uL Hgb 12.8 L (13.0-17.5) gm/dL BUN 55 H (9-20) mg/dL Glucose 105 H (74-99) mg/dL Thrombosis Risk Factor Assmnt - Choose All That Apply Any of the Below Risk Factors Present?: No Other Risk Factors: Yes Each Risk Factor Represents 3 Points: Age 75 years or older Thrombosis Risk Factor Assessment Total Risk Factor Score: 3 Thrombosis Risk Factor Assessment Level: Moderate Risk
[2024-07-20] MEDS: APIXABAN 2.5 MG TABLET PO SCH (21:19)
[2024-07-21 08:03] LABS: Basophils % (A) 0 %; Eosinophils # (A) 0.1 k/uL (0-0.7); Eosinophils % (A) 3 %; HCT 39.3 % (39.0-53.0); HGB 12.9 gm/dL (13.0-17.5); Lymphocytes # (A) 1.6 k/uL (1.0-4.8); Lymphocytes % (A) 30 %; MCH 32.1 pg (25.0-35.0); MCHC 32.9 g/dL (31.0-37.0); MCV 97.8 fL (80.0-100.0); Mean Platelet Volume 9.1; Monocytes # (A) 0.6 k/uL (0-1.0); Monocytes % (A) 12 %; Neutrophils # (A) 2.9 k/uL (1.3-7.7); Neutrophils % (A) 54 %; Platelet Count 166 k/uL (150-450); RBC 4.02 m/uL (4.30-5.90); RDW 13.7 % (11.5-15.5); WBC 5.3 k/uL (3.8-10.6)
[2024-07-21 08:09] LABS: African American GFR (CKD) >90 (>60 ml/min/1.73 sqM); Anion Gap 8 mmol/L; Blood Urea Nitrogen 39 mg/dL (9-20); Calcium 8.7 mg/dL (8.4-10.2); Carbon Dioxide 21 mmol/L (22-30); Chloride 108 mmol/L (98-107); Glucose 75 mg/dL (74-99); Non-African American GFR(CKD) 84 (>60 ml/min/1.73 sqM); Potassium 3.9 mmol/L (3.5-5.1); Sodium 137 mmol/L (137-145)
[2024-07-21] MEDS: lisinopriL 20 MG TAB PO SCH (08:31)
[2024-07-21] MEDS ORDERED: ZINC OXIDE PASTE (Z-GUARD) 1 APPLIC TOPICAL PRN (10:26)
[2024-07-21 13:02] LABS: Glucose,Whole Blood 95 mg/dL (70-110)
--- NOTE | 2024-07-21 14:48 | P.PN ---
Subjective Progress Note Date: 07/21/24 Interval History: History of present illness: This is a 83-year-old male patient with past medically significant for mild cardiomyopathy, coronary artery disease with previous stenting, Parkinson's disease, vertigo hypertension, hyperlipidemia, history of atrial fibrillation on Eliquis who presented to ER with a chief complaint of passing out. Patient reported that he was using the restroom when he passed out. Patient unable to provide further details. Patient denied any chest pain, palpitations, shortness of breath. Patient denied any fever, chills, cough, nausea, vomiting, abdominal pain, diarrhea, dysuria urgency frequency weakness or numbness of extremities. 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 Patient is afebrile, heart rate 55, respiratory rate 17, saturating 96% on room air, blood pressure 155/68. WBCs 7.0, hemoglobin 12.8, platelet 200. INR 1.3. BMP unremarkable with c reatinine 0.84, calcium 8.8. Troponin was negative. EKG showed sinus bradycardia, no acute ST to T wave changes. CT head negative for acute process. Chest x-ray negative for acute process 07/21--- patient was seen and examined today, afebrile, heart rate 58, respiratory rate 18, blood pressure 135/70, saturating 98% on room air. WBC 5.3, hemoglobin 12.9, platelets 166. BMP unremarkable. Blood glucose 95. Patient was more lethargic later in the day, vital stable, repeat CT head, VBG and ammonia ordered, will continue monitor with neurochecks. Neurology consulted. Syncope: Likely vasovagal Presented with syncopal episode, while in the restroom Troponin negative EKG shows sinus bradycardia CT head negative for acute process. Monitor with telemetry Resume home meds Fall precautions PT/OT consult Cardiology consulted--ordered echocardiogram Patient lethargic today, repeat CT head, VBG and ammonia ordered. Neurology consulted. History of coronary artery disease with previous stenting: Ischemic cardiomyopathy: Continue home meds Troponin negative Paroxysmal atrial fibrillation: Monitor with telemetry Currently bradycardic Resume Eliquis Parkinson disease: Continue home meds including Sinemet Neuroconsult. Hypertension Hyperlipidemia DVT prophylaxis Coagulated Monitor vital signs and labs Labs and medication were reviewed. Continue same treatment. Further recommendations as per clinical course of the patient PHYSICAL EXAMINATION: GENERAL: The patient is A&O x3, NAD HEENT: EOMI, Sclerae anicteric, Moist Mucous membranes Neck: Supple, Non tender, No JVD PULMONARY: Equal breath souds B/L, No wheezing, No crackles. CARDIOVASCULAR: S1, S2 present. No murmurs, rubs, or gallops. ABDOMEN: Soft, nontender, nondistended, normoactive bowel sounds. No guarding or rebound tenderness. MUSCULOSKELETAL: No edema, No cyanosis. No clubbing. Normal ROM. Intact peripheral pulses. NEUROLOGICAL: CN 2-12 grossly intact. No FND Skin: No Rash REVIEW OF SYSTEMS: CONSTITUTIONAL: No fever or chills. CARDIOVASCULAR: No chest pain, palpitations or syncope. PULMONARY: No shortness of breath, no cough, sore throat. GASTROINTESTINAL: No nausea, vomiting, diarrhea, abdominal pain. : No Dysuria, urgency, frequency. Extremities: No edema. NEUROLOGICAL: No headaches, no weakness, or numbness Dictation was produced using Reclip[employer]It dictation software. please excuse any grammatical, word or spelling errors. Objective - Vital Signs Vital signs: Vital Signs Temp 97.5 F L 07/21/24 13:22 Pulse 58 L 07/21/24 13:22 Resp 18 07/21/24 13:22 BP 135/70 07/21/24 13:22 Pulse Ox 98 07/21/24 13:22 FiO2 Intake & Output 07/20/24 07/21/24 07/21/24 18:59 06:59 18:59 Output Total 200 500 Balance -200 -500 Output: Urine 200 500 Other: Voiding Method Urinal Urinal # Voids 1 # Bowel Movements 1 - Labs CBC & Chem 7: 07/21/24 07:03 07/21/24 07:03 Labs: Abnormal Lab Results - Last 24 Hours (Table) 07/21/24 07/21/24 Range/Units 07:03 07:03 RBC 4.02 L (4.30-5.90) m/uL Hgb 12.9 L (13.0-17.5) gm/dL Chloride 108 H (98-107) mmol/L Carbon Dioxide 21 L (22-30) mmol/L BUN 39 H (9-20) mg/dL
--- NOTE | 2024-07-21 14:58 | CT ---
EXAMINATION TYPE: CT brain wo con DATE OF EXAM: 07/21/2024 2:19 PM COMPARISON: 07/19/2024, 4r. CLINICAL INDICATION: Male, 83 years old with history of altered mental status, ams TECHNIQUE: Brain: Axial CT images of the brain were obtained with coronal and sagittal reformats created and rev iewed. Contrast used: None. Oral contrast used: None. CT DLP: 1046.8 mGycm, Automated exposure control for dose reduction was used. FINDINGS: Brain: Extra-axial spaces: No abnormal extra-axial fluid collections. Ventricular system: Dilatation in proportion to cerebral atrophy. Cerebral parenchyma: Hypodense focus within the left temporal lobe measuring 5 mm. Cerebral atrophy. No acute intraparenchymal hemorrhage or mass effect. The morgan-white junction is well differentiated. Scattered hypoattenuating areas are seen within the white matter. Cerebellum: Unremarkable. Mass effect: No evidence of midline shift. Intracranial vasculature: Atherosclerotic calcifications of the intracranial vessels. Soft tissues: Normal. Calvarium/osseous structures: No depressed skull fracture. Paranasal sinuses and mastoid air cells: Mild scattered paranasal sinus disease. Visualized orbits: Orbital contents are intact. IMPRESSION: 1. Hyperdense focus in the left temporal lobe possibly representing small hemorrhage new from 024 stable from 07/19/2024. Further evaluation with MRI is recommended 2. No additional acute intracranial process. 3. Nonspecific white matter changes, likely secondary to chronic small vessel ischemic disease. [facility], , 07/21/2024 2:55 PM
[2024-07-21 15:32] LABS: VBG PH 7.42 (7.31-7.41)
--- NOTE | 2024-07-22 09:10 | CONS ---
CONSULTATION HISTORY OF PRESENT ILLNESS: Mr. Tripp is an 83-year-old gentleman with mild cardiomyopathy; coronary artery disease, status post previous stenting; vertigo; hypertension; dyslipidemia; parkinsonism; and atrial fibrillation; who came to hospital having had an episode of syncope. He was in the restroom and then had sudden loss of consciousness. He denies any chest pain or difficulty in breathing. Does not have leg edema. At the time of my evaluation, he appears comfortable at rest and EKG showed sinus rhythm with intraventricular conduction delay and poor R-wave progression. Chest x-ray was negative and he does not have significant orthostatic changes. PAST MEDICAL HISTORY: Significant for coronary artery disease, cardiomyopathy, atrial fibrillation. MEDICATIONS: I reviewed the patient's medications and they are listed in the electronic medical records. ALLERGIES: He does not have any drug allergies. FAMILY HISTORY: Negative for premature coronary artery disease. SOCIAL HISTORY: Negative for smoking, EtOH abuse, or drug abuse. REVIEW OF SYSTEMS: 14 out of 14 review of systems has been performed. Pertinents are as documented. PHYSICAL EXAMINATION: GENERAL: The patient is comfortable at rest. VITAL SIGNS: Afebrile. O2 saturation is normal. There are no orthostatic changes. Blood pressure is 146/74. CHEST: Reveals good air entry bilaterally. HEART: Reveals first and second heart sounds. No gallop. EXTREMITIES: Did not reveal any edema. Peripheral pulses are felt. ASSESSMENT: Syncope, rule out cardiac causes, paroxysmal atrial fibrillation, coronary artery disease, and cardiomyopathy. PLAN: His hemoglobin is normal at 12.9, potassium is 3.9. Troponin was negative. EKG does not reveal ischemic changes. We will continue to watch him in the hospital and obtain a 2D echo in the morning. MMODL / IJN: [id number] /
[2024-07-22 10:21] LABS: Basophils # (A) 0.02 X 10*3/uL (0.00-0.10); Basophils % (A) 0.4 %; Eosinophils # (A) 0.12 X 10*3/uL (0.04-0.35); Eosinophils % (A) 2.6 %; HCT 39.9 % (39.6-50.0); HGB 12.6 g/dL (13.0-17.0); Lymphocytes # (A) 1.77 X 10*3/uL (0.90-5.00); Lymphocytes % (A) 38.3 %; MCH 31.3 pg (27.0-32.0); MCHC 31.6 g/dL (32.0-37.0); MCV 99.3 FL (80.0-97.0); Mean Platelet Volume 9.6 FL (9.5-12.2); Monocytes # (A) 0.63 X 10*3/uL (0.20-1.00); Monocytes % (A) 13.6 %; NRBC Per 100 WBC 0 X 10*3/uL (0.00-0.01); Neutrophils # (A) 2.07 X 10*3/uL (1.80-7.70); Neutrophils % (A) 44.9 %; Platelet Count 182 X 10*3/uL (140-440); RBC 4.02 X 10*6/uL (4.40-5.60); RDW 13.7 % (11.5-14.5); WBC 4.62 X 10*3/uL (4.50-10.00)
[2024-07-22 10:33] LABS: Blood Urea Nitrogen 28.7 mg/dL (9.0-27.0); Calcium 8.5 mg/dL (8.7-10.3); Carbon Dioxide 21.4 mmol/L (21.6-31.8); Chloride 106 mmol/L (96-109); Glucose 90 mg/dL (70-110); Potassium 4.1 mmol/L (3.5-5.5); Sodium 137 mmol/L (135-145)
--- NOTE | 2024-07-22 11:19 | CA ---
Transthoracic Echo Report Name: Cam Tripp Age: 83 Gender: M : 1940 Exam Date: 07/22/2024 08:25 Exam Location: [facility] Ht (in): 74 Wt (lb): 175 Ordering Physician: Rajan Robles MD ([id number]) Attending/Referring Phys: Margaret WEISS Glass Rolling Machine Operator Savita Vickers RDCS Procedure CPT: Indications: Syncope Cardiac Hx: Technical Quality: Fair Contrast 1: Total Dose (mL): Contrast 2: Total Dose (mL): MEASUREMENTS (Male / Female) Normal Values 2D ECHO LV Diastolic Diameter PLAX 4.6 cm 4.2 - 5.9 / 3.9 - 5.3 cm LV Systolic Diameter PLAX 3.2 cm IVS Diastolic Thickness 1.0 cm 0.6 - 1.0 / 0.6 - 0.9 cm LVPW Diastolic Thickness 1.0 cm 0.6 - 1.0 / 0.6 - 0.9 cm LV Relative Wall Thickness 0.4 RV Internal Dim ED PLAX 1.4 cm LVOT Diameter 2.2 cm LA Systolic Diameter LX 3.4 cm 3.0 - 4.0 / 2.7 - 3.8 cm LV Diastolic Volume MOD BP 68.2 cm??? 67 - 155 / 56 - 104 cm??? LV Systolic Volume MOD BP 37.8 cm??? 22 - 58 / 19 - 49 cm??? LV Ejection Fraction MOD BP 44.5 % >= 55 % LV Cardiac Index MOD BP 1075.5 cm???/min???m??? LV Diastolic Volume MOD 4C 67.4 cm??? LV Systolic Volume MOD 4C 38.7 cm??? LV Ejection Fraction MOD 4C 42.5 % LV Cardiac Index MOD 4C 1015.3 cm???/min???m??? LV Diastolic Length 4C 8.2 cm LV Systolic Length 4C 6.8 cm LV Diastolic Volume MOD 2C 67.8 cm??? LV Systolic Volume MOD 2C 36.6 cm??? LV Ejection Fraction MOD 2C 46.1 % LV Cardiac Index MOD 2C 1105.4 cm???/min???m??? LV Diastolic Length 2C 7.8 cm LV Systolic Length 2C 6.6 cm M-MODE Aortic Root Diameter MM 4.4 cm LA Systolic Diameter MM 3.1 cm LA Ao Ratio MM 0.7 AV Cusp Separation MM 1.8 cm DOPPLER AV Peak Velocity 209.3 cm/s AV Peak Gradient 17.5 mmHg AV Mean Velocity 149.1 cm/s AV Mean Gradient 9.9 mmHg AV Velocity Time Integral 48.8 cm LVOT Peak Velocity 99.9 cm/s LVOT Peak Gradient 4.0 mmHg LVOT Velocity Time Integral 26.7 cm LVOT Stroke Volume 102.0 cm??? LVOT Stroke Volume Index 49.7 ml/m??? LVOT Cardiac Index 3613.7 cm???/min???m??? AV Area Cont Eq vti 2.1 cm??? AV Area Cont Eq pk 1.8 cm??? Mitral E Point Velocity 54.2 cm/s Mitral A Point Velocity 93.3 cm/s Mitral E to A Ratio 0.6 MV Deceleration Time 414.7 ms MV E' Velocity 7.0 cm/s Mitral E to MV E' Ratio 7.7 TR Peak Velocity 180.2 cm/s TR Peak Gradient 13.0 mmHg FINDINGS Left Ventricle Left ventricular ejection fraction is estimated at 40-45% left ventricular cavity size normal. Left ventricular wall thickness normal. Mildly reduced global left ventricular systolic function. Right Ventricle Normal right ventricular size and function. Right ventricular systolic pressure within normal limits. Right Atrium Mild right atrial dilatation. Left Atrium Mild left atrial dilatation. Mitral Valve Structurally normal mitral valve. Mild mitral regurgitation. No mitral stenosis. Aortic Valve Aortic valve not well visualized. Mild aortic stenosis with a peak gradient of 17mmHg and a mean gradient of 10 mmHg. Tricuspid Valve Structurally normal tricuspid valve. Mild tricuspid regurgitation. No tricuspid stenosis. Pulmonic Valve Structurally normal pulmonic valve. Trace pulmonic regurgitation. No pulmonic stenosis. Pericardium No pericardial or pleural effusion. Aorta Mild aortic dilatation at the level of the sinuses of valsalva (root). CONCLUSIONS Mildly impaired LV function with EF between 40 to 45% Mild aortic stenosis Previewed by: Dr. Russell Guerrero MD (Electronically Signed) Final Date: 22 July 2024 11:18
--- NOTE | 2024-07-22 13:58 | P.PN ---
Subjective HISTORY OF PRESENT ILLNESS: This is an 83-year-old male who presented to the hospital with a syncopal episode. Patient examined this morning at the bedside. Patient currently denies any chest pain or pressure. He denies any shortness of breath. Per nursing, patient heart rate did dip down into the 30s last night while sleeping. Heart rates this morning are 50s70s. He is currently on carvedilol 3.125 mg twice a day. CT of the brain performed yesterday reveals hyperdense focus in the left temporal lobe possibly representing small hemorrhage new from 01/03/2024 and stable from 07/19/2024. Echocardiogram completed revealing ejection f raction 40 to 45%, mild MR, mild , mild TR. PHYSICAL EXAM: VITAL SIGNS: Reviewed. GENERAL: Well-developed in no acute distress. NECK: Supple. No JVD or thyromegaly LUNGS: Respirations even and unlabored. Lungs essentially clear to auscultation bilaterally. HEART: Regular rate and rhythm. S1 and S2 heard. EXTREMITIES: Normal range of motion. No clubbing or cyanosis. Peripheral pulses intact. No lower extremity edema ASSESSMENT: Syncope Possible small left temporal lobe hemorrhage per brain CT Bradycardia Coronary artery disease History of ischemic cardiomyopathy Paroxysmal atrial fibrillation History of hypertension History of hyperlipidemia History of Parkinson's disease PLAN: Discontinue carvedilol due to bradycardia Continue telemetry monitoring Hold aspirin and Eliquis due to abnormal CT results. Await further evaluation from neurology Recommend 30 day event monitor at discharge Patient to follow up post discharge with Dr. Rutherford Further recommendations pending patient course Nurse practitioner note has been reviewed by physician. Signing provider agrees with the documented findings, assessment, and plan of care documented by BULB GRADER as a scribe. Objective - Vital Signs Vital signs: Vital Signs Temp 97.8 F 07/22/24 07:53 Pulse 85 07/22/24 10:42 Resp 16 07/22/24 07:53 BP 132/65 07/22/24 07:53 Pulse Ox 97 07/22/24 07:53 FiO2 Intake & Output 07/21/24 07/22/24 07/22/24 18:59 06:59 18:59 Intake Total 540 540 Output Total 300 Balance 540 240 Intake: Oral 540 540 Output: Urine 300 Other: Voiding Method Urinal Urinal Diaper # Voids 3 - Labs CBC & Chem 7: 07/22/24 07:02 07/22/24 07:02 Labs: Abnormal Lab Results - Last 24 Hours (Table) 07/21/24 07/22/24 07/22/24 Range/Units 15:19 07:02 07:02 RBC 4.02 L (4.40-5.60) X 10*6/uL Hgb 12.6 L (13.0-17.0) g/dL MCV 99.3 H (80.0-97.0) FL MCHC 31.6 L (32.0-37.0) g/dL VBG pH 7.42 H (7.31-7.41) VBG pCO2 36 L (37-51) mmHg VBG HCO3 23 L (24-28) mmol/L Carbon Dioxide 21.4 L (21.6-31.8) mmol/L BUN 28.7 H (9.0-27.0) mg/dL BUN/Creatinine Ratio 41.00 H (12.00-20.00) Ratio Calcium 8.5 L (8.7-10.3) mg/dL
--- NOTE | 2024-07-22 15:28 | P.CNNES ---
History of Present Illness Consult date: 07/22/24 Requesting physician: Harvinder Bhatia Reason for Consult: ams/parkinson's History of Present Illness: This is an 83-year-old gentleman present emergency department for a syncopal episode. Some of the history is obtained from medical record. Patient stated that he was in the toilet and he just was found sleeping on the toilet but denies hitting his head being on the floor denies any focal weakness denies any headache. Per the ED physician the patient was using the restroom as well as they stated the patient did not fall or have injury. As well as they also stated the patient is symptom-free. Seems the patient was reportedly was drowsy following the event and had low blood pressure initially by EMS. Patient denies any history of seizure. Seems the patient has underlying history of reported Parkinson disease and dementia per the medical record and the patient is on Sinemet. He has atrial fibrillation and patient is on Eliquis. Some of the workup during this hospital visit consisted of: Presentation patient initial blood pressure was 143/83 heart rate is 57 pulse ox is 96 at room Orthostatic vital is negative Initial BUN was 52 and it is improved. I reviewed the rest of the lab workup Ammonia level is less than 9 CT of the head is reported as no acute bleed or mass effect. Stable marked generalized atrophy with marked chronic ischemic white matter changes. CT of the head is reported as hyperdense focus in the left temporal lobe possibly representing small hemorrhage new from 01/03/2024 stable from 07/19/2024. Further evaluation with MRI recommended. I personally reviewed the CT of the head on the initial and the repeated and I did see a small lesion but I doubt this is a bleed and does not seem like a stroke unsure if it has calcification. Review of Systems As per HPI. Past Medical History Past Medical History: Atrial Fibrillation, Coronary Artery Disease (CAD), Hyperlipidemia, Hypertension, Myocardial Infarction (HI), Osteoarthritis (OA) Additional Past Medical History / Comment(s): HX COLON POLYPS. HX VERTIGO. HAS NOCTURIA. Ischemic cardiomyopathy. parkinsons and dementia Last Myocardial Infarction Date:: 2006 History of Any Multi-Drug Resistant Organisms: None Reported Past Surgical History: Bowel Resection, Cholecystectomy, Heart Catheterization With Stent, Joint Replacement Additional Past Surgical History / Comment(s): TOTAL LT KNEE 2004. BOWEL RESECTION FOR BENIGN POLYP. Total right knee arthroplasty April 2017. Past Anesthesia/Blood Transfusion Reactions: No Reported Reaction Date of Last Stent Placement:: 2010 Past Psychological History: No Psychological Hx Reported Smoking Status: Never smoker Past Alcohol Use History: None Reported Additional Past Alcohol Use History / Comment(s): Patient was a smoker of less than half a pack per day for 7 years and quit in 1958. No illicit drug use. Patient lives at home with his . Past Drug Use History: None Reported - Past Family History Mother Family Medical History: No Reported History Additional Family Medical History / Comment(s): Mother in her 80s with history of uterine cancer. Father Additional Family Medical History / Comment(s): Father at age 59 from ALS. Sister(s) Additional Family Medical History / Comment(s): Patient has one sister this 85 years of age with history of hypertension. Patient does not have any brothers. Patient does not have any children. Medications and Allergies Home Medications Medication Instructions Recorded Confirmed Type Celecoxib [CeleBREX] 200 mg PO DAILY 04/21/17 07/19/24 History Omeprazole [PriLOSEC] 20 mg PO SUTUTHSA 04/21/17 07/19/24 History Rosuvastatin Calcium [Crestor] 10 mg PO MOWEFR 04/21/17 07/19/24 History Ubidecarenone [Co Q-10] 100 mg PO HS 04/21/17 07/19/24 History Acetaminophen [Tylenol Arthritis] 650 mg PO TID@0800,1400,2000 11/25/23 07/19/24 History Aspirin EC [Ecotrin Low Dose] 81 mg PO DAILY 11/25/23 07/19/24 History Carbidopa-Levodopa 25-100 mg 1 tab PO QID 11/25/23 07/19/24 History [Sinemet 25-100 mg] Cholecalciferol (Vitamin D3) 50 mcg PO DAILY 11/25/23 07/19/24 History [Vitamin D3 (50 Mcg = 2000 Iu)] Donepezil HCl [Aricept] 10 mg PO BID 11/25/23 07/19/24 History Finasteride [Proscar] 5 mg PO DAILY 11/25/23 07/19/24 History Memantine [Namenda] 5 mg PO DAILY 11/25/23 07/19/24 History Vit C/E/Zn/Coppr/Lutein/Zeaxan 2 cap PO DAILY 11/25/23 07/19/24 History [Preservision Areds 2 Softgel] QUEtiapine [SEROquel] 12.5 mg PO HS PRN #30 tab 11/29/23 07/19/24 Rx Albuterol Sulfate [Ventolin HFA] 2 puff INHALATION RT-Q4H PRN 12/09/23 07/19/24 History Loratadine [Claritin] 10 mg PO DAILY 12/09/23 07/19/24 History Na Phos,M-B/Na Phos,Di-Ba [Fleet 133 ml RECTAL DAILY PRN each 12/10/23 07/19/24 Rx Adult] Sennosides [Senokot] 8.6 mg PO BID PRN 12/19/23 07/19/24 History Apixaban [Eliquis] 2.5 mg PO BID 12/28/23 07/19/24 History Lactulose 10 gm PO DAILY 01/03/24 07/19/24 History Lactulose 10 gm PO HS PRN 01/03/24 07/19/24 History polyethylene glycoL 3350 [Miralax] 17 gm PO DAILY@1200 01/03/24 07/19/24 History Meclizine HCl [Antivert] 25 mg PO DAILY 07/19/24 07/19/24 History Menthol-Zinc Oxide Oint 1 applic TOPICAL DAILY PRN 07/19/24 07/19/24 History [Calmoseptine Ointment] amantadine HCL [Amantadine] 100 mg PO DAILY 07/19/24 07/19/24 History carvediloL [Coreg] 3.125 mg PO BID-W/MEALS 07/19/24 07/19/24 History lisinopriL [Zestril] 20 mg PO DAILY 07/19/24 07/19/24 History Allergies Allergy/AdvReac Type Severity Reaction Status Date / Time No Known Allergies Allergy Verified 07/19/24 13:34 Physical Examination - Vital Signs Vital Signs: Vital Signs Temp Pulse Pulse Pulse Resp BP BP 07/22/24 10:42 85 07/22/24 07:53 97.8 F 58 L 16 132/65 07/22/24 01:31 97.5 F L 54 L 16 166/79 07/21/24 23:58 97.9 F 07/21/24 20:00 93.0 F L 60 14 151/75 07/21/24 19:58 93.0 F L 60 14 151/75 Pulse Ox 07/22/24 10:42 07/22/24 07:53 97 07/22/24 01:31 97 07/21/24 23:58 07/21/24 20:00 98 07/21/24 19:58 98 Intake and Output 07/22/24 07/22/24 07/22/24 06:59 14:59 22:59 Intake Total 540 Output Total 300 Balance 240 Intake: Oral 540 Output: Urine 300 Other: Voiding Method Urinal Diaper GENERAL: The patient is sitting up in bed and having lunch and is not in acute distress. NEUROLOGICAL: Higher mental function: The patient is awake, alert, oriented to self, place and time. Patient is following commands. No aphasia and no neglect. Cranial nerves: The pupils are round, equal and reactive to light and accommodation. Visual gill are full to confrontation throughout. Extraocular movement is intact no nystagmus is noted. Facial sensation is normal to touch throughout. The facial strength is normal throughout. Hearing is moderately decreased bilaterally to hand rub. Tongue is midline and moved [id number] without any difficulty. No dysarthria is noted. Shoulder shrug is normal bila terally. Motor: The strength is limited in left upper extremity because of old shoulder injury per patient. Otherwise is lifting all extremities above gravity equally. Normal tone and bulk. No resting tremor. Cerebellum: Normal finger to nose bilaterally. Sensation: Sensation is normal to touch throughout. Reflexes (right/left):2+ throughout. Plantars are mute bilaterally. Results - Laboratory Findings CBC and BMP: 07/22/24 07:02 07/22/24 07:02 Abnormal Lab Findings: Abnormal Labs 07/19/24 07/19/24 07/19/24 10:00 10:00 10:00 RBC 3.52 L Hgb 11.5 L Hct 35.2 L MCV MCHC Lymphocytes # (Manual) 0.68 L PT 13.4 H INR 1.3 H VBG pH VBG pCO2 VBG HCO3 Chloride 115 H Carbon Dioxide 19 L BUN 52 H BUN/Creatinine Ratio Glucose 135 H Calcium 7.3 L Total Protein 4.7 L Albumin 2.4 L 07/20/24 07/20/24 07/21/24 09:04 09:04 07:03 RBC 4.00 L 4.02 L Hgb 12.8 L 12.9 L Hct MCV MCHC Lymphocytes # (Manual) PT INR VBG pH VBG pCO2 VBG HCO3 Chloride Carbon Dioxide BUN 55 H BUN/Creatinine Ratio Glucose 105 H Calcium Total Protein Albumin 07/21/24 07/21/24 07/22/24 07:03 15:19 07:02 RBC 4.02 L Hgb 12.6 L Hct MCV 99.3 H MCHC 31.6 L Lymphocytes # (Manual) PT INR VBG pH 7.42 H VBG pCO2 36 L VBG HCO3 23 L Chloride 108 H Carbon Dioxide 21 L BUN 39 H BUN/Creatinine Ratio Glucose Calcium Total Protein Albumin 07/22/24 07:02 RBC Hgb Hct MCV MCHC Lymphocytes # (Manual) PT INR VBG pH VBG pCO2 VBG HCO3 Chloride Carbon Dioxide 21.4 L BUN 28.7 H BUN/Creatinine Ratio 41.00 H Glucose Calcium 8.5 L Total Protein Albumin Assessment and Plan Assessment: This is an 83-year-old gentleman who presented emergency department because of syncopal episode. Seems that the patient was using the restroom and he stated that he just passed out in the bathroom on the toilet but denies any head trauma or falls or being on the floor. Patient denies of any focal weakness. Had 2 CT of the head and on the last CT is reported the patient has a hyperdense focus in the left temporal which seems stable from the initial CT of the head during this hospital admission could be concerning for small hemorrhage. Patient denies of any headache any focal deficit Small Hyperdense lesion over the left temporal rule out bleed and is stable on repeat CT head. Syncopal episode possible vasovagal Bradycardia in the 50s History of Parkinson disease History of reported dementia History of atrial fibrillation on Eliquis History of hypertension History of hyperlipidemia next Plan: I ordered MRI of the brain with and without Had CT of the head that is 2 days apart and the small hyperdense lesion is stable. If patient has any worsening symptoms or headache recommend stopping anticoagulation or antiplatelet and obtain stat CT of the head PT and OT are consult Cardiology is on board and they ordered a 30-day event monitor Will defer the rest of the medical management to primary other special Thank you for the consultation Time with Patient: Aarti than 30
--- NOTE | 2024-07-22 16:22 | P.PN ---
Subjective Interval History: History of present illness: This is a 83-year-old male patient with past medically significant for mild cardiomyopathy, coronary artery disease with previous stenting, Parkinson's disease, vertigo hypertension, hyperlipidemia, history of atrial fibrillation on Eliquis who presented to ER with a chief complaint of passing out. Patient reported that he was using the restroom when he passed out. Patient unable to provide further details. Patient denied any chest pain, palpitations, shortness of breath. Patient denied any fever, chills, cough, nausea, vomiting, abdominal pain, diarrhea, dysuria urgency frequency weakness or numbness of extremities. 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 Patient is afebrile, heart rate 55, respiratory rate 17, saturating 96% on room air, blood pressure 155/68. WBCs 7.0, hemoglobin 12.8, platelet 200. INR 1.3. BMP unremarkable with creatinine 0.84, calcium 8.8. Troponin was negative. EKG showed sinus bradycardia, no acute ST to T wave changes. CT head negative for acute process. Chest x-ray negative for acute process 07/21--- patient was seen and examined today, afebrile, heart rate 58, respiratory rate 18, blood pressure 135/70, saturating 98% on room air. WBC 5.3, hemoglobin 12.9, platelets 166. BMP unremarkable. Blood glucose 95. Patient was more lethargic later in the day, vital stable, repeat CT head, VBG and ammonia ordered, will continue monitor with neurochecks. Neurology consulted. 07/22--patient was seen and examined today. Patient is more awake and alert today. Vital stable, labs unremarkable. Patient CT head yesterday was read as concerning for small hemorrhage, per neuro review CT of the head less likely bleed or infarct. MRI of the brain with and without contrast ordered, holding antiplatelet and anticoagulation for now. Cardiology ordered 30-day event monitor. Echocardiogram showed EF 40 to 45%, mild MR, mild , mild TR. Syncope: Likely vasovagal Presented with syncopal episode, while in the restroom Troponin negative EKG shows sinus bradycardia CT head negative for acute process. Monitor with telemetry Resume home meds Fall precautions PT/OT consult Cardiology consulted--ordered echocardiogram--EF 40 to 45%, mild MR, mild , mild TR, recommended outpatient follow-up, 30-day event monitor ordered. Patient lethargic today, repeat CT head, VBG and ammonia ordered. Neurology consulted Repeat CT headconcerning for possible small hemorrhage, per neurology review less likely bleed or infarct, MRI head with and without contrast ordered. History of coronary artery disease with previous stenting: Ischemic cardiomyopathy: Continue home meds Troponin negative Cardiology consulted--ordered echocardiogram--EF 40 to 45%, mild MR, mild , mild TR, recommended outpatient follow-up, 30-day event monitor ordered. Paroxysmal atrial fibrillation: Monitor with telemetry Currently bradycardic Holding Eliquis Parkinson disease: Continue home meds including Sinemet Hypertension Hyperlipidemia DVT prophylaxis Holding anticoagulation Monitor vital signs and labs Labs and medication were reviewed. Continue same treatment. Further recommendations as per clinical course of the patient PHYSICAL EXAMINATION: GENERAL: The patient is A&O x3, NAD HEENT: EOMI, Sclerae anicteric, Moist Mucous membranes Neck: Supple, Non tender, No JVD PULMONARY: Equal breath souds B/L, No wheezing, No crackles. CARDIOVASCULAR: S1, S2 present. No murmurs, rubs, or gallops. ABDOMEN: Soft, nontender, nondistended, normoactive bowel sounds. No guarding or rebound tenderness. MUSCULOSKELETAL: No edema, No cyanosis. No clubbing. Normal ROM. Intact peripheral pulses. NEUROLOGICAL: CN 2-12 grossly intact. No FND Skin: No Rash REVIEW OF SYSTEMS: CONSTITUTIONAL: No fever or chills. CARDIOVASCULAR: No chest pain, palpitations or syncope. PULMONARY: No shortness of breath, no cough, sore throat. GASTROINTESTINAL: No nausea, vomiting, diarrhea, abdominal pain. : No Dysuria, urgency, frequency. Extremities: No edema. NEUROLOGICAL: No headaches, no weakness, or numbness Dictation was produced using [employer] dictation software. please excuse any grammatical, word or spelling errors. Objective - Vital Signs Vital signs: Vital Signs Temp 97.8 F 07/22/24 07:53 Pulse 85 07/22/24 10:42 Resp 16 07/22/24 07:53 BP 132/65 07/22/24 07:53 Pulse Ox 97 07/22/24 07:53 FiO2 Intake & Output 07/21/24 07/22/2407/22/24 18:59 06:59 18:59 Intake Total 540 540 540 Output Total 300 Balance 540 240 540 Intake: Oral 540 540 540 Output: Urine 300 Other: Voiding Method Urinal Urinal Diaper # Voids 3 2 - Labs CBC & Chem 7: 07/22/24 07:02 07/22/24 07:02 Labs: Abnormal Lab Results - Last 24 Hours (Table) 07/22/24 07/22/24 Range/Units 07:02 07:02 RBC 4.02 L (4.40-5.60) X 10*6/uL Hgb 12.6 L (13.0-17.0) g/dL MCV 99.3 H (80.0-97.0) FL MCHC 31.6 L (32.0-37.0) g/dL Carbon Dioxide 21.4 L (21.6-31.8) mmol/L BUN 28.7 H (9.0-27.0) mg/dL BUN/Creatinine Ratio 41.00 H (12.00-20.00) Ratio Calcium 8.5 L (8.7-10.3) mg/dL
--- NOTE | 2024-07-23 11:39 | P.PN ---
Subjective HISTORY OF PRESENT ILLNESS: This is an 83-year-old male who presented to the hospital with a syncopal episode. Patient examined this morning at the bedside. Patient currently denies any chest pain or pressure. He denies any shortness of breath. Per nursing, patient heart rate did dip down into the 30s last night while sleeping. Heart rates this morning are 50s70s. He is currently on carvedilol 3.125 mg twice [address] of the brain performed yesterday reveals hyperdense focus in the left temporal lobe possibly representing small hemorrhage new from 01/03/2024 and stable from 07/19/2024. Echocardiogram completed revealing ejection f raction 40 to 45%, mild MR, mild , mild TR. 07/23/2024 Patient examined this morning the bedside. Patient currently denies chest pain or pressure. He denies shortness of breath. Vital signs are stable. Blood pressures elevated overnight with systolic [id number] PHYSICAL EXAM: VITAL SIGNS: Reviewed. GENERAL: Well-developed in no acute distress. NECK: Supple. No JVD or thyromegaly LUNGS: Respirations even and unlabored. Lungs essentially clear to auscultation bilaterally. HEART: Regular rate and rhythm. S1 and S2 heard. EXTREMITIES: Normal range of motion. No clubbing or cyanosis. Peripheral pulses intact. No lower extremity edema ASSESSMENT: Syncope Possible small left temporal lobe hemorrhage per brain CT Bradycardia Coronary artery disease History of ischemic cardiomyopathy Paroxysmal atrial fibrillation History of hypertension History of hyperlipidemia History of Parkinson's disease PLAN: Carvedilol discontinued yesterday due to bradycardia Continue telemetry monitoring Continue to hold aspirin and Eliquis due to abnormal CT results. Await further evaluation from neurology. MRI of the brain pending. Increase lisinopril to 20 mg twice a day as blood pressures are on the higher side. Recommend 30 day event monitor at discharge. Event monitor placed this morning. Patient to follow up post discharge with Dr. Rutherford Further recommendations pending patient course Nurse practitioner note has been reviewed by physician. Signing provider agrees with the documented findings, assessment, and plan of care documented by [employer] as a scribe. Objective - Vital Signs Vital signs: Vital Signs Temp 97.4 F L 07/23/24 07:36 Pulse 64 07/23/24 07:36 Resp 16 07/23/24 07:36 BP 133/63 07/23/24 07:36 Pulse Ox 92 L 07/23/24 07:51 FiO2 Intake & Output 07/22/24 07/23/24 07/23/24 18:59 06:59 18:59 Intake Total 1080 240 Output Total 600 200 Balance 4774 -360 -200 Intake: Oral 1080 240 Output: Urine 600 200 Other: Voiding Method Urinal Urinal Urinal Diaper Diaper # Voids 2 - Labs CBC & Chem 7: 07/22/24 07:02 07/22/24 07:02
--- NOTE | 2024-07-23 14:46 | P.PN ---
Subjective Interval History: History of present illness: This is a 83-year-old male patient with past medically significant for mild cardiomyopathy, coronary artery disease with previous stenting, Parkinson's disease, vertigo hypertension, hyperlipidemia, history of atrial fibrillation on Eliquis who presented to ER with a chief complaint of passing out. Patient reported that he was using the restroom when he passed out. Patient unable to provide further details. Patient denied any chest pain, palpitations, shortness of breath. Patient denied any fever, chills, cough, nausea, vomiting, abdominal pain, diarrhea, dysuria urgency frequency weakness or numbness of extremities. 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 Patient is afebrile, heart rate 55, respiratory rate 17, saturating 96% on room air, blood pressure 155/68. WBCs 7.0, hemoglobin 12.8, platelet 200. INR 1.3. BMP unremarkable with creatinine 0.84, calcium 8.8. Troponin was negative. EKG showed sinus bradycardia, no acute ST to T wave changes. CT head negative for acute process. Chest x-ray negative for acute process 07/21--- patient was seen and examined today, afebrile, heart rate 58, respiratory rate 18, blood pressure 135/70, saturating 98% on room air. WBC 5.3, hemoglobin 12.9, platelets 166. BMP unremarkable. Blood glucose 95. Patient was more lethargic later in the day, vital stable, repeat CT head, VBG and ammonia ordered, will continue monitor with neurochecks. Neurology consulted. 07/22--patient was seen and examined today. Patient is more awake and alert today. Vital stable, labs unremarkable. Patient CT head yesterday was read as concerning for small hemorrhage, per neuro review CT of the head less likely bleed or infarct. MRI of the brain with and without contrast ordered, holding antiplatelet and anticoagulation for now. Cardiology ordered 30-day event monitor. Echocardiogram showed EF 40 to 45%, mild MR, mild , mild TR. 07/23--- patient was seen and examined today. Patient feeling better today. at bedside. Labs stable. Vital stable. Cardiology following, Coreg discontinued due to bradycardia, holding aspirin and Eliquis awaiting MRI. Event monitor placed. Neurology following, MRI pending. PT/OT evaluation pending. Syncope: Likely vasovagal Presented with syncopal episode, while in the restroom Troponin negative EKG shows sinus bradycardia CT head negative for acute process. Monitor with telemetry Fall precautions PT/OT consult Cardiology consulted--ordered echocardiogram--EF 40 to 45%, mild MR, mild , mild TR, recommended outpatient follow-up, 30-day event monitor ordered. Patient lethargic today, repeat CT head, VBG and ammonia ordered. Neurology consulted Repeat CT headconcerning for possible small hemorrhage, per neurology review less likely bleed or infarct, MRI head with and without contrast ordered. History of coronary artery disease with previous stenting: Ischemic cardiomyopathy: Continue home meds Troponin negative Cardiology consulted--ordered echocardiogram--EF 40 to 45%, mild MR, mild , mild TR, recommended outpatient follow-up, 30-day event monitor ordered. Coreg discontinued due to bradycardia, lisinopril dose increased. Paroxysmal atrial fibrillation: Monitor with telemetry Currently bradycardic--hold Coreg Holding Eliquis Parkinson disease: Continue home meds including Sinemet Hypertension Hyperlipidemia DVT prophylaxis Holding anticoagulation Monitor vital signs and labs Labs and medication were reviewed. Continue same treatment. Further recommendations as per clinical course of the patient PHYSICAL EXAMINATION: GENERAL: The patient is A&O x3, NAD HEENT: EOMI, Sclerae anicteric, Moist Mucous membranes Neck: Supple, Non tender, No JVD PULMONARY: Equal breath souds B/L, No wheezing, No crackles. CARDIOVASCULAR: S1, S2 present. No murmurs, rubs, or gallops. ABDOMEN: Soft, nontender, nondistended, normoactive bowel sounds. No guarding or rebound tenderness. MUSCULOSKELETAL: No edema, No cyanosis. No clubbing. Normal ROM. Intact peripheral pulses. NEUROLOGICAL: CN 2-12 grossly intact. No FND Skin: No Rash REVIEW OF SYSTEMS: CONSTITUTIONAL: No fever or chills. CARDIOVASCULAR: No chest pain, palpitations or syncope. PULMONARY: No shortness of breath, no cough, sore throat. GASTROINTESTINAL: No nausea, vomiting, diarrhea, abdominal pain. : No Dysuria, urgency, frequency. Extremities: No edema. NEUROLOGICAL: No headaches, no weakness, or numbness Dictation was produced using [employer] software. please excuse any grammatical, word or spelling errors. Objective - Vital Signs Vital signs: Vital Signs Temp 98.1 F 07/23/24 13:24 Pulse 67 07/23/24 13:24 Resp 16 07/23/24 13:24 BP 132/78 07/23/24 13:24 Pulse Ox 98 07/23/24 13:24 FiO2 Intake & Output 07/22/24 07/23/24 07/23/24 18:59 06:59 18:59 Intake Total 1080 240 Output Total 600 350 Balance 1080 -360 -350 Intake: Oral 1080 240 Output: Urine 600 350 Other: Voiding Method Urinal Urinal Urinal Diaper Diaper # Voids 2 1 - Labs CBC & Chem 7: 07/22/24 07:02 07/22/24 07:02
--- NOTE | 2024-07-23 16:58 | P.PN ---
Subjective Progress Note Date: 07/23/24 I am following up with the patient and he feels he is doing well. Denies of any new neurological issues. Still pending MRI of the brain. Objective - Vital Signs Vital signs: Vital Signs Temp 98.1 F 07/23/24 13:24 Pulse 67 07/23/24 13:24 Resp 16 07/23/24 13:24 BP 132/78 07/23/24 13:24 Pulse Ox 98 07/23/24 13:24 FiO2 Intake & Output 07/22/24 07/23/24 07/23/24 18:59 06:59 18:59 Intake Total 1080 240 Output Total 600 350 Balance 1080 -360 -350 Intake: Oral 1080 240 Output: Urine 600 350 Other: Voiding Method Urinal Urinal Urinal Diaper Diaper # Voids 2 1 - Exam GENERAL: The patient is lying in bed and is not in acute distress. NEUROLOGICAL: Higher mental function: The patient is awake, alert, oriented to self, place and time. Patient is following commands. No aphasia and no neglect. Cranial nerves: The pupils are round, equal and reactive to light and accommodation. Visual gill are full to confrontation throughout. Extraocular movement is intact no nystagmus is noted. Facial sensation is normal to touch throughout. The facial strength is normal throughout. Hearing is moderately decreased bilaterally to hand rub. Tongue is midline and moved [id number] without any difficulty. No dysarthria is noted. Shoulder shrug is normal bilaterally. Motor: The strength is lifting all extremities above gravity equally. Normal tone and bulk. No resting tremor. Cerebellum: Normal finger to nose bilaterally. Sensation: Sensation is normal to touch throughout. Some of the workup during this hospital visit consisted of: Orthostatic vital is negative Ammonia level is less than 9 CT of the head is reported as no acute bleed or mass effect. Stable marked generalized atrophy with marked chronic ischemic white matter changes. CT of the head is reported as hyperdense focus in the left temporal lobe possibly representing small hemorrhage new from 01/03/2024 stable from 07/19/2024. Further evaluation with MRI recommended. I personally reviewed the CT of the head on the initial and the repeated and I did see a small lesion but I doubt this is a bleed and does not seem like a stroke unsure if it has calcification. 2D echo was reported as mildly impaired left ventricular function with ejection fraction 40 to 45%. - Labs CBC & Chem 7: 07/22/24 07:02 07/22/24 07:02 Assessment and Plan Assessment: This is an 83-year-old gentleman who presented emergency department because of syncopal episode. Seems that the patient was using the restroom and he stated that he just passed out in the bathroom on the toilet but denies any head trauma or falls or being on the floor. Patient denies of any focal weakness. Had 2 CT of the head and on the last CT is reported the patient has a hyperdense focus in the left temporal which seems stable from the initial CT of the head during this hospital admission could be concerning for small hemorrhage. Patient denies of any headache any focal deficit Small Hyperdense lesion over the left temporal rule out bleed and is stable on repeat CT head. Syncopal episode possible vasovagal Bradycardia in the 50s History of Parkinson disease History of reported dementia History of atrial fibrillation on Eliquis History of hypertension History of hyperlipidemia next Plan: Pending MRI of the brain with and without Had CT of the head that is 2 days apart and the small hyperdense lesion is stable. If patient has any worsening symptoms or headache recommend stopping anticoagulation or antiplatelet and obtain stat CT of the head PT and OT are consult Cardiology is on board and they ordered a 30-day event monitor Will defer the rest of the medical management to primary other special The plan is discussed with patient and primary attending. Time with Patient: Less than 30
[2024-07-23] MEDS: lisinopriL 20 MG TAB PO SCH (20:13)
--- NOTE | 2024-07-24 12:29 | P.PN ---
Subjective Progress Note Date: 07/24/24 HISTORY OF PRESENT ILLNESS: This is an 83-year-old male who presented to the hospital with a syncopal ep isode. Patient examined this morning at the bedside. Patient currently denies any chest pain or pressure. He denies any shortness of breath. Per nursing, patient heart rate did dip down into the 30s last night while sleeping. Heart rates this morning are 50s70s. He is currently on carvedilol 3.125 [address] of the brain performed yesterday reveals hyperdense focus in the left temporal lobe possibly representing small hemorrhage new from 01/03/2024 and stable from 07/19/2024. Echocardiogram completed revealing ejection fraction 40 to 45%, mild MR, mild , mild TR. 07/23/2024 Patient examined this morning the bedside. Patient currently denies chest pain or pressure. He denies shortness of breath. Vital signs are stable. Blood pressures elevated overnight with systolic [id number] 07/24/2024 No new findings on telemetry monitoring. Continues to be in sinus rhythm with heart rates ranging around high 50s to 60s when patient is resting. Patient's heart rate does go up when patient moves. PHYSICAL EXAM: VITAL SIGNS: Reviewed. GENERAL: Well-developed in no acute distress. NECK: Supple. No JVD or thyromegaly LUNGS: Respirations even and unlabored. Lungs essentially clear to auscultation bilaterally. HEART: Regular rate and rhythm. S1 and S2 heard. EXTREMITIES: Normal range of motion. No clubbing or cyanosis. Peripheral pulses intact. No lower extremity edema ASSESSMENT: Syncope Possible small left temporal lobe hemorrhage per brain CT Bradycardia Coronary artery disease History of ischemic cardiomyopathy Paroxysmal atrial fibrillation History of hypertension History of hyperlipidemia History of Parkinson's disease PLAN: Carvedilol discontinued due to bradycardia Patient has got a 30-day event monitor Continue to hold aspirin and Eliquis due to abnormal CT results. Await further evaluation from neurology. MRI of the brain pending. Increase lisinopril to 20 mg twice a day as blood pressures are on the higher side. Patient to follow up post discharge with Dr. Rutherford Further recommendations pending patient course Objective - Vital Signs Vital signs: Vital Signs Temp 97.7 F 07/24/24 07:33 Pulse 80 07/24/24 07:33 Resp 14 07/24/24 07:33 BP 154/91 07/24/24 07:33 Pulse Ox 96 07/24/24 07:33 FiO2 Intake & Output 07/23/24 07/24/24 07/24/24 18:59 06:59 18:59 Intake Total 480 590 Output Total 425 300 Balance 55 290 Intake: Oral 480 590 Output: Urine 425 300 Other: Voiding Method Urinal Urinal # Voids 1 4 - Labs CBC & Chem 7: 07/22/24 07:02 07/22/24 07:02
--- NOTE | 2024-07-24 14:01 | P.PN ---
Subjective Interval History: History of present illness: This is a 83-year-old male patient with past medically significant for mild cardiomyopathy, coronary artery disease with previous stenting, Parkinson's disease, vertigo hypertension, hyperlipidemia, history of atrial fibrillation on Eliquis who presented to ER with a chief complaint of passing out. Patient reported that he was using the restroom when he passed out. Patient unable to provide further details. Patient denied any chest pain, palpitations, shortness of breath. Patient denied any fever, chills, cough, nausea, vomiting, abdominal pain, diarrhea, dysuria urgency frequency weakness or numbness of extremities. 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 Patient is afebrile, heart rate 55, respiratory rate 17, saturating 96% on room air, blood pressure 155/68. WBCs 7.0, hemoglobin 12.8, platelet 200. INR 1.3. BMP unremarkable with creatinine 0.84, calcium 8.8. Troponin was negative. EKG showed sinus bradycardia, no acute ST to T wave changes. CT head negative for acute process. Chest x-ray negative for acute process 07/21--- patient was seen and examined today, afebrile, heart rate 58, respiratory rate 18, blood pressure 135/70, saturating 98% on room air. WBC 5.3, hemoglobin 12.9, platelets 166. BMP unremarkable. Blood glucose 95. Patient was more lethargic later in the day, vital stable, repeat CT head, VBG and ammonia ordered, will continue monitor with neurochecks. Neurology consulted. 07/22--patient was seen and examined today. Patient is more awake and alert today. Vital stable, labs unremarkable. Patient CT head yesterday was read as concerning for small hemorrhage, per neuro review CT of the head less likely bleed or infarct. MRI of the brain with and without contrast ordered, holding antiplatelet and anticoagulation for now. Cardiology ordered 30-day event monitor. Echocardiogram showed EF 40 to 45%, mild MR, mild , mild TR. 07/23--- patient was seen and examined today. Patient feeling better today. at bedside. Labs stable. Vital stable. Cardiology following, Coreg discontinued due to bradycardia, holding aspirin and Eliquis awaiting MRI. Event monitor placed. Neurology following, MRI pending. PT/OT evaluation pending. 07/24/24--patient was seen and examined today. No issues overnight. Vital stable, on room air. WBCs 4.6, hemoglobin 12.6, platelet 182. BMP unremarkable. Coreg discontinued by cardiology due to bradycardia, event monitor in place. MRI pending. PT/OT pending. Lisinopril increased to 20 mg twice daily per cardiology. Syncope: Likely vasovagal Presented with syncopal episode, while in the restroom Troponin negative EKG shows sinus bradycardia-- CT head negative for acute process. Monitor with telemetry Fall precautions PT/OT consult Cardiology consulted--ordered echocardiogram--EF 40 to 45%, mild MR, mild , mild TR, recommended outpatient follow-up, 30-day event monitor ordered. Patient lethargic today, repeat CT head, VBG and ammonia ordered. Neurology consulted Repeat CT headconcerning for possible small hemorrhage, per neurology review less likely bleed or infarct, MRI head with and without contrast ordered. History of coronary artery disease with previous stenting: Ischemic cardiomyopathy: Continue home meds Troponin negative Cardiology consulted--ordered echocardiogram--EF 40 to 45%, mild MR, mild , mild TR, recommended outpatient follow-up, 30-day event monitor ordered. Coreg discontinued due to bradycardia, lisinopril dose increased. Paroxysmal atrial fibrillation: Monitor with telemetry Currently bradycardic--hold Coreg Holding Eliquis Parkinson disease: Continue home meds including Sinemet Hypertension Hyperlipidemia DVT prophylaxis Holding anticoagulation Monitor vital signs and labs Labs and medication were reviewed. Continue same treatment. Further recommendations as per clinical course of the patient PHYSICAL EXAMINATION: GENERAL: The patient is A&O x3, NAD HEENT: EOMI, Sclerae anicteric, Moist Mucous membranes Neck: Supple, Non tender, No JVD PULMONARY: Equal breath souds B/L, No wheezing, No crackles. CARDIOVASCULAR: S1, S2 present. No murmurs, rubs, or gallops. ABDOMEN: Soft, nontender, nondistended, normoactive bowel sounds. No guarding or rebound tenderness. MUSCULOSKELETAL: No edema, No cyanosis. No clubbing. Normal ROM. Intact peripheral pulses. NEUROLOGICAL: CN 2-12 grossly intact. No FND Skin: No Rash REVIEW OF SYSTEMS: CONSTITUTIONAL: No fever or chills. CARDIOVASCULAR: No chest pain, palpitations or syncope. PULMONARY: No shortness of breath, no cough, sore throat. GASTROINTESTINAL: No nausea, vomiting, diarrhea, abdominal pain. : No Dysuria, urgency, frequency. Extremities: No edema. NEUROLOGICAL: No headaches, no weakness, or numbness Dictation was produced using [employer] dictation software. please excuse any grammatical, word or spelling errors. Objective - Vital Signs Vital signs: Vital Signs Temp 97.7 F 07/24/24 07:33 Pulse 80 07/24/24 07:33 Resp 14 07/24/24 07:33 BP 154/91 07/24/24 07:33 Pulse Ox 96 07/24/24 07:33 FiO2 Intake & Output 07/23/24 07/24/24 07/24/24 18:59 06:59 18:59 Intake Total 480 590 Output Total 425 300 Balance 55 290 Intake: Oral 480 590 Output: Urine 425 300 Other: Voiding Method Urinal Urinal # Voids 1 4 - Labs CBC & Chem 7: 07/22/24 07:02 07/22/24 07:02
--- NOTE | 2024-07-25 12:18 | P.PN ---
Subjective HISTORY OF PRESENT ILLNESS: This is an 83-year-old male who presented to the hospital with a syncopal episode. Patient examined this morning at the bedside. Patient currently denies any chest pain or pressure. He denies any shortness of breath. Per nursing, patient heart rate did dip down into the 30s last night while sleeping. Heart rates this morning are 50s70s. He is currently on carvedilol 3.125 mg twice a day[address] of the brain performed yesterday reveals hyperdense focus in the left temporal lobe possibly representing small hemorrhage new from 01/03/2024 and stable from 07/19/2024. Echocardiogram completed revealing ejection f raction 40 to 45%, mild MR, mild , mild TR. 07/23/2024 Patient examined this morning the bedside. Patient currently denies chest pain or pressure. He denies shortness of breath. Vital signs are stable. Blood pressures elevated overnight with systolic [id number] 07/25/2024 Patient examined this morning at the bedside. Patient currently denies chest pain or pressure. She denies shortness of breath. Vital signs are stable. MRI of the brain remains pending. PHYSICAL EXAM: VITAL SIGNS: Reviewed. GENERAL: Well-developed in no acute distress. NECK: Supple. No JVD or thyromegaly LUNGS: Respirations even and unlabored. Lungs essentially clear to auscultation bilaterally. HEART: Regular rate and rhythm. S1 and S2 heard. EXTREMITIES: Normal range of motion. No clubbing or cyanosis. Peripheral pulses intact. No lower extremity edema ASSESSMENT: Syncope Possible small left temporal lobe hemorrhage per brain CT Bradycardia Coronary artery disease History of ischemic cardiomyopathy Paroxysmal atrial fibrillation History of hypertension History of hyperlipidemia History of Parkinson's disease PLAN: Carvedilol discontinued during hospitalization due to bradycardia Continue telemetry monitoring Continue to hold aspirin and Eliquis due to abnormal CT results. Await further evaluation from neurology. MRI of the brain pending. Patient has received 30-day event monitor Patient to follow up post discharge with Dr. Rutherford Further recommendations pending patient course Nurse practitioner note has been reviewed by physician. Signing provider agrees with the documented findings, assessment, and plan of care documented by [employer] as a scribe. Objective - Vital Signs Vital signs: Vital Signs Temp 97.5 F L 07/25/24 07:25 Pulse 53 L 07/25/24 07:25 Resp 16 07/25/24 08:00 BP 133/76 07/25/24 07:25 Pulse Ox 96 07/25/24 07:25 FiO2 Intake & Output 07/24/24 07/25/24 07/25/24 18:59 06:59 18:59 Intake Total 480 590 Output Total 950 Balance -470 590 Intake: Oral 480 590 Output: Urine 950 Other: # Voids 3 - Labs CBC & Chem 7: 07/22/24 07:02 07/22/24 07:02
--- NOTE | 2024-07-25 14:22 | P.PN ---
Subjective Interval History: History of present illness: This is a 83-year-old male patient with past medically significant for mild cardiomyopathy, coronary artery disease with previous stenting, Parkinson's disease, vertigo hypertension, hyperlipidemia, history of atrial fibrillation on Eliquis who presented to ER with a chief complaint of passing out. Patient reported that he was using the restroom when he passed out. Patient unable to provide further details. Patient denied any chest pain, palpitations, shortness of breath. Patient denied any fever, chills, cough, nausea, vomiting, abdominal pain, diarrhea, dysuria urgency frequency weakness or numbness of extremities. 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 Patient is afebrile, heart rate 55, respiratory rate 17, saturating 96% on room air, blood pressure 155/68. WBCs 7.0, hemoglobin 12.8, platelet 200. INR 1.3. BMP unremarkable with creatinine 0.84, calcium 8.8. Troponin was negative. EKG showed sinus bradycardia, no acute ST to T wave changes. CT head negative for acute process. Chest x-ray negative for acute process 07/21--- patient was seen and examined today, afebrile, heart rate 58, respiratory rate 18, blood pressure 135/70, saturating 98% on room air. WBC 5.3, hemoglobin 12.9, platelets 166. BMP unremarkable. Blood glucose 95. Patient was more lethargic later in the day, vital stable, repeat CT head, VBG and ammonia ordered, will continue monitor with neurochecks. Neurology consulted. 07/22--patient was seen and examined today. Patient is more awake and alert today. Vital stable, labs unremarkable. Patient CT head yesterday was read as concerning for small hemorrhage, per neuro review CT of the head less likely bleed or infarct. MRI of the brain with and without contrast ordered, holding antiplatelet and anticoagulation for now. Cardiology ordered 30-day event monitor. Echocardiogram showed EF 40 to 45%, mild MR, mild , mild TR. 07/23--- patient was seen and examined today. Patient feeling better today. at bedside. Labs stable. Vital stable. Cardiology following, Coreg discontinued due to bradycardia, holding aspirin and Eliquis awaiting MRI. Event monitor placed. Neurology following, MRI pending. PT/OT evaluation pending. 07/24/24--patient was seen and examined today. No issues overnight. Vital stable, on room air. WBCs 4.6, hemoglobin 12.6, platelet 182. BMP unremarkable. Coreg discontinued by cardiology due to bradycardia, event monitor in place. MRI pending. PT/OT pending. Lisinopril increased to 20 mg twice daily per cardiology. 07/25/24--patient was seen and examined today. No issues overnight. Vital stable. MRI head pending. PT/OT recommended subacute rehab. Syncope: Likely vasovagal Presented with syncopal episode, while in the restroom Troponin negative EKG shows sinus bradycardia-- CT head negative for acute process. Monitor with telemetry Fall precautions PT/OT consult Cardiology consulted--ordered echocardiogram--EF 40 to 45%, mild MR, mild , mild TR, recommended outpatient follow-up, 30-day event monitor ordered. Patient lethargic today, repeat CT head, VBG and ammonia ordered. Neurology consulted Repeat CT headconcerning for possible small hemorrhage, per neurology review less likely bleed or infarct, MRI head with and without contrast --pending History of coronary artery disease with previous stenting: Ischemic cardiomyopathy: Continue home meds Troponin negative Cardiology consulted--ordered echocardiogram--EF 40 to 45%, mild MR, mild , mild TR, recommended outpatient follow-up, 30-day event monitor ordered. Coreg discontinued due to bradycardia, lisinopril dose increased. Paroxysmal atrial fibrillation: Monitor with telemetry Currently bradycardic--hold Coreg Holding Eliquis Parkinson disease: Continue home meds including Sinemet Hypertension Hyperlipidemia DVT prophylaxis Holding anticoagulation Monitor vital signs and labs Labs and medication were reviewed. Continue same treatment. Further recommendations as per clinical course of the patient PHYSICAL EXAMINATION: GENERAL: The patient is A&O x3, NAD HEENT: EOMI, Sclerae anicteric, Moist Mucous membranes Neck: Supple, Non tender, No JVD PULMONARY: Equal breath souds B/L, No wheezing, No crackles. CARDIOVASCULAR: S1, S2 present. No murmurs, rubs, or gallops. ABDOMEN: Soft, nontender, nondistended, normoactive bowel sounds. No guarding or rebound tenderness. MUSCULOSKELETAL: No edema, No cyanosis. No clubbing. Normal ROM. Intact peripheral pulses. NEUROLOGICAL: CN 2-12 grossly intact. No FND Skin: No Rash REVIEW OF SYSTEMS: CONSTITUTIONAL: No fever or chills. CARDIOVASCULAR: No chest pain, palpitations or syncope. PULMONARY: No shortness of breath, no cough, sore throat. GASTROINTESTINAL: No nausea, vomiting, diarrhea, abdominal pain. : No Dysuria, urgency, frequency. Extremities: No edema. NEUROLOGICAL: No headaches, no weakness, or numbness Dictation was produced using [employer] dictation software. please excuse any grammatical, word or spelling errors. Objective - Vital Signs Vital signs: Vital Signs Temp 97.9 F 07/25/24 12:21 Pulse 83 07/25/24 12:21 Resp 16 07/25/24 12:21 BP 143/88 07/25/24 12:21 Pulse Ox 100 07/25/24 12:21 FiO2 Intake & Output 07/24/24 07/25/24 07/25/24 18:59 06:59 18:59 Intake Total 480 590 240 Output Total 950 Balance -470 590 240 Intake: Oral 480 590 240 Output: Urine 950 Other: # Voids 3 - Labs CBC & Chem 7: 07/22/24 07:02 07/22/24 07:02
--- NOTE | 2024-07-25 15:49 | MR ---
EXAMINATION TYPE: MR brain wo/w con DATE OF EXAM: 07/25/2024 2:52 PM COMPARISON: CT brain 07/21/2024 CLINICAL INDICATION: Male, 83 years old with history of left temporal lesion on ct head, Left tempora l lesion on CT. TECHNIQUE: Multiplanar, multiecho imaging on a 3.0 Elda magnet is performed through the brain. Stud y is performed within 24 hours of arrival to the hospital.Multiplanar, multiecho imaging on a 3.0 Roseann la magnet is performed through the knee. IV Contrast: 8 mL Gadobutrol (None, if empty) FINDINGS: The craniovertebral junction is normal. The pituitary is normal. Diffusion-weighted imaging is performed. There may be some subtle increased signal within the right centrum semiovale adjacent to the right lateral ventricle. Acute ischemic area may be present. Series 303 image 208. There may be a cavernous angioma within the medial temporal lobe, example images series 401 image 15, series 501 image 285. There are extensive areas of blooming artifact on the gradient images. Vascula r malformation patient such as cavernous angiomas, prior subarachnoid hemorrhages are primary etiolog ies in the differential. Periventricular white matter hyperintensities are present on T2 and inversion recovery weighted seque nces likely on the basis of chronic white matter ischemic change. Ventricles and sulci are appropriate for the patient age. Paranasal sinuses are clear. Fluid-filled right mastoid air cells are present. Some mild inferior lef t mastoid air cell fluid may be present. No suspicious enhancing is evident IMPRESSION: 1. 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 2. Multiple additional smaller areas are likely present. 3. Atrophy with chronic appearing periventricular white matter ischemic-type changes. 4. Small focal area of microvascular ischemia may be within the right centrum semiovale on diffusion imaging [facility], , 07/25/2024 3:46 PM
--- NOTE | 2024-07-26 14:45 | P.PN ---
Subjective HISTORY OF PRESENT ILLNESS: This is an 83-year-old male who presented to the hospital with a syncopal episode. Patient examined this morning at the bedside. Patient currently denies any chest pain or pressure. He denies any shortness of breath. Per nursing, patient heart rate did dip down into the 30s last night while sleeping. Heart rates this morning are 50s70s. He is currently on carvedilol 3.125 [address] of the brain performed yesterday reveals hyperdense focus in the left temporal lobe possibly representing small hemorrhage new from 01/03/2024 and stable from 07/19/2024. Echocardiogram completed revealing ejection f raction 40 to 45%, mild MR, mild , mild TR. 07/23/2024 Patient examined this morning the bedside. Patient currently denies chest pain or pressure. He denies shortness of breath. Vital signs are stable. Blood pressures elevated overnight with systolic [id number] 07/25/2024 Patient examined this morning at the bedside. Patient currently denies chest pain or pressure. She denies shortness of breath. Vital signs are stable. MRI of the brain remains pending. 07/26/2024 Patient examined this afternoon at the bedside. Patient denies chest pain or pressure. He denies shortness of breath. MRI completed with no evidence of bleeding. His Eliquis remains on hold. PHYSICAL EXAM: VITAL SIGNS: Reviewed. GENERAL: Well-developed in no acute distress. NECK: Supple. No JVD or thyromegaly LUNGS: Respirations even and unlabored. Lungs essentially clear to auscultation bilaterally. HEART: Regular rate and rhythm. S1 and S2 heard. EXTREMITIES: Normal range of motion. No clubbing or cyanosis. Peripheral pulses intact. No lower extremity edema ASSESSMENT: Syncope Possible small left temporal lobe hemorrhage per brain CT Bradycardia Coronary artery disease History of ischemic cardiomyopathy Paroxysmal atrial fibrillation History of hypertension History of hyperlipidemia History of Parkinson's disease PLAN: Carvedilol discontinued during hospitalization due to bradycardia MRI negative for bleeding. Resume Eliquis and aspirin Patient has received 30-day event monitor Patient is stable from a cardiology perspective with no further inpatient recommendations Patient to follow up post discharge with Dr. Rutherford We will sign off. Please reconsult if needed. Nurse practitioner note has been reviewed by physician. Signing provider agrees with the documented findings, assessment, and plan of care documented by MANAGER ENTRY as a scribe. Objective - Vital Signs Vital signs: Vital Signs Temp 97.6 F 07/26/24 12:12 Pulse 92 07/26/24 12:12 Resp 16 07/26/24 12:12 BP 133/81 07/26/24 12:12 Pulse Ox 95 07/26/24 12:12 FiO2 Intake & Output 07/25/24 07/26/24 07/26/24 18:59 06:59 18:59 Intake Total 240 540 Balance 240 540 Intake: Oral 240 540 Other: Voiding Method Urinal # Voids 5 2 1 - Labs CBC & Chem 7: 07/22/24 07:02 07/22/24 07:02
--- NOTE | 2024-07-26 14:55 | P.PN ---
Subjective Interval History: History of present illness: This is a 83-year-old male patient with past medically significant for mild cardiomyopathy, coronary artery disease with previous stenting, Parkinson's disease, vertigo hypertension, hyperlipidemia, history of atrial fibrillation on Eliquis who presented to ER with a chief complaint of passing out. Patient reported that he was using the restroom when he passed out. Patient unable to provide further details. Patient denied any chest pain, palpitations, shortness of breath. Patient denied any fever, chills, cough, nausea, vomiting, abdominal pain, diarrhea, dysuria urgency frequency weakness or numbness of extremities. 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 Patient is afebrile, heart rate 55, respiratory rate 17, saturating 96% on room air, blood pressure 155/68. WBCs 7.0, hemoglobin 12.8, platelet 200. INR 1.3. BMP unremarkable with creatinine 0.84, calcium 8.8. Troponin was negative. EKG showed sinus bradycardia, no acute ST to T wave changes. CT head negative for acute process. Chest x-ray negative for acute process 07/21--- patient was seen and examined today, afebrile, heart rate 58, respiratory rate 18, blood pressure 135/70, saturating 98% on room air. WBC 5.3, hemoglobin 12.9, platelets 166. BMP unremarkable. Blood glucose 95. Patient was more lethargic later in the day, vital stable, repeat CT head, VBG and ammonia ordered, will continue monitor with neurochecks. Neurology consulted. 07/22--patient was seen and examined today. Patient is more awake and alert today. Vital stable, labs unremarkable. Patient CT head yesterday was read as concerning for small hemorrhage, per neuro review CT of the head less likely bleed or infarct. MRI of the brain with and without contrast ordered, holding antiplatelet and anticoagulation for now. Cardiology ordered 30-day event monitor. Echocardiogram showed EF 40 to 45%, mild MR, mild , mild TR. 07/23--- patient was seen and examined today. Patient feeling better today. at bedside. Labs stable. Vital stable. Cardiology following, Coreg discontinued due to bradycardia, holding aspirin and Eliquis awaiting MRI. Event monitor placed. Neurology following, MRI pending. PT/OT evaluation pending. 07/24/24--patient was seen and examined today. No issues overnight. Vital stable, on room air. WBCs 4.6, hemoglobin 12.6, platelet 182. BMP unremarkable. Coreg discontinued by cardiology due to bradycardia, event monitor in place. MRI pending. PT/OT pending. Lisinopril increased to 20 mg twice daily per cardiology. 07/25/24--patient was seen and examined today. No issues overnight. Vital stable. MRI head pending. PT/OT recommended subacute rehab. 07/26/24--- patient was seen and examined today. No issues overnight. Family at bedside. MRI head done, showed suspected cavernous angioma correlating with prior CT finding, multiple additional smaller areas are likely present, atrophic with chronic appearing periventricular mild ischemic type changes, small focal area of microvascular ischemia in the right centrum semiovale,, negative for acute process. Aspirin and Eliquis resumed. Event monitor in place. Okay to discharge per cardiology, signed off. PT/OT has recommended subacute rehab, discussed with case management, awaiting placement. Syncope: Likely vasovagal Presented with syncopal episode, while in the restroom Troponin negative EKG shows sinus bradycardia-- CT head negative for acute process. Monitor with telemetry Fall precautions PT/OT consult Cardiology consulted--ordered echocardiogram--EF 40 to 45%, mild MR, mild , mild TR, recommended outpatient follow-up, 30-day event monitor ordered. Patient lethargic today, repeat CT head, VBG and ammonia ordered. Neurology consulted Repeat CT headconcerning for possible small hemorrhage, per neurology review less likely bleed or infarct, MRI head with and without contrast --showed suspected cavernous angioma correlating with prior CT finding, multiple additional smaller areas are likely present, atrophic with chronic appearing periventricular mild ischemic type changes, small focal area of microvascular ischemia in the right centrum semiovale,, negative for acute process. History of coronary artery disease with previous stenting: Ischemic cardiomyopathy: Continue home meds Troponin negative Cardiology consulted--ordered echocardiogram--EF 40 to 45%, mild MR, mild , mild TR, recommended outpatient follow-up, 30-day event monitor ordered. Coreg discontinued due to bradycardia, lisinopril dose increased. Paroxysmal atrial fibrillation: Monitor with telemetry Currently bradycardic--hold Coreg Resume Eliquis Parkinson disease: Continue home meds including Sinemet Hypertension Hyperlipidemia DVT prophylaxis Eliquis Monitor vital signs and labs Labs and medication were reviewed. Continue same treatment. Further recommendations as per clinical course of the patient Disposition: Patient awaiting placement to subacute rehab. PHYSICAL EXAMINATION: GENERAL: The patient is A&O x3, NAD HEENT: EOMI, Sclerae anicteric, Moist Mucous membranes Neck: Supple, Non tender, No JVD PULMONARY: Equal breath souds B/L, No wheezing, No crackles. CARDIOVASCULAR: S1, S2 present. No murmurs, rubs, or gallops. ABDOMEN: Soft, nontender, nondistended, normoactive bowel sounds. No guarding or rebound tenderness. MUSCULOSKELETAL: No edema, No cyanosis. No clubbing. Normal ROM. Intact peripheral pulses. NEUROLOGICAL: CN 2-12 grossly intact. No FND Skin: No Rash REVIEW OF SYSTEMS: CONSTITUTIONAL: No fever or chills. CARDIOVASCULAR: No chest pain, palpitations or syncope. PULMONARY: No shortness of breath, no cough, sore throat. GASTROINTESTINAL: No nausea, vomiting, diarrhea, abdominal pain. : No Dysuria, urgency, frequency. Extremities: No edema. NEUROLOGICAL: No headaches, no weakness, or numbness Dictation was produced using [employer] dictation software. please excuse any grammatical, word or spelling errors. Objective - Vital Signs Vital signs: Vital Signs Temp 97.6 F 07/26/24 12:12 Pulse 92 07/26/24 12:12 Resp 16 07/26/24 12:12 BP 133/81 07/26/24 12:12 Pulse Ox 95 07/26/24 12:12 FiO2 Intake & Output 07/25/24 07/26/24 07/26/24 18:59 06:59 18:59 Intake Total 240 540 Balance 240 540 Intake: Oral 240 540 Other: Voiding Method Urinal # Voids 5 2 1 - Labs CBC & Chem 7: 07/22/24 07:02 07/22/24 07:02
[2024-07-26 15:09] VITALS: BMI 22.4
--- NOTE | 2024-07-26 15:32 | P.PN ---
Subjective Progress Note Date: 07/26/24 I am following-up with patient and he feels about the same. No new neurological issues. Objective - Vital Signs Vital signs: Vital Signs Temp 97.6 F 07/26/24 12:12 Pulse 92 07/26/24 12:12 Resp 16 07/26/24 12:12 BP 133/81 07/26/24 12:12 Pulse Ox 95 07/26/24 12:12 FiO2 Intake & Output 07/25/24 07/26/24 07/26/24 18:59 06:59 18:59 Intake Total 240 540 Balance 240 540 Weight 79.379 kg Intake: Oral 240 540 Other: Voiding Method Urinal # Voids 5 2 1 - Exam GENERAL: The patient is lying in bed and is not in acute distress. NEUROLOGICAL: Higher mental function: The patient is awake, alert, oriented to self, place and time. Patient is following commands. No aphasia and no neglect. Cranial nerves: The pupils are round, equal and reactive to light and accommodation. Visual gill are full to confrontation throughout. Extraocular movement is intact no nystagmus is noted. Facial sensation is normal to touch throughout. The facial strength is normal throughout. Hearing is moderately decreased bilaterally to hand rub. Tongue is midline and moved [id number] without any difficulty. No dysarthria is noted. Shoulder shrug is normal bilaterally. Motor: The strength is lifting all extremities above gravity equally. Normal tone and bulk. No resting tremor. Cerebellum: Normal finger to nose bilaterally. Sensation: Sensation is normal to touch throughout. Some of the workup during this hospital visit consisted of: Orthostatic vital is negative Ammonia level is less than 9 CT of the head is reported as no acute bleed or mass effect. Stable marked generalized atrophy with marked chronic ischemic white matter changes. CT of the head is reported as hyperdense focus in the left temporal lobe possibly representing small hemorrhage new from 01/03/2024 stable from 07/19/2024. Further evaluation with MRI recommended. I personally reviewed the CT of the head on the initial and the repeated and I did see a small lesion but I doubt this is a bleed and does not seem like a stroke unsure if it has calcification. 2D echo was reported as mildly impaired left ventricular function with ejection fraction 40 to 45%. - Labs CBC & Chem 7: 07/22/24 07:02 07/22/24 07:02 Assessment and Plan Assessment: This is an 83-year-old gentleman who presented emergency department because of syncopal episode. Seems that the patient was using the restroom and he stated that he just passed out in the bathroom on the toilet but denies any head trauma or falls or being on the floor. Patient denies of any focal weakness. Had 2 CT of the head and on the last CT is reported the patient has a hyperdense focus in the left temporal which seems stable from the initial CT of the head during this hospital admission could be concerning for small hemorrhage. Patient denies of any headache any focal deficit Small Hyperdense lesion over the left temporal and on MRI suspected cavernous angioma. Syncopal episode possible vasovagal Bradycardia in the 50s History of Parkinson disease History of reported dementia History of atrial fibrillation on Eliquis History of hypertension History of hyperlipidemia next Plan: On the MRI it is stated that suspected cavernous angioma correlating with the prior CT finding. I recommend the patient to follow-up with neurosurgeon and as an outpatient for further evaluation There is a questionable small focal area of microvascular ischemia may be within the right centrum semi of valve on the diffusion imaging is reported but I personally reviewed it and I felt was a blooming artifact. Patient is on aspirin 81 mg, Eliquis 2.5 mg twice daily and Lipitor 20 mg PT and OT are consult Cardiology is on board and they ordered a 30-day event monitor Will defer the rest of the medical management to primary other special The plan is discussed with patient and primary attending. There is no further neurological workup. Will sign off. Please reconsult if needed. Time with Patient: Less than 30
[2024-07-26] MEDS: APIXABAN 2.5 MG TABLET PO SCH (20:39)
[2024-07-27] MEDS: ASPIRIN 81 MG PO SCH (09:07)
--- NOTE | 2024-07-27 21:25 | P.PN ---
Subjective Progress Note Date: 07/27/24 This is a pleasant 83-year-old male initially admitted to the hospital with concern for syncopal episode and treated for dehydration. Patient was having episodes of sinus bradycardia his carvedilol has been discontinued and event monitor has been placed with recommendations for 30 days of monitoring with follow-up with cardiology outpatient basis. Patient had an echocardiogram revealing EF of 40 to 45%. He has been cleared by all consultations and is currently pending acceptance and authorization for discharge to [facility] the [place] which will likely be on Monday. Review of Systems Constitutional: Denied any fatigue denied any fever. Cardio vascular: denied any chest pain, palpitations Gastrointestinal: denied any nausea, vomiting, diarrhea Pulmonary: Denied any shortness of breath cough Neurologic denied any new focal deficits All inpatient medications were reviewed and appropriate changes in these medications as dictated in the interval history and assessment and plan. PHYSICAL EXAMINATION: GENERAL: The patient is alert and oriented x3, not in any acute distress. Well developed, well nourished. HEENT: Pupils are round and equally reacting to light. EOMI. No scleral icterus. No conjunctival pallor. Normocephalic, atraumatic. No pharyngeal erythema. No thyromegaly. CARDIOVASCULAR: S1 and S2 present. No murmurs, rubs, or gallops. PULMONARY: Chest is clear to auscultation, no wheezing or crackles. ABDOMEN: Soft, nontender, nondistended, normoactive bowel sounds. No palpable organomegaly. MUSCULOSKELETAL: No joint swelling or deformity. EXTREMITIES: No cyanosis, clubbing, or pedal edema. NEUROLOGICAL: Gross neurological examination did not reveal any focal deficits. SKIN: No rashes. Assessment and plan Syncope: Likely vasovagal Presented with syncopal episode, while in the restroom Troponin negative EKG shows sinus bradycardia-- CT head negative for acute process. Monitor with telemetry Fall precautions PT/OT consult Cardiology consulted--ordered echocardiogram--EF 40 to 45%, mild MR, mild , mild TR, recommended outpatient follow-up, 30-day event monitor ordered. Neurology consulted Repeat CT headconcerning for possible small hemorrhage, per neurology review less likely bleed or infarct, MRI head with and without contrast --showed suspected cavernous angioma correlating with prior CT finding, multiple additional smaller areas are likely present, atrophic with chronic appearing periventricular mild ischemic type changes, small focal area of microvascular ischemia in the right centrum semiovale,, negative for acute process. History of coronary artery disease with previous stenting: Ischemic cardiomyopathy: Continue home meds Troponin negative Cardiology consulted--ordered echocardiogram--EF 40 to 45%, mild MR, mild , mild TR, recommended outpatient follow-up, 30-day event monitor ordered. Coreg discontinued due to bradycardia, lisinopril dose increased. Paroxysmal atrial fibrillation: Monitor with telemetry Currently bradycardic--hold Coreg Resume Eliquis Parkinson disease: Continue home meds including Sinemet Hypertension Hyperlipidemia DVT prophylaxis Eliquis Monitor vital signs and labs Labs and medication were reviewed. Continue same treatment. Further recommendations as per clinical course of the patient Disposition: Patient awaiting placement to subacute rehab. Which will be on Monday to on the [place] insurance authorization acceptance was not available today. The impression and plan of care has been dictated by Cecilia Zurita Nurse Practitioner as directed. Dr. Miguel Ángel MD I have performed a history and physical examination and medical decision making of this patient, discussed the same with the dictator, and agree with the dictators assessment and plan as written, documented as a scribe. Based on total visit time, I have performed more than 50% of this visit. Objective - Vital Signs Vital signs: Vital Signs Temp 97.5 F L 07/27/24 13:00 Pulse 87 07/27/24 13:00 Resp 17 07/27/24 13:00 BP 128/83 07/27/24 13:00 Pulse Ox 97 07/27/24 13:00 FiO2 Intake & Output 07/26/24 07/27/24 07/27/24 18:59 06:59 18:59 Intake Total 240 Output Total 400 Balance 240 -400 Weight 79.379 kg Intake: Oral 240 Output: Urine 400 Other: Voiding Method Urinal Urinal # Voids 2 - Labs CBC & Chem 7: 07/22/24 07:02 07/22/24 07:02 Assessment and Plan Time with Patient: Less than 30
--- NOTE | 2024-07-28 16:12 | P.PN ---
Subjective Progress Note Date: 07/28/24 This is a pleasant 83-year-old male initially admitted to the hospital with concern for syncopal episode and treated for dehydration. Patient was having episodes of sinus bradycardia his carvedilol has been discontinued and event monitor has been placed with recommendations for 30 days of monitoring with follow-up with cardiology outpatient basis. Patient had an echocardiogram revealing EF of 40 to 45%. He has been cleared by all consultations and is currently pending acceptance and authorization for discharge to [facility] on the [place] which will likely be on Monday. 07/28/2023 Patient evaluated in follow-up in the medical floor no acute complaints at this time. He is currently pending accepting at subacute rehab which will likely happen on Monday. He has an event monitor in place. Review of Systems Constitutional: Denied any fatigue denied any fever. Cardio vascular: denied any chest pain, palpitations Gastrointestinal: denied any nausea, vomiting, diarrhea Pulmonary: Denied any shortness of breath cough Neurologic denied any new focal deficits All inpatient medications were reviewed and appropriate changes in these medications as dictated in the interval history and assessment and plan. PHYSICAL EXAMINATION: GENERAL: The patient is alert and oriented x3, not in any acute distress. Well developed, well nourished. HEENT: Pupils are round and equally reacting to light. EOMI. No scleral icterus. No conjunctival pallor. Normocephalic, atraumatic. No pharyngeal erythema. No th yromegaly. CARDIOVASCULAR: S1 and S2 present. No murmurs, rubs, or gallops. PULMONARY: Chest is clear to auscultation, no wheezing or crackles. ABDOMEN: Soft, nontender, nondistended, normoactive bowel sounds. No palpable organomegaly. MUSCULOSKELETAL: No joint swelling or deformity. EXTREMITIES: No cyanosis, clubbing, or pedal edema. NEUROLOGICAL: Gross neurological examination did not reveal any focal deficits. SKIN: No rashes. Assessment and plan Syncope: Likely vasovagal Presented with syncopal episode, while in the restroom Troponin negative EKG shows sinus bradycardia-- CT head negative for acute process. Monitor with telemetry Fall precautions PT/OT consult Cardiology consulted--ordered echocardiogram--EF 40 to 45%, mild MR, mild , mild TR, recommended outpatient follow-up, 30-day event monitor ordered. Neurology consulted Repeat CT headconcerning for possible small hemorrhage, per neurology review less likely bleed or infarct, MRI head with and without contrast --showed suspected cavernous angioma correlating with prior CT finding, multiple additional smaller areas are likely present, atrophic with chronic appearing periventricular mild ischemic type changes, small focal area of microvascular ischemia in the right centrum semiovale,, negative for acute process. History of coronary artery disease with previous stenting: Ischemic cardiomyopathy: Continue home meds Troponin negative Cardiology consulted--ordered echocardiogram--EF 40 to 45%, mild MR, mild , mild TR, recommended outpatient follow-up, 30-day event monitor ordered. Coreg discontinued due to bradycardia, lisinopril dose increased. Paroxysmal atrial fibrillation: Monitor with telemetry Currently bradycardic--hold Coreg Resume Eliquis Parkinson disease: Continue home meds including Sinemet Hypertension Hyperlipidemia DVT prophylaxis Eliquis Monitor vital signs and labs Labs and medication were reviewed. Continue same treatment. Further recommendations as per clinical course of the patient Disposition: Patient awaiting placement to subacute rehab. Which will be on Monday to on the [place] insurance authorization acceptance was not available today. The impression and plan of care has been dictated by Cecilia Zurita Nurse Practitioner as directed. Dr. Miguel Ángel MD I have performed a history and physical examination and medical decision making of this patient, discussed the same with the dictator, and agree with the dictators assessment and plan as written, documented as a scribe. Based on total visit time, I have performed more than 50% of this visit. Objective - Vital Signs Vital signs: Vital Signs Temp 97.7 F 07/28/24 13:24 Pulse 88 07/28/24 13:24 Resp 16 07/28/24 13:24 BP 130/83 07/28/24 13:24 Pulse Ox 100 07/28/24 13:24 FiO2 Intake & Output 07/27/24 07/28/24 07/28/24 18:59 06:59 18:59 Intake Total 680 590 Output Total 400 200 Balance 280 390 Intake: Oral 680 590 Output: Urine 400 200 Other: Voiding Method Urinal Urinal Urinal - Labs CBC & Chem 7: 07/22/24 07:02 07/22/24 07:02 Assessment and Plan Time with Patient: Less than 30
[2024-07-29 07:48] VITALS: BP 127/68; PULSE 69; RESP 20; TEMP 97.2
--- NOTE | 2024-07-29 12:53 | P.DS ---
Providers Date of admission: 07/19/24 13:48 Expected date of discharge: 07/29/24 Attending physician: Sami Arriaga MD Consults: 07/21/24 13:56 Consult Physician Routine Consulting Provider: Rosmery Kemp Consult Reason/Comments: AMS/Parkinson's Do you want consulting provider notified?: Yes Primary care physician: [facility] Course: Discharge diagnosis: Syncope: Likely vasovagal History of coronary artery disease with previous stenting Ischemic cardiomyopathy Paroxysmal defibrillation Hypertension Hyperlipidemia Parkinson disease Hospital course: This is a pleasant 83-year-old male initially admitted to the hospital with concern for syncopal episode and treated for dehydration. Patient was having episodes of sinus bradycardia his carvedilol has been discontinued and event monitor has been placed with recommendations for 30 days of monitoring with follow-up with cardiology outpatient basis. Patient had an echocardiogram revealing EF of 40 to 45%. He has been cleared by all consultations and is currently pending acceptance and authorization for discharge to [facility] [place] which will likely be on Monday. 07/28/2023 Patient evaluated in follow-up in the medical floor no acute complaints at this time. He is currently pending accepting at subacute rehab which will likely happen on Monday. He has an event monitor in place. 07/29/24: Patient seen and examined at bedside today. Vital signs stable. Patient awaiting rehab placement. Patient seen at bedside today and is feeling good and excited about discharge. Patient will be discharged today. Patient is advised to be compliant with medications. Patient is advised to follow-up with PCP in 1-2 days, cardiology in 1 week and neurology in 1 week . Vital signs are reviewed and stable GENERAL: The patient is alert and oriented x3, not in any acute distress. Well developed, well nourished. HEENT: Pupils are round and equally reacting to light. EOMI. No scleral icterus. No conjunctival pallor. Normocephalic, atraumatic. No pharyngeal erythema. No thyromegaly. CARDIOVASCULAR: S1 and S2 present. No murmurs, rubs, or gallops. PULMONARY: Chest is clear to auscultation, no wheezing or crackles. ABDOMEN: Soft, nontender, nondistended, normoactive bowel sounds. No palpable organomegaly. MUSCULOSKELETAL: No joint swelling or deformity. EXTREMITIES: No cyanosis, clubbing, or pedal edema. NEUROLOGICAL: Gross neurological examination did not reveal any focal deficits. SKIN: No rashes. A total of 30 minutes of time were spent preparing this complex discharge summary. Patient was discharged on 07/29/24 at 1300. Patient Condition at Discharge: Stable Plan - Discharge Summary New Discharge Prescriptions: Continue Ubidecarenone [Co Q-10] 100 mg PO HS Omeprazole [PriLOSEC] 20 mg PO SUTUTHSA Rosuvastatin Calcium [Crestor] 10 mg PO MOWEFR Acetaminophen [Tylenol Arthritis] 650 mg PO TID@0800,1400,2000 Aspirin EC [Ecotrin Low Dose] 81 mg PO DAILY Cholecalciferol (Vitamin D3) [Vitamin D3 (50 Mcg = 2000 Iu)] 50 mcg PO DAILY Donepezil HCl [Aricept] 10 mg PO BID Finasteride [Proscar] 5 mg PO DAILY Memantine [Namenda] 5 mg PO DAILY Vit C/E/Zn/Coppr/Lutein/Zeaxan [Preservision Areds 2 Softgel] 2 cap PO DAILY Sennosides [Senokot] 8.6 mg PO BID PRN PRN Reason: Constipation Apixaban [Eliquis] 2.5 mg PO BID Lactulose 10 gm PO DAILY amantadine HCL [Amantadine] 100 mg PO DAILY Meclizine HCl [Antivert] 25 mg PO DAILY Menthol-Zinc Oxide Oint [Calmoseptine Ointment] 1 applic TOPICAL DAILY PRN PRN Reason: Skin Irritation Carbidopa-Levodopa 25-100 mg [Sinemet 25-100 mg] 1 tab PO QID QUEtiapine [SEROquel] 12.5 mg PO HS PRN #30 tab PRN Reason: Agitation Albuterol Sulfate [Ventolin HFA] 2 puff INHALATION RT-Q4H PRN PRN Reason: Bronchospasm Loratadine [Claritin] 10 mg PO DAILY Na Phos,M-B/Na Phos,Di-Ba [Fleet Adult] 133 ml RECTAL DAILY PRN each PRN Reason: Constipation Lactulose 10 gm PO HS PRN PRN Reason: Constipation polyethylene glycoL 3350 [Miralax] 17 gm PO DAILY@1200 lisinopriL [Zestril] 20 mg PO DAILY Discontinued Celecoxib [CeleBREX] 200 mg PO DAILY carvediloL [Coreg] 3.125 mg PO BID-W/MEALS Discharge Medication List Omeprazole [PriLOSEC] 20 mg PO SUTUTHSA 04/21/17 [History] Rosuvastatin Calcium [Crestor] 10 mg PO MOWEFR 04/21/17 [History] Ubidecarenone [Co Q-10] 100 mg PO HS 04/21/17 [History] Acetaminophen [Tylenol Arthritis] 650 mg PO TID@0800,1400,2000 11/25/23 [History] Aspirin EC [Ecotrin Low Dose] 81 mg PO DAILY 11/25/23 [History] Carbidopa-Levodopa 25-100 mg [Sinemet 25-100 mg] 1 tab PO QID 11/25/23 [History] Cholecalciferol (Vitamin D3) [Vitamin D3 (50 Mcg = 2000 Iu)] 50 mcg PO DAILY 11/25/23 [History] Donepezil HCl [Aricept] 10 mg PO BID 11/25/23 [History] Finasteride [Proscar] 5 mg PO DAILY 11/25/23 [History] Memantine [Namenda] 5 mg PO DAILY 11/25/23 [History] Vit C/E/Zn/Coppr/Lutein/Zeaxan [Preservision Areds 2 Softgel] 2 cap PO DAILY 11/25/23 [History] QUEtiapine [SEROquel] 12.5 mg PO HS PRN #30 tab 11/29/23 [Rx] Albuterol Sulfate [Ventolin HFA] 2 puff INHALATION RT-Q4H PRN 12/09/23 [History] Loratadine [Claritin] 10 mg PO DAILY 12/09/23 [History] Na Phos,M-B/Na Phos,Di-Ba [Fleet Adult] 133 ml RECTAL DAILY PRN each 12/10/23 [Rx] Sennosides [Senokot] 8.6 mg PO BID PRN 12/19/23 [History] Apixaban [Eliquis] 2.5 mg PO BID 12/28/23 [History] Lactulose 10 gm PO DAILY 01/03/24 [History] Lactulose 10 gm PO HS PRN 01/03/24 [History] polyethylene glycoL 3350 [Miralax] 17 gm PO DAILY@1200 01/03/24 [History] Meclizine HCl [Antivert] 25 mg PO DAILY 07/19/24 [History] Menthol-Zinc Oxide Oint [Calmoseptine Ointment] 1 applic TOPICAL DAILY PRN 07/19/24 [History] amantadine HCL [Amantadine] 100 mg PO DAILY 07/19/24 [History] lisinopriL [Zestril] 20 mg PO DAILY 07/19/24 [History] Follow up Appointment(s)/Referral(s): Toni Hernandez MD [Primary Care Provider] - 1-2 days Davi Clayton DO [STAFF PHYSICIAN] - 1 Week Rajan Robles MD [STAFF PHYSICIAN] - 1 Week Ambulatory/Diagnostic Orders: Basic Metabolic Panel [LAB.AMB] Location: None Selected Complete Blood Count w/diff [LAB.AMB] Time Frame: 3 Days, Location: None Selected Activity/Diet/Wound Care/Special Instructions: Follow up neurology Event monitor in place to wear for total of 30 days. Discharge Disposition: TRANSFER TO SNF/ECF
== END 2024-07-29 13:13 | DRG 641 ==
LOC: EC 09:24 → 3SCARD 13:48 → 5NMEDONC 07-20 11:30
PROVIDERS: ADMIT Internal Medicine; ATTEND Internal Medicine
DX: E86.0 Dehydration (principal); R55 Syncope and collapse; G20.A1 Parkinson's disease without dyskinesia, without mention of fluctuations; I25.10 Atherosclerotic heart disease of native coronary artery without angina pectoris; I25.5 Ischemic cardiomyopathy; I10 Essential (primary) hypertension; E78.5 Hyperlipidemia, unspecified; R00.1 Bradycardia, unspecified; I48.0 Paroxysmal atrial fibrillation; D18.02 Hemangioma of intracranial structures; M19.90 Unspecified osteoarthritis, unspecified site; F02.80 Dementia in other diseases classified elsewhere, unspecified severity, without behavioral disturbance, psychotic disturbance, mood disturbance, and anxiety; I25.2 Old myocardial infarction; Z79.01 Long term (current) use of anticoagulants; Z95.5 Presence of coronary angioplasty implant and graft; Z79.82 Long term (current) use of aspirin; Z79.1 Long term (current) use of non-steroidal anti-inflammatories (NSAID); Z79.899 Other long term (current) drug therapy; Z87.891 Personal history of nicotine dependence; Z96.651 Presence of right artificial knee joint
CPT/HCPCS: 36415; 70450; 70553; 71046; 80048; 80053; 82140; 82803; 83735; 84484; 85025; 85610; 85730; 93005; 93270; 93306; 94760; 96360; 99285